=== PATIENT | female | born 1955 | race Caucasian/White ===

== ENCOUNTER 2016-11-09 | Outpatient (CLI) | END 2016-11-09 14:36 | disposition short-term general hospital (02) | CPT/HCPCS: A0170; A0425; A0427 ==

== ENCOUNTER 2016-11-09 | Outpatient (CLI) | payer BC | END 2016-11-09 12:46 | disposition home or self-care (01) ==

== ENCOUNTER 2017-01-11 15:30 | Outpatient (CLI) | payer BC | END 2017-01-11 15:31 | disposition home or self-care (01) | DX: I50.9 Heart failure, unspecified (principal); I42.9 Cardiomyopathy, unspecified; N28.9 Disorder of kidney and ureter, unspecified; E27.1 Primary adrenocortical insufficiency; I48.91 Unspecified atrial fibrillation; R53.83 Other fatigue; J32.9 Chronic sinusitis, unspecified; Z95.0 Presence of cardiac pacemaker; I47.2 Ventricular tachycardia; R60.9 Edema, unspecified; K59.00 Constipation, unspecified; K64.9 Unspecified hemorrhoids; Z79.891 Long term (current) use of opiate analgesic; R33.9 Retention of urine, unspecified; G43.909 Migraine, unspecified, not intractable, without status migrainosus; I63.8 Other cerebral infarction; R20.8 Other disturbances of skin sensation; F33.9 Major depressive disorder, recurrent, unspecified; F41.9 Anxiety disorder, unspecified; Z51.5 Encounter for palliative care; R00.2 Palpitations; R13.10 Dysphagia, unspecified ==

== ENCOUNTER 2017-02-13 15:30 | Outpatient (CLI) | payer BC | END 2017-02-13 15:31 | disposition home or self-care (01) | DX: Z51.5 Encounter for palliative care (principal); K59.00 Constipation, unspecified; G89.4 Chronic pain syndrome; I50.9 Heart failure, unspecified; R33.9 Retention of urine, unspecified; J01.90 Acute sinusitis, unspecified; F33.9 Major depressive disorder, recurrent, unspecified; I48.91 Unspecified atrial fibrillation; Z79.51 Long term (current) use of inhaled steroids; Z79.891 Long term (current) use of opiate analgesic; K64.9 Unspecified hemorrhoids; I47.2 Ventricular tachycardia; R60.0 Localized edema ==

== ENCOUNTER 2017-02-14 15:20 | Outpatient (CLI) | payer BC | END 2017-02-14 15:21 | disposition home or self-care (01) | DX: Z79.899 Other long term (current) drug therapy (principal) ==

== ENCOUNTER 2017-03-11 14:00 | Outpatient (CLI) | payer BC | END 2017-03-11 14:01 | disposition home or self-care (01) | DX: L03.032 Cellulitis of left toe (principal) ==

== ENCOUNTER 2017-03-22 15:30 | Outpatient (CLI) | payer BC ==
--- NOTE | 2017-03-25 11:39 | CONSULTATION NOTE ---
DATE OF CONSULTATION: 03/22/2017 00:00:00 REQUESTING PROVIDER: Javier Benavidez M.D. TIME OF VISIT: 1530 to 1630 hours. TOPIC: Followup palliative care consult. The patient is seen in her home setting secondary to considerable and taxing effort for the patient t o leave the home, as well as to evaluate current situation regarding function, symptom management, an d family conferencing. BRIEF HISTORY OF PRESENT ILLNESS: This is a tonja, very complex 61-year-old woman with very extensiv e health history, who has had recurrent hospitalizations and multiple ED visits. She has underlying v entricular tachycardia. She has nonobstructive coronary artery disease. She does have a [employer] DDD PPM placed and did continue to adjust. She continues to present with very high symptom burden, multi ple specialists regarding her multiple comorbidities and high symptom burden. Her cardiac status: She does continue to struggle with her arrhythmias and CHF. She had about 2 or 3 weeks ago increase in fluid retention. It is complicated by her poor renal function, as she has only one functioning kidney. Her other one has been removed secondary to history of renal cancer. Her most recent interrogation per her report continues that show that she has ongoing episodes, the worst one s though are actually when she is asleep. She does have episodes of her less than the threshold of 15 0, where her heart rate goes up to 110-120, which necessitates her to lie down and then she sleeps fo r several hours with these episodes. She reports they are happening in frequency about every 2 days. She almost goes into a syncopal state with that. Currently, she does not show any signs or symptoms o f fluid retention. She does have her torsemide that she is supposed to titrate accordingly. Her curre nt weight is about 145. Her other longstanding issue has been her constipation. She recently had GI workup, which included a CT of the abdomen and pelvis, though without contrast. Findings were mildly dilated stool-filled colo n and small amount of ascites of uncertain significance. Of note, during that time though she did hav e significant lower extremity edema and fluid overload from her heart failure. She is concerned, righ tly so, of this ascites component. We did review, though, the liver. She has no adenopathy and other things that are concerns that would show more of concern as far as malignancy are at this point in ti me not evident. The adjustments of stopping the fiber gummies, decreasing her opioid load and her cur rent regimen, which is MiraLax 1-2 capsules every day along with about 6 equivalents of senna, do tushar ear to keep her going every 2-3 days, but it still remains quite problematic, and now currently she i s having nocturnal stooling which is impacting her sleep. She has had no further acute bleeding. This was attributed to internal hemorrhoids. She is on Xarelto so this could be a likely explanation. Of note, though, is she has no symptoms of adhesions or obstructive symptoms, so if we do need to initia te Relistor, can do this in a safe setting and also has an oral equivalent available now too. Her other symptom includes urinary retention. This is intermittent in nature. It is improved with her bowels moving regularly, but still remains problematic, and she does have a followup with nephrologi st coming up. I do not believe she has followed up with Neurology. Her kidney function has remained stable and not worsening, but continued to have discussions about wa ys to decrease the stress on her kidneys. her creatinine is 1.56, BUN 29, and GFR 34. Her other compr ehensive panel readings are within normal limits. This was done on 03/13/2017. Her other prominent symptom is fatigue. Her rn chronic recently added liothyronine 5 mcg. She morton s not seen much improvement. Her schedule tends to be, she gets up at 9, takes her pills. Her energy level remains quite low. She goes back to bed and then awakens again from 2 to 3, where she has about a 4-5 hour window where she is quite functional and able to engage in activities, and then, unfortun ately, because of the bowel issues she is not sleeping as well, but usually when she is sleeping it i s quite heavy. She has a very poor activity tolerance, but is very much engaged and distracted into h er [employer] garden. Her other ongoing quality of life issue is her pain. She is currently now on methadone 5 mg b.i.d. Sh e is continuing the [place] 3-4 times a day. 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 She has underlying fibromyalgia and migraines. She is down on her gabapentin to 100 mg b.i.d. She does have periods where her pain spikes and is quite excrucia ting and this is most often when she is awakening in the morning. She is due to see her neurologist i n 2 weeks and is considering Botox for her migraines, continues weighing benefits and burdens as far as commitment to these multiple appointments. Unfortunately, she had missed her Neurology appointment because she did have an episode of flu. She continues to have some sinus pressure and swelling, some nasal congestion, but is doing fairly we ll on this overall. She is using her Flonase and other measures. BRIEF SOCIAL HISTORY: She lives at home with her , Jorge, who is her main caregiver, as she adhikari s have increased care needs. She does have her [id number], who is providing more support, some p aid caregiving support, is trying to piece it together as far as concerns about her being alone with her frequent episodes. She has planned a big event in June, renewal of her vows, and is working marquez y much to setting goals to accomplish this in her future. MEDICATION ALLERGIES 1. CLINDAMYCIN. 2. CODEINE. 3. ERYTHROMYCIN. 4. IMITREX. 5. LEVAQUIN. 6. MORPHINE. 7. MONISTAT. 8. RIBOFLAVIN. 9. VANTIN. 10. VESICARE. 11. VIOXX. 12. TAPE ADHESIVE. CURRENT MEDICATION LIST Includes: 1. Levothyroxine 100 mcg. 2. Liothyronine 5 mcg. 3. Methadone 5 mg b.i.d. 4. Seroquel 25 mg at bedtime. 5. Restasis 1 drop b.i.d. 6. Torsemide 20 mg every morning, for greater than 3 pound weight gain second tab. 7. Betamethasone dipropionate 0.05% lotion to lower legs and tops of feet b.i.d. 8. Diclofenac gel 1% three to four times a day to painful joints p.r.n. 9. Refresh tears 0.5% one drop in both eyes daily t.i.d. 10. Calcium with vitamin D chewable 2 tabs daily. 11. Fluticasone propionate 50 mcg nasal spray 1 spray each nostril b.i.d. 12. Gabapentin 100 mg b.i.d. 13. Hydrocortisone 10 mg, 15 mg in the a.m., 5 in the afternoon. 14. Hydroxyzine 25 mg, she is taking 1 tab b.i.d., can use it up to 4 times a day for pruritus. 15. Metoprolol succinate 50 mg tabs 1-1/2 tabs daily. 16. Nutritional supplement vitamin daily. 17. Ondansetron 4 mg tabs, 1 tab 2-3 times daily as needed. 18. Hydrocodone/acetaminophen 5/325 one tab every 6 hours as needed, averaging about 3 a day. 19. Miralax 17 grams 2 doses daily. 20. Probiotic tablet daily. 21. Salmeterol 50 mcg dose 1 puff b.i.d. 22. Sennosides 66 mg total in divided doses. 23. Lubiprostone 24 mcg b.i.d. 24. Xarelto 15 mg daily. REVIEW OF SYSTEMS HEENT: She does have to continue to be real careful with swallowing. She still chokes about once a we ek. She continues to have some mild sinus pressure and allergy symptoms. CARDIOVASCULAR: Continues to have intermittent periods of palpitation with chest discomfort and spell s. These continue to cycle about every other day. RESPIRATORY: Intermittent shortness of breath. She does have increased snoring at bedtime. GASTROINTESTINAL: Currently, her bowels are moving every 2-3 days with some pressure and straining. N o further hemorrhoidal bleeding noted. MUSCULOSKELETAL: She does have intermittent tremors in the left side, increased left side neglect, an d numbness and coldness, very sensitive most intensely in the shoulder, arm, but still left-sided leg discomfort as well. INTEGUMENTARY: She continues to have intermittent pruritus. She has seen a chro. They did tr y and freeze off these unknown growths. They were not biopsied, has not seen any improvement with tho se. She also recently had to have her left toe taken care of as she had severe pain and redness. This is improved now. NEUROLOGIC: She still continues to have cognitive deficits with tracking and memory. PSYCHIATRIC: Please see palliative care discussion. ENDOCRINE: Continues to be followed up with by her rn chronic. I did talk to him after last visi t. He does not believe she has Con[employer]'s, but she does need thyroid cortisol replacement because of l sharonda-term use of prednisone with her asthma. HEMATOLOGIC/IMMUNOLOGIC: Sinus infection is much improved . GENITOURINARY: As noted above. Continued difficulty with urinary retention and does have interstitial cystitis. PHYSICAL EXAMINATION GENERAL APPEARANCE: She is much distressed over her weight gain and fat distribution. Most likely att ributed to her changes in her thyroid and some cushingoid appearance. Does not appear fluid at this p oint in time. EYES: With slight periorbital edema. ENT: Mucous membranes are moist. RESPIRATORY: Her O2 saturations are 96%. Her breath sounds are quite diminished. No crackles, rhonchi , or wheezing. CARDIOVASCULAR: Pulse remains quite irregular at 62, blood pressure 110/64, her temperature was 96.0. ABDOMEN: Remains tender to palpation. Continues to complain of bloating. She does have active bowel t ones. SKIN: She does have multiple skin lesions on the left lower extremity, and they have been scabbing ov er but do not appear to be resolving. She has used multiple different lotions and is working with [employer], does not see much improvement so she is quite discouraged. EXTREMITIES: Currently, she has no lower extremity edema. She does wear her ELIAS hose and keeping her feet up more, with some improvement. PALLIATIVE CARE DISCUSSION: The patient has continued to cycle through multiple specialists, continue s to have multiple symptoms and comorbidities, which common theme is most likely some autonomic dysfu nction. She has a long list again of complex symptoms that continue to plague her. She has really don e a nice job as far as resiliency, trying to reframe, and just focus on being as comfortable as she c an, managing her symptoms, setting some goals, and trying to stay positive. She continues to be fairl y realistic as far as outcomes she is hoping for, but feels quite vulnerable in the context of really no black and white answers. She has set a goal for the summer as far as this event, and is looking f orward to meeting this and continuing to work towards this. It does raise her spirits. IMPRESSION: This is a 61-year-old woman who continues with fragile cardiac status, symptoms related t o her left-sided stroke, central pain syndrome, increasing autonomic neuropathic symptoms of urinary retention, constipation is improved, sweating abnormalities, and difficulty with activity tolerance a nd fatigue. RECOMMENDATIONS/COUNSELING DONE 1. Constipation, much improved. At this point in time her CT abdomen did show no contraindications t o adding Relistor if needed. She has made modifications to her bowel program, including decreasing th e Tums, stopping the fiber, we have decreased the opioid load, she is watching her diet, and it does appear to have improved overall. The pain related to defecating is improved somewhat, though remains quite uncomfortable. 2. Chronic pain syndrome. She has her scheduled Neurology appointment rescheduled. She is hoping for some other interventions as far as managing that left arm and shoulder pain. In weighing benefits an d burdens regarding her current regimen, will continue on the b.i.d. methadone, the intermittent Norc o, and she has been on decreased gabapentin without significant increase in her migraines. She had go tten a call from her neurologist about concerns with the gabapentin and her kidney function in the co ntext of impact on a very small dose. We did discuss we could increase back up her methadone a small amount and decrease her off the gabapentin, but agreed to wait until after her Neurology appointment. 3. Acute on chronic heart failure. She does continue to have intermittent signs and symptoms of CHF, unstable symptoms as far as her heart racing. She has had no further hospitalizations or ED visits, but they continue to impact the quality of her life significantly. Did review when does have the flui d overload, to be sure and use the extra torsemide. 4. Urinary retention. She has longstanding interstitial cystitis. She has not used a self cath, as s he would need assistance doing this. She is going to see a urologist at some point, but is finding it manageable currently. 5. Depression. This does appear somewhat improved. She has been seeing the medical palliative care s ocial worker, as well as she finds it quite therapeutic being involved in her garden and has increase d family support. She has set some goals and is looking forward towards those, so is feeling some mor e sense of meaning in her life. 6. Fatigue. Again, multifactorial in origin. Again, pulling back on different medications really has not impacted this much, but we were able to decrease the Seroquel with 1 tab at night without any im pact on her sleep. Most of her symptoms have been related to being up at night for constipation. We w ill have her take the senna at night to see if that will improve her bowel patterns so she does not h ave to get up at night. Thank you, Dr. Benavidez, for asking the palliative care consult service to be involved in the care of yo ur patient. She does remain quite complex, and we continue to focus on different quality of life issu es regarding her symptom management. She continues to have multiple specialists. I do find, however, that it is helpful to try and pull some of this together and provide her support in the context of co ordinated care. She is quite nervous about the "ascites of unknown significance." We will revisit the appropriateness of a CT of the abdomen again in 6 months if she has not been hospitalized or this morton s not happened in the meantime. TIME SPENT: 60 minutes, with greater than 50% of this done in counseling and coordination of care, re view of her multiple symptoms and comorbidities. We will continue to provide anticipatory guidance an d support through this process. JOB #: [id number] EXT JOB #:[id number]
== END 2017-03-22 15:31 | disposition home or self-care (01) ==
LOC: PC 15:30
PROVIDERS: ATTEND Nurse Practitioner Adult Health
DX: Z51.5 Encounter for palliative care (principal); K59.00 Constipation, unspecified; G89.29 Other chronic pain; I50.9 Heart failure, unspecified; R33.9 Retention of urine, unspecified; F32.9 Major depressive disorder, single episode, unspecified; I47.2 Ventricular tachycardia; I25.10 Atherosclerotic heart disease of native coronary artery without angina pectoris; Z95.0 Presence of cardiac pacemaker; Z90.5 Acquired absence of kidney; Z85.528 Personal history of other malignant neoplasm of kidney; Z79.891 Long term (current) use of opiate analgesic; M79.7 Fibromyalgia; G43.909 Migraine, unspecified, not intractable, without status migrainosus; R09.81 Nasal congestion; R00.2 Palpitations; R06.02 Shortness of breath; L29.9 Pruritus, unspecified; N30.10 Interstitial cystitis (chronic) without hematuria
CPT/HCPCS: 99350

== ENCOUNTER 2017-05-01 11:14 | Outpatient (CLI) | payer BC ==
--- NOTE | 2017-05-01 15:33 | XRAY Report ---
TWO VIEW CHEST: 05/01/2017 CLINICAL INDICATION: Dyspnea. COMPARISON: 04/06/2016. FINDINGS: Frontal and lateral views of the chest demonstrate a normal cardiac silhouette. A left sub clavian pacemaker is stable. The lungs are clear. No effusion or pneumothorax is present. IMPRESSION: STABLE PACEMAKER. NO EVIDENCE OF ACUTE CARDIOPULMONARY DISEASE. JOB #: [id number] EXT JOB #:[id number]
== END 2017-05-01 11:15 | disposition home or self-care (01) ==
LOC: DI.S 11:14
PROVIDERS: ATTEND Nurse Practitioner Adult Health
DX: R06.00 Dyspnea, unspecified (principal); Z95.0 Presence of cardiac pacemaker; Z79.899 Other long term (current) drug therapy
CPT/HCPCS: 36415; 71020; 80053

== ENCOUNTER 2017-05-01 12:33 | Outpatient (CLI) | payer BC ==
[2017-05-01 18:42] LABS: ALBUMIN/GLOBULIN RATIO 1.7 (1.0-2.2); BILIRUBIN,TOTAL 0.7 mg/dL (0.2-1.0); CALCIUM 9.1 mg/dL (8.5-10.3); CREATININE 1.4 mg/dL (0.4-1.0); POTASSIUM 3.8 mmol/L (3.5-5.0); TOTAL PROTEIN 6.3 g/dL (6.7-8.2)
== END 2017-05-01 12:34 | disposition home or self-care (01) ==
LOC: LAB.F 12:33
PROVIDERS: ATTEND Family Medicine
DX: Z79.899 Other long term (current) drug therapy (principal)
CPT/HCPCS: 36415; 80053

== ENCOUNTER 2017-05-17 15:00 | Outpatient (CLI) | payer BC ==
--- NOTE | 2017-05-17 17:59 | PROVIDER PROGRESS NOTE ---
Palliative Care Follow Up - Referral Referring Provider: Dr. Benavidez Time of Visit: [id number] Referral setting: Home (Patient is seen in home setting secondary to taxing and considerable effort to leave the home with severe fatigue, and poor activity tolerance as well as to evaluate / housing counselor family conferencing.) Referral Reason: Constipation - Information Sources Records Reviewed: Old records reviewed History obtained from: Patient, Family (Jorge home for visit) Exam limitations: No limitations - History of Present Illness Update Brief HPI Update: This is a tonja very complex 61 year old woman with an extensive health history , multiple specialists, and ongoing complicated issues. 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 Today she presents with severe constipation, it had improved short term, has been worked up by GI without any etiology other than most likely autonomic dysfunction complicated by opioid use. She get extreme pain when she has to go, did manage to go last night with suppository with some relief but had been over a week. She had changed her routine with recent outing to [place], and attributes this to difficulty, she also continues to struggle with urinary retention complicated by her CHF and toresimide use. Her weight is up greater than 3 pounds to 156 and has needed increased dosing of two tabs, no instruction had been given to max. number of days, requested follow up as concern for kidney function with Dr. Guallpa, is due to see him next week. Patient had increase breathlessness with laying flat, chest xray did not reveal effusions or congestion. Is relieved when sits up and relaxes. Social History - Living Situation Living arrangement: At home Living Situation: With spouse/s.o., With caregiver(s) (DIL providing caregiver support while working for the summer) Medications/Allergies - Medications Home Medications: Ambulatory Orders Medication Instructions Recorded Confirmed Fluticasone [Flonase] 1 spray HAROLDO BID 01/24/16 05/17/17 HYDROcod/ACETAM 5/325 [Vicodin 1 tab PO Q6HR PRN MDD 4 01/24/16 05/17/17 5/325] Polyethylene Glycol 3350 [Miralax] 238 gm PO BID 01/24/16 05/17/17 QUEtiapine [SEROquel] 25 mg PO ACHS 01/24/16 05/17/17 Torsemide 20 mg PO DAILY 01/24/16 05/19/17 Levothyroxine [Synthroid] 1 tab PO DAILY 05/17/17 05/17/17 Liothyronine [Cytomel] 1 tab PO DAILY 05/17/17 05/19/17 Methadone 1 tab PO BID 05/17/17 05/17/17 Rivaroxaban [Xarelto] 1 tab PO DAILY 05/17/17 05/17/17 Calcium Carbonate/Vitamin D3 1 tab PO BID 05/19/17 05/19/17 [Calcium 600-Vit D3 400 Tablet] Carboxymethylcellulose Sodium 1 drops TOP TID 05/19/17 05/19/17 [Refresh Tears] Cyclosporine [Restasis] 1 applic TOP BID 05/19/17 05/19/17 Gabapentin 1 tab PO BID 05/19/17 05/19/17 Hydrocortisone [Cortef] 0.5 tab PO QDDINNER 05/19/17 05/19/17 Hydrocortisone [Cortef] 1.5 tab PO QDBREAKFAST 05/19/17 05/19/17 Hydroxyzine Pamoate 1 tab PO Q6HR PRN MDD 4 05/19/17 05/19/17 Metoprolol Succinate 1.5 tab PO DAILY 05/19/17 05/19/17 Multivitamin [Multiple Vitamins] 1 tab PO DAILY 05/19/17 05/19/17 Ondansetron Odt [Zofran Odt] 1 tab PO Q6HR PRN 05/19/17 05/19/17 Polyethylene Glycol 3350 [Miralax] 34 - 68 gm PO DAILY 05/19/17 05/19/17 Salmeterol Xinafoate [Serevent 1 puffs INH BID 05/19/17 05/19/17 Diskus] Sennosides [Senna Laxative] 6 - 8 tab PO DAILY 05/19/17 05/19/17 - Allergies Allergies/Adverse Reactions: Allergies Allergy/AdvReac Type Severity Reaction Status Date / Time cefpodoxime proxetil * Allergy Unknown Verified 01/24/16 14:08 [From Vantin] clindamycin Allergy Unknown Verified 05/17/17 18:00 codeine Allergy Unknown Verified 01/24/16 14:08 erythromycin base Allergy Unknown Verified 01/24/16 14:08 [Erythromycin Base] levofloxacin [From Levaquin] Allergy Unknown Verified 01/24/16 14:08 rofecoxib [From Vioxx] Allergy Unknown Verified 01/24/16 14:08 sumatriptan [From Imitrex] Allergy Unknown Verified 01/24/16 14:08 sumatriptan succinate * Allergy Unknown Verified 01/24/16 14:08 [From Imitrex] morphine AdvReac Unknown Verified 05/17/17 18:01 Review of Systems - Constitutional Constitutional: reports: Fatigue, Malaise, Weakness, Poor appetite, Night sweats , Weight gain - Eyes Eyes: reports: Irritation, Vision loss - Ears, Nose & Throat Ears, Nose & Throat: reports: Nasal congestion (longstanding hx of sinusitis) - Cardiovascular Cariovascular: reports: Irregular heart rate, Palpitations, Edema, Lightheadedness, Exertional dyspnea, Decr. exercise tolerance, Orthopnea, Other (has had some episodes of hypertension that resulted in spells of "being out of it", stressed with constipation.) - Respiratory Respiratory: reports: SOB at rest, SOB with exertion - Gastrointestinal Gastrointestinal: reports: Abdominal pain, Abdominal distention, Constipation, Change in bowel habits, Bloating, Poor appetite - Genitourinary Genitourinary: reports: Frequency, Urgency, Other (retention, can't go sometimes for hours at night despite feeling like full) - Musculoskeletal Musculoskeletal: reports: Stiffness, Limited range of motion (left side), Muscle weakness - Integumentary Integumentary: reports: Lesions (Dr. Benavidez froze off actinic keratosis, much better result and more comfortable), Dryness, Hair changes (thinning) - Neurological Neurological: reports: General weakness, Headache, Dizziness, Memory problems, Other (epidisodes correlated with irregular heart rhythms) - Psychiatric Psychiatric: reports: Depression (significant feelings of grief and loss), Anxiety - Endocrine Endocrine: reports: Other (hypothyroidsim). denies: Intolerance to cold - Hematologic/Lymphatic Hematologic/Lymphatic: denies: Anemia - All Other Systems All Other Systems: reports: Reviewed and negative Physical Examination - Vital Signs Temperature: 97.4 C Pulse Rate: 53 Respiratory Rate: 16 O2 Saturation: 95 (RA at rest) Blood Pressure: 112/72 - Physical Exam General Appearance: positive: Mild distress, Anxious Eyes Bilateral: positive: Conjunctivae nml. negative: No lid inflammation ENT: positive: Pharynx nml. negative: No signs of dehydration, Purulent nasal drainage Neck: positive: No JVD, Trachea midline Respiratory: positive: Other. negative: Wheezes, Rales, Rhonchi (diminished in bases) Cardiovascular: positive: Regular rate & rhythm Abdomen: positive: Tenderness, Guarding, Abnml bowel sounds (diminished) Skin: positive: Dryness, Other (swallow in color) Extremities: positive: Pedal edema (up to about knees 1 +) Neurologic/Psychiatric: positive: Oriented x3, Depressed mood/affect Palliative Care - POLST Patient has POLST: No Pain: Pain unchanged, Location (left side, hyperalgesia, allodynia, to get EMG to r/o carpal tunnel with neurologist this week. Still with abdominal pain with constipation/urinary retention), Severity (mod/severe), Pattern (left sided pain incapcitating in AM) Drowsiness: Severe (7-10) (patient sleeps solidly through night, only tolerates being up 1-2 hours in am, then up in afternoon until bedtime. c/o severe fatigue and if has spell is back in bed or does too much.) Nausea: None Anxiety: Mild (1-3) Dyspnea: Mild (1-3), Moderate (4-6) (night sweats needs to change gown out) Anorexia: Moderate (4-6) (no appetite, doesn't feel eats much and distressed with weight gain) Insomnia: Sleeps well, Other Constipation: Yes, Opoid induced, Unmanaged Feelings of wellbeing/Perceived Quality of Life: Worsening Performance Status: Patient needs assistance with dressing and toileting related to left sided pain/ weakness. Poor exercise tolerance so unable to particpate much in household tasks. Her "happy place" is gardening so does spend much time with adjustments with her plants. - Palliative Care Discussion: Patient continues to struggle with her ongoing and progressive health problems, feels like she is always waiting for "something" to happen, tries to stay positive, but is influenced by stressors with other family members, father's failing health, and dependency issues. Feels QOL remains impacted particularly be constipation last couple of weeks. Results - Lab Results Lab results reviewed: Yes Impression and Recommendations - Palliative Care Impression: This is a complex 61 year old woman with multiple health problems, currently QOL issues include constipation, weight gain, and depression. Continues to have multiple specialists but feels no definitive plan, feeling vulnerable and distressed. Sets goals and tries to remain positive, caregiving needs currently being met, but high caregiver stress/fatigue noted with . Recommendations/Counseling Done: 1. Constipation, poorly controlled. This has been longstanding with multiple attempts to find adequate program including lactulose, combinations of OTC medications, lubiprsone, enemas, and suppositories. Had found some relief and regularity with Miralax 17 gms 2-3 day, Sennosided 66 gms divided doses up to when varied routine. Counseling and follow up on Relistor for rescue dosing SQ ( probably has decreased absorption with gut edema) called in RX to local pharmacy , will need renal adjustment of 6 mg/sq. Teaching to on administration, had f/u previously with GI no obstruction noted. Will see if needs pre-auth. 2. Depression, multifactorial in complexity. Counseling done to normalize response of stressors/living with serious illnesses. Palliative Care [employer] Player seeing on regular basis, setting goals and trying to spend time in garden in "her happy place". 3. Urinary retention. Patient with multiple specialists, but has know interstitial cystitis in history, recommend consider f/u with urologist. May improve though with better management of constipation. 4. CHF. Patient on day three of increased toresimide, enc. contact Dr. Guallpa for max. dosing Time Spent: 60 minutes with greater than 50% done on counseling regarding constipation, depression, and cardiac status.
== END 2017-05-17 15:01 | disposition home or self-care (01) ==
LOC: PC 15:00
PROVIDERS: ATTEND Nurse Practitioner Adult Health
DX: Z51.5 Encounter for palliative care (principal); K59.00 Constipation, unspecified; F32.9 Major depressive disorder, single episode, unspecified; R33.9 Retention of urine, unspecified; I50.9 Heart failure, unspecified; I25.10 Atherosclerotic heart disease of native coronary artery without angina pectoris; Z95.0 Presence of cardiac pacemaker; R53.1 Weakness; N18.9 Chronic kidney disease, unspecified; R60.9 Edema, unspecified; I63.8 Other cerebral infarction; Z79.891 Long term (current) use of opiate analgesic; R61 Generalized hyperhidrosis; R00.2 Palpitations; R42 Dizziness and giddiness; R06.09 Other forms of dyspnea; R06.01 Orthopnea; R10.9 Unspecified abdominal pain; R14.0 Abdominal distension (gaseous); R63.0 Anorexia; R35.0 Frequency of micturition; F41.9 Anxiety disorder, unspecified; E03.9 Hypothyroidism, unspecified
CPT/HCPCS: 99350

== ENCOUNTER 2017-08-22 08:00 | Outpatient (CLI) | payer BC ==
[2017-08-22 18:01] LABS: CREATININE 1.6 mg/dL (0.4-1.0)
== END 2017-08-22 08:01 | disposition home or self-care (01) ==
LOC: LAB.F 08:00
PROVIDERS: ATTEND Family Medicine
DX: I48.0 Paroxysmal atrial fibrillation (principal); I63.40 Cerebral infarction due to embolism of unspecified cerebral artery
CPT/HCPCS: 36415; 82565

== ENCOUNTER 2017-08-26 09:46 | Outpatient (CLI) | payer BC ==
--- NOTE | 2017-08-28 11:16 | XRAY Report ---
MODIFIED BARIUM SWALLOW: 08/26/2017 COMPARISON: None. INDICATION: Liquid dysphagia. Total fluoroscopy time 1 minute 17 seconds; number of images, 65. FINDINGS/IMPRESSION: No penetration or aspiration was visualized during the exam. Serial thicknesses of barium were administered orally and followed fluoroscopically with the speech p athologist in attendance. Please refer to the Speech report for further details. Thank you for this consultation. JOB #: [id number] EXT JOB #:[id number]
== END 2017-08-26 09:47 | disposition home or self-care (01) ==
LOC: DI 09:46
PROVIDERS: ATTEND Nurse Practitioner Adult Health
DX: R13.10 Dysphagia, unspecified (principal)
CPT/HCPCS: 74230

== ENCOUNTER 2017-09-20 12:43 | Outpatient (CLI) | payer BC ==
[2017-09-20 17:43] LABS: BASOPHILS # (AUTO) 0.1 10^3/uL (0.0-0.1); BASOPHILS % (AUTO) 0.6 %; EOSINOPHILS # (AUTO) 0.1 10^3/uL (0.0-0.7); EOSINOPHILS % (AUTO) 1.5 %; HGB - HEMOGLOBIN 12.4 g/dL (12.0-16.0); LYMPHOCYTES # (AUTO) 1.7 10^3/uL (1.5-3.5); LYMPHOCYTES % (AUTO) 20.6 %; MEAN CORPUSCULAR HGB CONC 32.6 g/dL (32.0-36.0); MEAN CORPUSCULAR VOLUME 88.9 fL (81.0-99.0); MEAN PLATELET VOLUME 8.1 fL (7.9-10.8); MONOCYTES # (AUTO) 0.7 10^3/uL (0.0-1.0); MONOCYTES % (AUTO) 7.9 %; NEUTROPHILS # (AUTO) 5.8 10^3/uL (1.5-6.6); NEUTROPHILS % (AUTO) 69.4 %; NUCLEATED RED BLOOD CELLS AUTO 0.1 /100WBC; RED BLOOD COUNT 4.28 10^6/uL (4.20-5.40); RED CELL DISTRIBUTION WIDTH 14.2 % (12.0-15.0); UNCORRECTED WHITE BLOOD COUNT 8.3 x10^3/uL; WHITE BLOOD COUNT 8.3 x10^3/uL (4.8-10.8)
[2017-09-20 17:51] LABS: ALBUMIN/GLOBULIN RATIO 1.4 (1.0-2.2); BILIRUBIN,TOTAL 0.4 mg/dL (0.2-1.0); CREATININE 1.5 mg/dL (0.4-1.0); TOTAL PROTEIN 6.7 g/dL (6.7-8.2)
== END 2017-09-20 12:44 | disposition home or self-care (01) ==
LOC: LAB.F 12:43
PROVIDERS: ATTEND Family Medicine
DX: N18.9 Chronic kidney disease, unspecified (principal)
CPT/HCPCS: 36415; 80053; 85025

== ENCOUNTER 2017-12-11 16:15 | Outpatient (CLI) | payer BC ==
--- NOTE | 2017-12-11 21:04 | CONSULTATION NOTE ---
Palliative Care Follow Up - Referral Referring Provider: Dr. Jaime Benavidez Time of Visit: [id number] Referral setting: Home (There is a taxing considerable effort for the patient to leave the home secondary to her right leg pain, fatigue, and also to facilitate family conference and support treatment plan) Referral Reason: CHF/Chronic Pain - Information Sources Records reviewed: Previous records reviewed History/Review of Systems obtained from: Patient, Family ( Jorge at visit) Exam limitations: No limitations - History of Present Illness Update Brief HPI Update: This is a tonja 62-year-old woman who is very complex, has multiple specialist , and ongoing complicated issues. She has known AV block status post pacemaker , fascicular V. tach, intermittent atrial fib, and known diastolic heart failure. This is been complicated as far as balancing her medications as she does have stage IV kidney failure, on the precipice of diaysis and awaiting to be put on the transplant list. She has one kidney as a result of surgery for kidney cancer with no evidence of recurrent disease. 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 Patient's most pressing pain issue actually is her right foot, she has had symptoms of severe pain in her right heel ankle area, she was pending a ultrasound and further workup for this but her father became gravely ill and she was providing support as he transitioned into hospice. This is left her fairly emotionally spent, and she physically did participate in his care, she already has fairly high level of underlying fatigue. She does sleep most of the time, this is also attributed to her frequent episodes related to her heart. Social History - Living Situation Living arrangement: At home Living Situation: With spouse/s.o. (Her Jorge is still continuing to work , she does have family that provide intermittent respite, patient does sleep most of the time, but when she has her spells she is fairly incapacitated. He continue to struggle with finding of balance for caregiving.) Medications/Allergies - Medications Home Medications: Ambulatory Orders Medication Instructions Recorded Confirmed Fluticasone [Flonase] 1 spray HAROLDO BID 01/24/16 12/11/17 HYDROcod/ACETAM 5/325 [Vicodin 1 tab PO Q6HR PRN MDD 4 01/24/16 12/11/17 5/325] QUEtiapine [SEROquel] 25 mg PO ACHS 01/24/16 12/11/17 Torsemide 20 mg PO DAILY 01/24/16 12/11/17 Levothyroxine [Synthroid] 100 mg PO DAILY 05/17/17 12/11/17 Methadone 5 mg PO BID 05/17/17 12/11/17 Rivaroxaban [Xarelto] 15 gm PO DAILY 05/17/17 12/11/17 Calcium Carbonate/Vitamin D3 1 tab PO BID 05/19/17 12/11/17 [Calcium 600-Vit D3 400 Tablet] Carboxymethylcellulose Sodium 1 drops TOP TID 05/19/17 12/11/17 [Refresh Tears] Cyclosporine [Restasis] 1 applic TOP BID 05/19/17 12/11/17 Gabapentin 100 mg PO BID 05/19/17 12/11/17 Hydrocortisone [Cortef] 10 tab PO QDBREAKFAST 05/19/17 12/11/17 Metoprolol Succinate 75 mg PO DAILY 05/19/17 12/11/17 Multivitamin [Multiple Vitamins] 1 tab PO DAILY 05/19/17 12/11/17 Ondansetron Odt [Zofran Odt] 1 tab PO Q8HR PRN 05/19/17 12/11/17 Polyethylene Glycol 3350 [Miralax] 17 - 34 gm PO DAILY 05/19/17 12/11/17 Salmeterol Xinafoate [Serevent 1 puffs INH BID 05/19/17 12/11/17 Diskus] hydrOXYzine pamoate [Hydroxyzine 1 tab PO BID MDD 4 05/19/17 12/11/17 Pamoate] raNITIdine [Zantac] 150 mg PO BID 08/16/17 12/11/17 Hydrocortisone [Cortef] 5 mg PO QDDINNER 12/11/17 12/11/17 Lidocaine [Topicaine 5] 1 applic TOP PRN PRN 12/11/17 12/11/17 Liothyronine [Cytomel] 5 mcg PO DAILY 12/11/17 12/11/17 Lubiprostone [Amitiza] 24 mcg PO DAILY 12/11/17 12/11/17 - Allergies Allergies/Adverse Reactions: Allergies Allergy/AdvReac Type Severity Reaction Status Date / Time cefpodoxime proxetil * Allergy Unknown Verified 01/24/16 14:08 [From Vantin] clindamycin Allergy Unknown Verified 05/17/17 18:00 codeine Allergy Unknown Verified 01/24/16 14:08 erythromycin base Allergy Unknown Verified 01/24/16 14:08 [Erythromycin Base] levofloxacin [From Levaquin] Allergy Unknown Verified 01/24/16 14:08 rofecoxib [From Vioxx] Allergy Unknown Verified 01/24/16 14:08 sumatriptan [From Imitrex] Allergy Unknown Verified 01/24/16 14:08 sumatriptan succinate * Allergy Unknown Verified 01/24/16 14:08 [From Imitrex] morphine AdvReac Unknown Verified 05/17/17 18:01 Review of Systems - Constitutional Constitutional: reports: Fatigue (feeling overly spent with of father), Weakness, Night sweats, Weight gain - Eyes Eyes: reports: Vision loss, Corrective lenses - Ears, Nose & Throat Ears, Nose & Throat: reports: Postnasal drainage, Other (difficulty swallowing especially pills) - Cardiovascular Cardiovascular: reports: Palpitations (reports episodes of palpations-lead to dizzyness then sleeping off about 4-5 hours; happens almost daily), Decr. exercise tolerance - Respiratory Respiratory: reports: SOB with exertion - Gastrointestinal Gastrointestinal: reports: Abdominal distention, Constipation (still struggling but some better), Nausea (needing ondansetron about 2 times a day), Reflux/ heartburn, Bloating, Poor appetite, Early satiety - Genitourinary Genitourinary: reports: Dysuria, Other (retention at times) - Musculoskeletal Musculoskeletal: reports: Muscle pain, Back pain, Muscle aches, Stiffness, Limited range of motion (left sided weakness worsened these last couple of weeks ; attributing to stress), Muscle weakness, Assistive devices (uses cane; pain on right foot most limiting factor currently) - Integumentary Integumentary: reports: Rash, Pruritis, Lesions, Dryness, Nail changes, Hair changes - Neurological Neurological: reports: General weakness, Dizziness, Memory problems - Psychiatric Psychiatric: reports: Depression, Anxiety - Endocrine Endocrine: reports: Hypothyroidism - Hematologic/Lymphatic Hematologic/Lymphatic: reports: Anemia - All Other Systems All Other Systems: reports: Reviewed and negative Physical Exam - Vital Signs Temperature: 98.0 C Pulse Rate: 72 Respiratory Rate: 18 O2 Saturation: 95 (ra @ rest) Blood Pressure: 132/78 - Physical Exam General Appearance: positive: Mild distress Eyes Bilateral: positive: Normal inspection ENT: positive: No signs of dehydration Neck: positive: No JVD, Trachea midline, Stiff neck Cardiovascular: positive: Regular rate & rhythm, Systolic murmur Respiratory: positive: Diminished in bases (left greater than right) Abdomen: positive: Soft Skin: positive: Pallor, Dryness, Pruritis, Rash (scattered raised plaques on lower extremities) Extremities: positive: Pedal edema (less than have seen before; trace but right heel/ankle with swelling and pain/tenderness; left toe tender, some redness at base of toenail; no noted redness/swelling in joint) Neurologic/Psychiatric: positive: Oriented x3, Weakness, Depressed mood/affect Palliative Care - POLST Patient has POLST: No Pain: Pain worsening, Location Tiredness/Fatigue: Severe (7-10) (Patient for probably 30% of the day, this has made it difficulty for medication adherence and timing.) Drowsiness/Sedation: Mild (1-3) Nausea: Moderate (4-6) (using ondansetron 1-2 x a day) Depression: Moderate (4-6) (expressing appropriate grief and loss with recent loss of her father) Anxiety: Mild (1-3) Dyspnea: Mild (1-3) Anorexia: Mild (1-3) Sleep: Sleeps well Constipation: Yes, Opoid induced, Unmanaged (Continues to struggle with constipation, most recently had tried L IN Z ESS as from PCP, had stopped this as it had increased her cramping. She uses Amitza 24 mcg daily, MiraLAX, and popcorn for fiber. She still continues to struggle but this has been in and improved overall.) Feelings of wellbeing/Perceived Quality of Life: Poor, Worsening Performance Status: Patient with her right foot pain, left hemiplegia, remains quite limited as far as her ability to get around. She does need a wheelchair for going long distances, she does use walker and cane in the house. She does need assistance getting in and out of bed and dressing. She is quite overwhelmed by her dependence, and her does demonstrate caregiver fatigue - Palliative Care Discussion: Much of the visit was focused on processing her grief around the loss of her father, and family dynamics in the context of stressors and siblings, as well as the process of her father's decline in hospitalization. She is feeling on "sensory overload", continues to have multiple doctors appointments, feeling quite discouraged as most or not improving her quality of life, and sometimes feels like "they are giving up on me". Patient does try to remain positive despite all her deficits and complex issues. Impression and Recommendations - Palliative Care Impression: This is a 62-year-old woman who is quite complex regarding her underlying problems, she presents with high symptom burden, and continue really struggling with her quality of life. This is compounded by the recent loss of her father, and the sequela from this over the last few weeks Recommendations/Counseling Done: 1.Acute on chronic pain. This is multifactorial in origin. She does have central pain syndrome that is currently managed with methadone 5 mg twice daily with hydrocodone 5 mg/325 mg APAP for breakthrough pain. Her most intense pain currently is her right foot pain, this is limiting her ability to bear weight as well as no medications are currently "touching it". She does seem to reschedule her follow-up as far as evaluation with this. We did discuss in the context of moving forward after she has her testing and follow-up with provider , to consider more individualized prosthetics for distributing weight appropriately. She does have an ankle brace but provides only more pressure in that area that increases her pain intensity. 2. Constipation. This is currently well controlled on her current regimen. Will reorder Amitza. Continues to struggle though with both constipation and intermittent urinary retention. 3. Depression. This has been exacerbated by her recent loss of her father, counseling and support provided to normalize this process. Will have lj Kinney the palliative care nephrology social worker revisit her. 4. Advanced care planning. Patient continues to process her poor health, she feels quite fragmented with her multiple specialists and all her complex problems. Continue to provide support and counseling regarding anticipatory guidance No medication changes made at this visit. Time Spent: 60 minutes with greater than 50% of this done in counseling Regarding depression , grief and loss, pain management, and anticipatory guidance
== END 2017-12-11 16:16 | disposition home or self-care (01) ==
LOC: PC 16:15
PROVIDERS: ATTEND Nurse Practitioner Adult Health
DX: Z51.5 Encounter for palliative care (principal); M79.671 Pain in right foot; G89.0 Central pain syndrome; K59.03 Drug induced constipation; T40.2X5D Adverse effect of other opioids, subsequent encounter; F32.9 Major depressive disorder, single episode, unspecified; I48.91 Unspecified atrial fibrillation; I50.9 Heart failure, unspecified; N18.4 Chronic kidney disease, stage 4 (severe); I69.354 Hemiplegia and hemiparesis following cerebral infarction affecting left non-dominant side; Z79.891 Long term (current) use of opiate analgesic; Z79.52 Long term (current) use of systemic steroids; R11.0 Nausea; M62.81 Muscle weakness (generalized); F41.9 Anxiety disorder, unspecified; Z95.0 Presence of cardiac pacemaker
CPT/HCPCS: 99350

== ENCOUNTER 2018-01-24 08:00 | Outpatient (CLI) | payer BC ==
[2018-01-24 18:04] LABS: ALBUMIN 4.2 g/dL (3.2-5.5); ALBUMIN/GLOBULIN RATIO 1.6 (1.0-2.2); BILIRUBIN,TOTAL 0.2 mg/dL (0.2-1.0); CALCIUM 9.1 mg/dL (8.5-10.3); CREATININE 1.5 mg/dL (0.4-1.0); TOTAL PROTEIN 6.8 g/dL (6.7-8.2)
== END 2018-01-24 08:01 | disposition home or self-care (01) ==
LOC: LAB.F 08:00
PROVIDERS: ATTEND Nurse Practitioner Adult Health
DX: Z79.899 Other long term (current) drug therapy (principal)
CPT/HCPCS: 36415; 80053

== ENCOUNTER 2018-02-05 21:04 | Outpatient (CLI) | payer BC ==
--- NOTE | 2018-02-05 21:15 | CONSULTATION NOTE ---
Palliative Care Follow Up - Referral Referring Provider: Dr. Jaime Benavidez Time of Visit: [id number] Referral setting: Home (Patient seen her home setting secondary to a taxing considerable effort for her to leave the home, this is related to pain, as well as to facilitate family conference and support treatment plan) Referral Reason: Depression/CHF/Central Pain Syndrome - Information Sources Records reviewed: Previous records reviewed History/Review of Systems obtained from: Patient, Family (son Jorge at visit) Exam limitations: No limitations - History of Present Illness Update Brief HPI Update: This is a tonja 62-year-old woman has a very complex set of comorbidities, she has 13 specialist, and has multiple complicated issues. She does have known AV block block status post pacemaker, fascicular V. tach, intermittent atrial fib, and known diastolic heart failure. She is also pushing up against the decision regarding dialysis, secondary stage IV kidney failure. Her recent labs does show some stabilization. She also has a long list of autoimmune issues, including irritable bowel syndrome, interstitial cystitis, fibromyalgia, hypothyroidism, and is on hydrocortisone for adrenal insufficiency. 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 Her most significant symptoms are increased in fatigue, she does have intermittent shortness of breath and dizziness, these are often aligned with her cardiac "spells". She is using nitro about twice a week, she does report decreased strength, is using her cane 50% of the time, and is dealing with complex grief issues related to the recent loss of her father. Social History - Living Situation Living arrangement: At home Living Situation: With spouse/s.o. Support System: Daughter and her , moved back on property; able to provide some support. Jorge working closer to home, and able to check more frequently Medications/Allergies - Medications Home Medications: Ambulatory Orders Medication Instructions Recorded Confirmed Fluticasone [Flonase] 1 spray HAROLDO BID 01/24/16 02/05/18 HYDROcod/ACETAM 5/325 [Vicodin 1 tab PO Q6HR PRN MDD 4 01/24/16 02/05/18 5/325] QUEtiapine [SEROquel] 25 mg PO ACHS 01/24/16 02/05/18 Torsemide 20 mg PO DAILY 01/24/16 02/05/18 Levothyroxine [Synthroid] 100 mg PO DAILY 05/17/17 02/05/18 Methadone 5 mg PO BID 05/17/17 02/05/18 Rivaroxaban [Xarelto] 15 gm PO DAILY 05/17/17 02/05/18 Calcium Carbonate/Vitamin D3 1 tab PO BID 05/19/17 02/05/18 [Calcium 600-Vit D3 400 Tablet] Carboxymethylcellulose Sodium 1 drops TOP TID 05/19/17 02/05/18 [Refresh Tears] Cyclosporine [Restasis] 1 applic TOP BID 05/19/17 02/05/18 Gabapentin 100 mg PO BID 05/19/17 02/05/18 Hydrocortisone [Cortef] 10 tab PO QDBREAKFAST 05/19/17 02/05/18 Metoprolol Succinate 75 mg PO DAILY 05/19/17 02/05/18 Multivitamin [Multiple Vitamins] 1 tab PO DAILY 05/19/17 02/05/18 Ondansetron Odt [Zofran Odt] 1 tab PO Q8HR PRN 05/19/17 02/05/18 Polyethylene Glycol 3350 [Miralax] 17 - 34 gm PO DAILY PRN 05/19/17 02/05/18 Salmeterol Xinafoate [Serevent 1 puffs INH BID 05/19/17 02/05/18 Diskus] hydrOXYzine pamoate [Hydroxyzine 1 tab PO BID MDD 4 05/19/17 02/05/18 Pamoate] raNITIdine [Zantac] 150 mg PO BID 08/16/17 02/05/18 Hydrocortisone [Cortef] 5 mg PO QDDINNER 12/11/17 02/05/18 Lidocaine [Topicaine 5] 1 applic TOP PRN PRN 12/11/17 02/05/18 Liothyronine [Cytomel] 5 mcg PO DAILY 12/11/17 02/05/18 Lubiprostone [Amitiza] 24 mcg PO DAILY 12/11/17 02/05/18 Escitalopram [Lexapro] 5 mg PO DAILY 02/06/18 02/06/18 - Allergies Allergies/Adverse Reactions: Allergies Allergy/AdvReac Type Severity Reaction Status Date / Time cefpodoxime proxetil * Allergy Unknown Verified 01/24/16 14:08 [From Vantin] clindamycin Allergy Unknown Verified 05/17/17 18:00 codeine Allergy Unknown Verified 01/24/16 14:08 erythromycin base Allergy Unknown Verified 01/24/16 14:08 [Erythromycin Base] levofloxacin [From Levaquin] Allergy Unknown Verified 01/24/16 14:08 rofecoxib [From Vioxx] Allergy Unknown Verified 01/24/16 14:08 sumatriptan [From Imitrex] Allergy Unknown Verified 01/24/16 14:08 sumatriptan succinate * Allergy Unknown Verified 01/24/16 14:08 [From Imitrex] morphine AdvReac Unknown Verified 05/17/17 18:01 Review of Systems - Constitutional Constitutional: reports: Fatigue (worsening; sleeping about 16 hours day), Poor appetite, Weight gain (very discouraged with weight gain) - Eyes Eyes: reports: Vision loss, Corrective lenses - Ears, Nose & Throat Ears, Nose & Throat: reports: Vertigo, Nasal congestion - Cardiovascular Cardiovascular: reports: Irregular heart rate, Palpitations, Chest pain (using nitro about 2 x a week, with 2 tabs), Edema, Exertional dyspnea, Decr. exercise tolerance - Respiratory Respiratory: reports: SOB at rest, SOB with exertion - Gastrointestinal Gastrointestinal: reports: Constipation (going regularly with current regimen and "popcorn"), Nausea (needing ondansetron at least once a day), Bloating, Poor appetite, Early satiety - Genitourinary Genitourinary: reports: Other (retention at times) - Musculoskeletal Musculoskeletal: reports: Muscle pain, Back pain, Muscle aches, Stiffness (left side), Limited range of motion, Muscle weakness, Assistive devices (needing cane about 50% of time) - Integumentary Integumentary: reports: Pruritis, Lesions (thickened plaques on lower legs;), Dryness, Nail changes - Neurological Neurological: reports: General weakness, Numbness - Psychiatric Psychiatric: reports: Depression (reports worsening), Anxiety, Aggitation. denies: Suicidal - Endocrine Endocrine: reports: Hypothyroidism - Hematologic/Lymphatic Hematologic/Lymphatic: reports: Recurrent infections (recent AB for ingrown toe) - All Other Systems All Other Systems: reports: Reviewed and negative Physical Exam - Vital Signs Temperature: 97.4 C Pulse Rate: 72 Respiratory Rate: 18 O2 Saturation: 92 (ra @ rest) Blood Pressure: 108/62 - Physical Exam General Appearance: positive: Moderate distress Eyes Bilateral: positive: Conjunctivae nml ENT: positive: No signs of dehydration Neck: positive: Trachea midline Cardiovascular: positive: Irregularly irregular Respiratory: positive: Diminished in bases. negative: Wheezes, Rales, Rhonchi Abdomen: positive: Soft, Nml bowel sounds Skin: positive: Pallor, Dryness Extremities: positive: Pedal edema (1+ up to mid calf) Neurologic/Psychiatric: positive: Oriented x3, Weakness, Depressed mood/affect, Flat affect Palliative Care - POLST Patient has POLST: No Pain: Pain worsening, Location (mostly central pain syndrome; left arm/shoulder/ leg pain. Does have baseline fibromyalgia, feet tender and great toenails painful "ingrown" recent AB per Dr. Shaw) Tiredness/Fatigue: Severe (7-10) (has no activity tolerance; finds self sleeping more episodes related to "cardiac"; feels like declining) Drowsiness/Sedation: Mild (1-3) Nausea: Moderate (4-6) (worse in the morning; thought attributed to meds but can happen any time.) Depression: Severe (7-10) (reports persistant depressive symptoms; expressing feelings of grief and loss; found meeting with bereavement counselor helpful; is willing givin the severity of her symptoms to try antidepressant; denies suicidal ideation; reports nightmares from baseline PTSD have started since father's ) Anxiety: Moderate (4-6) (worried about dialysis and consequences related to this if need to move forward) Dyspnea: Moderate (4-6) (intermittent episodes of dyspnea sometimes at night resolved with sitting up; has had intermittent periods in the day uses inhaler) Anorexia: Moderate (4-6) Constipation: Yes, Opoid induced, Managed Feelings of wellbeing/Perceived Quality of Life: Poor, Worsening Performance Status: Patient with decline in functional status, now on cane 50% of the time. Feels would like to focus on getting stronger, had benefited in past from physical therapy, and would like to proceed with starting with Home Health. Needs assistance to get out of bed in AM from as worst time with pain. PPS 60% . - Palliative Care Discussion: Patient's perception is she is having a fluctuating but downward trend, she reports "I am already ", as far as her feelings of grief and loss not only attributed to her father but also to her current functional status and perceived poor quality of life. She remains quite anxious about considering dialysis in the future, given the fact she is fairly fragile both with cardiac and pulmonary status, has not tolerated anesthesia well. She does also jessica in her grandchildren and gardening, goal is to be able to have better endurance and be able to garden again. Results - Lab Results Lab results reviewed: Yes Lab and Imaging Results: Sodium 140; potassium 3.6 summary: BUN 23; creatinine 1.5, GFR 35; alk phos 128 Impression and Recommendations - Palliative Care Impression: This is a 62-year-old woman who remains quite complex regarding her underlying medical problems and comorbidities, as well as presenting with high symptom burden, he continues to struggle finding meaning and quality of life. Discussion at length regarding her underlying depression, is willing to try additional support with medication, is being followed by palliative care long term care social worker, and recent bereavement counseling. Palliative care to continue to follow for symptom management, complex pain syndrome, and psychosocial support. Recommendations/Counseling Done: 1. Depression. Patient also has an exacerbation of her PTSD with increased nightmares at night, she is on baseline Seroquel for this. These have resurfaced after the of her father. Counseling with pharmacist regarding multiple medication interactions, most likely will benefit from an SSRI, will start her on low-dose his salad citalopram at 5 mg. Patient does have multiple medication sensitivities, will see if patient able to tolerate. 2. Acute on chronic pain. This is multifactorial in origin, she does have central pain syndrome currently managed with methadone 5 mg twice daily with hydrocodone 5 mg/325 mg APAP for breakthrough pain she is averaging about 3 a day. She does have intermittent neuropathic pain, headache pain, and recently treated for her ingrown toenails which had also increased her pain. Currently no changes recommended for her pain regimen, though she continues to struggle with this. In treating depression this may improve, as well as recommending physical therapy. Complaining of left breast pain, has appointment with ob gyn physician assistant/ob as had fibrous pain in past, denies mass or s/s infection. 3. Constipation. Currently this is actually been well controlled, she is taking her meds 1-2 a day, she does use "popcorn" which adds to her fiber and feels this is improved as well. 4. Cardiac issues. Patient continues with intermittent chest discomfort, this is responding to nitro at this point in time, she is following up with her adolescent medicine specialist in the future, instructed to call if she is using it more than 2 times a week, may need to be on a long-acting medication. She continues to have her "spells", which require her to return to bed, and sit down. She often has to sleep this off. Time Spent: 60 minutes with greater than 50% of this done in counseling and coordination of care regarding review of current care plan, patient had canceled all specialist appointments that she was feeling overwhelmed. Encouraged to prioritize including follow-up with adolescent medicine specialist and glass products inspector. Counseling regarding pain and symptom management and addressing depressive symptoms.
== END 2018-02-05 21:05 | disposition home or self-care (01) ==
LOC: PC 21:04
PROVIDERS: ATTEND Nurse Practitioner Adult Health
DX: Z51.5 Encounter for palliative care (principal); F32.9 Major depressive disorder, single episode, unspecified; G89.0 Central pain syndrome; K59.03 Drug induced constipation; T40.2X5D Adverse effect of other opioids, subsequent encounter; Z79.891 Long term (current) use of opiate analgesic; Z95.0 Presence of cardiac pacemaker; I50.30 Unspecified diastolic (congestive) heart failure; N18.4 Chronic kidney disease, stage 4 (severe); I69.954 Hemiplegia and hemiparesis following unspecified cerebrovascular disease affecting left non-dominant side; M62.81 Muscle weakness (generalized); R11.0 Nausea; F41.9 Anxiety disorder, unspecified; F43.10 Post-traumatic stress disorder, unspecified
CPT/HCPCS: 99350

== ENCOUNTER 2018-02-12 17:30 | Outpatient (CLI) | payer BC | END 2018-02-12 17:31 | disposition home or self-care (01) | LOC: LAB.R 17:30 | PROVIDERS: ATTEND Podiatrist | DX: L03.032 Cellulitis of left toe (principal) | CPT/HCPCS: 87070; 87205 ==

== ENCOUNTER 2018-03-12 16:15 | Outpatient (CLI) | payer BC ==
--- NOTE | 2018-03-12 19:13 | CONSULTATION NOTE ---
Palliative Care Follow Up - Referral Referring Provider: Dr. Jaime Benavidez Time of Visit: [id number] Referral setting: Home (Patient seen in her home setting secondary to a taxing considerable effort for the patient leave the home, prolonged counseling and support provided as well as able to adjust treatment plan with family conference ) Referral Reason: Acute on Chronic Pain/Depression/Fatigue/CHF - Information Sources Records reviewed: Previous records reviewed History/Review of Systems obtained from: Patient, Family ( Pete at visit; daughter Alvin joined at beginning) Exam limitations: Clinical condition (Patient with significant distress/ mild STM issues) - History of Present Illness Update Brief HPI Update: This is a tonja 62-year-old woman with a very complex set of comorbidities, she has no less than 13 specialist and a long list of complicated issues. Of most concern she does have known AV block status post pacemaker, fascicular V. tach, intermittent atrial fib, and known diastolic heart failure. She has recently seen her booster pump operator, at this point in time her GFR is 34, does not feel that she is at risk currently for needs for dialysis or kidney transplant, but was quite distressed regarding lack of information provided. She also has a long list of autoimmune issues including irritable bowel syndrome, interstitial cystitis, fibromyalgia, hypothyroidism, and adrenal insufficiency. She reports the most significant changes have been her overwhelming feeling of fatigue, the fact she is sleeping probably is 60-75% of the day, she almost had to call 911 yesterday secondary to severe episode of her "V. tach, feeling very short of breath, her episodes now include chest pain and chest discomfort with radiating up left side of neck, and her blood pressure dropped to 80/40, and it was a long period of time before she recovered. These episodes leave her fairly spent, and with less energy. She also presents with new left swelling above the clavicular, is soft, no masses felt, and appears more lymphedema in nature, but is of concern for her. As she rescheduled her ultrasound to next Saturday. 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 She is currently managed on methadone 5 mg twice daily and supplemented with hydrocodone up to 3 tabs a day. And patient decided not to initiate treatment for her depression, so did not start the Lexapro, she is quite overwhelmed with her pills, and her lack of quality of life currently. Social History - Living Situation Living arrangement: At home Living Situation: With spouse/s.o. (Has been works full-time, patient at home for long periods of time without support. She did previously had caregiver including family, as she finds herself quite isolated. They have hired caregivers in the past, patient is sleeping longer periods of time. Her daughter and her are on the property, do provide some support but is a challenging care situation. attempts oversee care, patient with multiple specialists, patient can be very resistant and provides many barriers as far as able to follow through, also she is sleeping for significant periods of time which makes meeting her care needs challenging) Medications/Allergies - Medications Home Medications: Ambulatory Orders Medication Instructions Recorded Confirmed Fluticasone [Flonase] 1 spray HAROLDO BID 01/24/16 03/12/18 HYDROcod/ACETAM 5/325 [Vicodin 1 tab PO Q6HR PRN MDD 4 01/24/16 03/12/18 5/325] QUEtiapine [SEROquel] 25 mg PO ACHS 01/24/16 03/12/18 Torsemide 20 mg PO DAILY MDD and prn 01/24/16 03/12/18 Levothyroxine [Synthroid] 100 mg PO DAILY 05/17/17 03/12/18 Methadone 5 mg PO BID 05/17/17 03/12/18 Rivaroxaban [Xarelto] 15 gm PO DAILY 05/17/17 03/12/18 Calcium Carbonate/Vitamin D3 1 tab PO BID 05/19/17 03/12/18 [Calcium 600-Vit D3 400 Tablet] Carboxymethylcellulose Sodium 1 drops TOP TID 05/19/17 03/12/18 [Refresh Tears] Cyclosporine [Restasis] 1 applic TOP BID 05/19/17 03/12/18 Gabapentin 100 mg PO BID 05/19/17 03/12/18 Hydrocortisone [Cortef] 10 tab PO QDBREAKFAST 05/19/17 03/12/18 Metoprolol Succinate 75 mg PO DAILY 05/19/17 03/12/18 Multivitamin [Multiple Vitamins] 1 tab PO DAILY 05/19/17 03/12/18 Ondansetron Odt [Zofran Odt] 1 tab PO Q8HR PRN 05/19/17 03/12/18 Polyethylene Glycol 3350 [Miralax] 17 - 34 gm PO DAILY PRN 05/19/17 03/12/18 Salmeterol Xinafoate [Serevent 1 puffs INH BID 05/19/17 03/12/18 Diskus] hydrOXYzine pamoate [Hydroxyzine 1 tab PO BID MDD 4 05/19/17 03/12/18 Pamoate] raNITIdine [Zantac] 150 mg PO BID 08/16/17 03/12/18 Hydrocortisone [Cortef] 5 mg PO QDDINNER 12/11/17 03/12/18 Lidocaine [Topicaine 5] 1 applic TOP PRN PRN 12/11/17 03/12/18 Liothyronine [Cytomel] 5 mcg PO DAILY 12/11/17 03/12/18 Lubiprostone [Amitiza] 24 mcg PO DAILY 12/11/17 03/12/18 Nitroglycerin [Nitrostat] 0.4 mg SL Q5MIN PRN 03/12/18 03/12/18 - Allergies Allergies/Adverse Reactions: Allergies Allergy/AdvReac Type Severity Reaction Status Date / Time cefpodoxime proxetil * Allergy Unknown Verified 01/24/16 14:08 [From Vantin] clindamycin Allergy Unknown Verified 05/17/17 18:00 codeine Allergy Unknown Verified 01/24/16 14:08 erythromycin base Allergy Unknown Verified 01/24/16 14:08 [Erythromycin Base] levofloxacin [From Levaquin] Allergy Unknown Verified 01/24/16 14:08 rofecoxib [From Vioxx] Allergy Unknown Verified 01/24/16 14:08 sumatriptan [From Imitrex] Allergy Unknown Verified 01/24/16 14:08 sumatriptan succinate * Allergy Unknown Verified 01/24/16 14:08 [From Imitrex] morphine AdvReac Unknown Verified 05/17/17 18:01 Review of Systems - Constitutional Constitutional: reports: Fatigue (reports significantly worsening; sleeping most of day; rhythm up late afternoon to midnight), Chills (occasionally with exertion), Weakness, Poor appetite, Diaphoresis (with activity), Weight gain. denies: Fever - Eyes Eyes: reports: Vision loss, Corrective lenses - Ears, Nose & Throat Ears, Nose & Throat: reports: Vertigo, Nasal congestion (more difficulty with pollen count), Other (new swelling left side of neck; scheduled for US on next Saturday;) - Cardiovascular Cardiovascular: reports: Irregular heart rate, Palpitations, Chest pain ( Patient continues to have episodes of rapid ventricular tachycardia, where her blood pressure drops severely, yesterday she did have an episode with chest pain that radiated up of left side of her jaw, her blood pressure was 80/40, this was prolonged, she did feel short of breath and difficulty with breathing. They almost called 911, the patient eventually recovered but slept most of the day), Lightheadedness, Exertional dyspnea, Decr. exercise tolerance - Respiratory Respiratory: reports: Orthopnea (awakens at times with severe shortness of breath), SOB at rest, SOB with exertion - Gastrointestinal Gastrointestinal: reports: Abdominal distention, Constipation (controlled on current regimen), Nausea (frequent; most often with pills and at bedtime; uses ondansetron at bedtime for abdominal pain), Reflux/heartburn, Bloating, Poor appetite, Early satiety - Genitourinary Genitourinary: reports: Dysuria (intermittent;), Frequency, Urgency (fluctuates) , Other (tenderness and perceived lump left breast; too painful for exam; has appt 04/09) - Musculoskeletal Musculoskeletal: reports: Muscle pain, Stiffness, Limited range of motion (left side hemiplegia;), Muscle weakness, Assistive devices (uses cane in house; working with PT is progressing ambulation) - Integumentary Integumentary: reports: Rash (worsening on LE), Pruritis (worsening was mostly LE now face/UE), Lesions (raised plaques on LE; recent removal of toe nail;), Dryness - Neurological Neurological: reports: General weakness, Dizziness, Memory problems (increased difficulty concentrating; episodic confusion; unable to identify pattern but worsens with fatigue) - Psychiatric Psychiatric: reports: Depression (patient with depressive symptoms; chose not to start antidepressant did not want another pill; has grief counselor coming), Anxiety (worried about possible dialysis; continued decline), Aggitation (very irritable; at times irrational but overwhelmed with continued decline) - Endocrine Endocrine: reports: Hypothyroidism (recent tsh 0.63; free t4 1.0) - All Other Systems All Other Systems: reports: Reviewed and negative Physical Exam - Vital Signs Temperature: 97.5 C Pulse Rate: 90 Respiratory Rate: 18 O2 Saturation: 95 (ra @ rest) Blood Pressure: 124/72 - Physical Exam General Appearance: positive: Moderate distress, Anxious Eyes Bilateral: positive: Normal inspection, No scleral icterus ENT: positive: No signs of dehydration Neck: positive: No JVD, Trachea midline, Lymphadenopathy (R) (noted nodes and tenderness on exam), Other (soft swelling above left clavicle; no masses appreciated; swelling extends up into left neck;) Respiratory: positive: Breath sounds nml Abdomen: positive: Non-tender, Soft, Nml bowel sounds, Distended. 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 Was feeling quite overwhelmed by her long list of maladies, and poor quality of life) Dyspnea: Moderate (4-6) (Patient does have shortness of breath, she feels quite tight in her chest, with increased trouble taking deep breaths, is relieved with sitting up worsening by laying down, suspect some orthopnea. Has not been using torsemide for increased signs or symptoms of fluid overload at this point. Discussion ensued) Anorexia: Moderate (4-6) (Patient tolerates very little as far as things that are appealing to eat, she does tend to eat janet crackers and popcorn, recently saw her PCP as well as quite distressed by the conversation regarding weight gain and a ways to consider modifying her diet diet for weight loss.) Sleep: Sleeps well Constipation: Yes, Opoid induced, Managed Feelings of wellbeing/Perceived Quality of Life: Poor, Worsening Performance Status: Patient is very dependent on in getting her up in the morning, assisting with dressing, and all ADLs. She is been working for physical therapy to increase her endurance and improve her ambulation. She is actually quite committed to this and is making progress, though it does exacerbate her pain - Palliative Care Discussion: Patient expresses normal feelings of grief and loss regarding recent loss of her father, she is working with bereavement counselor. Patient is feeling overwhelmed and irritable regarding lack of perceived support for medical system , that all of them are "giving up on me", and I am to "complex", she has a long list of issues that are complicated for her and continues to parse out to specialist, with very little satisfaction of results. She perceives her quality of life is very poor, she is quite frightened she is going to have a sudden event, also struggles as far as how best to support her in her misery and distress, as well as concern about her "spells" worried that she may indeed pass 1 of these times. Results - Lab Results Lab results reviewed: Yes Impression and Recommendations - Palliative Care Impression: This is a 62-year-old woman with multiple underlying medical problems and comorbidities, as well as presenting with high symptom burden, continuing to struggle to find meaning and quality of life. Patient is chosen not to move forward with treatment pharmacologically for her depression which seems carroll in the constellation. Palatal care to provide support for symptom management, and coordination of care, as well as setting priorities. Recommendations/Counseling Done: 1. Depression. Patient declined to start Lexapro, did not want to add 1 more pill, she has been quite resistant in the past pharmacologic management of her depression. She is seen the palliative care outreach and education social worker, does not want to see a psychiatrist, continues to struggle with some PTSD symptoms with nightmares at night. Patient does seem to have persistent depression and perseverating behaviors today. 2. Acute on chronic pain. This is multifactorial in origin, she does have acute pain in her right heel, she has central pain syndrome on her left side, is currently treated with methadone 5 mg twice daily and hydrocodone up to 3 times a day. As well as her gabapentin 100 mg twice daily for migraines. Approached possibly titrating back to see if this would help with some of her fatigue, she actually perceives her pain is worsening and has been on these medications long-term does not see these as adding to the problem. 3. Pruritus. Patient does report exacerbation of pruritus, reports at this point in time she has significant itching in her face, manages is just rubbing. She is on hydroxyzine 3 times a day with some relief. Again she has been on this long-term, certainly can be adding to her fatigue. Her lower extremity edema as she does have rash and lesions. Will have her start with some serrated a wash and lotion to see if this will assist, she has been instructed to stop the Neosporin. 4 Weight gain. This is obviously a sensitive subject for her, she was quite distressed with her PCP at the suggestion she is eating too much. We did thorough review some of her dietary intake, and looked at ways she could modify her caloric intake, she was in agreement to make some small changes. 5. Fatigue. This continues to be quite problematic for patient, it is multifactorial in origin, most likely physical, emotional, as well as side effects from medications. No am concerned her cardiac status does seem to be worsening per her description and spells of frequent and do include chest pain. 6. Chest pain. She has been using more nitro, her spells are becoming more severe with more downtime after. She is supposed to be seen her rib sawyer, she continues to cancel appointments because of fatigue and feeling overwhelmed , reports she needs an ECHO prior to follow-up with Dr. Freire, will see if can facilitate this in conjunction with her ultrasound. Time Spent: 45 minutes with greater than 50% of this done in counseling regarding depression , pain management, addressing anxiety, setting priorities and goals, as well as anticipatory guidance
== END 2018-03-12 16:16 | disposition home or self-care (01) ==
LOC: PC 16:15
PROVIDERS: ATTEND Nurse Practitioner Adult Health
DX: Z51.5 Encounter for palliative care (principal); F32.9 Major depressive disorder, single episode, unspecified; M79.671 Pain in right foot; G89.0 Central pain syndrome; L29.9 Pruritus, unspecified; R53.83 Other fatigue; R07.9 Chest pain, unspecified; I44.30 Unspecified atrioventricular block; Z95.0 Presence of cardiac pacemaker; I48.91 Unspecified atrial fibrillation; I50.30 Unspecified diastolic (congestive) heart failure; Z79.891 Long term (current) use of opiate analgesic; K59.03 Drug induced constipation; T40.2X5A Adverse effect of other opioids, initial encounter; R11.0 Nausea
CPT/HCPCS: 99349

== ENCOUNTER 2018-03-24 12:51 | Outpatient (CLI) | payer BC ==
--- NOTE | 2018-03-24 13:49 | Ultrasound Report ---
ULTRASOUND LEFT NECK: 03/24/2018 CLINICAL INDICATION: Palpable abnormality. TECHNIQUE: Real-time scanning was performed with advertising sales representative static images obtained. FINDINGS: Ultrasound of the palpable abnormality identified in the left supraclavicular fossa by the patient was performed. At this site, there is a 2.0 x 1.1 x 0.8 cm likely lymph node. No other adenopathy is appreciated. IMPRESSION: LIKELY LEFT SUPRACLAVICULAR LYMPH NODE. CONSIDER CT OF THE NECK FOR FURTHER EVALUATION, WELL POSSIBLE UPPER ENDOSCOPY, GIVEN THE LOCATION OF THIS PALPABLE LYMPH NODE. TD: 03/24/2018 13:45
== END 2018-03-24 12:52 | disposition home or self-care (01) ==
LOC: DI 12:51
PROVIDERS: ATTEND Family Medicine
DX: R22.1 Localized swelling, mass and lump, neck (principal)
CPT/HCPCS: 76536

== ENCOUNTER 2018-03-24 13:33 | Outpatient (CLI) | payer BC | END 2018-03-24 13:34 | disposition home or self-care (01) | LOC: DI 13:33 | PROVIDERS: ATTEND Nurse Practitioner Adult Health | DX: I50.9 Heart failure, unspecified (principal); Z95.0 Presence of cardiac pacemaker; R22.1 Localized swelling, mass and lump, neck | CPT/HCPCS: 76536; 93306 ==

== ENCOUNTER 2018-04-05 13:57 | Outpatient (CLI) | payer BC ==
--- NOTE | 2018-04-06 23:29 | CT Preliminary Report ---
Exam: CT NECK SOFT TISSUE W/O Impression: 1. No suspicious mass, fluid collection, no suspicious adenopathy as detailed. Patient status post th yroidectomy as detailed. 2. Again seen encephalomalacia right MCA territory consistent with prior stroke. [facility] SITE ID: [id number]
--- NOTE | 2018-04-06 23:29 | CT Report ---
EXAM: CT SOFT TISSUE NECK WITHOUT CONTRAST. EXAM DATE: 04/05/2018 02:19 PM. HISTORY: New mass on left side of anterior neck. Recent thyroidectomy for thyroid mass. COMPARISONS: Prior neck ultrasound 03/24/2018, prior CT soft tissue neck 01/24/2016, at 06/03/2015. TECHNIQUE: Routine soft tissue neck CT protocol. Reconstructions: Coronal and sagittal. IV contrast: None. In accordance with CT protocol optimization, one or more of the following dose reduction techniques w ere utilized for this exam: automated exposure control, adjustment of mA and/or KV based on patient s ize, or use of iterative reconstructive technique. Findings: Relevant images are indicated (image number, series number). Patient is status post thyroidectomy. No soft tissue marker is present. Limited evaluation intracranial contents again demonstrates right MCA territory encephalomalacia cons istent with prior stroke. There is compensatory enlargement of the right lateral ventricle. No midlin e shift is present. Basal cisterns are patent. Orbital contents negative. Paranasal sinuses, mastoid air cells are clear. Skull base intact. Suprahyoid neck: No suspicious mass, fluid collection, no suspicious adenopathy. Vallecula clear, epi glottis negative. Airway patent. Bilateral salivary glands are unremarkable. Patient partially edentu lous, remaining dentition demonstrates no atypical cyst. Infrahyoid neck: Pyriform sinus is clear, and larynx unremarkable, no suspicious mass, fluid collecti on, no suspicious adenopathy. No evidence for suspicious node left supraclavicular fossa. Airway bautista nt. Upper esophagus appears unremarkable. Left chest wall cardiac device present with partial visuali zation of suspected cardiac pacer wires. Advanced mid and lower multilevel cervical spondylosis, no s uspicious bony lesions. No prevertebral soft tissue swelling. Impression: 1. No suspicious mass, fluid collection, no suspicious adenopathy as detailed. Patient status post th yroidectomy as detailed. 2. Again seen encephalomalacia right MCA territory consistent with prior stroke. [facility] Referring Provider Line: [phone] SITE ID: [id number]
== END 2018-04-05 13:58 | disposition home or self-care (01) ==
LOC: DI 13:57
PROVIDERS: ATTEND Family Medicine
DX: R22.1 Localized swelling, mass and lump, neck (principal)
CPT/HCPCS: 70490

== ENCOUNTER 2018-05-19 18:23 | Outpatient (CLI) | payer BC ==
--- NOTE | 2018-05-19 18:41 | CONSULTATION NOTE ---
Palliative Care Follow Up - Referral Referring Provider: Dr. Jaime Benavidez Time of Visit: [id number] Referral setting: Home (It is a taxing and considerable effort for the patient to leave the home, to facilitate care plan and family conference) Referral Reason: Central Stroke Pain Syndrome/Depression/HF - Information Sources Records reviewed: Previous records reviewed History/Review of Systems obtained from: Patient, Family ( Jorge at visit) Exam limitations: Clinical condition (patient with STM issues;) - History of Present Illness Update Brief HPI Update: This is a 62-year-old woman with a very complex set of comorbidities, she has no less than 13 specialist as well as a long list of complicated issues. Of most concern is she does have known AV block status post pacemaker fascicular V. tach, intermittent atrial fib and known diastolic heart failure. Of great concern today is she continues to have intermittent pain and discomfort with her spells regarding her heart, she did have one at the time of visit with her pulse rate up to 128, pain and discomfort into her left jaw into her left shoulder down her left arm, was relieved with nitro with her pulse return to 84. She reports that heat has made her spells more frequent, and she had a very significant one yesterday almost to the point of calling 911. She no longer calls or goes in as there is been "nothing they can do for her" and it has been quite frustrating. She has had a recent echo, her systolic function is moderately impaired with an ejection fraction of 35-40%, this is actually improved from her last echo on record for would be of 30-35% in 2016. Since they have seen her last, she has seen the try out person, did have her breast lump worked up, it was negative. She has had no further swelling in her left clavicular neck area either. She did have a MRI following an enlarged lymph Node found on ultrasound, this was in late March. She also continues to struggle with her chronic renal failure,. She also has a long list of autoimmune issues including irritable bowel syndrome, interstitial cystitis, fibromyalgia, hypothyroidism, and adrenal insufficiency. Patient symptom burden is fairly significant, her most pressing symptom is fatigue. This is multifactorial in origin, complicated by her ongoing cardiac arrhythmias. Within these "spells" happen she has to lay down and sleeps it off for several hours. She does have intermittent good days which allow her to work in the garden, but any extra activity tolerance she puts out she pays for the next day. She is awake during the day about 8-10 hours. She also has severe acute on chronic pain. Her acute pain is in her right foot, they have wanted to brace it as it is an inflammatory process and she is unable to take NSAIDs. The opioids do not assist her with this, she also has baseline central stroke pain syndrome with pain up into her left side of her face traveling to her left arm and down into her left leg. She is currently managed on methadone 5 mg twice a day and supplemented with hydrocodone 5/325 mg Usually 3 times a day, if it is increased activity up to 4 times a day. She has since last seen her did initiate escitalopram, this actually did improve her symptoms of depressive symptoms, as well as night sweats, and feels like this is helping her overall disposition. Social History - Living Situation Living arrangement: At home Living Situation: With spouse/s.o. (spouse still working time study technologist; daughter and DIL provide some support but no primary CG during most of that time) Support System: Jorge very supportive, patient is quite emotionally labile, also very medically complex and has multiple days for which she is unable to participate secondary to fatigue and heart arrhythmias.. Daughter Jonathan has been findings some backup support but is getting ready to work, as well as her daughter-in- law who is now working full-time. Have recommended some paid caregiving support ; patient variable from day to day and makes it difficult to plan cg tasks Medications/Allergies - Medications Home Medications: Ambulatory Orders Medication Instructions Recorded Confirmed Fluticasone [Flonase] 1 spray HAROLDO BID 01/24/16 05/19/18 HYDROcod/ACETAM 5/325 [Vicodin 1 tab PO Q6HR PRN MDD 4 01/24/16 05/19/18 5/325] QUEtiapine [SEROquel] 25 mg PO ACHS 01/24/16 05/19/18 Torsemide 20 mg PO DAILY MDD and prn 01/24/16 05/19/18 Levothyroxine [Synthroid] 100 mg PO DAILY 05/17/17 05/19/18 Methadone 5 mg PO BID 05/17/17 05/19/18 Rivaroxaban [Xarelto] 15 gm PO DAILY 05/17/17 05/19/18 Calcium Carbonate/Vitamin D3 1 tab PO BID 05/19/17 05/19/18 [Calcium 600-Vit D3 400 Tablet] Carboxymethylcellulose Sodium 1 drops TOP TID 05/19/17 05/19/18 [Refresh Tears] Cyclosporine [Restasis] 1 applic TOP BID 05/19/17 05/19/18 Gabapentin 100 mg PO BID 05/19/17 05/19/18 Hydrocortisone [Cortef] 10 tab PO QDBREAKFAST 05/19/17 05/19/18 Metoprolol Succinate 75 mg PO DAILY 05/19/17 05/19/18 Multivitamin [Multiple Vitamins] 1 tab PO DAILY 05/19/17 05/19/18 Ondansetron Odt [Zofran Odt] 1 tab PO Q8HR PRN 05/19/17 05/19/18 Polyethylene Glycol 3350 [Miralax] 17 gm PO DAILY PRN 05/19/17 05/19/18 Salmeterol Xinafoate [Serevent 1 puffs INH BID 05/19/17 05/19/18 Diskus] hydrOXYzine pamoate [Hydroxyzine 1 tab PO BID MDD 4 05/19/17 05/19/18 Pamoate] raNITIdine [Zantac] 150 mg PO BID 08/16/17 05/19/18 Hydrocortisone [Cortef] 5 mg PO QDDINNER 12/11/17 05/19/18 Lidocaine [Topicaine 5] 1 applic TOP PRN PRN 12/11/17 05/19/18 Liothyronine [Cytomel] 5 mcg PO DAILY 12/11/17 05/19/18 Nitroglycerin [Nitrostat] 0.4 mg SL Q5MIN PRN 03/12/18 05/19/18 Escitalopram [Lexapro] 10 mg PO DAILY 05/19/18 05/19/18 - Allergies Allergies/Adverse Reactions: Allergies Allergy/AdvReac Type Severity Reaction Status Date / Time cefpodoxime proxetil * Allergy Unknown Verified 01/24/16 14:08 [From Vantin] clindamycin Allergy Unknown Verified 05/17/17 18:00 codeine Allergy Unknown Verified 01/24/16 14:08 erythromycin base Allergy Unknown Verified 01/24/16 14:08 [Erythromycin Base] levofloxacin [From Levaquin] Allergy Unknown Verified 01/24/16 14:08 rofecoxib [From Vioxx] Allergy Unknown Verified 01/24/16 14:08 sumatriptan [From Imitrex] Allergy Unknown Verified 01/24/16 14:08 sumatriptan succinate * Allergy Unknown Verified 01/24/16 14:08 [From Imitrex] morphine AdvReac Unknown Verified 05/17/17 18:01 Review of Systems - Constitutional Constitutional: reports: Fatigue (awake for about 8-10 hours a day;), Night sweats (improved on lexapro) - Eyes Eyes: reports: Vision loss, Corrective lenses - Ears, Nose & Throat Ears, Nose & Throat: reports: Nasal congestion, Other (c/o severe pain in mouth ; using fluoride toothpaste) - Cardiovascular Cardiovascular: reports: Irregular heart rate, Palpitations, Chest pain (severe yesterday with needing three nitro; episode of left jaw pain relieved with one during visit p 128 to 84), Exertional dyspnea, Decr. exercise tolerance - Respiratory Respiratory: reports: Snoring, SOB with exertion. denies: SOB at rest - Gastrointestinal Gastrointestinal: reports: Nausea (intermittent with chest pain/pain), Good appetite (has modified diet). denies: Constipation (now going about 2x a day with Miralax only; due to have follow up colonoscopy feeling overwhelmed) - Genitourinary Genitourinary: reports: Other (intermittent episodes of retention) - Musculoskeletal Musculoskeletal: reports: Stiffness, Limited range of motion (left side), Muscle weakness, Joint swelling (right foot/ankle with constant severe pain), Assistive devices (uses cane in house; rolling walker for longer distances) - Integumentary Integumentary: reports: Rash, Pruritis (more severed despite multiple meds that should help), Dryness - Neurological Neurological: reports: General weakness, Numbness (left side), Memory problems, Abnormal gait - Psychiatric Psychiatric: reports: Depression (improved with being able to be in garden/ antidepressant), Anxiety (regarding feeling like could "" anytime), Behavior disturbances (still has some severe mood fluctuations; some improved per family) - Endocrine Endocrine: reports: Hypothyroidism - Hematologic/Lymphatic Hematologic/Lymphatic: denies: Recurrent infections - All Other Systems All Other Systems: reports: Reviewed and negative Physical Exam - Vital Signs Temperature: 97.0 C Pulse Rate: 128 (after 5 min with nitro 84) Respiratory Rate: 18 O2 Saturation: 95 (ra @ rest) Blood Pressure: 112/52 - Physical Exam General Appearance: positive: Mild distress Eyes Bilateral: positive: Normal inspection ENT: positive: No signs of dehydration, Other (mouth slightly reddened; no s/s of thrush) Neck: positive: No JVD, Trachea midline Cardiovascular: positive: Irregular, Tachycardia Respiratory: positive: Diminished in bases. negative: Wheezes, Rales, Rhonchi Abdomen: positive: Soft Skin: positive: Pallor, Dryness, Pruritis, Other (LE lesions; raised plaques) Extremities: positive: Pedal edema (trace pedal edema) Neurologic/Psychiatric: positive: Oriented x3, Mood/affect nml, Weakness Palliative Care - POLST Patient has POLST: No Pain: Pain unchanged, Location (severe pain in right foot/ worsens with weight bearing; no relief with opioid; using topicals with some improvement; baseline left sided pain sharp shooting/intense with increase movement; through left side of neck/shoulder/arm and leg) Tiredness/Fatigue: Severe (7-10) Drowsiness/Sedation: None Nausea: Mild (1-3) Depression: Mild (1-3) Anxiety: Mild (1-3) Sleep: Sleeps well (but awakens in pain; takes medications and goes back to sleep usually until early afternoon; up until late 12-1 am; normal pattern for patient previous to stroke) Constipation: Yes, Opoid induced, Managed Feelings of wellbeing/Perceived Quality of Life: Poor, Worsening Performance Status: Patient does try to be independent, but she does have residual left-sided weakness from her hemiplegia. She is ambulatory with a cane and walker. She does have poor activity tolerance which complicates the picture. She does need assistance with dressing and follow-up with bathing. She can do some meal prep. She is dependent on her to assist her with her medications related to her cognitive deficits. Her "therapy" at this point in time is working in her garden, they are accommodating her small living space as she is limited particularly when he is at work, to include now a and greenhouse which she is looking forward to in the wintertime as this is a good distraction and a mood elevator for her - Palliative Care Discussion: Patient continues to struggle with her current quality of life, she tries to stay positive, but with all her multiple health issues and appointments he does get overwhelming to both her and her . She does perceive herself is quite fragile, recognizing that any point in time she could have an event, she feels that this is quite stressful on her family as well as herself. She tries not to dwell on it but finds that the reality of her current situation. She feels like the physicians have all "given up on her" because they have nothing more to offer her, and she does have high symptom burden, some multiple ongoing complaints and illnesses that continued to exacerbate depending on the situation. She often is only able to make it to about 50% of her appointments as she does have these spells and is quite limited as far as her ability to go outside the home. Impression and Recommendations - Palliative Care Impression: This is a 62-year-old woman with multiple underlying medical problems and comorbidities, with most serious related to her cardiac issues. She does present with high symptom burden, continues to struggle with finding meaning and quality of life. She is doing better with the Lexapro, but remains fragile. Palliative care team to continue to provide support for symptom management, coordination of care, as well as setting priorities. Recommendations/Counseling Done: 1. Depression. Patient did start Lexapro at the urging of multiple caregivers, is finding it is helping with not only her depression, but night sweats as well. She is hoping to follow-up with the palliative care social worker aide as well as the bereavement counselor. Messaging sent to both team members regarding patient's request. Counseling provided to normalize her current grief and loss process. 2. Acute on chronic pain. This is multifactorial in origin. In discussion regarding current recommendations to immobilize foot, follow-up with physical therapy for ultrasound I am guessing I did not see the prescription, and current activity tolerance. Patient is unable and/or unwilling to limit her weightbearing or activity at this point in time. Reviewed then it would not make sense to follow-up with physical therapy if continue to irritate her induced inflammatory response with activity. Recommended she revisit this towards fall when she is less active and identify her current goals at that point in time. 3. Pruritus. This remains absolutely overwhelming to her, she is on current medications he would use for this, including steroids, gabapentin, topicals and unable to identify any specific medications that are exacerbating this. It is worsened in the heat. She is on hydroxyzine, does not really want to add any further pills. I will explore the literature but other than mirtazapine, which does cause weight gain, I have no other specific recommendations. I did though recommend she return back to her triamcinolone on her lesions on her leg says they have exacerbated as far as inflammation and irritation. 4. Weight gain. This continues to be quite sensitive topic for her, she has done some diet modifications, I did not obtain a weight today. 5. Fatigue. This continues to be quite problematic for patient, again is multifactorial in origin. I am concerned her cardiac status seems to be worsening per her description and frequency of spells, as well as noted increased chest pain. 6. Angina. Patient is using more nitro, her spells are becoming more severe and more downtime after them. She had not followed through on seen her map compiler. I did arrange for her to have an echo, this was faxed but the office that she has not got it I will follow-up with some am wondering if she should be on a long-acting nitrate, I will put in inquiry out to her map compiler. I did instruct her to make a follow-up with him as far as a priority appointment. 7. Constipation. Patient currently is going up to 2 times a day, no further issues with constipation at this point in time she is managed just with her MiraLAX and "popcorn". Her GI issues are improved. We did discuss holding off on the colonoscopy until fall giving that she is currently feeling quite overwhelmed, strategies reviewed to be able to better manage that. 8. Advanced care planning. Patient is needing more care and supervision, unfortunately given her fluctuating status it is not always clear what would be most helpful as far as hiring shifts and care work. They have not found anybody outside of family but are going to need it is people return back to work. Will alert the medical palliative care social worker aide to see if she can be of help. Time Spent: 60 minutes with greater than 50% of this done in counseling and coordination of care regarding multiple health problems, setting priorities for medical appointments, and counseling regarding pain and symptom management
== END 2018-05-19 18:24 | disposition home or self-care (01) ==
LOC: PC 18:23
PROVIDERS: ATTEND Nurse Practitioner Adult Health
DX: Z51.5 Encounter for palliative care (principal); F32.9 Major depressive disorder, single episode, unspecified; M79.671 Pain in right foot; G89.29 Other chronic pain; L29.9 Pruritus, unspecified; R53.83 Other fatigue; I20.9 Angina pectoris, unspecified; I50.30 Unspecified diastolic (congestive) heart failure; N18.9 Chronic kidney disease, unspecified; Z79.891 Long term (current) use of opiate analgesic
CPT/HCPCS: 99350

== ENCOUNTER 2018-06-04 14:02 | Outpatient (CLI) | payer BC ==
--- NOTE | 2018-06-04 15:49 | DEXA Report ---
Procedure Date: 06/04/2018 Accession Number: [id number] / [id number] Procedure: DEX - Dexa Spine and/or Hip CPT Code: FULL RESULT: EXAM: Dexa Spine and/or Hip DATE: 06/04/2018 2:48 PM CLINICAL HISTORY: ADDISONS DISEASE TECHNIQUE: Dual energy x-ray absorptiometry (DXA) was performed on a [employer] System. Regions measured are the AP Spine, femoral neck, and if needed forearm. COMPARISON: None. In accordance with the International Society for Clinical Densitometry (ISCD) guidelines, data from previous exams may be reanalyzed using current recommendations and techniques. This is done to allow a more accurate basis for comparison with the current study. FINDINGS: The data for the lumbar spine is as follows: BMD (g/cm/cm) T-SCORE Z-SCORE REGION L1 0.670 -3.8 -3.2 L2 0.777 -3.5 -2.9 L3 0.785 -3.5 -2.8 L4 0.818 -3.2 -2.5 TOTAL 0.769 -3.4 -2.8 NOTE: All evaluable vertebrae are used for classification The data for the hip is as follows: BMD (g/cm/cm) T-SCORE Z-SCORE REGION Neck 0.714 -2.3 -1.4 TOTAL 0.715 -2.3 -1.8 NOTE: The femoral neck or total proximal femur, whichever is lowest, is used for classification. IMPRESSION: THE WHO CLASSIFICATION BASED ON THE INTERNATIONAL REFERENCE STANDARD IS OSTEOPOROSIS. THE FRACTURE RISK IS HIGH. RECOMMENDATION: Patients with diagnosis of osteoporosis or osteopenia should have regular bone mineral density assessment. For those eligible for Medicare, routine testing is allowed once every 2 years. Testing frequency can be increased for patients who have rapidly progressing disease or for those who are receiving medical therapy to restore bone mass. COMMENT: World Health Organization (WHO) definitions for osteoporosis and osteopenia: NORMAL BMD: T-score at -1.0 or higher, fracture risk is low OSTEOPENIA BMD: T-score between -1.0 and -2.5, fracture risk is increased. OSTEOPOROSIS BMD: T-score at -2.5 or lower, fracture risk is high. National Osteoporosis Foundation recommends: 1. Obtain adequate dietary calcium (at least 1200 mg per day) and vitamin D (400-800 international units per day). 2. Participate, as appropriate, in regular weightbearing and muscle-strengthening exercise. 3. Avoid tobacco use and reduce alcohol and caffeine intake. 4. For more detailed information see the website at www.NOF.org.
== END 2018-06-04 14:03 | disposition home or self-care (01) ==
LOC: DI 14:02
PROVIDERS: ATTEND Family Medicine
DX: M81.0 Age-related osteoporosis without current pathological fracture (principal)
CPT/HCPCS: 77080

== ENCOUNTER 2018-06-26 04:10 | Emergency (ER) | payer BC ==
[2018-06-26] MEDS ORDERED: ONDANSETRON ODT 4 MG TABLET TL STA (04:51)
[2018-06-26] MEDS ORDERED: ONDANSETRON ODT 4 MG TABLET ONE ×2 (04:51→04:52)
[2018-06-26 04:57] LABS: BASOPHILS # (AUTO) 0.1 10^3/uL (0.0-0.1); BASOPHILS % (AUTO) 0.6 %; EOSINOPHILS # (AUTO) 0.2 10^3/uL (0.0-0.7); EOSINOPHILS % (AUTO) 1.7 %; HGB - HEMOGLOBIN 12.9 g/dL (12.0-16.0); LYMPHOCYTES # (AUTO) 2.8 10^3/uL (1.5-3.5); LYMPHOCYTES % (AUTO) 32.8 %; MEAN CORPUSCULAR HEMOGLOBIN 29.5 pg (27.0-31.0); MEAN CORPUSCULAR HGB CONC 33.2 g/dL (32.0-36.0); MEAN CORPUSCULAR VOLUME 88.9 fL (81.0-99.0); MEAN PLATELET VOLUME 7.6 fL (7.9-10.8); MONOCYTES # (AUTO) 0.6 10^3/uL (0.0-1.0); NEUTROPHILS % (AUTO) 57.9 %; PLT - PLATELET COUNT 233 10^3/uL (130-450); RED BLOOD COUNT 4.38 10^6/uL (4.20-5.40); RED CELL DISTRIBUTION WIDTH 14.3 % (12.0-15.0); WHITE BLOOD COUNT 8.7 x10^3/uL (4.8-10.8)
[2018-06-26 05:05] LABS: ALBUMIN 4.4 g/dL (3.2-5.5); ALBUMIN/GLOBULIN RATIO 1.5 (1.0-2.2); BILIRUBIN,TOTAL 0.5 mg/dL (0.2-1.0); CALCIUM 8.3 mg/dL (8.5-10.3); CREATININE 1.6 mg/dL (0.4-1.0); MAGNESIUM 2.4 mg/dL (1.7-2.8); PHOSPHORUS 4.1 mg/dL (2.5-4.6); TOTAL PROTEIN 7.3 g/dL (6.7-8.2)
[2018-06-26 05:29] LABS: BILIRUBIN,URINE NEGATIVE (NEGATIVE); GLUCOSE, URINE (UA) NEGATIVE (NEGATIVE); KETONES,URINE (UA) NEGATIVE (NEGATIVE); LEUKOCYTE ESTERASE, URINE SMALL (NEGATIVE); NITRITE,URINE NEGATIVE (NEGATIVE); OCCULT BLOOD,URINE TRACE-INTA (NEGATIVE); PH,URINE 6.5 PH (5.0-7.5); PROTEIN,URINE NEGATIVE (NEGATIVE); UROBILINOGEN,URINE 0.2 (NORMAL) E.U./dL (NORMAL)
[2018-06-26 05:30] LABS: CLARITY,URINE CLEAR (CLEAR)
[2018-06-26 05:37] LABS: BACTERIA,URINE Few /HPF (None Seen); RBC,URINE 0-5 /HPF (0-5); SQUAMOUS EPITHELIAL CELL,UR RARE Squamous (<= Few)
--- NOTE | 2018-06-26 07:05 | ED Physician Documentation ---
History of Present Illness - Stated complaint Stated Complaint: L LEG PAIN - Chief complaint Chief Complaint: Ext Problem - History obtained from History obtained from: Patient - History of Present Illness Timing: Last night - Additonal information Additional information: 62-year-old female with a complicated medical history including a post stroke pain syndrome and diastolic congestive failure had sweats yesterday excessively and awoke early this morning with cramping in her left leg. This is the leg she has had her issue with the post stroke pain syndrome. She has come in now seeking assistance with this cramping in her leg. Review of Systems Constitutional: reports: Sweats Eyes: denies: Decreased vision Ears: denies: Ear pain Nose: denies: Rhinorrhea / runny nose, Congestion Throat: denies: Oral lesions / sores, Sore throat Cardiac: denies: Chest pain / pressure Respiratory: denies: Dyspnea, Cough GI: denies: Abdominal Pain, Nausea, Vomiting : denies: Dysuria, Frequency Skin: denies: Rash Musculoskeletal: reports: Back pain, Extremity pain. denies: Neck pain Neurologic: reports: Generalized weakness. 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 ARCHITECT: Hysterectomy, Oophrectomy Cardiovascular: Pacemaker - Present Medications Home Medications: Ambulatory Orders Medication Instructions Recorded Confirmed Fluticasone [Flonase] 1 spray HAROLDO BID 01/24/16 05/19/18 HYDROcod/ACETAM 5/325 [Vicodin 1 tab PO Q6HR PRN MDD 4 01/24/16 05/19/18 5/325] QUEtiapine [SEROquel] 25 mg PO ACHS 01/24/16 05/19/18 Torsemide 20 mg PO DAILY MDD and prn 01/24/16 05/19/18 Levothyroxine [Synthroid] 100 mg PO DAILY 05/17/17 05/19/18 Methadone 5 mg PO BID 05/17/17 05/19/18 Rivaroxaban [Xarelto] 15 gm PO DAILY 05/17/17 05/19/18 Calcium Carbonate/Vitamin D3 1 tab PO BID 05/19/17 05/19/18 [Calcium 600-Vit D3 400 Tablet] Carboxymethylcellulose Sodium 1 drops TOP TID 05/19/17 05/19/18 [Refresh Tears] Cyclosporine [Restasis] 1 applic TOP BID 05/19/17 05/19/18 Gabapentin 100 mg PO BID 05/19/17 05/19/18 Hydrocortisone [Cortef] 10 tab PO QDBREAKFAST 05/19/17 05/19/18 Metoprolol Succinate 75 mg PO DAILY 05/19/17 05/19/18 Multivitamin [Multiple Vitamins] 1 tab PO DAILY 05/19/17 05/19/18 Ondansetron Odt [Zofran Odt] 1 tab PO Q8HR PRN 05/19/17 05/19/18 Polyethylene Glycol 3350 [Miralax] 17 gm PO DAILY PRN 05/19/17 05/19/18 Salmeterol Xinafoate [Serevent 1 puffs INH BID 05/19/17 05/19/18 Diskus] hydrOXYzine pamoate [Hydroxyzine 1 tab PO BID MDD 4 05/19/17 05/19/18 Pamoate] raNITIdine [Zantac] 150 mg PO BID 08/16/17 05/19/18 Hydrocortisone [Cortef] 5 mg PO QDDINNER 12/11/17 05/19/18 Lidocaine [Topicaine 5] 1 applic TOP PRN PRN 12/11/17 05/19/18 Liothyronine [Cytomel] 5 mcg PO DAILY 12/11/17 05/19/18 Nitroglycerin [Nitrostat] 0.4 mg SL Q5MIN PRN 03/12/18 05/19/18 Escitalopram [Lexapro] 10 mg PO DAILY 05/19/18 05/19/18 Sulfamethoxazole/Trimethoprim 1 each PO BID #14 tablet 06/26/18 [Sulfamethoxazole-Tmp Ds Tablet] - Allergies Allergies/Adverse Reactions: Allergies Allergy/AdvReac Type Severity Reaction Status Date / Time cefpodoxime proxetil * Allergy Unknown Verified 01/24/16 14:08 [From Vantin] clindamycin Allergy Unknown Verified 05/17/17 18:00 codeine Allergy Unknown Verified 01/24/16 14:08 erythromycin base Allergy Unknown Verified 01/24/16 14:08 [Erythromycin Base] levofloxacin [From Levaquin] Allergy Unknown Verified 01/24/16 14:08 rofecoxib [From Vioxx] Allergy Unknown Verified 01/24/16 14:08 sumatriptan [From Imitrex] Allergy Unknown Verified 01/24/16 14:08 sumatriptan succinate * Allergy Unknown Verified 01/24/16 14:08 [From Imitrex] morphine AdvReac Unknown Verified 05/17/17 18:01 - Social History Does the pt smoke?: No Smoking Status: Never smoker Does the pt drink ETOH?: No Does the pt have substance abuse?: No - Immunizations Immunizations are current?: Yes - POLST Patient has POLST: No PD ED PE NORMAL - Vitals Vital signs reviewed: Yes (hypertensive ) - General General: Alert and oriented X 3, No acute distress, Well developed/nourished - HEENT HEENT: Atraumatic, PERRL, EOMI - Neck Neck: Supple, no meningeal sign - Cardiac Cardiac: RRR, No murmur - Respiratory Respiratory: No respiratory distress, Clear bilaterally - Abdomen Abdomen: Soft, Non tender - Back Back: No CVA TTP, No spinal TTP - Derm Derm: Normal color, Warm and dry, No rash - Extremities Extremities: No deformity, No edema - Neuro Neuro: Alert and oriented X 3, mangle press catcher 2-12 intact, No motor deficit, No sensory deficit, Normal speech Eye Opening: Spontaneous Motor: Obeys Commands Verbal: Oriented GCS Score: 15 - Psych Psych: Normal mood, Normal affect Results - Vitals Vitals: Vital Signs - 24 hr 06/26/18 06/26/18 06/26/18 04:21 05:27 06:24 Temperature 36.6 C Heart Rate 73 72 76 Respiratory 16 18 16 Rate Blood Pressure 133/99 H 128/68 129/73 O2 Saturation 99 95 92 Oxygen O2 Source Room air - Labs Labs: Laboratory Tests 06/26/18 06/26/18 06/26/18 04:25 04:25 04:25 WBC 8.7 RBC 4.38 Hgb 12.9 Hct 39.0 MCV 88.9 MCH 29.5 MCHC 33.2 RDW 14.3 Plt Count 233 MPV 7.6 L Neut # (Auto) 5.0 Lymph # (Auto) 2.8 [place] # (Auto) 0.6 Eos # (Auto) 0.2 Baso # (Auto) 0.1 Absolute Nucleated RBC 0.01 Nucleated RBC % 0.1 Sodium 137 Potassium 3.7 Chloride 98 L Carbon Dioxide 28 Anion Gap 11.0 BUN 22 H Creatinine 1.6 H Estimated GFR (MDRD) 33 L Glucose 95 Calcium 8.3 L Phosphorus 4.1 Magnesium 2.4 Total Bilirubin 0.5 AST 23 ALT 18 Alkaline Phosphatase 137 H Troponin I < 0.04 B-Natriuretic Peptide Total Protein 7.3 Albumin 4.4 Globulin 2.9 Albumin/Globulin Ratio 1.5 Lipase 73 H Urine Color Urine Clarity Urine pH Ur Specific [place] Urine Protein Urine Glucose (UA) Urine Ketones Urine Occult Blood Urine Nitrite Urine Bilirubin Urine Urobilinogen Ur Leukocyte Esterase Urine RBC Urine WBC Ur Squamous Epith Cells Urine Bacteria Ur Microscopic Review Urine Culture Comments 06/26/18 06/26/18 04:25 05:13 WBC RBC Hgb Hct MCV MCH MCHC RDW Plt Count MPV Neut # (Auto) Lymph # (Auto) [place] # (Auto) Eos # (Auto) Baso # (Auto) Absolute Nucleated RBC Nucleated RBC % Sodium Potassium Chloride Carbon Dioxide Anion Gap BUN Creatinine Estimated GFR (MDRD) Glucose Calcium Phosphorus Magnesium Total Bilirubin AST ALT Alkaline Phosphatase Troponin I B-Natriuretic Peptide 266 H Total Protein Albumin Globulin Albumin/Globulin Ratio Lipase Urine Color YELLOW Urine Clarity CLEAR Urine pH 6.5 Ur Specific [place] <=1.005 Urine Protein NEGATIVE Urine Glucose (UA) NEGATIVE Urine Ketones NEGATIVE Urine Occult Blood TRACE-INTA Urine Nitrite NEGATIVE Urine Bilirubin NEGATIVE Urine Urobilinogen 0.2 (NORMAL) Ur Leukocyte Esterase SMALL H Urine RBC 0-5 Urine WBC 6-10 H Ur Squamous Epith Cells RARE Squamous Urine Bacteria Few Ur Microscopic Review INDICATED Urine Culture Comments INDICATED Procedures - IVC sono (time) 0700 Bedside IVC sono: IVC measures (cm) (0.75), IVC collapsed c insp (cm) (complete) , Significant dehydration (est 2-3 liter deficit) 0945 Bedside IVC sono: IVC measures (cm) (1.3), IVC collapsed c insp (cm) (complete) , Dehydration (after one liter is in one liter deficit is present) PD MEDICAL DECISION MAKING - ED course Complexity details: reviewed old records, reviewed results, re-evaluated patient , considered differential, d/w patient ED course: 62-year-old female with a post stroke pain syndrome in her left leg as developed acute spasms in the leg. On interrogation of the inferior vena cava she is found to be significantly dehydrated. I suspect this is the reason for the cramps in her leg. The patient had sweats yesterday and on evaluation of the urine today she appears to have urinary tract infection I suspect this is the etiology of her sweats. Here in the emergency department she is administered intravenous saline and Rocephin. - Sepsis Event Vital Signs: Vital Signs - 24 hr 06/26/18 06/26/18 06/26/18 04:21 05:27 06:24 Temperature 36.6 C Heart Rate 73 72 76 Respiratory 16 18 16 Rate Blood Pressure 133/99 H 128/68 129/73 O2 Saturation 99 95 92 Oxygen O2 Source Room air Departure - Departure Disposition: 01 Home, Self Care Clinical Impression: Dehydration Urinary tract infection Qualifiers: Urinary tract infection type: acute cystitis Hematuria presence: without hematuria Qualified Code(s): N30.00 - Acute cystitis without hematuria Condition: Stable Instructions: ED Dehydration, ED UTI Cystitis Female Follow-Up: Jean Marie Benavidez MD [Primary Care Provider] - Prescriptions: Sulfamethoxazole/Trimethoprim [Sulfamethoxazole-Tmp Ds Tablet] 1 each PO BID # 14 tablet
[2018-06-26] MEDS ORDERED: cefTRIAXone 1 GM in SODIUM CHLORIDE 0.9% MINIBAG 100 ML IV STA (07:09)
[2018-06-26] MEDS ORDERED: SODIUM CHLORIDE 0.9% 1,000 ML IV ONE ×2 (07:09→09:47)
[2018-06-26] MEDS ORDERED: DEXAMETHASONE 10 MG/ML VIAL IVP STA (07:10)
[2018-06-26 11:31] VITALS: BP 139/75
== END 2018-06-26 12:00 | disposition home or self-care (01) ==
LOC: ED 04:10
DX: E86.0 Dehydration (principal); N30.00 Acute cystitis without hematuria; I11.0 Hypertensive heart disease with heart failure; I50.30 Unspecified diastolic (congestive) heart failure
CPT/HCPCS: 36415; 80053; 81001; 83690; 83735; 83880; 84100; 84484; 85025; 87086; 96365; 96375; 99284; Q0162; 81003

== ENCOUNTER 2018-07-09 16:00 | Outpatient (CLI) | payer BC ==
--- NOTE | 2018-07-09 19:32 | CONSULTATION NOTE ---
Palliative Care Follow Up - Referral Referring Provider: Dr. Benavidez Time of Visit: [id number] Referral setting: Home Referral Reason: CHF/Post Central Stroke Pain syndrome/UTI - Information Sources Records reviewed: Previous records reviewed History/Review of Systems obtained from: Patient Exam limitations: Clinical condition (patient with some STM issues post stroke) - History of Present Illness Update Brief HPI Update: This is a 62-year-old woman with a very complex set of comorbidities, with most recently a emergency department visit on 06/26/18 for UTI, leg cramps, and dehydration. In discussion of precipitating factors, she had had a busy week, she is overtired, difficulty sleeping, working up to that point she was having hyper analgesia with increased pain particularly on her left side, and ongoing severe leg cramps. She is quite disappointed that she had to miss her anniversary libertarian, but did respond well to the antibiotics. Comorbidities include but are not limited to known AV block status post pacemaker, fascicular V. tach, intermittent atrial fib, diastolic heart failure , chronic renal failure, interstitial cystitis, fibromyalgia, hypothyroidism, adrenal insufficiency, chronic constipation. Her presenting symptoms today, is actually increased concern for neuro changes. She reports increased difficulty with dizziness, balance, has difficulty walking related to the dizziness, and increased headache pain. This is been fairly persistent for about a month, nothing acute in onset, and has not increased in severity. She is finding this difficult though to manage her ADLs , and safety, she does list somewhat more severely to the left. 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 She denies any increase in vision problems, memory remains somewhat stable, no increased difficulty in swallowing. But has found this limiting. She continues to have significant symptoms regarding her cardiac status. She reports that her chest pain has decreased, but this symptom is more "a hard time breathing", when she lays down she gets "gasping", and these spells continue to be intermittent, have not increased in frequency but perceives they are worse in severity. .Patient continues to have fairly high symptom burden, with her intermittent episodes of dyspnea, ongoing and problematic fatigue, she does report she is eating better, nausea has improved, continues with fairly significant left- sided pain particularly upon awakening, intensity remains fairly high, she is currently maintained on methadone 5 mg twice daily, have increased in the past but did not tolerate lethargy. Social History - Living Situation Living arrangement: At home Living Situation: With spouse/s.o. 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; Daughter and her live on the property but unfortunately they work full-time as well.) Medications/Allergies - Medications Home Medications: Ambulatory Orders Medication Instructions Recorded Confirmed Fluticasone [Flonase] 1 spray HAROLDO BID 01/24/16 07/10/18 HYDROcod/ACETAM 5/325 [Vicodin 1 tab PO Q6HR PRN MDD 4 01/24/16 07/10/18 5/325] QUEtiapine [SEROquel] 25 mg PO ACHS 01/24/16 07/10/18 Torsemide 20 mg PO DAILY MDD and prn 01/24/16 07/10/18 Levothyroxine [Synthroid] 100 mg PO DAILY 05/17/17 07/10/18 Methadone 5 mg PO BID 05/17/17 07/10/18 Rivaroxaban [Xarelto] 15 gm PO DAILY 05/17/17 07/10/18 Calcium Carbonate/Vitamin D3 1 tab PO BID 05/19/17 07/10/18 [Calcium 600-Vit D3 400 Tablet] Carboxymethylcellulose Sodium 1 drops TOP TID 05/19/17 07/10/18 [Refresh Tears] Cyclosporine [Restasis] 1 applic TOP BID 05/19/17 07/10/18 Gabapentin 100 mg PO BID 05/19/17 07/10/18 Hydrocortisone [Cortef] 10 tab PO QDBREAKFAST 05/19/17 07/10/18 Metoprolol Succinate 75 mg PO DAILY 05/19/17 07/10/18 Multivitamin [Multiple Vitamins] 1 tab PO DAILY 05/19/17 07/10/18 Ondansetron Odt [Zofran Odt] 1 tab PO Q8HR PRN 05/19/17 07/10/18 Polyethylene Glycol 3350 [Miralax] 17 gm PO DAILY PRN 05/19/17 07/10/18 Salmeterol Xinafoate [Serevent 1 puffs INH BID 05/19/17 07/10/18 Diskus] hydrOXYzine pamoate [Hydroxyzine 1 tab PO BID MDD 4 05/19/17 07/10/18 Pamoate] raNITIdine [Zantac] 150 mg PO BID 08/16/17 07/10/18 Hydrocortisone [Cortef] 5 mg PO QDDINNER 12/11/17 07/10/18 Lidocaine [Topicaine 5] 1 applic TOP PRN PRN 12/11/17 07/10/18 Liothyronine [Cytomel] 5 mcg PO DAILY 12/11/17 07/10/18 Nitroglycerin [Nitrostat] 0.4 mg SL Q5MIN PRN 03/12/18 07/10/18 Escitalopram [Lexapro] 10 mg PO DAILY 05/19/18 07/10/18 - Allergies Allergies/Adverse Reactions: Allergies Allergy/AdvReac Type Severity Reaction Status Date / Time cefpodoxime proxetil * Allergy Unknown Verified 01/24/16 14:08 [From Vantin] clindamycin Allergy Unknown Verified 05/17/17 18:00 codeine Allergy Unknown Verified 01/24/16 14:08 erythromycin base Allergy Unknown Verified 01/24/16 14:08 [Erythromycin Base] levofloxacin [From Levaquin] Allergy Unknown Verified 01/24/16 14:08 rofecoxib [From Vioxx] Allergy Unknown Verified 01/24/16 14:08 sumatriptan [From Imitrex] Allergy Unknown Verified 01/24/16 14:08 sumatriptan succinate * Allergy Unknown Verified 01/24/16 14:08 [From Imitrex] morphine AdvReac Unknown Verified 05/17/17 18:01 Review of Systems - Constitutional Constitutional: reports: Fatigue, Weakness, Night sweats (improved), Weight gain - Eyes Eyes: reports: Vision loss, Corrective lenses - Ears, Nose & Throat Ears, Nose & Throat: reports: Vertigo, Nasal congestion, Dry mouth - Cardiovascular Cardiovascular: reports: Irregular heart rate, Palpitations, Edema, Lightheadedness, Exertional dyspnea, Decr. exercise tolerance - Respiratory Respiratory: reports: Orthopnea, SOB with exertion - Gastrointestinal Gastrointestinal: reports: Constipation, Nausea, Good appetite. denies: Reflux/ heartburn - Genitourinary Genitourinary: denies: Dysuria - Musculoskeletal Musculoskeletal: reports: Muscle aches, Stiffness, Limited range of motion, Muscle weakness, Assistive devices (uses cane) - Integumentary Integumentary: reports: Rash, Pruritis, Lesions, Dryness, Nail changes, Hair changes - Neurological Neurological: reports: General weakness, Focal weakness, Headache, Dizziness, Memory problems - Psychiatric Psychiatric: reports: Depression (improved) - Endocrine Endocrine: reports: Hypothyroidism - Hematologic/Lymphatic Hematologic/Lymphatic: reports: Recurrent infections (receent UTI) - All Other Systems All Other Systems: reports: Reviewed and negative Physical Exam - Vital Signs Temperature: 97.3 C Pulse Rate: 74 Respiratory Rate: 18 O2 Saturation: 93 (ra @ rest) Blood Pressure: 107/72 - Physical Exam General Appearance: positive: Mild distress Eyes Bilateral: positive: Normal inspection ENT: positive: No signs of dehydration Neck: positive: No JVD, Trachea midline Cardiovascular: positive: Regular rate & rhythm Respiratory: positive: Diminished in bases. negative: Wheezes, Rales, Rhonchi Abdomen: positive: Soft, Nml bowel sounds Skin: positive: Dryness, Pruritis, Rash Extremities: positive: Pedal edema (trace to mid calf) Neurologic/Psychiatric: positive: Oriented x3, Mood/affect nml Palliative Care - POLST Patient has POLST: No Pain: Pain worsening, Location (Patient on methadone 5 mg twice daily; uses hydrocodone codon 5 mg/325 mg acetaminophen 1 tab 3 times a day, with increasing headache pain has used up to 4 times a day. Baseline pain left- sided sharp shooting, most aggravated in the morning. Has had dull increased frontal pain and centered around temporal area and right ear. Denies acute sharp shooting pain in her right ear. This has been fairly persistent over the last month. Patient differentiates this from her ongoing migraine pain, though this can be an overlay for her as well) Tiredness/Fatigue: Severe (7-10) Drowsiness/Sedation: Moderate (4-6) (Patient continues to have difficulty sleeping, had been setting herself to get up for several hours in the morning, push fluids and eat and take her meds, continue to work on this as a goal. She does stay up late into the evening. When she has her "heart spells" she also has to take naps and lay down in response) Nausea: Mild (1-3) Depression: Mild (1-3) (improved on antidepressant) Anxiety: Moderate (4-6) (Continues to feel quite vulnerable with all her multiple symptoms, now at risk for falling and is very careful but worried about injury.) Dyspnea: Moderate (4-6) (Episodic periods of severe dyspnea, mostly when laying down.) Anorexia: Mild (1-3) (improved) Sleep: Variable sleep pattern Constipation: Yes, Opoid induced, Managed Feelings of wellbeing/Perceived Quality of Life: Fair, Worsening Performance Status: Patient able to ambulate on flat level with her cane, she has had to be much more careful and Intentional regarding concern for falls with her most recent dizziness and balance issues. She does need assistance up from the bed particularly in the morning, she has been cooking more which has brought her more pleasure, but does need ongoing support. - Palliative Care Discussion: Patient continues to feel very vulnerable as far as concern, wonders sometimes if she is even then awake up in the morning. She does have significant long list of symptoms, specialists, with very little improvement in her quality of life. She is trying to prioritize her medical appointments, needs to find a new PCP as well as solutions analyst. She tries to make the best of things, but it does get discouraged. She is still grieving the loss of her father, worries about the burden on her , and is somewhat isolated as far as social support. Results - Lab Results Lab results reviewed: Yes Impression and Recommendations - Palliative Care Impression: This is a 62-year-old woman with multiple underlying medical problems as result of significant comorbidities, does present with high symptom burden, continues to struggle with finding meaning in quality of life. She remains quite fragile , both emotionally medically. Palliative care team to continue provide support for symptom management, coordination of care, and setting up priorities. Recommendations/Counseling Done: 1. UTI. Patient has responded to the antibiotics, no further signs or symptoms of infection. Patient is attempting to increase her fluid intake. Did review precipitating factors, including patient's decreased fluid intake, counseling regarding strategies for prevention. 2. Acute on chronic pain, this is multifactorial in origin. Patient now presents with persistent headache pain. Counseling and review of current regimen, will continue with methadone 5 mg twice daily, gabapentin 100 mg twice daily, and increase her hydrocodone 5 mg/325 mg APAP up to 4 times a day. 3. Dizziness. The patient's description of balance and dizziness, difficult to differentiate does not feel it is acute ear pain are related, encourage patient to follow-up neurologist, concern for further sequela of her stroke or extension. Counseling regarding prioritizing a specialist, will follow up with neurologist. 4. CHF. Patient with episodic periods of breathlessness, continues with "spells". Has not followed up with her adjuster, had suggested last time possibly looking at a long-acting nitrate. Multiple barriers as far as transportation and follow through, [place] Recommended setting this is a priority as well. 5. Depression. Patient has been inconsistent taking her Lexapro, she is getting counseling from the palliative care rn social work as well as bereavement counselor. Does feel she is doing fairly well and has had a positive response. 6. Healthcare screening. Patient with multiple complex issues, prioritizing regarding follow-up with specialist, patient reports she is eating better, her activity has been limited because of her increased dizziness, will follow up with cardiology records regarding her latest lipid panel. Has had recent labs in the ED, other than positive UTI none of concern. Patient continues to focus on making the best of her current situation, but does have limited options giving her underlying medical issues. 7. Advanced care planning. Patient is needing more care and supervision, unfortunately this remains quite difficult. Will make a referral to [facility]. Continue to support through palliative care recognizing the complexity of the situation and seriousness of her illness. Time Spent: 60 minutes with greater than 50% of this done in counseling and coordination of care regarding prioritizing specialist review of symptoms, safety issues, and anticipatory guidance
== END 2018-07-09 16:01 | disposition home or self-care (01) ==
LOC: PC 16:00
PROVIDERS: ATTEND Nurse Practitioner Adult Health
DX: Z51.5 Encounter for palliative care (principal); G89.29 Other chronic pain; R51 Headache; R42 Dizziness and giddiness; I50.30 Unspecified diastolic (congestive) heart failure; F32.9 Major depressive disorder, single episode, unspecified; R06.09 Other forms of dyspnea; R53.83 Other fatigue; M62.81 Muscle weakness (generalized); K59.03 Drug induced constipation; T40.2X5D Adverse effect of other opioids, subsequent encounter; Z91.81 History of falling; G81.94 Hemiplegia, unspecified affecting left nondominant side
CPT/HCPCS: 99350

== ENCOUNTER 2018-07-24 09:47 | Outpatient (CLI) | payer BC ==
[2018-07-24 17:15] LABS: BASOPHILS % (AUTO) 0.7 %; EOSINOPHILS # (AUTO) 0.2 10^3/uL (0.0-0.7); EOSINOPHILS % (AUTO) 2.7 %; HGB - HEMOGLOBIN 11.5 g/dL (12.0-16.0); LYMPHOCYTES # (AUTO) 2.6 10^3/uL (1.5-3.5); LYMPHOCYTES % (AUTO) 41.1 %; MEAN CORPUSCULAR HEMOGLOBIN 29.5 pg (27.0-31.0); MEAN CORPUSCULAR HGB CONC 32.8 g/dL (32.0-36.0); MEAN PLATELET VOLUME 7.7 fL (7.9-10.8); MONOCYTES # (AUTO) 0.5 10^3/uL (0.0-1.0); MONOCYTES % (AUTO) 7.8 %; NEUTROPHILS % (AUTO) 47.7 %; PLT - PLATELET COUNT 269 10^3/uL (130-450); RED CELL DISTRIBUTION WIDTH 14.9 % (12.0-15.0); WHITE BLOOD COUNT 6.3 x10^3/uL (4.8-10.8)
[2018-07-24 17:17] LABS: BILIRUBIN,URINE NEGATIVE (NEGATIVE); GLUCOSE, URINE (UA) NEGATIVE (NEGATIVE); KETONES,URINE (UA) NEGATIVE (NEGATIVE); LEUKOCYTE ESTERASE, URINE NEGATIVE (NEGATIVE); NITRITE,URINE NEGATIVE (NEGATIVE); OCCULT BLOOD,URINE NEGATIVE (NEGATIVE); PROTEIN,URINE NEGATIVE (NEGATIVE); UROBILINOGEN,URINE 0.2 (NORMAL) E.U./dL (NORMAL)
[2018-07-24 17:25] LABS: BACTERIA,URINE None Seen /HPF (None Seen); CLARITY,URINE CLEAR (CLEAR); RBC,URINE None Seen /HPF (0-5); SQUAMOUS EPITHELIAL CELL,UR NONE SEEN (<= Few)
[2018-07-24 17:47] LABS: ALBUMIN 3.7 g/dL (3.2-5.5); ALBUMIN/GLOBULIN RATIO 1.5 (1.0-2.2); ALKALINE PHOSPHATASE 124 IU/L (42-121); ALT ALANINE AMINOTRANSFERASE 21 IU/L (10-60); AST ASPARTATE AMINOTRANSFERASE 25 IU/L (10-42); BILIRUBIN,TOTAL 0.5 mg/dL (0.2-1.0); BUN - BLOOD UREA NITROGEN 18 mg/dL (6-20); CARBON DIOXIDE - CO2 31 mmol/L (21-32); CHLORIDE 104 mmol/L (101-111); CHOL/HDL RATIO 6.7 (<4.4); CHOLESTEROL 263 mg/dL; CREATININE 1.5 mg/dL (0.4-1.0); GFR - MDRD 35 (>89); GLUCOSE 87 mg/dL (70-100); HDL CHOLESTEROL 39 mg/dL; LDL CHOLESTEROL,CALCULATED 151 mg/dL; LDL/HDL RATIO 3.9 (<4.4); SODIUM 142 mmol/L (135-145); TOTAL PROTEIN 6.1 g/dL (6.7-8.2); VLDL CHOLESTEROL 73 mg/dL
== END 2018-07-24 09:48 | disposition home or self-care (01) ==
LOC: LAB.F 09:47
PROVIDERS: ATTEND Nurse Practitioner Adult Health
DX: I50.9 Heart failure, unspecified (principal); Z79.899 Other long term (current) drug therapy; R30.0 Dysuria
CPT/HCPCS: 36415; 80053; 80061; 81001; 83721; 85025; 87086

== ENCOUNTER 2018-08-07 11:10 | Outpatient (CLI) | payer BC ==
[2018-08-07 18:09] LABS: BASOPHILS # (AUTO) 0.1 10^3/uL (0.0-0.1); BASOPHILS % (AUTO) 0.5 %; EOSINOPHILS # (AUTO) 0.2 10^3/uL (0.0-0.7); EOSINOPHILS % (AUTO) 1.6 %; HGB - HEMOGLOBIN 11.9 g/dL (12.0-16.0); LYMPHOCYTES # (AUTO) 2.4 10^3/uL (1.5-3.5); LYMPHOCYTES % (AUTO) 22.7 %; MEAN CORPUSCULAR HEMOGLOBIN 29.2 pg (27.0-31.0); MEAN CORPUSCULAR HGB CONC 32.4 g/dL (32.0-36.0); MEAN CORPUSCULAR VOLUME 90.3 fL (81.0-99.0); MEAN PLATELET VOLUME 8.2 fL (7.9-10.8); MONOCYTES # (AUTO) 0.9 10^3/uL (0.0-1.0); MONOCYTES % (AUTO) 8.5 %; NEUTROPHILS # (AUTO) 7.1 10^3/uL (1.5-6.6); NEUTROPHILS % (AUTO) 66.7 %; PLT - PLATELET COUNT 232 10^3/uL (130-450); RED BLOOD COUNT 4.08 10^6/uL (4.20-5.40); RED CELL DISTRIBUTION WIDTH 14.4 % (12.0-15.0); WHITE BLOOD COUNT 10.6 x10^3/uL (4.8-10.8)
[2018-08-07 18:59] LABS: ALBUMIN 3.7 g/dL (3.2-5.5); ALBUMIN/GLOBULIN RATIO 1.4 (1.0-2.2); BILIRUBIN,TOTAL 0.6 mg/dL (0.2-1.0); CALCIUM 9.3 mg/dL (8.5-10.3); CREATININE 1.7 mg/dL (0.4-1.0); TOTAL PROTEIN 6.4 g/dL (6.7-8.2)
== END 2018-08-07 11:11 | disposition home or self-care (01) ==
LOC: LAB.F 11:10
PROVIDERS: ATTEND Internal Medicine
DX: N18.4 Chronic kidney disease, stage 4 (severe) (principal); I42.9 Cardiomyopathy, unspecified
CPT/HCPCS: 36415; 80053; 85025

== ENCOUNTER 2018-08-16 12:16 | Outpatient (CLI) | payer BC | END 2018-08-16 12:17 | disposition short-term general hospital (02) | LOC: EMS 12:16 | PROVIDERS: ATTEND Surgery | DX: R07.9 Chest pain, unspecified (principal) | CPT/HCPCS: A0170; A0425; A0427 ==

== ENCOUNTER 2018-08-20 16:57 | Outpatient (CLI) | payer BC ==
--- NOTE | 2018-08-20 17:04 | CONSULTATION NOTE ---
Palliative Care Follow Up - Referral Referring Provider: Dr. Harjit Barraza Time of Visit: 6920-1586 Referral setting: Home Referral Reason: CHF/Chronic Pain Syndrome - Information Sources Records reviewed: Previous records reviewed History/Review of Systems obtained from: Patient, Family ( Jorge at visit) Exam limitations: No limitations - History of Present Illness Update Brief HPI Update: This is a 62-year-old woman with a very complex set of comorbidities, most recently on 08/16 had an episode of severe chest pain. She does have underlying symptoms regarding her heart failure and arrhythmias, these include severe episodes of fatigue, dizziness, intermittent chest pain most often relieved with nitro, and significant disability related to her activity tolerance regarding this. She was hospitalized at [place], she has an known history of ventricular tachycardia, but converted back into her usual paced rhythm without intervention. She had not been doing anything unusual to precipitate this, she been actually fairly happy, her decreased stress has is making bread. Her only relief during that episode was the morphine. They are unable to determine the etiology, have increased her diuretics, and initiated car nadolol. Unfortunately she took 25 mg last night, felt horrible, but orders on discharge were half tab 3 times daily. She does get overwhelmed, given the severity and the length of her journey with this, does not know if she is going to tomorrow, or has a few more years. 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 They are looking at doing an MRI again, in the past has been complicated because of her pacem irish. Unclear if this is going to happen. Patient really would like some understanding even if it is of serious nature, of her expected prognosis She did have an echo at the hospital, reports was 35%, with a GFR of 31. She continues to have acute on chronic pain, with allodynia and hyperalgesia on her left side. She has had increased difficulty with headache, dizziness, activity tolerance. Continues with ongoing weight gain. She is trying to transition [place] care [place], he has multiple specialists related to her ongoing list of comorbidities. Social History - Living Situation Living arrangement: At home Living Situation: With spouse/s.o. Support System: Because of patient's activity intolerance, and cardiac fatigue, patient does sleep 12-14 hours a day. This makes it difficult to get her medications in. Her does work, she does have her daughter and [id number] who assist with transportation and socialization. She does need assistance with most ADLs, particularly in the morning with dressing secondary to her pain. Medications/Allergies - Medications Home Medications: Ambulatory Orders Medication Instructions Recorded Confirmed Fluticasone [Flonase] 1 spray HAROLDO BID 01/24/16 08/21/18 HYDROcod/ACETAM 5/325 [Vicodin 1 tab PO Q6HR PRN MDD 4 01/24/16 08/21/18 5/325] QUEtiapine [SEROquel] 25 mg PO ACHS 01/24/16 08/21/18 Torsemide 40 mg PO DAILY 01/24/16 08/21/18 Levothyroxine [Synthroid] 100 mg PO DAILY 05/17/17 08/21/18 Methadone 5 mg PO BID 05/17/17 08/21/18 Rivaroxaban [Xarelto] 15 gm PO DAILY 05/17/17 08/21/18 Calcium Carbonate/Vitamin D3 1 tab PO BID 05/19/17 08/21/18 [Calcium 600-Vit D3 400 Tablet] Carboxymethylcellulose Sodium 1 drops TOP TID 05/19/17 08/21/18 [Refresh Tears] Cyclosporine [Restasis] 1 applic TOP BID 05/19/17 08/21/18 Gabapentin 100 mg PO BID 05/19/17 08/21/18 Hydrocortisone [Cortef] 10 tab PO QDBREAKFAST 05/19/17 08/21/18 Metoprolol Succinate 100 mg PO DAILY 05/19/17 08/21/18 Multivitamin [Multiple Vitamins] 1 tab PO DAILY 05/19/17 08/21/18 Ondansetron Odt [Zofran Odt] 1 tab PO Q8HR PRN 05/19/17 08/21/18 Polyethylene Glycol 3350 [Miralax] 17 gm PO DAILY PRN 05/19/17 08/21/18 Salmeterol Xinafoate [Serevent 1 puffs INH BID 05/19/17 08/21/18 Diskus] hydrOXYzine pamoate [Hydroxyzine 1 tab PO BID MDD 4 05/19/17 08/21/18 Pamoate] raNITIdine [Zantac] 150 mg PO BID 08/16/17 08/21/18 Hydrocortisone [Cortef] 5 mg PO QDDINNER 12/11/17 08/21/18 Lidocaine [Topicaine 5] 1 applic TOP PRN PRN 12/11/17 08/21/18 Liothyronine [Cytomel] 5 mcg PO DAILY 12/11/17 08/21/18 Nitroglycerin [Nitrostat] 0.4 mg SL Q5MIN PRN 03/12/18 08/21/18 Escitalopram [Lexapro] 10 mg PO DAILY 05/19/18 08/21/18 Captopril 12.5 mg PO BID 08/21/18 08/21/18 Sennosides [Chocolated Laxative] 15 - 30 mg PO DAILY PRN 08/21/18 08/21/18 - Allergies Allergies/Adverse Reactions: Allergies Allergy/AdvReac Type Severity Reaction Status Date / Time cefpodoxime proxetil * Allergy Unknown Verified 01/24/16 14:08 [From Vantin] clindamycin Allergy Unknown Verified 05/17/17 18:00 codeine Allergy Unknown Verified 01/24/16 14:08 erythromycin base Allergy Unknown Verified 01/24/16 14:08 [Erythromycin Base] levofloxacin [From Levaquin] Allergy Unknown Verified 01/24/16 14:08 rofecoxib [From Vioxx] Allergy Unknown Verified 01/24/16 14:08 sumatriptan [From Imitrex] Allergy Unknown Verified 01/24/16 14:08 sumatriptan succinate * Allergy Unknown Verified 01/24/16 14:08 [From Imitrex] morphine AdvReac Unknown Verified 05/17/17 18:01 Review of Systems - Constitutional Constitutional: reports: Fatigue (Severe fatigue is very limiting to current QOL), Poor appetite, Weight gain (attributes to fluid retention; hospital wait recorded at 200) - Eyes Eyes: reports: Vision loss, Corrective lenses - Cardiovascular Cardiovascular: reports: Irregular heart rate, Palpitations, Chest pain (see hpi), Edema, Lightheadedness, Exertional dyspnea, Decr. exercise tolerance, Orthopnea - Respiratory Respiratory: reports: Wheezing, SOB with exertion - Gastrointestinal Gastrointestinal: reports: Nausea, Reflux/heartburn, Bloating, Early satiety. denies: Constipation - Genitourinary Genitourinary: reports: Other (retention symptoms; suspect etiology of UTI) - Musculoskeletal Musculoskeletal: reports: Muscle aches, Stiffness, Limited range of motion, Muscle weakness, Assistive devices (uses cane in home; walker for longer distances; wheelchair when out) - Integumentary Integumentary: reports: Rash, Pruritis, Lesions, Dryness, Hair changes - Neurological Neurological: reports: General weakness, Headache (worsening), Memory problems (STM issues) - Psychiatric Psychiatric: reports: Depression (improved), Anxiety - Endocrine Endocrine: reports: Hypothyroidism - Hematologic/Lymphatic Hematologic/Lymphatic: reports: Recurrent infections (UTIs) - All Other Systems All Other Systems: reports: Reviewed and negative Physical Exam - Vital Signs Temperature: 96.7 C Pulse Rate: 83 Respiratory Rate: 18 O2 Saturation: 92 (ra @ rest) Blood Pressure: 108/64 - Physical Exam General Appearance: positive: Moderate distress, Anxious, Lethargic Eyes Bilateral: positive: Normal inspection ENT: positive: Dry mucous membranes Neck: positive: No JVD, Trachea midline Cardiovascular: positive: Irregular Respiratory: positive: Diminished in bases Abdomen: positive: Soft Skin: positive: Pallor, Dryness, Pruritis, Rash (Patient continues with raised plaques on lower extremities, is using high potency steroid topical currently. Does have significant pruritus, does develop blisters with increased edema. No signs or symptoms of infection at this point.) Extremities: positive: Pedal edema (LE edema 1+ up to calves) Neurologic/Psychiatric: positive: Oriented x3, Mood/affect nml, Weakness Palliative Care - POLST Patient has POLST: No Pain: Pain worsening, Location (Patient with a severe left-sided pain from left jaw shoulder arm into her left lower extremity. Sharp shooting in nature, currently on methadone 5 mg twice daily with [place] up to 4 tablets a day for pain control. Have titrated higher and resulting sedation, patient is also on gabapentin 100 mg twice daily. Has been quite distressful for her at her overall level of discomfort. Does not want any changes in her current regimen.) Tiredness/Fatigue: Severe (7-10) (Fatigue continues to be most prevalent and distressing symptom, this is punctuated with episodes of cardiac fatigue and dizziness. Patient is sleeping 12-14 hours a day without feeling rested.) Drowsiness/Sedation: Moderate (4-6) Nausea: Moderate (4-6) Depression: Mild (1-3) Anxiety: Moderate (4-6) Dyspnea: Moderate (4-6) Anorexia: Moderate (4-6) Sleep: Sleeps well Constipation: Yes, Opoid induced, Managed Feelings of wellbeing/Perceived Quality of Life: Poor, Worsening Performance Status: Patient is having increased difficulty with mobility, that she is cane and home, walker for longer distances and wheelchair for transportation with MD appointments. Patient does try to stay active, works in the garden to her level of fatigue. She is looking at restarting her pool exercises. - Palliative Care Discussion: Patient tries to stay positive, trying to find something that as meaning every day to her life that she finds enjoyable. She does report the brain fog is worsening, has more difficulty tracking. She is hopeful Dr. Valiente will be able to do further workup with some underlying pathology or etiology for her cardiac issues. She will be having follow-up next week with him. She lives with anxiety of if she will ever wake up, or have an event as such as this last time, if she has weeks or if she has years weighs heavily on both her and Jorge. Impression and Recommendations - Palliative Care Impression: This is a 62-year-old woman with multiple underlying medical problems, significant comorbidities, high symptom burden, and most recently with acute severe chest pain. She remains quite fragile both emotionally and medically. Palliative care team continues to provide support for symptom management, coordi nation of care, and setting up priorities. Recommendations/Counseling Done: 1. Acute chest pain. Patient has not had recurrent episode, has been started on captopril. Had significant side effects, reviewed not taking appropriately, has 25 mg tabs, discharge order was half tab 3 times daily, they are quite little. Will do half tab twice daily as patient is unable to do 3 times daily dosing secondary to only up 8 hours. They will review with Dr. Valiente that visit on . 2. Acute on chronic pain, this is multifactorial in origin. Currently on methadone 5 mg twice a day, gabapentin 100 mg twice a day, and hydrocodone 5 mg / 325 mg up to 4 times a day. Reviewed regimen, given patient's overall fatigue, will continue on current regimen. Patient is planning to follow-up regarding her "trigger finger on her right hand, she has had a release in the past, this is causing her increased discomfort as well. 3. Depression. Patient's taking her Lexapro, is sitting goals, meeting with the palliative care social science professor. She feels like she is doing what she can in the context of her current situation. She is quite hopeful that Dr. Valiente will continue to work up her current issues. She feels it would be helpful to have up prognosis. 4.CHF. They have increased her torsemide, she is not noticed much weight change, but has had some decrease in edema. She is due for labs on Saturday, she is not on any potassium, will follow up prior to the weekend to make sure she is needing any. They do have some potassium in the home. 5.CKD stage III. 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 Would like a referral to Dr. Mayes, had left message for Dr. Barraza to follow-up at last pending appointment, but had not done so. Will send a letter of introduction, may still need to come from PCP. 6. Advanced care planning. Patient and reports they have finished their avalos, patient would like to have better idea of her prognosis to help with planning into the future. Counseling provided normalizing current feelings of grief and loss. Time Spent: 60 minutes with counseling greater than 50% on pain and symptom management, goals of care, anticipatory guidance and medication management
== END 2018-08-20 16:58 | disposition home or self-care (01) ==
LOC: PC 16:57
PROVIDERS: ATTEND Nurse Practitioner Adult Health
DX: Z51.5 Encounter for palliative care (principal); R07.9 Chest pain, unspecified; G89.29 Other chronic pain; R68.84 Jaw pain; M79.602 Pain in left arm; M79.605 Pain in left leg; M25.512 Pain in left shoulder; F32.9 Major depressive disorder, single episode, unspecified; I50.9 Heart failure, unspecified; N18.3 Chronic kidney disease, stage 3 (moderate); Z91.14 Patient's other noncompliance with medication regimen; Z95.0 Presence of cardiac pacemaker; R20.8 Other disturbances of skin sensation; R20.3 Hyperesthesia; R63.5 Abnormal weight gain; Z79.02 Long term (current) use of antithrombotics/antiplatelets; R53.83 Other fatigue; K59.03 Drug induced constipation; T40.2X5D Adverse effect of other opioids, subsequent encounter
CPT/HCPCS: 99350

== ENCOUNTER 2018-08-22 09:17 | Outpatient (CLI) | payer BC ==
[2018-08-22 17:55] LABS: CALCIUM 8.7 mg/dL (8.5-10.3); CREATININE 1.5 mg/dL (0.4-1.0)
== END 2018-08-22 09:18 | disposition home or self-care (01) ==
LOC: LAB.F 09:17
DX: N18.3 Chronic kidney disease, stage 3 (moderate) (principal)
CPT/HCPCS: 36415; 80048

== ENCOUNTER 2018-09-08 09:37 | Outpatient (CLI) | payer BC ==
[2018-09-08 18:05] LABS: BILIRUBIN,URINE NEGATIVE (NEGATIVE); GLUCOSE, URINE (UA) NEGATIVE (NEGATIVE); KETONES,URINE (UA) NEGATIVE (NEGATIVE); LEUKOCYTE ESTERASE, URINE MODERATE (NEGATIVE); NITRITE,URINE NEGATIVE (NEGATIVE); OCCULT BLOOD,URINE SMALL (NEGATIVE); PH,URINE 6.5 PH (5.0-7.5); PROTEIN,URINE NEGATIVE (NEGATIVE); UROBILINOGEN,URINE 0.2 (NORMAL) E.U./dL (NORMAL)
[2018-09-08 18:24] LABS: CLARITY,URINE CLEAR (CLEAR)
[2018-09-08 18:25] LABS: HGB - HEMOGLOBIN 11.8 g/dL (12.0-16.0); MEAN CORPUSCULAR HEMOGLOBIN 29.1 pg (27.0-31.0); MEAN CORPUSCULAR HGB CONC 32.4 g/dL (32.0-36.0); MEAN CORPUSCULAR VOLUME 89.9 fL (81.0-99.0); MEAN PLATELET VOLUME 7.5 fL (7.9-10.8); RED BLOOD COUNT 4.05 10^6/uL (4.20-5.40); RED CELL DISTRIBUTION WIDTH 15.1 % (12.0-15.0)
[2018-09-08 18:26] LABS: BACTERIA,URINE Few /HPF (None Seen); RBC,URINE 0-5 /HPF (0-5); SQUAMOUS EPITHELIAL CELL,UR NONE SEEN (<= Few)
[2018-09-08 19:12] LABS: ALBUMIN 3.9 g/dL (3.2-5.5); ALBUMIN/GLOBULIN RATIO 1.4 (1.0-2.2); ALKALINE PHOSPHATASE 131 IU/L (42-121); ALT ALANINE AMINOTRANSFERASE 18 IU/L (10-60); AST ASPARTATE AMINOTRANSFERASE 23 IU/L (10-42); BILIRUBIN,TOTAL 0.5 mg/dL (0.2-1.0); BUN - BLOOD UREA NITROGEN 21 mg/dL (6-20); CALCIUM 8.3 mg/dL (8.5-10.3); CARBON DIOXIDE - CO2 31 mmol/L (21-32); CHLORIDE 96 mmol/L (101-111); CHOL/HDL RATIO 6.2 (<4.4); CHOLESTEROL 240 mg/dL; CREATININE 1.8 mg/dL (0.4-1.0); GFR - MDRD 29 (>89); GLUCOSE 88 mg/dL (70-100); HDL CHOLESTEROL 39 mg/dL; LDL CHOLESTEROL,CALCULATED 129 mg/dL; LDL/HDL RATIO 3.3 (<4.4); SODIUM 138 mmol/L (135-145); TOTAL PROTEIN 6.7 g/dL (6.7-8.2); VLDL CHOLESTEROL 72 mg/dL
== END 2018-09-08 09:38 | disposition home or self-care (01) ==
LOC: LAB.F 09:37
PROVIDERS: ATTEND Nurse Practitioner Adult Health
DX: R30.0 Dysuria (principal); E27.1 Primary adrenocortical insufficiency; E78.5 Hyperlipidemia, unspecified; E89.0 Postprocedural hypothyroidism; N18.4 Chronic kidney disease, stage 4 (severe)
CPT/HCPCS: 36415; 80053; 80061; 81001; 81003; 83721; 84443; 85027; 87086; 87181

== ENCOUNTER 2018-09-23 15:40 | Outpatient (CLI) | payer BC ==
--- NOTE | 2018-09-23 17:14 | CONSULTATION NOTE ---
Palliative Care Follow Up - Referral Referring Provider: Dr. Barraza Time of Visit: [id number] Referral setting: Home Referral Reason: CHF/Chronic Pain/Interstistial Cystitis - Information Sources Records reviewed: Previous records reviewed History/Review of Systems obtained from: Patient, Family ( Jorge present for visit) Exam limitations: No limitations - History of Present Illness Update Brief HPI Update: This is a 62-year-old woman with a very complex set of core morbidities, that involve her CHF, AV block status post pacemaker, history of V. tach, intermittent atrial fib, chronic renal failure, interstitial cystitis, fibromyalgia, history of CVA with residual left hemiplegia, hypothyroidism, adrenal insufficiency, and chronic pain syndrome. Patient continues with intermittent episodes of dizziness and nausea, reports these are happening 2-3 times a day. She reports she is no longer though is having angina with this, and she has been on the lisinopril. She does note though when she has these episodes, somewhat of a wave comes over her, she gets dizzy and unsettled, they did get an oximeter, reports her rhythm is very irregular, but she also gets hypoxic into the 70s. She also reports she has increased difficulty laying flat with severe orthopnea, they have been using pillows to try and elevate, she feels like she is drowning at times with her shortness of breath. She also reports increased intermittent episodes of wheezing, shortness of breath, that are intermittent and fluctuating through the day as well. She has continued to gain weight, some of this is fluid with some lower extremity edema, but also overall weight somewhat centered in her abdomen as well. Patient reports increased acute pain, this is been building over the last several weeks, since her first UTI. She describes as of acute sharp shooting centralized in her mid to low thoracic area, resulting in a band of discomfort. Any kind of reaching twisting lifting exacerbates the pain. She is tender over the vertebrae. I suspect she has most likely a compression fracture. 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 Patient only has one kidney, she went to her anti-coag clinic appointment, with a GFR of 24 this is decreased from her previous 31. She is quite discouraged with this. She is to meet her new assigner Dr. Norris on 10/17. Patient was told by her original assigner that she is to get on the transplant list at GFR of 30. Encouraged to follow-up with Dr. Norris is my understanding is it had to be stage V CKD. She is also now been treated recently for a second UTI, which was actually sensitive to all antibiotics. This is her second in 8 weeks, which had essentially wiped her out. She did just finished a few days ago, she reports she has been having urinary retention and this resolved with the antibiotics, but is starting up again. She does have some frequency, difficulty starting a stream, and extreme discomfort with this. Patient does have a known long history of interstitial cystitis, out of her 13 specialist this is not one that she currently has. Will make a referral as she is quite complex and this is becoming more problematic. Social History - Living Situation Living arrangement: At home Living Situation: With spouse/s.o. Support System: Patient is fairly dependent on her for most ADLs, and support. Patient does do some cooking, minor housework when she has the energy. She does have to pace herself. She is sleeping probably 60-70% of the day secondary to her severe fatigue. She does need maximum assist out of bed in the morning, she cannot reposition herself because of her residual stroke symptoms and pain. Medications/Allergies - Medications Home Medications: Ambulatory Orders Medication Instructions Recorded Confirmed Fluticasone [Flonase] 1 spray HAROLDO BID 01/24/16 09/23/18 HYDROcod/ACETAM 5/325 [Vicodin 1 tab PO Q4HR PRN MDD 4 01/24/16 09/23/18 5/325] QUEtiapine [SEROquel] 25 mg PO ACHS 01/24/16 09/23/18 Torsemide 40 mg PO DAILY 01/24/16 09/23/18 Levothyroxine [Synthroid] 100 mg PO DAILY 05/17/17 09/23/18 Methadone 5 mg PO BID 05/17/17 09/23/18 Rivaroxaban [Xarelto] 15 gm PO DAILY 05/17/17 09/23/18 Calcium Carbonate/Vitamin D3 1 tab PO BID 05/19/17 08/21/18 [Calcium 600-Vit D3 400 Tablet] Carboxymethylcellulose Sodium 1 drops TOP TID 05/19/17 09/23/18 [Refresh Tears] Cyclosporine [Restasis] 1 applic TOP BID 05/19/17 09/23/18 Gabapentin 100 mg PO BID 05/19/17 09/23/18 Hydrocortisone [Cortef] 10 tab PO QDBREAKFAST 05/19/17 09/23/18 Metoprolol Succinate 100 mg PO DAILY 05/19/17 09/23/18 Multivitamin [Multiple Vitamins] 1 tab PO DAILY 05/19/17 09/23/18 Ondansetron Odt [Zofran Odt] 1 tab PO Q8HR PRN 05/19/17 09/23/18 Polyethylene Glycol 3350 [Miralax] 17 gm PO DAILY PRN 05/19/17 09/23/18 Salmeterol Xinafoate [Serevent 1 puffs INH BID 05/19/17 09/23/18 Diskus] hydrOXYzine pamoate [Hydroxyzine 1 tab PO BID MDD 4 05/19/17 09/23/18 Pamoate] raNITIdine [Zantac] 150 mg PO BID 08/16/17 09/23/18 Hydrocortisone [Cortef] 5 mg PO QDDINNER 12/11/17 09/23/18 Lidocaine [Topicaine 5] 1 applic TOP PRN PRN 12/11/17 09/23/18 Liothyronine [Cytomel] 5 mcg PO DAILY 12/11/17 09/23/18 Nitroglycerin [Nitrostat] 0.4 mg SL Q5MIN PRN 03/12/18 09/23/18 Escitalopram [Lexapro] 10 mg PO DAILY 05/19/18 09/23/18 Sennosides [Chocolated Laxative] 15 - 30 mg PO DAILY PRN 08/21/18 09/23/18 Lisinopril 5 mg PO QDDINNER 09/23/18 09/23/18 Methyl Salicylate/Menthol 1 patch TOP DAILY PRN 09/23/18 09/23/18 [Salonpas Patch] - Allergies Allergies/Adverse Reactions: Allergies Allergy/AdvReac Type Severity Reaction Status Date / Time cefpodoxime proxetil * Allergy Unknown Verified 01/24/16 14:08 [From Vantin] clindamycin Allergy Unknown Verified 05/17/17 18:00 codeine Allergy Unknown Verified 01/24/16 14:08 erythromycin base Allergy Unknown Verified 01/24/16 14:08 [Erythromycin Base] levofloxacin [From Levaquin] Allergy Unknown Verified 01/24/16 14:08 rofecoxib [From Vioxx] Allergy Unknown Verified 01/24/16 14:08 sumatriptan [From Imitrex] Allergy Unknown Verified 01/24/16 14:08 sumatriptan succinate * Allergy Unknown Verified 01/24/16 14:08 [From Imitrex] morphine AdvReac Unknown Verified 05/17/17 18:01 Review of Systems - Constitutional Constitutional: reports: Fatigue, Malaise, Weakness, Poor appetite, Weight gain - Eyes Eyes: reports: Vision loss, Corrective lenses - Ears, Nose & Throat Ears, Nose & Throat: reports: Vertigo, Nasal congestion, Dry mouth - Cardiovascular Cardiovascular: reports: Irregular heart rate, Palpitations, Edema, Lightheadedness, Exertional dyspnea, Decr. exercise tolerance. denies: Chest pain - Respiratory Respiratory: reports: Wheezing, Orthopnea, SOB at rest, SOB with exertion - Gastrointestinal Gastrointestinal: reports: Abdominal pain, Constipation, Nausea, Reflux/heartburn, Bloating, Early satiety - Genitourinary Genitourinary: reports: Dysuria, Frequency, Urgency, Other (retention) - Musculoskeletal Musculoskeletal: reports: Back pain, Muscle aches, Stiffness, Limited range of motion, Muscle weakness, Assistive devices - Integumentary Integumentary: reports: Rash, Pruritis, Lesions, Dryness, Nail changes, Hair changes - Neurological Neurological: reports: General weakness, Headache, Dizziness, Numbness, Memory problems, Pre-existing deficit, Abnormal gait - Psychiatric Psychiatric: reports: Depression, Anxiety - Endocrine Endocrine: reports: Hypothyroidism - Hematologic/Lymphatic Hematologic/Lymphatic: reports: Recurrent infections - All Other Systems All Other Systems: reports: Reviewed and negative Physical Exam - Vital Signs Temperature: 97.4 C Pulse Rate: 75 Respiratory Rate: 18 O2 Saturation: 89 (to 97% variable at rest) - Physical Exam General Appearance: positive: Moderate distress Eyes Bilateral: positive: Normal inspection ENT: positive: No signs of dehydration Neck: positive: Trachea midline Cardiovascular: positive: Irregular Respiratory: positive: Diminished in bases Abdomen: positive: Soft, Nml bowel sounds Skin: positive: Pallor, Dryness, Pruritis, Rash Extremities: positive: Pedal edema (up to mid calf) Neurologic/Psychiatric: positive: Oriented x3, Weakness, Depressed mood/affect, Flat affect Palliative Care - POLST Patient has POLST: No Pain: Pain worsening, Location (see HPI; new acute back pain; Currently for her central pain syndrome on methadone 5 mg twice daily, has been using oxycodone 1/2-1 tab up to 4 times a day. Unfortunately with her acute pain this is not working well to address) Tiredness/Fatigue: Severe (7-10) Drowsiness/Sedation: Moderate (4-6) Nausea: Moderate (4-6) (using ondansetron 1-2 times a day) Depression: Moderate (4-6) Anxiety: Moderate (4-6) Dyspnea: Moderate (4-6) Anorexia: Mild (1-3) Sleep: Sleeps well (but awakens in severe pain) Constipation: Intermittent constipation Feelings of wellbeing/Perceived Quality of Life: Poor, Worsening - Palliative Care Discussion: Patient continues to be very frustrated, and discouraged. Does see herself as to deteriorating. Is hopeful Dr. Valiente may find some answers with MRI, still working towards getting this test accomplished. Patient distressed with the uncertainty, feeling overwhelmed with her multiple symptoms, frequent doctor's appointments, and feeling poorly overall Results - Lab Results Lab results reviewed: Yes Impression and Recommendations - Palliative Care Impression: This is a 62-year-old woman with multiple underlying medical problems, significant comorbidities, including multiple autoimmune diseases, high symptom burden, and presenting with ongoing functional decline. She remains quite fragile both emotionally and medically. Palliative care continues to provide support for symptom management, coordination of care, and setting of priorities. Recommendations/Counseling Done: 1. CHF. Discussed patient's ongoing intermittent dizziness, though improved with chest pain. Will follow up with Dr. Valiente regarding the findings of hypoxia with these episodes, will see if he thinks weighing in of oxygen may have be assistance and/or what further testing might be done to evaluate this. Patient is drinking large volumes of water, patient has been instructed to limit her intake to 2 L. Reviewed CHF teaching and need to decrease the stress on her heart. She does this in response to dry mouth, encouraged to try other mechanisms for managing her xerostomia. Patient also presents with worsening orthopnea, is no longer able to manage with pillows in her bed, patient does need to sleep with her head of bed up and her legs elevated. Head and do a [id number] for a semi-electric hospital bed, as well as a Bonds mattress given patient's immobility in bed. 2. Interstitial cystitis. Patient now has had 2 UTIs, complaining of urinary retention, suspect this is a factor in her last 2 UTIs. Patient does not tolerate this well, concern for ongoing antibiotic use. Discussed the severity of her symptoms, given her concerns and ongoing retention, will make a referral over to [facility] as this is where most of her care is obtained. I did leave a "hat" hat and specimen cup, as patient is feeling some increased discomfort even though she just finished her antibiotic on Saturday. Counseling done regarding management of ongoing UTIs. 3. CKD stage III. Patient does have a pending referral to Dr. HAROON POLANCO, they are to meet in 10/17, she is to get labs prior to this. She is quite concerned as they may have to take her off Xarelto if her kidney function does not improve. We did discuss in the context she is on a new medication lisinopril as well as recent antibiotics, may have impacted her recent kidney function. 4. Depression. Patient is feeling somewhat overwhelmed with her most recent ongoing decline. Patient is seen medical palliative care group social worker, will have her follow-up prior to the holidays, she is still grieving the loss of her father. 5. Compression fracture. Patient describes pain pattern, and ongoing discomfort consistent with compression fracture. Patient is at high risk, discussed benefits and burdens of follow-up with x-rays, would not do anything different with treatment. Instructed to use rice packs for heat, obtains Salon Pas for comfort. Counseling provided on limiting stress, twisting, and further exacerbation. Most likely will take 4-6 weeks to improve, she will contact me if worsens and can have further evaluation. 6. Chronic pain, this is multifactorial in origin related to her central pain syndrome. She is currently on methadone 5 mg twice a day, gabapentin 100 mg twice a day, and hydrocodone 5 mg / 325 mg acetaminophen up to 4 times a day. No changes to her current regimen made. Prescription for methadone and hydrocodone provided. 7. Thoracic Vertebral Compression Fracture. Inst. to use warm rice packs and Salon Pas Topical patches. Inst. on movement and precautions. Reviewed S/S of worsening or complications to access ED support/follow up. 7. Advanced care planning. Patient remains concerned, would like a better idea of her prognosis to help with planning into the future. Counseling provided to normalize current feelings of grief and loss. FACE TO FACE: GROUP I MATTRESS/OVERLAY: Due to patient's left hemiplegia and severe central stroke pain syndrome patient has limited mobility in bed and requires a group one support surface to promote healthy skin integrity as well as reduce occurrence of decub ulcers while in bed as a result of Advanced diastolic heart failure patient also suffers from compromised circulatory status, as well as a result of her stroke altered sensory perception which can decreased skin integrity if not managed. Group 1 support will promote healthy skin integrity SEMI-ELECTRIC HOSPITAL BED: Due to patient's severe orthopnea and dyspnea as a result of her advanced heart failure, patient requires positioning of the body in ways not feasible and ordinary bed with the need for the elevation of the head greater than 30 degrees. The head of the bed elevated over 30 degrees will alleviate these exacerbate symptoms caused by her heart failure. Patient also requires frequent change in body position such as immediate elevation of the head from flat to elevation over 30 degrees as a result of her severe dyspnea. Patient has tried pillows and has been unsuccessful and accommodating keeping her head elevated to address her orthopnea. Hospital bed will be necessary for treating the effects of her heart failure Time Spent: 65 minutes with greater than 50% of this done in counseling coordination of care regarding chronic pain management, acute pain management secondary to compression fracture, and coordination of care obtaining DME and referral to urology
== END 2018-09-23 15:41 | disposition home or self-care (01) ==
LOC: PC 15:40
PROVIDERS: ATTEND Nurse Practitioner Adult Health
DX: Z51.5 Encounter for palliative care (principal); I50.9 Heart failure, unspecified; N30.10 Interstitial cystitis (chronic) without hematuria; N18.3 Chronic kidney disease, stage 3 (moderate); F32.9 Major depressive disorder, single episode, unspecified; G89.29 Other chronic pain; G89.0 Central pain syndrome; R42 Dizziness and giddiness; R09.02 Hypoxemia; K11.7 Disturbances of salivary secretion; R33.9 Retention of urine, unspecified; Z79.01 Long term (current) use of anticoagulants; I69.354 Hemiplegia and hemiparesis following cerebral infarction affecting left non-dominant side; R06.01 Orthopnea; Z90.5 Acquired absence of kidney; F41.9 Anxiety disorder, unspecified; K59.00 Constipation, unspecified
CPT/HCPCS: 99350

== ENCOUNTER 2018-10-10 09:29 | Outpatient (CLI) | payer BC ==
[2018-10-10 17:50] LABS: HGB - HEMOGLOBIN 11.2 g/dL (12.0-16.0); MEAN CORPUSCULAR HGB CONC 31.5 g/dL (32.0-36.0); MEAN PLATELET VOLUME 7.6 fL (7.9-10.8); RED BLOOD COUNT 3.87 10^6/uL (4.20-5.40); RED CELL DISTRIBUTION WIDTH 14.8 % (12.0-15.0); WHITE BLOOD COUNT 6.6 x10^3/uL (4.8-10.8)
[2018-10-10 17:51] LABS: BILIRUBIN,URINE NEGATIVE (NEGATIVE); GLUCOSE, URINE (UA) NEGATIVE (NEGATIVE); KETONES,URINE (UA) NEGATIVE (NEGATIVE); LEUKOCYTE ESTERASE, URINE NEGATIVE (NEGATIVE); NITRITE,URINE NEGATIVE (NEGATIVE); OCCULT BLOOD,URINE NEGATIVE (NEGATIVE); PROTEIN,URINE NEGATIVE (NEGATIVE); UROBILINOGEN,URINE 0.2 (NORMAL) E.U./dL (NORMAL)
[2018-10-10 17:58] LABS: CLARITY,URINE CLEAR (CLEAR)
[2018-10-10 18:48] LABS: CREATININE,URINE 36.2 mg/dL
[2018-10-10 18:49] LABS: TOTAL PROTEIN,URINE TIMED < 6 mg/dL
== END 2018-10-10 09:30 | disposition home or self-care (01) ==
LOC: LAB.F 09:29
PROVIDERS: ATTEND Internal Medicine Nephrology
DX: N05.9 Unspecified nephritic syndrome with unspecified morphologic changes (principal); D70.9 Neutropenia, unspecified; D63.1 Anemia in chronic kidney disease; R80.9 Proteinuria, unspecified; R30.0 Dysuria
CPT/HCPCS: 36415; 80048; 81001; 81003; 82570; 84156; 85027; 87086

== ENCOUNTER 2018-10-29 12:05 | Outpatient (CLI) | payer BC ==
[2018-10-29 18:00] LABS: CALCIUM 8.7 mg/dL (8.5-10.3); CREATININE 1.6 mg/dL (0.4-1.0)
== END 2018-10-29 23:59 | disposition home or self-care (01) ==
LOC: LAB.F 12:05
PROVIDERS: ATTEND Internal Medicine Cardiovascular Disease
DX: I50.22 Chronic systolic (congestive) heart failure (principal)
CPT/HCPCS: 36415; 80048

== ENCOUNTER 2018-11-10 14:11 | Outpatient (CLI) | payer BC ==
[2018-11-10 14:38] LABS: CALCIUM 8.8 mg/dL (8.5-10.3); CREATININE 1.5 mg/dL (0.4-1.0); PHOSPHORUS 2.9 mg/dL (2.5-4.6); URIC ACID 10.1 mg/dL (2.6-7.2)
[2018-11-10 14:55] LABS: THYROID STIMULATING HORMONE 3.27 uIU/mL (0.34-5.60)
[2018-11-10 14:57] LABS: FREE T4 (FREE THYROXINE) 0.79 ng/dL (0.58-1.64)
== END 2018-11-10 14:12 | disposition home or self-care (01) ==
LOC: LAB 14:11
PROVIDERS: ATTEND Internal Medicine Nephrology
DX: N05.9 Unspecified nephritic syndrome with unspecified morphologic changes (principal); I50.32 Chronic diastolic (congestive) heart failure; E03.9 Hypothyroidism, unspecified; M10.00 Idiopathic gout, unspecified site; E83.30 Disorder of phosphorus metabolism, unspecified; N25.81 Secondary hyperparathyroidism of renal origin
CPT/HCPCS: 36415; 80048; 83880; 83970; 84100; 84439; 84443; 84550

== ENCOUNTER 2018-11-10 14:22 | Outpatient (CLI) | payer BC ==
--- NOTE | 2018-11-10 15:26 | Ultrasound Report ---
Reason: STAGE 4 KIDNEY DISEASE Procedure Date: 11/10/2018 Accession Number: [id number] / [id number] Procedure: US - Retroperitoneal CPT Code: FULL RESULT: EXAM: RENAL ULTRASOUND EXAM DATE: 11/10/2018 02:52 PM. CLINICAL HISTORY: Stage 4 kidney disease. COMPARISON: None. TECHNIQUE: Real-time scanning was performed with static images obtained. FINDINGS: Right Kidney: Not seen, reportedly surgically absent. Left Kidney: 10.8 cm. Mildly increased cortical echogenicity which can be seen with medical renal disease. No stones, contour-deforming masses, or hydronephrosis. Bladder: The ureteral jet is identified. The bladder volume was 56 mL. The bladder could not be filled to evaluate postvoid residual. Other: None. 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 [facility]
== END 2018-11-10 14:23 | disposition home or self-care (01) ==
LOC: DI 14:22
PROVIDERS: ATTEND Internal Medicine Nephrology
DX: N18.4 Chronic kidney disease, stage 4 (severe) (principal); N05.9 Unspecified nephritic syndrome with unspecified morphologic changes; I50.32 Chronic diastolic (congestive) heart failure; E03.9 Hypothyroidism, unspecified; M10.00 Idiopathic gout, unspecified site; E83.30 Disorder of phosphorus metabolism, unspecified; N25.81 Secondary hyperparathyroidism of renal origin
CPT/HCPCS: 36415; 76770; 80048; 83880; 83970; 84100; 84439; 84443; 84550

== ENCOUNTER 2018-11-11 15:50 | Outpatient (CLI) | payer BC ==
--- NOTE | 2018-11-11 20:39 | CONSULTATION NOTE ---
Palliative Care Follow Up - Referral Referring Provider: Dr. Harjit Barraza Time of Visit: 5998-3150 Referral setting: Home Referral Reason: CHF/Central Stroke Pain Syndrome - Information Sources Records reviewed: Previous records reviewed History/Review of Systems obtained from: Patient, Family ( Jorge present for visit) Exam limitations: Clinical condition (patient with some STM issues related to stroke deficits) - History of Present Illness Update Brief HPI Update: This is a 63-year-old woman with a complex set of comorbidities, with ongoing fluctuating health status. She has multiple specialists, related to her complex issues. She does have known AV block status post pacemaker, fascicular V. tach, intermittent atrial fib, and known diastolic heart failure with ejection 35%. She most acutely is dealing with her CKD stage IV kidney failure. She also has a long list of autoimmune issues including irritable bowel syndrome, and her cystoscopy cystitis, fibromyalgia, hypothyroidism and is on hydrocortisone for adrenal insufficiency. 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 Today on her list of increasing difficulties is she is having increased problems with breathing at night,. We had ordered her a hospital bed secondary to her orthopnea, she has been hesitant to use this. She is having increased migraines, for which she has been on long-term gabapentin. She has a right ingrown toe with localized tenderness and redness. And her skin issues related to the multiple plaques, pruritus, or not responding to her current topical treatments. She continues to have intermittent episodes of fatigue, dizziness, these can include chest pain, that she needs to lay down. She has spoken with her open hearth furnace operator who would like her to initiate some kind of exercise program, discussing physical therapy referral to outpatient versus home therapy. And patient had a significant fall last week with can contusion to her head, and unable to summon help, [facility]. Social History - Living Situation Living arrangement: At home Living Situation: With spouse/s.o. Support System: Patient's spouse Jorge, does work full-time. Patient's activity tends to be more nocturnal, she does sleep 10-12 hours a day. Her daughter and [id number] have been available next door to assist with transportation socialization. She does need assistance with her ADLs, particularly in the morning with dressing and getting out of bed secondary to his severe pain. Medications/Allergies - Medications Home Medications: Ambulatory Orders Medication Instructions Recorded Confirmed Fluticasone [Flonase] 1 spray HAROLDO BID 01/24/16 11/13/18 HYDROcod/ACETAM 5/325 [Vicodin 1 tab PO Q4HR PRN MDD 4 01/24/16 11/13/18 5/325] QUEtiapine [SEROquel] 25 mg PO ACHS 01/24/16 11/13/18 Torsemide 40 mg PO DAILY 01/24/16 11/13/18 Levothyroxine [Synthroid] 100 mg PO DAILY 05/17/17 11/13/18 Methadone 5 mg PO BID 05/17/17 11/13/18 Rivaroxaban [Xarelto] 15 gm PO DAILY 05/17/17 11/13/18 Calcium Carbonate/Vitamin D3 1 tab PO BID 05/19/17 11/13/18 [Calcium 600-Vit D3 400 Tablet] Carboxymethylcellulose Sodium 1 drops TOP TID 05/19/17 11/13/18 [Refresh Tears] Cyclosporine [Restasis] 1 applic TOP BID 05/19/17 11/13/18 Gabapentin 100 mg PO DAILY MDD titrate off 10 05/19/17 11/13/18 days Hydrocortisone [Cortef] 10 tab PO QDBREAKFAST 05/19/17 11/13/18 Metoprolol Succinate 100 mg PO DAILY 05/19/17 11/13/18 Multivitamin [Multiple Vitamins] 1 tab PO DAILY 05/19/17 11/13/18 Ondansetron Odt [Zofran Odt] 1 tab PO Q8HR PRN 05/19/17 11/13/18 Polyethylene Glycol 3350 [Miralax] 17 gm PO DAILY PRN 05/19/17 11/13/18 Salmeterol Xinafoate [Serevent 1 puffs INH BID 05/19/17 11/13/18 Diskus] hydrOXYzine pamoate [Hydroxyzine 1 tab PO BID MDD 4 05/19/17 11/13/18 Pamoate] raNITIdine [Zantac] 150 mg PO BID 08/16/17 11/13/18 Hydrocortisone [Cortef] 5 mg PO QDDINNER 12/11/17 11/13/18 Lidocaine [Topicaine 5] 1 applic TOP PRN PRN 12/11/17 11/13/18 Liothyronine [Cytomel] 5 mcg PO DAILY 12/11/17 11/13/18 Nitroglycerin [Nitrostat] 0.4 mg SL Q5MIN PRN 03/12/18 11/13/18 Escitalopram [Lexapro] 10 mg PO DAILY 05/19/18 11/13/18 Sennosides [Chocolated Laxative] 15 - 30 mg PO DAILY PRN 08/21/18 11/13/18 Methyl Salicylate/Menthol 1 patch TOP DAILY PRN 09/23/18 11/13/18 [Salonpas Patch] - Allergies Allergies/Adverse Reactions: Allergies Allergy/AdvReac Type Severity Reaction Status Date / Time cefpodoxime proxetil * Allergy Unknown Verified 01/24/16 14:08 [From Vantin] clindamycin Allergy Unknown Verified 05/17/17 18:00 codeine Allergy Unknown Verified 01/24/16 14:08 erythromycin base Allergy Unknown Verified 01/24/16 14:08 [Erythromycin Base] levofloxacin [From Levaquin] Allergy Unknown Verified 01/24/16 14:08 rofecoxib [From Vioxx] Allergy Unknown Verified 01/24/16 14:08 sumatriptan [From Imitrex] Allergy Unknown Verified 01/24/16 14:08 sumatriptan succinate * Allergy Unknown Verified 01/24/16 14:08 [From Imitrex] morphine AdvReac Unknown Verified 05/17/17 18:01 Review of Systems - Constitutional Constitutional: reports: Fatigue, Weight gain. denies: Fever, Chills - Eyes Eyes: reports: Vision loss - Cardiovascular Cardiovascular: reports: Irregular heart rate, Palpitations, Chest pain, Edema, Lightheadedness, Exertional dyspnea, Decr. exercise tolerance, Orthopnea - Respiratory Respiratory: reports: Orthopnea, SOB at rest, SOB with exertion - Gastrointestinal Gastrointestinal: reports: Nausea, Reflux/heartburn, Bloating, Good appetite. denies: Constipation - Genitourinary Genitourinary: reports: Other (retention) - Musculoskeletal Musculoskeletal: reports: Muscle pain, Back pain, Muscle aches, Stiffness, Limited range of motion (left sided), Muscle weakness, Assistive devices (uses cane in home/), Other (recent fall lost balance) - Integumentary Integumentary: reports: Rash, Pruritis, Lesions, Dryness, Nail changes - Neurological Neurological: reports: General weakness, Headache (migraines more frequent), Memory problems, Abnormal gait - Psychiatric Psychiatric: reports: Depression, Anxiety - Endocrine Endocrine: reports: Hypothyroidism - Hematologic/Lymphatic Hematologic/Lymphatic: reports: Recurrent infections (UTIs) - All Other Systems All Other Systems: reports: Reviewed and negative Physical Exam - Vital Signs Temperature: 97.4 C Pulse Rate: 78 Respiratory Rate: 18 O2 Saturation: 96 (ra @ rest) Blood Pressure: 132/72 - Physical Exam General Appearance: positive: Mild distress Eyes Bilateral: positive: Normal inspection ENT: positive: No signs of dehydration Neck: positive: Trachea midline Cardiovascular: positive: Irregular Respiratory: positive: No respiratory distress Abdomen: positive: Soft Skin: positive: Pallor, Dryness, Rash, Other (Patient has multiple skin lesions; dry plaques, has clustered areas on her medial side of her right leg with some erythema and insight of left ankle. Is not extend up her leg and into her thigh area, with some white areas of discoloration. She complains of severe pruritus. She has used steroid creams, moisturizing, currently is using topical lotion for dryness. Intermittently uses antibiotic ointment on red or draining lesions. She has seen dermatology in the past, these are exacerbated compared to then. She has had them burned off, they do have them grow back. She is quite frustrated.) Extremities: positive: Pedal edema (trace to 1 + up to mid calf) Neurologic/Psychiatric: positive: Oriented x3, Weakness, Depressed mood/affect Comments/Other: Right toe with recurrent ingrown nail. Localized redness and tenderness to palpation. Had had some drainage, cleaned out debris with some improvement. Wondering about antibiotics. Palliative Care - POLST Patient has POLST: No Pain: Pain worsening, Location (Patient has severe left-sided pain from left jaw, shoulder, arm into her left lower extremity. These are sharp shooting in nature, severe to the point of immobility first thing in the morning. Presents with both hyperalgesia and allodynia. Patient currently on methadone 5 mg daily with Sanford up to 4 times a day timed around movement and activity. Have titrated higher with sedation, final coat sprayer worried about gabapentin. Discussed patient on it mostly for her migraines, has titrated down over this last year to twice daily secondary to timing of medications. She has been offered Botox in the past, but the thought of going to town every 6 weeks is overwhelming. We will go ahead and try titrating off to see if this impacts her pain levels negatively.) Tiredness/Fatigue: Severe (7-10) Drowsiness/Sedation: Moderate (4-6) Nausea: Mild (1-3) Depression: Moderate (4-6) (Patient tries to set goals and do something daily, she has been cooking more which brings her pleasure. She appropriately expresses feelings of loss and grief. She did have a nice holiday with her family.) Anxiety: Moderate (4-6) Dyspnea: Moderate (4-6) Anorexia: None Sleep: Sleeps well (but awakens in severe pain; does not move during the night secondary to her hemiplegia; and often falls off her pillows) Constipation: Yes, Opoid induced, Managed Feelings of wellbeing/Perceived Quality of Life: Poor, Worsening Performance Status: Patient is having increased difficulty with mobility, she uses a cane in the home, but needs assistance often because of her left-sided hemiplegia and pain. She uses a walker for longer distances when she is out, and wheelchair for transportation for MD appointments. Patient ordered pedlar, would like to initiate physical therapy regarding improving her functional status. - Palliative Care Discussion: Patient continues to struggle with her multiple health issues, it is quite taxing for the both of them with her ongoing appointments with the feeling nothing is really getting resolved.Her current focus is with nephrology, worrying about the possibility of dialysis. Question also of pending MRI, had spoke with primary care provider and concerned about side effects. Patient does only have 1 kidney, and rethinking about weighing benefits and burdens of moving forward with it, particular if is not going to change her current treatment plan. Patient continues to struggle with her ongoing poor quality of life, and her care needs can be overwhelming both to her and her . Results - Lab Results Lab results reviewed: Yes Lab and Imaging Results: Recent labs do show her BUN at 9; creatinine 1.5, GFR 35 with some improvement. Of note what is up is her uric acid at 10.1, BNP 561, her thyroid function test and parathyroid were within normal limits. She also had a renal ultrasound which showed solitary kidney with no evidence of obstruction, it did show a bladder volume of 56 was unable to fill evaluate post void residual, she reports she had not taken her diuretics that morning. Impression and Recommendations - Palliative Care Impression: This is a 63-year-old woman with multiple underlying medical problems, significant comorbidities, high symptom burden and declining quality of life. She remains quite fragile both medically and emotionally related to the burden of above. Palliative care team continues to provide support for symptom management, coordination of care, and setting up of priorities. Recommendations/Counseling Done: 1. Orthopnea. Patient continues with dyspnea, fluctuating in status but most severe at night. Does try and sleep with head up on pillows, and falls off. Patient has been hesitant to transition to hospital bed, discussed given the severity of her symptoms, and that this also might improve her pain management, she did agree to transition to the hospital bed with positioning for sleep of head of bed up greater than 30-45 degrees. 2. Acute on chronic pain, this is multifactorial in origin. Patient has had an exacerbation in her migraines, at this point does not want to pursue Botox which was the next step with her neurologist. Patient has been on gabapentin, given concerns of final coat sprayer will go ahead and titrate off as unclear if this is adding to any release of discomfort. Patient continues with central left-sided pain syndrome, with severity most noted in the a.m. Reviewed another reason for hospital bed and positioning may decrease acuity as it does appear related to immobility and stiffness as well. Patient with severe difficulty getting up out of the bed in the morning, this will facilitate this process as well. Counseling also provided regarding the role of activity and physical therapy may impact pain as well. No changes to pain regimen at this point in time which is methadone 5 mg twice daily and Sanford 1 tab up to 4 times a day. 3. Ingrown right toenail. Patient with localized infection, counseling provided unless ingrown nail dealt with, antibiotics are not going to resolve her current issues. Counseling provided regarding signs and symptoms if worsening. Instructed to make appointment with her salt cutter. 4. Skin lesion secondary to unknown etiology. These do appear to be worsening as far as severity and number of lesions. Patient would like a referral to a local computer numeric control setter, is quite frustrated as it does appear progressive in nature and increasingly adding to her discomfort. Agreed to facilitate referral[place]. Patient does have elevated uric acid, unclear if this is part of her CKD issues. 5. CHF. Patient now concerned about moving forward with MRI of her heart after conversation with PCP Dr. Barraza. See's Dr Galvan on Saturday, Recommended she seek his delinquency counselor regarding her concerns. Did discuss in the context of follow-up with Dr. Valiente, question regarding if it would change her treatment outcomes, may or may not be worth the risks. 6. CKD stage IV. Patient working with , concerns expressed about dialysis, transplant, reviewed questions to engage with next appointment Saturday. 7. Generalized weakness. Counseling provided regarding restarting physical therapy. Discussed if were to resume home health therapy, would need to commit to keeping appointments, consistently see therapist weekly, had been a good match with last therapist. Discussed limitations though of home exercise program, patient has gotten a peddler, will needs instruction regarding proper use. We will go ahead and document [id number], patient to evaluate goals and notify me about moving forward for physician order if wanted. 8. Ground-level fall with injury. Patient did hit the top of her head, her daughter is an EMT and to do neuro checks. Did discuss concerned though with any kind of concussion and being on anticoagulants about evaluation. Patient was unable to access help, as she did not have her cell phone on her. We have had this conversation multiple times regarding concern for patient's fall risk and ability to get assistance. Counseling provided regarding [facility], can put family members on as first responders, does not always go straight to 911. Agreed for referral to a [facility], will have them coordinate with . 9. Depression. Patient continues with her Lexapro, she is setting goals, continues to meet with the palliative care social work professor. She is getting discouraged, holidays were both positive and negative, she has recently lost her father. She continues to struggle with her ongoing quality of life as well as uncertainty regarding her prognosis. [id number] for physical therapy. It is a taxing considerable effort for the patient to leave the home secondary to her left hemiplegia, severe fatigue levels, fluctuating cardiac status and generalized weakness. Physical therapy to provide home safety eval, counseling regarding home exercise program, instruction on new peddler for endurance and proper use as well as gait training for difficulty walking. Time Spent: 60 minutes with greater than 50% of this done in counseling for pain, depression, anxiety, coordination of care with pending referrals to therapy, dermatology, and [facility]. Inst. to follow up with PCP/Endocrinology and Podiatry. Anticipatory guidance.
== END 2018-11-11 15:51 | disposition home or self-care (01) ==
LOC: PC 15:50
PROVIDERS: ATTEND Nurse Practitioner Adult Health
DX: Z51.5 Encounter for palliative care (principal); R06.01 Orthopnea; G89.0 Central pain syndrome; L60.0 Ingrowing nail; L08.9 Local infection of the skin and subcutaneous tissue, unspecified; L98.9 Disorder of the skin and subcutaneous tissue, unspecified; I50.32 Chronic diastolic (congestive) heart failure; N18.4 Chronic kidney disease, stage 4 (severe); I69.354 Hemiplegia and hemiparesis following cerebral infarction affecting left non-dominant side; S00.93XA Contusion of unspecified part of head, initial encounter; W19.XXXA Unspecified fall, initial encounter; F32.9 Major depressive disorder, single episode, unspecified; F41.9 Anxiety disorder, unspecified; I42.9 Cardiomyopathy, unspecified; E27.1 Primary adrenocortical insufficiency; M79.7 Fibromyalgia; I69.311 Memory deficit following cerebral infarction; I69.398 Other sequelae of cerebral infarction; G43.909 Migraine, unspecified, not intractable, without status migrainosus; Z79.899 Other long term (current) drug therapy; Z91.81 History of falling; Z79.891 Long term (current) use of opiate analgesic; Z90.5 Acquired absence of kidney; Z95.0 Presence of cardiac pacemaker; Z79.52 Long term (current) use of systemic steroids; Z79.01 Long term (current) use of anticoagulants
CPT/HCPCS: 99350

== ENCOUNTER 2018-12-04 09:00 | Outpatient (CLI) | payer BC ==
[2018-12-05 13:03] LABS: CALCIUM 8.6 mg/dL (8.5-10.3); CREATININE 1.6 mg/dL (0.4-1.0)
== END 2018-12-04 09:01 | disposition home or self-care (01) ==
LOC: LAB.F 09:00
PROVIDERS: ATTEND Internal Medicine Cardiovascular Disease
DX: N18.9 Chronic kidney disease, unspecified (principal)
CPT/HCPCS: 36415; 80048

== ENCOUNTER 2019-01-05 13:25 | Outpatient (CLI) | payer BC ==
[2019-01-05 19:28] LABS: CREATININE 1.9 mg/dL (0.4-1.0)
== END 2019-01-05 13:26 | disposition home or self-care (01) ==
LOC: LAB.F 13:25
PROVIDERS: ATTEND Pharmacist Pharmacist Clinician (PhC)/ Clinical Pharmacy Specialist
DX: I48.0 Paroxysmal atrial fibrillation (principal)
CPT/HCPCS: 36415; 82565

== ENCOUNTER 2019-01-05 19:28 | Outpatient (CLI) | payer BC ==
--- NOTE | 2019-01-05 20:05 | CONSULTATION NOTE ---
Palliative Care Follow Up - Referral Referring Provider: Dr. Harjit Barraza Time of Visit: [id number] Referral setting: Home Referral Reason: CHF/Central Stroke Syndrome/Atrial Fib - Information Sources Records reviewed: Previous records reviewed History/Review of Systems obtained from: Patient, Family (Jorge home for visit) Exam limitations: No limitations - History of Present Illness Update Brief HPI Update: This is a very complex 63-year-old woman with multiple co-morbidities and ongoing fluctuating health status. She has multiple specialists related to her complex issues. She does have known AV block status post pacemaker fascicular V. tach, intermittent atrial fib with RVR, and known diastolic heart failure with ejection last measured at 35%. She continues to have "spells" that includes severe left-sided pain traveling across her chest, relieved with rest and repositioning upright in her recliner, she does have severe shortness of breath and often uses inhalers without response. When she gets relief it is with rest and usually needs two nitro, but then is "spent" for several hours after. She was to get the cardiac MRI but had to cancel because of weather, remains ambivalent regarding following through. She also has CKD stage IV kidney failure, and a long list of autoimmune issues including irritable bowel syndrome, interstitial cystitis, fibromyalgia, hypothyroidism, and is on hydrocortisone for adrenal insufficiency. 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 The symptom that continues to plague her are skin issues and severe pruritus. She has overall body pruritus, she is on hydroxyzine 25 mg 3 times daily, they did try to cut back to twice daily but patient had an increase in the severity her symptoms. This is most acute in her lower extremities, she has a variety of different rashes going on with elevated dry plaque lesions across her feet legs and up into her thigh area, she has of 5 cm area of raised roughened skin lookin g somewhat like eczema, that does fluctuate as far as erythema but is painful at times. This area is reddened but not with severe erythema or symptoms of cellulitis yet. She has seen her primary care provider Dr. Barraza for assistance, he had tried her on weekly Diflucan for a month, epsom salt soaks, she reports no improvement with this so would not attribute it to a fungal etiology at this point in time. She does have a appointment with dermatology but this is not until February and is hoping for some relief or at least another strategy. Her pain remains fluctuating in nature. This can be impacted both by her cardiac status, with intermittent chest pain which exacerbates her left-sided central stroke pain, sharp shooting pains down her left arm including cramping and hyper analgesia. This abates when she has taken her nitro and sleeps it off. She continues to awaken quite stiffened and difficulty moving in the a.m., for which she uses her [place], her pain again remains mostly on her left side radiating to her left eye socket down to her left face neck and into her left leg and foot. We have titrated back her methadone to 5 mg twice daily, she is using the [place] for breakthrough pain, patient is coming off the gabapentin related to her kidney function, but still perceives a high level of severity and suffering. She does not want to increase her opioid load though, and suspect this may not be a benefit anyway. Social History - Living Situation Living arrangement: At home Living Situation: With spouse/s.o. 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 His days off or during the week and then fortunately spend most of those with doing her medical appointments. He remains quite stressed, with her fluctuating health status, both are feeling that she is declining. She does have her daughter and [id number] on premise, they do check on her frequently, and available if she needs more assistance. Patient does spend quite a bit of time in the recliner and sleeping. They have had caregivers in the past, currently do not feel this is of assistance. Medications/Allergies - Medications Home Medications: Ambulatory Orders Medication Instructions Recorded Confirmed Fluticasone [Flonase] 1 spray HAROLDO BID 01/24/16 01/05/19 HYDROcod/ACETAM 5/325 [Vicodin 1 tab PO Q4HR PRN MDD 4 01/24/16 01/05/19 5/325] QUEtiapine [SEROquel] 25 mg PO ACHS 01/24/16 01/05/19 Torsemide 40 mg PO DAILY 01/24/16 01/05/19 Levothyroxine [Synthroid] 100 mg PO DAILY 05/17/17 01/05/19 Methadone 5 mg PO BID 05/17/17 01/05/19 Rivaroxaban [Xarelto] 15 gm PO DAILY 05/17/17 01/05/19 Calcium Carbonate/Vitamin D3 1 tab PO BID 05/19/17 01/05/19 [Calcium 600-Vit D3 400 Tablet] Carboxymethylcellulose Sodium 1 drops TOP TID 05/19/17 01/05/19 [Refresh Tears] Cyclosporine [Restasis] 1 applic TOP BID 05/19/17 01/05/19 Hydrocortisone [Cortef] 10 tab PO QDBREAKFAST 05/19/17 01/05/19 Metoprolol Succinate 100 mg PO DAILY 05/19/17 01/05/19 Multivitamin [Multiple Vitamins] 1 tab PO DAILY 05/19/17 01/05/19 Ondansetron Odt [Zofran Odt] 1 tab PO Q8HR PRN 05/19/17 01/05/19 Polyethylene Glycol 3350 [Miralax] 17 gm PO DAILY 05/19/17 01/05/19 Salmeterol Xinafoate [Serevent 1 puffs INH BID 05/19/17 01/05/19 Diskus] hydrOXYzine pamoate [Hydroxyzine 1 tab PO TID MDD 4 05/19/17 01/05/19 Pamoate] raNITIdine [Zantac] 150 mg PO BID 08/16/17 01/05/19 Hydrocortisone [Cortef] 5 mg PO QDDINNER 12/11/17 01/05/19 Lidocaine [Topicaine 5] 1 applic TOP PRN PRN 12/11/17 01/05/19 Liothyronine [Cytomel] 5 mcg PO DAILY 12/11/17 01/05/19 Nitroglycerin [Nitrostat] 0.4 mg SL Q5MIN PRN 03/12/18 01/05/19 Escitalopram [Lexapro] 10 mg PO DAILY 05/19/18 01/05/19 Sennosides [Chocolated Laxative] 15 - 30 mg PO DAILY PRN 08/21/18 01/05/19 Methyl Salicylate/Menthol 1 patch TOP DAILY PRN 09/23/18 01/05/19 [Salonpas Patch] - Allergies Allergies/Adverse Reactions: Allergies Allergy/AdvReac Type Severity Reaction Status Date / Time cefpodoxime proxetil * Allergy Unknown Verified 01/24/16 14:08 [From Vantin] clindamycin Allergy Unknown Verified 05/17/17 18:00 codeine Allergy Unknown Verified 01/24/16 14:08 erythromycin base Allergy Unknown Verified 01/24/16 14:08 [Erythromycin Base] levofloxacin [From Levaquin] Allergy Unknown Verified 01/24/16 14:08 rofecoxib [From Vioxx] Allergy Unknown Verified 01/24/16 14:08 sumatriptan [From Imitrex] Allergy Unknown Verified 01/24/16 14:08 sumatriptan succinate * Allergy Unknown Verified 01/24/16 14:08 [From Imitrex] morphine AdvReac Unknown Verified 05/17/17 18:01 Review of Systems - Constitutional Constitutional: reports: Fatigue. denies: Fever, Chills - Eyes Eyes: reports: Vision loss, Corrective lenses - Ears, Nose & Throat Ears, Nose & Throat: reports: Nasal congestion, Dry mouth - Cardiovascular Cardiovascular: reports: Irregular heart rate, Palpitations, Chest pain (daily with need for 1-2 nitro), Lightheadedness, Exertional dyspnea, Decr. exercise tolerance, Orthopnea - Respiratory Respiratory: reports: Wheezing, Snoring, Orthopnea, SOB at rest, SOB with exertion - Gastrointestinal Gastrointestinal: reports: Nausea (mostly occurs at night; using ondansetron up to 2 x day), Bloating, Good appetite. denies: Constipation - Genitourinary Genitourinary: reports: Dysuria, Frequency - Musculoskeletal Musculoskeletal: reports: Muscle pain, Muscle aches, Stiffness, Limited range of motion, Muscle weakness, Joint pain, Joint swelling, Assistive devices (uses cane in house) - Integumentary Integumentary: reports: Rash, Pruritis (extreme and worsening; using hydroxyzine TID tried to decrease to BID but worsened;), Lesions, Dryness - Neurological Neurological: reports: General weakness, Headache, Dizziness, Memory problems, Abnormal gait - Psychiatric Psychiatric: reports: Depression, Anxiety - Endocrine Endocrine: reports: Hypothyroidism - All Other Systems All Other Systems: reports: Reviewed and negative Physical Exam - Vital Signs Temperature: 96.6 C Pulse Rate: 72 Respiratory Rate: 18 O2 Saturation: 95 (ra @ rest) Blood Pressure: 122/72 - Physical Exam General Appearance: positive: Mild distress Eyes Bilateral: positive: Normal inspection ENT: positive: No signs of dehydration. negative: Oral lesions Neck: positive: No JVD, Trachea midline, Other (fullness in neck area r/t steroids) Cardiovascular: positive: Irregularly irregular Respiratory: positive: Diminished in bases. negative: Wheezes, Rales, Rhonchi Abdomen: positive: Soft, Nml bowel sounds, Distended Skin: positive: Dryness, Pruritis, Rash (see hpi), Other (right toe still reddened but localized; has not seen Dr. Shaw yet for ingrown nail; most likely needs to have removed) Extremities: positive: Pedal edema (2+ up to knees; pitting) Neurologic/Psychiatric: positive: Oriented x3, Weakness, Depressed mood/affect Palliative Care - POLST Patient has POLST: No Pain: Pain worsening, Location (Patient currently on methadone 5 mg twice daily, with the use of hydrocodone 5/325 acetaminophen 1 tab up to 3-4 times a day. Patient has severe left-sided pain secondary to her stroke, hyper analgesia and allodynia with sharp shooting pains, cramping, and fluctuates from severe distress particularly in the morning to moderate to severe during day. Opioids assist with "volume" of pain but is constant and unrelently) Tiredness/Fatigue: Severe (7-10) Drowsiness/Sedation: Moderate (4-6) Nausea: Moderate (4-6) Depression: Moderate (4-6) Anxiety: Moderate (4-6) Dyspnea: Moderate (4-6), Comment (worse at night; unable to sleep anywhere but recliner/resistant to setting up hospital bed in family room) Anorexia: None Sleep: Variable sleep pattern Constipation: Yes, Opoid induced, Managed Feelings of wellbeing/Perceived Quality of Life: Poor, Worsening Performance Status: Patient ambulatory around house, does try to do household tasks. But is limited by her severe left-sided pain, balance issues, and short-term memory. She does need maximum assist in getting up in the morning, assistance with dressing and bathing. Patient is mostly able to toilet independently. Patient does spend most of her time in the recliner, she is looking forward to spring, as spending time in the garden is supportive of her quality of life - Palliative Care Discussion: Both patient and quite open about just the degree of uncertainty they are living with. When patient has her "spells", Jorge often wonders if she is even going to continue breathing. Patient when she has her spells are is dist ressed worries if it is going to be her last breath as well particularly with the chest pain and severity of her episodes now coming daily. Patient is quite clear at this point given her current condition, would not proceed with dialysis, home dialysis transplant. She does understand she has serious illness and limited life expectancy, though no and seems to be able to explain to her her current decline and/or her prognosis. She is preparing to plan for her end of life, she is putting together lists and completing tasks to better be able to support her when she is gone. They have done plans, there will, advanced care planning as far as directives but no [facility] at this point in time. Given her heart condition, this seems fairly prudent until she decides that she does want to focus only on comfort. She is still grieving the loss of her father, as well as her future. Despite all this, she does feel currently her life is worth living, her quality of life is good in the context she gets to spend time with family and finds meaning in each day. Results - Lab Results Lab results reviewed: Yes Lab and Imaging Results: She had had her creatinine drawn 1.9 and GFR 27 in preparation for her anti-coag visit tomorrow. These are both worsening numbers from 12/04 Impression and Recommendations - Palliative Care Impression: This is a 63-year-old woman with multiple underlying medical problems, significant comorbidities, high symptom burden, and ongoing decline of quality of life. She remains quite fragile both medically and emotionally related to the burden of above. Palliative care team continues to provide support for symptom management, coordination of care, defining goals and setting up of priorities Recommendations/Counseling Done: 1. CHF. Patient had decided to move forward with MRI, Dr. Valiente had recommended it may give him more information though certainly not definitive, and unclear if would change treatment plan. Unfortunately this got canceled, she is going to go through the preop again. Though with her current labs she will not be eligible until her kidney function improves. Discussed patient's increased fluid intake, reports her mouth is quite dry and uncomfortable, she is drinking upwards to 3-1/2 - 4 quarts. Counseling provided regarding fluid overload, instructed to stay with and a fluid restriction of around 2000 mls. Patient continues with orthopnea, no crackles in her lower lobes, but does have 2+ pitting edema. 2. Chronic pain, this is multifactorial in origin. Patient is continued with left-sided pain syndrome, most noted severity is in the a.m. Continuing current pain regimen at this 0.5 mg twice daily of methadone and [place] 1 tab up to 4 times a day. Patient continues with intermittent migraines, she has titrated off the gabapentin as of today. Is more comfortable in recliner, is hesitant to transition yet to hospital bed though this would be of benefit. Counseling regarding the role of activity, patient's fluctuating status does not make an appropriate physical therapy candidate at this point in time. Did encourage her to be is active as her condition allows. 3. Rash of unknown etiology. These do again appear to be worsening, did not respond to Diflucan and interventions recommended by her PCP. Patient's dermatology appointment is still several weeks out. Given the appearance of her rash and lesions today, recommended washing lower extremities with Cetaphil soap, applying Aquaphor for moisturizing, and re-trying the triamcinolone 0.1% to areas of eczema-like appearance. Instructed to bring all her appointments from her various dermatology appointments and interventions to her appointment, this will also rule out if the steroids are appropriate or not. Counseling provided regarding signs and symptoms of worsening or cellulitis. 4. Ingrown right toenail. Patient with localized infection, instructed to put appointment with her assembler for puller over machine as a priority. Counseling provided regarding worsening cellulitis. 5. CKD stage IV. Patient is working with Dr. Galvan, at this point in time is made decisions not to pursue dialysis, home dialysis, or transplant given her current quality of life and the complexity of her multiple health care issues. 6. Generalized weakness. Instructed to increase activity as tolerated, after much discussion and reflection will not follow through on physical therapy referral secondary to fluctuating status when patient has her "spells" high risk of clinic calling 911. 7. Depression. Patient continues on her Lexapro, counseling provided regarding setting goals, patient is been working with medical palliative care social work coordinator. She does recognize the seriousness of her illness, high anxiety regarding end of life coming, she has many things she wants to accomplish. She does feel she is concentrating on quality of life issues, and that life is still worth living at this point in time. She does not want to be more debilitated though, and worries about the ongoing burden on her family. 8. Advanced care planning. Patient continues to work on settling end-of-life issues, has got her will, plans, is working on her tombstone. She is or ganizing things that she feel would be of value in helping her with a transition when she is gone. She finds this actually very helpful in processing her ongoing decline, though is very difficult to live in the ambuguity of an unknown prognosis. Time Spent: 60 minutes with greater than 50% of this done in counseling regarding pain, depression, goals of care, and anticipatory guidance as well as coordination of care and setting of priorities
== END 2019-01-05 19:29 | disposition home or self-care (01) ==
LOC: PC 19:28
PROVIDERS: ATTEND Nurse Practitioner Adult Health
DX: Z51.5 Encounter for palliative care (principal); I50.32 Chronic diastolic (congestive) heart failure; G89.0 Central pain syndrome; I69.354 Hemiplegia and hemiparesis following cerebral infarction affecting left non-dominant side; L29.9 Pruritus, unspecified; R21 Rash and other nonspecific skin eruption; L60.0 Ingrowing nail; L08.9 Local infection of the skin and subcutaneous tissue, unspecified; N18.4 Chronic kidney disease, stage 4 (severe); R53.1 Weakness; F32.9 Major depressive disorder, single episode, unspecified; F41.9 Anxiety disorder, unspecified; I48.91 Unspecified atrial fibrillation; I44.30 Unspecified atrioventricular block; I47.2 Ventricular tachycardia; K58.9 Irritable bowel syndrome, unspecified; N30.10 Interstitial cystitis (chronic) without hematuria; M79.7 Fibromyalgia; E03.9 Hypothyroidism, unspecified; E27.40 Unspecified adrenocortical insufficiency; Z79.52 Long term (current) use of systemic steroids; Z95.0 Presence of cardiac pacemaker; Z79.891 Long term (current) use of opiate analgesic; Z79.899 Other long term (current) drug therapy; Z79.01 Long term (current) use of anticoagulants; Z63.4 Disappearance and death of family member
CPT/HCPCS: 99350

== ENCOUNTER 2019-01-09 13:30 | Outpatient (CLI) | payer BC ==
[2019-01-09 18:21] LABS: BILIRUBIN,URINE NEGATIVE (NEGATIVE); GLUCOSE, URINE (UA) NEGATIVE (NEGATIVE); KETONES,URINE (UA) NEGATIVE (NEGATIVE); LEUKOCYTE ESTERASE, URINE TRACE (NEGATIVE); NITRITE,URINE NEGATIVE (NEGATIVE); OCCULT BLOOD,URINE NEGATIVE (NEGATIVE); PROTEIN,URINE NEGATIVE (NEGATIVE); UROBILINOGEN,URINE 0.2 (NORMAL) E.U./dL (NORMAL)
[2019-01-09 18:36] LABS: BACTERIA,URINE None Seen /HPF (None Seen); CLARITY,URINE CLEAR (CLEAR); RBC,URINE None Seen /HPF (0-5); SQUAMOUS EPITHELIAL CELL,UR NONE SEEN (<= Few)
== END 2019-01-09 23:59 | disposition home or self-care (01) ==
LOC: LAB.R 13:30
PROVIDERS: ATTEND Nurse Practitioner Adult Health
DX: R30.0 Dysuria (principal)
CPT/HCPCS: 81001; 81003; 87086

== ENCOUNTER 2019-02-05 13:20 | Outpatient (CLI) | payer BC ==
[2019-02-05 17:42] LABS: CREATININE 1.6 mg/dL (0.4-1.0)
== END 2019-02-05 13:21 | disposition home or self-care (01) ==
LOC: LAB.F 13:20
PROVIDERS: ATTEND Internal Medicine Cardiovascular Disease
DX: I48.0 Paroxysmal atrial fibrillation (principal); I63.40 Cerebral infarction due to embolism of unspecified cerebral artery; Z79.01 Long term (current) use of anticoagulants
CPT/HCPCS: 36415; 82565

== ENCOUNTER 2019-02-09 05:44 | Outpatient (CLI) | payer BC | END 2019-02-09 05:45 | disposition short-term general hospital (02) | LOC: EMS 05:44 | PROVIDERS: ATTEND Surgery | DX: R06.02 Shortness of breath (principal); R07.89 Other chest pain | CPT/HCPCS: A0425; A0427 ==

== ENCOUNTER 2019-02-16 13:17 | Outpatient (CLI) | payer BC ==
[2019-02-16 18:29] LABS: ALBUMIN 4.3 g/dL (3.2-5.5); CREATININE 1.5 mg/dL (0.4-1.0); PHOSPHORUS 4.3 mg/dL (2.5-4.6)
== END 2019-02-16 13:18 | disposition home or self-care (01) ==
LOC: LAB.F 13:17
PROVIDERS: ATTEND Nurse Practitioner Adult Health
DX: N18.4 Chronic kidney disease, stage 4 (severe) (principal)
CPT/HCPCS: 36415; 80069

== ENCOUNTER 2019-02-19 16:45 | Outpatient (CLI) | payer BC ==
--- NOTE | 2019-02-19 18:05 | CONSULTATION NOTE ---
Palliative Care Follow Up - Referral Referring Provider: Dr. Harjit Barraza Time of Visit: [id number] Referral setting: Home Referral Reason: CHF/Follow up hospitalization - Information Sources Records reviewed: Previous records reviewed History/Review of Systems obtained from: Patient, Family (DIL present for visit) Exam limitations: Clinical condition (patient with STM issues; usually present to help with history) - History of Present Illness Update Brief HPI Update: Patient is a very complex 63-year-old woman with multiple comorbidities, with recent hospitalization 02/09/2018 to 02/13/2019 for exacerbation of her CHF, and worsening dyspnea. She has long-standing nonischemic cardiomyopathy, atrial fib rillation, vesicular ventricular tachycardia with pacemaker, and adrenal insufficiency. She also has CKD stage IV, and is on Xarelto secondary to history of cerebrovascular accident. She was discharged, unfortunately secondary to her kidney function, was not discharged on her regular diuretics. Her hospitalization included diuresis, antibiotics related to cellulitis in her lower extremities, though she did continue to have progressive weight in the hospital. She also had episodes of ventricular tachycardia associate with chest pain, has had her beta-marimar increased, metoprolol 100 mg extended release twice daily, she also had elevated blood pressure and was started on hydralazine 25 mg 3 times daily as far as med changes. Had been told to arrange for labs on discharge as well as obtaining oxygen. Documentation from hospital does not qualify, so had overnight oximetry done, which did qualify her for nocturnal oxygen. They are currently present at visit, [facility], to set it up. Patient is continued to have increased shortness of breath over the week, no weight loss has stayed at 204 all week, and today presents acutely with shortness of breath, oxygen sat a 90% on room air, and with 2 liters on up to 98%. Breaths sounds decreased throughout, right greater than left; lower extremity edema 1-2 +, continues with severe rash but cellulitis resolved. She has other exacerbated symptom, is her increase in dysphagia, she has had 3 choking episodes and she has been home, unable to tell if she aspirated or not. Patient does present is afebrile. She has modified her diet. Follow-up call at time of visit with Dr. Valiente, patient's eight arm operator. In review of hospitalization there are no further longer going to pursue the MRI of her heart, she is to be following up as soon as possible with endocrinology, concern may be still experiencing some adrenal insufficiency. Patient to restart diuretics, review of kidney functions from tests on 02/16, he is scheduled to see her next week. Social History - Living Situation Living arrangement: At home Living Situation: With spouse/s.o. Support System: She lives at home with her , unfortunately he still does work full-time. She has other family available to provide support, but is home for long periods of time by herself. She does have [employer] at this point. Medications/Allergies - Medications Home Medications: Ambulatory Orders Medication Instructions Recorded Confirmed Fluticasone [Flonase] 1 spray HAROLDO BID 01/24/16 02/19/19 HYDROcod/ACETAM 5/325 [Vicodin 1 tab PO Q4HR PRN MDD 4 01/24/16 02/19/19 5/325] QUEtiapine [SEROquel] 25 mg PO ACHS 01/24/16 02/19/19 Torsemide 20 mg PO BID 01/24/16 02/19/19 Levothyroxine [Synthroid] 100 mg PO DAILY 05/17/17 02/19/19 Methadone 5 mg PO BID 05/17/17 02/19/19 Rivaroxaban [Xarelto] 15 gm PO DAILY 05/17/17 02/19/19 Calcium Carbonate/Vitamin D3 1 tab PO BID 05/19/17 02/19/19 [Calcium 600-Vit D3 400 Tablet] Carboxymethylcellulose Sodium 1 drops TOP TID 05/19/17 02/19/19 [Refresh Tears] Cyclosporine [Restasis] 1 applic TOP BID 05/19/17 02/19/19 Hydrocortisone [Cortef] 10 tab PO QDBREAKFAST 05/19/17 02/19/19 Metoprolol Succinate 100 mg PO BID 05/19/17 02/19/19 Multivitamin [Multiple Vitamins] 1 tab PO DAILY 05/19/17 02/19/19 Ondansetron Odt [Zofran Odt] 1 tab PO Q8HR PRN 05/19/17 02/19/19 Polyethylene Glycol 3350 [Miralax] 17 gm PO DAILY 05/19/17 02/19/19 Salmeterol Xinafoate [Serevent 1 puffs INH BID 05/19/17 02/19/19 Diskus] hydrOXYzine pamoate [Hydroxyzine 1 tab PO TID MDD 4 05/19/17 02/19/19 Pamoate] raNITIdine [Zantac] 150 mg PO BID 08/16/17 02/19/19 Hydrocortisone [Cortef] 5 mg PO QDDINNER 12/11/17 02/19/19 Lidocaine [Topicaine 5] 1 applic TOP PRN PRN 12/11/17 02/19/19 Liothyronine [Cytomel] 5 mcg PO DAILY 12/11/17 02/19/19 Nitroglycerin [Nitrostat] 0.4 mg SL Q5MIN PRN 03/12/18 02/19/19 Escitalopram [Lexapro] 10 mg PO DAILY 05/19/18 02/19/19 Sennosides [Chocolated Laxative] 15 - 30 mg PO DAILY PRN 08/21/18 02/19/19 Methyl Salicylate/Menthol 1 patch TOP DAILY PRN 09/23/18 02/19/19 [Salonpas Patch] hydrALAZINE [Apresoline] 25 mg PO TID 02/19/19 02/19/19 - Allergies Allergies/Adverse Reactions: Allergies Allergy/AdvReac Type Severity Reaction Status Date / Time cefpodoxime proxetil * Allergy Unknown Verified 01/24/16 14:08 [From Vantin] clindamycin Allergy Unknown Verified 05/17/17 18:00 codeine Allergy Unknown Verified 01/24/16 14:08 erythromycin base Allergy Unknown Verified 01/24/16 14:08 [Erythromycin Base] levofloxacin [From Levaquin] Allergy Unknown Verified 01/24/16 14:08 rofecoxib [From Vioxx] Allergy Unknown Verified 01/24/16 14:08 sumatriptan [From Imitrex] Allergy Unknown Verified 01/24/16 14:08 sumatriptan succinate * Allergy Unknown Verified 01/24/16 14:08 [From Imitrex] morphine AdvReac Unknown Verified 05/17/17 18:01 Review of Systems - Constitutional Constitutional: reports: Fatigue, Chills, Weight gain. denies: Fever - Eyes Eyes: reports: Vision loss, Corrective lenses - Ears, Nose & Throat Ears, Nose & Throat: reports: Nasal congestion, Hoarseness, Dry mouth - Cardiovascular Cardiovascular: reports: Irregular heart rate, Palpitations, Chest pain, Edema, Lightheadedness, Exertional dyspnea, Decr. exercise tolerance, Orthopnea - Respiratory Respiratory: reports: Orthopnea, SOB at rest, SOB with exertion - Gastrointestinal Gastrointestinal: reports: Other (increase in difficulty swallowing) - Musculoskeletal Musculoskeletal: reports: Muscle weakness, Assistive devices (uses cane for amublation) - Integumentary Integumentary: reports: Rash (worsening), Pruritis, Dryness, Hair changes - Neurological Neurological: reports: General weakness, Memory problems, Pre-existing deficit, Abnormal gait - Psychiatric Psychiatric: reports: Depression, Anxiety - Endocrine Endocrine: reports: Hypothyroidism, Other (adrenal insufficiency) - Hematologic/Lymphatic Hematologic/Lymphatic: reports: Recurrent infections (treated for cellulitis) - All Other Systems All Other Systems: reports: Other (treated for vaginal candidiasis;) Physical Exam - Vital Signs Temperature: 96.8 C Pulse Rate: 79 Respiratory Rate: 20 O2 Saturation: 90 (ra at rest 98 on 2 liters) - Physical Exam General Appearance: positive: Moderate distress, Anxious Eyes Bilateral: positive: Normal inspection Neck: positive: Trachea midline Cardiovascular: positive: Irregular Respiratory: positive: Diminished throughout. negative: Wheezes Abdomen: positive: Soft Skin: positive: Pallor, Dryness, Pruritis, Rash (diffuse rash with plaques; areas of redness/scaley patches; cellulitis resolved; had missed dermatology appointment while in hospital; did not work up while there) Extremities: positive: Pedal edema Neurologic/Psychiatric: positive: Disoriented to time, Weakness, Depressed mood/affect, Flat affect Palliative Care - POLST Patient has POLST: No POLST Status: Full Code Pain: Pain unchanged Tiredness/Fatigue: Severe (7-10) Drowsiness/Sedation: Moderate (4-6) Nausea: Mild (1-3) Depression: Moderate (4-6) Anxiety: Severe (7-10) Dyspnea: Severe (7-10) Anorexia: Mild (1-3) Sleep: Variable sleep pattern Feelings of wellbeing/Perceived Quality of Life: Poor, Worsening - Palliative Care Discussion: Patient continues to be discouraged with her current quality of life, feels very anxious in the context of continued deterioration both functionally and with her perception of increasing symptom burden. Patient does get easily overwhelmed with her multiple medical problems, ongoing emotional turmoil regarding managing her day-to-day care needs and symptoms. She does try to distract, stay positive, and stay grateful. She is quite fatigued with her latest hospitalization, and very much discouraged Results - Lab Results Lab results reviewed: Yes Lab and Imaging Results: Patient's renal function on 02/16 sodium 141; potassium 3.7; BUN 27; creatinine improved at 1.5; GFR at 35. Impression and Recommendations - Palliative Care Impression: This is a 63-year-old woman with multiple underlying medical problems, most recently exacerbation of her CHF. She does remain in fluid volume overload, with resulting severe dyspnea. She remains quite fragile both medically emotionally related to the above. Palliative care continues to provide support for symptom management, coordination of care, defining goals and setting up priorities. Recommendations/Counseling Done: 1. Nocturnal hypoxia. Patient was tested with overnight testing, she does qualify for oxygen. This was ordered, being set up at the time of the visit. She also presents today with severe dyspnea at rest, O2 sats at 90%, with 2 L up to 98% with some relief of her feeling of breathlessness. [id number] to confirm patient qualifies and will benefit from nocturnal oxygen therapy, patient has been given permission to use during the day as needed as well. 2. CHF acute on chronic exacerbation. Consult with Dr. Valiente, will resume torsemide 20 mg twice daily, patient is scheduled to see him next . He will further adjust meds as indicated. Patient instructed to continue with daily weights, given 40 mg at time of visit secondary signs and symptoms of acute distress. 3. Chronic pain. This is multifactorial in origin. Patient does have left- sided pain syndrome, continues on methadone 5 mg twice daily as well as [place] up to 4 times a day. She does have chronic migraines, had to restart the gabapentin as he is exacerbated. No further changes at this point in time. 4. Rash of unknown etiology. Her rash had worsened, to the point where she was diagnosed with cellulitis this last hospitalization and treated with antibiotics. Patient unfortunately missed her dermatology appointment, instructed to resume. Is currently using a steroid cream, she is used this before with limited response. 5. CKD stage IV. Patient with exacerbation of her acute kidney failure during hospitalization secondary to diuretic use. Her GFR on Saturday was 35. Patient has made the decision not to pursue dialysis, continues to be a fine balance for her. 6. Depression. Patient continues on her Lexapro, is quite discouraged given her recent hospitalization. Continues to get support for the medical palliative care social insurance adviser. We will continue to follow with palliative care team. 7. Adrenal Insufficiency. Dr. Valiente wants patient to follow-up with endocrinology as soon as possible, patient has not made an appointment. Written note for both her and her to make this a priority, as well as to reschedule her dermatology appointment Time Spent: 45 minutes with greater than 50% of this done in counseling regarding management of dyspnea, symptom management, coordination of care with eight arm operator, and anticipatory guidance.
== END 2019-02-19 16:46 | disposition home or self-care (01) ==
LOC: PC 16:45
PROVIDERS: ATTEND Nurse Practitioner Adult Health
DX: Z51.5 Encounter for palliative care (principal); R09.02 Hypoxemia; I50.9 Heart failure, unspecified; G89.4 Chronic pain syndrome; G43.909 Migraine, unspecified, not intractable, without status migrainosus; R21 Rash and other nonspecific skin eruption; N18.4 Chronic kidney disease, stage 4 (severe); F32.9 Major depressive disorder, single episode, unspecified; I42.9 Cardiomyopathy, unspecified; I48.91 Unspecified atrial fibrillation; I47.2 Ventricular tachycardia; R13.10 Dysphagia, unspecified; Z79.01 Long term (current) use of anticoagulants; Z95.0 Presence of cardiac pacemaker; Z86.73 Personal history of transient ischemic attack (TIA), and cerebral infarction without residual deficits; Z79.899 Other long term (current) drug therapy; Z79.891 Long term (current) use of opiate analgesic; Z86.39 Personal history of other endocrine, nutritional and metabolic disease
CPT/HCPCS: 99349

== ENCOUNTER 2019-03-06 09:43 | Outpatient (CLI) | payer BC ==
[2019-03-06 17:35] LABS: CALCIUM 7.7 mg/dL (8.5-10.3)
== END 2019-03-06 09:44 | disposition home or self-care (01) ==
LOC: LAB.F 09:43
PROVIDERS: ATTEND Internal Medicine Cardiovascular Disease
DX: I50.9 Heart failure, unspecified (principal)
CPT/HCPCS: 36415; 80048

== ENCOUNTER 2019-03-12 14:45 | Inpatient (IN) | payer BC ==
[2019-03-12 15:33] LABS: BASOPHILS # (AUTO) 0.1 10^3/uL (0.0-0.1); BASOPHILS % (AUTO) 0.7 %; EOSINOPHILS # (AUTO) 0.3 10^3/uL (0.0-0.7); EOSINOPHILS % (AUTO) 3.5 %; HGB - HEMOGLOBIN 10.3 g/dL (12.0-16.0); LYMPHOCYTES # (AUTO) 1.8 10^3/uL (1.5-3.5); LYMPHOCYTES % (AUTO) 22.7 %; MEAN CORPUSCULAR HEMOGLOBIN 26.8 pg (27.0-31.0); MEAN CORPUSCULAR HGB CONC 32.3 g/dL (32.0-36.0); MEAN CORPUSCULAR VOLUME 82.9 fL (81.0-99.0); MEAN PLATELET VOLUME 6.6 fL (7.9-10.8); MONOCYTES # (AUTO) 0.6 10^3/uL (0.0-1.0); MONOCYTES % (AUTO) 7.9 %; NEUTROPHILS # (AUTO) 5.3 10^3/uL (1.5-6.6); NEUTROPHILS % (AUTO) 65.2 %; PLT - PLATELET COUNT 294 10^3/uL (130-450); RED BLOOD COUNT 3.86 10^6/uL (4.20-5.40); RED CELL DISTRIBUTION WIDTH 15.4 % (12.0-15.0); WHITE BLOOD COUNT 8.1 x10^3/uL (4.8-10.8)
[2019-03-12 15:45] LABS: ALBUMIN/GLOBULIN RATIO 1.7 (1.0-2.2); BILIRUBIN,TOTAL 0.5 mg/dL (0.2-1.0); CREATININE 1.9 mg/dL (0.4-1.0); MAGNESIUM 2.4 mg/dL (1.7-2.8); PHOSPHORUS 3.9 mg/dL (2.5-4.6); TOTAL PROTEIN 6.4 g/dL (6.7-8.2)
--- NOTE | 2019-03-12 16:04 | ED Physician Documentation ---
History of Present Illness - Stated complaint Stated Complaint: FEM - Chief complaint Chief Complaint: General - History obtained from History obtained from: Patient, EMS - History of Present Illness Timing: Today Pain level max: 0 Pain level now: 0 - Additonal information Additional information: 63-year-old female with a complex medical history including difficult to control heart failure, possible adrenal insufficiency presents to the emergency department with increasing leg swelling. Seen by her shear tender today and sent for admission for diuresis. She is having a difficult time breathing with walking. Better with rest, worse with exertion. Recently admitted to [facility] in [place] for same Review of Systems Ten Systems: 10 systems reviewed and negative Constitutional: denies: Fever, Chills Throat: denies: Sore throat Cardiac: denies: Chest pain / pressure, Palpitations Respiratory: reports: Dyspnea. denies: Cough GI: denies: Nausea, Vomiting, Diarrhea Skin: denies: Rash Musculoskeletal: denies: Neck pain, Back pain Neurologic: denies: Headache PD PAST MEDICAL HISTORY - Past Medical History Cardiovascular: Congestive heart failure, Hypertension Respiratory: Asthma Endocrine/Autoimmune: None Psych: Depression Musculoskeletal: Fibromyalgia - Past Surgical History Past Surgical History: Yes /[employer]: Hysterectomy, Oophrectomy Cardiovascular: Pacemaker - Present Medications Home Medications: Ambulatory Orders Medication Instructions Recorded Confirmed Fluticasone [Flonase] 1 spray HAROLDO BID 01/24/16 02/19/19 HYDROcod/ACETAM 5/325 [Vicodin 1 tab PO Q4HR PRN MDD 4 01/24/16 02/19/19 5/325] QUEtiapine [SEROquel] 25 mg PO ACHS 01/24/16 02/19/19 Torsemide 20 mg PO BID 01/24/16 02/19/19 Levothyroxine [Synthroid] 100 mg PO DAILY 05/17/17 02/19/19 Methadone 5 mg PO BID 05/17/17 02/19/19 Rivaroxaban [Xarelto] 15 gm PO DAILY 05/17/17 02/19/19 Calcium Carbonate/Vitamin D3 1 tab PO BID 05/19/17 02/19/19 [Calcium 600-Vit D3 400 Tablet] Carboxymethylcellulose Sodium 1 drops TOP TID 05/19/17 02/19/19 [Refresh Tears] Cyclosporine [Restasis] 1 applic TOP BID 05/19/17 02/19/19 Hydrocortisone [Cortef] 10 mg PO QDBREAKFAST 05/19/17 02/19/19 Metoprolol Succinate 100 mg PO BID 05/19/17 02/19/19 Multivitamin [Multiple Vitamins] 1 tab PO DAILY 05/19/17 02/19/19 Ondansetron Odt [Zofran Odt] 1 tab PO Q8HR PRN 05/19/17 02/19/19 Polyethylene Glycol 3350 [Miralax] 17 gm PO DAILY 05/19/17 02/19/19 Salmeterol Xinafoate [Serevent 1 puffs INH BID 05/19/17 02/19/19 Diskus] hydrOXYzine pamoate [Hydroxyzine 1 tab PO TID MDD 4 05/19/17 02/19/19 Pamoate] raNITIdine [Zantac] 150 mg PO BID 08/16/17 02/19/19 Hydrocortisone [Cortef] 5 mg PO QDDINNER 12/11/17 02/19/19 Lidocaine [Topicaine 5] 1 applic TOP PRN PRN 12/11/17 02/19/19 Liothyronine [Cytomel] 5 mcg PO DAILY 12/11/17 02/19/19 Nitroglycerin [Nitrostat] 0.4 mg SL Q5MIN PRN 03/12/18 02/19/19 Escitalopram [Lexapro] 10 mg PO DAILY 05/19/18 02/19/19 Sennosides [Chocolated Laxative] 15 - 30 mg PO DAILY PRN 08/21/18 02/19/19 Methyl Salicylate/Menthol 1 patch TOP DAILY PRN 09/23/18 02/19/19 [Salonpas Patch] hydrALAZINE [Apresoline] 25 mg PO TID 02/19/19 02/19/19 - Allergies Allergies/Adverse Reactions: Allergies Allergy/AdvReac Type Severity Reaction Status Date / Time Beef Containing Products Allergy Nausea Verified 03/12/19 18:25 cefpodoxime proxetil * Allergy Unknown Verified 03/12/19 14:54 [From Vantin] [place] [employer] Allergy Unknown Verified 03/12/19 18:25 clindamycin Allergy Unknown Verified 03/12/19 14:54 codeine Allergy Unknown Verified 03/12/19 14:54 erythromycin base Allergy Unknown Verified 03/12/19 14:54 [Erythromycin Base] levofloxacin [From Levaquin] Allergy Unknown Verified 03/12/19 14:54 mushroom Allergy Unknown Verified 03/12/19 18:25 onion Allergy Unknown Verified 03/12/19 18:25 rofecoxib [From Vioxx] Allergy Unknown Verified 03/12/19 14:54 sumatriptan [From Imitrex] Allergy Unknown Verified 03/12/19 14:54 sumatriptan succinate * Allergy Unknown Verified 03/12/19 14:54 [From Imitrex] tomato Allergy Unknown Verified 03/12/19 18:25 morphine AdvReac Unknown Verified 03/12/19 14:54 pepper (genus Capsicum) AdvReac Anaphylaxis Verified 03/12/19 18:25 - Social History Does the pt smoke?: No Smoking Status: Never smoker Does the pt drink ETOH?: No Does the pt have substance abuse?: No - Immunizations Immunizations are current?: Yes - POLST Patient has POLST: No PD ED PE NORMAL - Vitals Vital signs reviewed: Yes - General General: Alert and oriented X 3, No acute distress - HEENT HEENT: Moist mucous membranes - Neck Neck: Supple, no meningeal sign - Cardiac Cardiac: RRR - Respiratory Respiratory: No respiratory distress, Other (Diminished breath sounds bilaterally) - Abdomen Abdomen: Soft, Non tender, Non distended - Derm Derm: Warm and dry, No rash - Extremities Extremities: Other (Weeping edema bilaterally lower extremity) - Neuro Neuro: Alert and oriented X 3 - Psych Psych: Normal mood, Normal affect Results - Vitals Vitals: Vital Signs - 24 hr 03/12/19 03/12/19 03/12/19 14:48 17:07 18:06 Temperature 36.7 C 36.3 C L Heart Rate 70 68 Heart Rate [ 65 Brachial] Respiratory 20 17 20 Rate Blood Pressure 128/78 124/71 Blood Pressure 131/82 H [Right Brachial artery] O2 Saturation 95 93 96 Oxygen O2 Source Room air - Labs Labs: Laboratory Tests 03/12/19 03/12/19 03/12/19 15:24 15:24 15:24 WBC 8.1 RBC 3.86 L Hgb 10.3 L Hct 32.0 L MCV 82.9 MCH 26.8 L MCHC 32.3 RDW 15.4 H Plt Count 294 MPV 6.6 L Neut # (Auto) 5.3 Lymph # (Auto) 1.8 Rush # (Auto) 0.6 Eos # (Auto) 0.3 Baso # (Auto) 0.1 Absolute Nucleated RBC 0.00 Nucleated RBC % 0.0 Sodium 133 L Potassium 3.3 L Chloride 86 L Carbon Dioxide 35 H Anion Gap 12.0 BUN 24 H Creatinine 1.9 H Estimated GFR (MDRD) 27 L Glucose 91 Calcium 8.0 L Phosphorus 3.9 Magnesium 2.4 Total Bilirubin 0.5 AST 22 ALT 16 Alkaline Phosphatase 132 H B-Natriuretic Peptide 1789 H Total Protein 6.4 L Albumin 4.0 Globulin 2.4 Albumin/Globulin Ratio 1.7 Lipase 41 Urine Color Urine Clarity Urine pH Ur Specific [place] Urine Protein Urine Glucose (UA) Urine Ketones Urine Occult Blood Urine Nitrite Urine Bilirubin Urine Urobilinogen Ur Leukocyte Esterase Urine RBC Urine WBC Urine WBC Clumps Ur Squamous Epith Cells Urine Bacteria Ur Microscopic Review Urine Culture Comments 03/12/19 16:50 WBC RBC Hgb Hct MCV MCH MCHC RDW Plt Count MPV Neut # (Auto) Lymph # (Auto) Rush # (Auto) Eos # (Auto) Baso # (Auto) Absolute Nucleated RBC Nucleated RBC % Sodium Potassium Chloride Carbon Dioxide Anion Gap BUN Creatinine Estimated GFR (MDRD) Glucose Calcium Phosphorus Magnesium Total Bilirubin AST ALT Alkaline Phosphatase B-Natriuretic Peptide Total Protein Albumin Globulin Albumin/Globulin Ratio Lipase Urine Color YELLOW Urine Clarity HAZY Urine pH 6.5 Ur Specific [place] <=1.005 Urine Protein NEGATIVE Urine Glucose (UA) NEGATIVE Urine Ketones NEGATIVE Urine Occult Blood MODERATE H Urine Nitrite NEGATIVE Urine Bilirubin NEGATIVE Urine Urobilinogen 0.2 (NORMAL) Ur Leukocyte Esterase LARGE H Urine RBC 6-10 H Urine WBC >25 H Urine WBC Clumps PRESENT Ur Squamous Epith Cells NONE SEEN Urine Bacteria Many H Ur Microscopic Review INDICATED Urine Culture Comments INDICATED - Rads (name of study) cxr Radiology: Prelim report reviewed, EMP read contemporaneously, See rad report (Mild cardiomegaly, increased in size from prior exam. No evidence of significant pulmonary vascular congestion or interstitial edema.) PD MEDICAL DECISION MAKING - ED course Complexity details: reviewed results, re-evaluated patient, considered differential, d/w patient ED course: 63-year-old female with congestive heart failure, weeping edema in the bilateral lower extremities. Will admit for diuresis. Discussed the case with her shear tender, Dr. Valiente as well as the hospitalist here, Dr. Castillo. This document was made in part using voice recognition software. While efforts are made to proofread this document, sound alike and grammatical errors may occur. Departure - Departure Disposition: 66 [facility] DC/Xfer Clinical Impression: Renal insufficiency CHF exacerbation Qualifiers: Heart failure type: unspecified Qualified Code(s): I50.9 - Heart failure, unspecified UTI (urinary tract infection) Qualifiers: Urinary tract infection type: acute cystitis Hematuria presence: without hematuria Qualified Code(s): N30.00 - Acute cystitis without hematuria Condition: Stable Discharge Date/Time: 03/12/19 18:08
--- NOTE | 2019-03-12 16:52 | XRAY Report ---
Reason: dyspnea Procedure Date: 03/12/2019 Accession Number: [id number] / [id number] Procedure: XR - Chest 1 View X-Ray CPT Code: 48916 FULL RESULT: EXAM: CHEST RADIOGRAPHY EXAM DATE: 03/12/2019 04:44 PM. CLINICAL HISTORY: Dyspnea. COMPARISON: CHEST 2 VIEW PA/LAT 05/01/2017 11:33 AM. TECHNIQUE: 1 view. FINDINGS: Unchanged appearance of the single lead mechanical cardiac device with the device lead terminating in the right ventricle. The heart is mildly enlarged and increased in size from the prior exam. No significant pulmonary vascular congestion or interstitial edema. Calcified plaques in the thoracic aorta. No consolidation, pleural effusion, or pneumothorax. Surgical clips project over the right upper abdominal quadrant. IMPRESSION: Mild cardiomegaly, which is increased in size from the prior exam. No evidence of significant pulmonary vascular congestion or interstitial edema. RADIA
[2019-03-12 17:04] LABS: BILIRUBIN,URINE NEGATIVE (NEGATIVE); GLUCOSE, URINE (UA) NEGATIVE (NEGATIVE); KETONES,URINE (UA) NEGATIVE (NEGATIVE); LEUKOCYTE ESTERASE, URINE LARGE (NEGATIVE); NITRITE,URINE NEGATIVE (NEGATIVE); OCCULT BLOOD,URINE MODERATE (NEGATIVE); PH,URINE 6.5 PH (5.0-7.5); PROTEIN,URINE NEGATIVE (NEGATIVE); UROBILINOGEN,URINE 0.2 (NORMAL) E.U./dL (NORMAL)
[2019-03-12 17:05] LABS: CLARITY,URINE HAZY (CLEAR)
[2019-03-12 17:18] LABS: WBC CLUMPS,URINE PRESENT
[2019-03-12 17:19] LABS: BACTERIA,URINE Many /HPF (None Seen); SQUAMOUS EPITHELIAL CELL,UR NONE SEEN (<= Few)
[2019-03-12] MEDS ORDERED: ACETAMINOPHEN 325 MG TABLET PO PRN (17:29)
[2019-03-12] MEDS ORDERED: METHYL SALICYLATE TOP PRN (17:36)
[2019-03-12] MEDS ORDERED: NITROGLYCERIN SL 0.4 MG TABLET SL PRN (17:36)
[2019-03-12] MEDS ORDERED: MENTHOL TOP PRN (17:36)
[2019-03-12] MEDS ORDERED: BUMETANIDE 1 MG/4 ML VIAL IVP SCH (18:30)
[2019-03-12] MEDS ORDERED: POTASSIUM CHLORIDE 20 MEQ TABLET PO SCH (18:30)
[2019-03-12] MEDS: RIVAROXABAN 15 MG TABLET PO SCH ×2 (18:55→19:53)
[2019-03-12] MEDS: HYDROcod/ACETAM 5/325 MG TABLET PO PRN (18:55)
[2019-03-12] MEDS: HYDROCORTISONE 10 MG TABLET PO SCH (18:56)
[2019-03-12] MEDS: PROCHLORPERAZINE 10 MG/2 ML VIAL IVP PRN (20:53)
[2019-03-12] MEDS ORDERED: levoFLOXacin 750 MG/150 ML 750 MG/150 ML BAG IV SCH (21:00)
[2019-03-12] MEDS: METOPROLOL SUCCINATE 50 MG TABLET PO SCH (22:26)
[2019-03-12] MEDS: QUEtiapine 25 MG TABLET PO SCH (22:26)
[2019-03-12] MEDS: hydrOXYzine PAMOATE 25 MG CAPSULE PO SCH (22:27)
[2019-03-12] MEDS: METHADONE 5 MG TABLET PO SCH (22:27)
[2019-03-12] MEDS: FAMOTIDINE 20 MG TABLET PO SCH (22:27)
[2019-03-12] MEDS: hydrALAZINE 25 MG TABLET PO SCH (22:27)
[2019-03-12] MEDS: FLUTICASONE NASAL SPRAY NAS SCH (22:30)
[2019-03-12] MEDS: SODIUM CHLORIDE FLUSH 0.9% 10 ML SYRINGE IVP PRN (22:31)
[2019-03-13] MEDS: GABAPENTIN 100 MG CAPSULE PO SCH ×3 (00:03→20:44)
[2019-03-13] MEDS: SODIUM CHLORIDE FLUSH 0.9% 10 ML SYRINGE IVP SCH ×3 (00:58→16:32)
[2019-03-13 05:41] LABS: BASOPHILS % (AUTO) 0.6 %; EOSINOPHILS # (AUTO) 0.3 10^3/uL (0.0-0.7); EOSINOPHILS % (AUTO) 3.3 %; HGB - HEMOGLOBIN 10.3 g/dL (12.0-16.0); LYMPHOCYTES # (AUTO) 1.9 10^3/uL (1.5-3.5); LYMPHOCYTES % (AUTO) 25.5 %; MEAN CORPUSCULAR HEMOGLOBIN 26.9 pg (27.0-31.0); MEAN CORPUSCULAR VOLUME 84.1 fL (81.0-99.0); MEAN PLATELET VOLUME 6.5 fL (7.9-10.8); MONOCYTES # (AUTO) 0.5 10^3/uL (0.0-1.0); MONOCYTES % (AUTO) 6.1 %; NEUTROPHILS # (AUTO) 4.8 10^3/uL (1.5-6.6); NEUTROPHILS % (AUTO) 64.5 %; PLT - PLATELET COUNT 270 10^3/uL (130-450); RED BLOOD COUNT 3.85 10^6/uL (4.20-5.40); RED CELL DISTRIBUTION WIDTH 15.6 % (12.0-15.0); WHITE BLOOD COUNT 7.5 x10^3/uL (4.8-10.8)
[2019-03-13] MEDS: QUEtiapine 25 MG TABLET PO SCH ×2 (05:44→20:42)
[2019-03-13 05:54] LABS: CALCIUM 8.4 mg/dL (8.5-10.3)
[2019-03-13] MEDS: hydrOXYzine PAMOATE 25 MG CAPSULE PO SCH ×3 (05:55→20:43)
[2019-03-13] MEDS: hydrALAZINE 25 MG TABLET PO SCH ×3 (05:55→20:44)
[2019-03-13] MEDS: SODIUM CHLORIDE FLUSH 0.9% 10 ML SYRINGE IVP PRN ×2 (05:56→14:27)
[2019-03-13] MEDS: BUMETANIDE 1 MG/4 ML VIAL IVP SCH ×2 (05:56→14:27)
[2019-03-13] MEDS ORDERED: HYDROCORTISONE 10 MG TABLET PO SCH (08:00)
[2019-03-13] MEDS: LIOTHYRONINE 5 MCG TABLET PO SCH (08:10)
[2019-03-13] MEDS: METOPROLOL SUCCINATE 50 MG TABLET PO SCH ×2 (08:10→20:43)
[2019-03-13] MEDS: MULTIVITAMIN TABLET PO SCH (08:11)
[2019-03-13] MEDS: FAMOTIDINE 20 MG TABLET PO SCH ×2 (08:11→20:44)
[2019-03-13] MEDS: LEVOTHYROXINE 100 MCG TABLET PO SCH (08:12)
[2019-03-13] MEDS: METHADONE 5 MG TABLET PO SCH ×2 (08:12→20:43)
[2019-03-13] MEDS: ESCITALOPRAM 10 MG TABLET PO SCH (08:13)
[2019-03-13] MEDS: FLUTICASONE NASAL SPRAY NAS SCH ×2 (08:14→20:47)
[2019-03-13] MEDS: POLYETHYLENE GLYCOL 3350 17 GM PACKET PO SCH (08:15)
[2019-03-13] MEDS: HYDROcod/ACETAM 5/325 MG TABLET PO PRN ×3 (08:16→20:43)
[2019-03-13] MEDS ORDERED: POLYETHYLENE GLYCOL 17 GM PO SCH (09:00)
--- NOTE | 2019-03-13 13:13 | CT Report ---
Reason: E coli UTI, eval for pyelonephritis or obstruction Procedure Date: 03/13/2019 Accession Number: [id number] / [id number] Procedure: CT - Abdomen/Pelvis WO CPT Code: FULL RESULT: EXAM: CT ABDOMEN AND PELVIS (CT KUB) EXAM DATE: 03/13/2019 12:52 PM. CLINICAL HISTORY: E. coli, urinary tract infection, evaluate for pyelonephritis or obstruction. COMPARISONS: RETROPERITONEAL 11/10/2018 2:36 PM. TECHNIQUE: Routine axial helical CT imaging was performed through the abdomen and pelvis without IV contrast. Reconstructions: Coronal and sagittal. In accordance with CT protocol optimization, one or more of the following dose reduction techniques were utilized for this exam: automated exposure control, adjustment of mA and/or KV based on patient size, or use of iterative reconstructive technique. FINDINGS: Lung Bases: Bilateral minimal pleural effusions and dependent changes of the lungs. Right Kidney/Ureter: The patient is status post right nephrectomy, likely with adrenalectomy, beam artifact from surgical hardware limits evaluation of the adrenal fossa. Left Kidney/Ureter: Minimal fat stranding surrounds the left kidney and there is no obstruction or calculus. Sensitivity for pyelonephritis is limited in absence of contrast. Other Solid Organs: Noncontrast liver, spleen and pancreas are within limits. Gallbladder/Bile Ducts: Unremarkable. Peritoneal Cavity: No free fluid, free air or aneta adenopathy. Bowel is grossly unremarkable. Pelvic Organs: No bladder stones or wall thickening. Noncontrast images of the visualized pelvic organs are unremarkable. Vasculature: Unremarkable. Other: None. IMPRESSION: Solitary kidney without evidence of obstruction. RADIA
--- NOTE | 2019-03-13 13:34 | HISTORY & PHYSICAL EXAMINATION ---
DATE OF SERVICE: 03/12/2019 Physician: Michelle Castillo MD HISTORY OF PRESENT ILLNESS: This is a 63-year-old white female with a history of nonischemic, dilated cardiomyopathy, with ejection fraction of 35% by Echo done here one year ago, history of possible adrenal insufficiency, a stroke with left-sided arm and leg weakness, history of atrial fibrillation on anticoagulation and she has a pacemaker, history of fibromyalgia and arthritis, hypertension, asthma, depression, prior hysterectomy and oophorectomy. The patient reports that over the last year, her dyspnea has markedly worsened where she could walk across her 5-acre property and now can only walk approximately 20 feet and gets severely short of breath and the has to bring her a chair outdoors for her to catch her breath. The patient had been scheduled to have a cardiac MRI to establish the diagnosis of her dilated cardiomyopathy, but has been unable to get to the appointment for various reasons over the last several years. The patient is followed by Dr. Valiente of the [facility] Cardiology clinic here. The patient has been hospitalized recently at [facility] for cellulitis of both legs was on IV antibiotics, did have improvement in the redness and tenderness and edema. She has been home for approximately a week. She went to see Dr. Valiente for her routine scheduled appointment this afternoon at his clinic and reported that this morning, she awoke and had hematuria with blood clots in the urine. At her clinic evaluation he thought that she had CHF exacerbation and she was sent to the emergency room and is now being admitted for management of UTI with hematuria and CHF exacerbation. PAST MEDICAL HISTORY: Dilated cardiomyopathy with systolic heart failure, history of asthma, chronic kidney disease, hypothyroidism, chronic atrial fibrillation on anticoagulation with Xarelto, pacemaker, history of stroke with left-sided weakness, depression, fibromyalgia and chronic pain syndrome. ALLERGIES 1. BEEF-CONTAINING PRODUCTS. 2. CEFPODOXIME. 3. CITRUS. 4. CLINDAMYCIN 5. CODEINE. 6. ERYTHROMYCIN. 7. LEVOFLOXACIN. 8. M MUSHROOMS, 9. ONIONS, 10. TOMATOES 11. PEPPERS 12. VIOXX. 13. IMITREX. 14. MORPHINE. CURRENT MEDICATIONS 1. Lexapro 10 mg daily. 2. Restasis eyedrops. 3. Refresh Tears. 4. Calcium supplement b.i.d. 5. Vicodin 5/325 mg every 4 hours p.r.n. 6. Flonase spray b.i.d. 7. Xarelto 15 mg daily. 8. Zofran sublingual p.r.n. 9. Sublingual nitroglycerin p.r.n. 10. Multivitamin 1 daily. 11. Topical Lidocaine patch p.r.n. 12. Synthroid 100 mcg daily. 13. Cortef 10 mg in the morning and 5 mg with dinner. 14. Zantac 150 mg b.i.d. 15. Hydroxyzine 1 tablet t.i.d. 16. Hydralazine 25 mg t.i.d. 17. Torsemide 20 mg b.i.d. 18. Sennosides laxative p.r.n. 19. Serevent Diskus 1 puff b.i.d. 20. MiraLAX 1 dose daily. 21. Toprol-XL 100 mg daily. 22. Cytomel 5 mcg. 23. Salon pas patch topically daily p.r.n. pain. 24. Methadone 5 mg b.i.d. 25. Seroquel 25 mg every night. 26. Possibly takes Proair inhaler. FAMILY HISTORY: No inherited diseases. SOCIAL HISTORY: The patient is a nonsmoker, drinks no alcohol and has no illicit drug use history. 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 Lives with her . REVIEW OF SYSTEMS: There has been no fever. She denies any dysuria, but does have pelvic pain and bilateral flank pain. The rest of the comprehensive review of systems was done, are listed, the rest are negative. PHYSICAL EXAMINATION GENERAL: Middle-aged white female. She is in no distress in bed. VITAL SIGNS: Blood pressure 130/80, heart rate 65 and regular (therefore probably paced), afebrile and room air saturation 96%. HEENT: Unremarkable with moist oral mucosa. NECK: Without JVD in a vertical position. LUNGS: Clear. HEART: Heart sounds normal. No murmur. ABDOMEN: Soft, distended, nontender. Normal bowel sounds. No hepatomegaly. Bilateral flank tenderness is noted. EXTREMITIES: There is 4+ edema up to the upper thighs. There is mild redness of the right lateral holt and left ankle and slightly behind the left knee. She has changes of rheumatoid arthritis noted in her hands. NEUROLOGIC: Left arm and leg weakness, muscle strength 4/5, otherwise intact. LABORATORY DATA: Sodium 133, potassium 3.3, BUN 24, creatinine 1.9. Normal liver tests. Alkaline phosphatase 132. BNP 1,789 (her baseline BNP is in the 200s to 500). Lipase normal. White blood count 8.1, hemoglobin 10.3 with MCV of 82, RDW elevated at 15, platelet count normal at 294. No INR was done. Urinalysis: The pH of 6.5, specific gravity less than 1.05, moderate occult blood, large leukocyte esterase, many bacteria. IMAGING DATA: EKG is 100% ventricular paced. Chest x-ray: Mild cardiomegaly and no vascular congestion. IMPRESSION/DIAGNOSES 1. Pyelonephritis. 2. Hematuria, on Xarelto 3. Acute on chronic systolic heart failure, mostly right-sided by exam. 4. History of adrenal insufficiency. 5. Dilated cardiomyopathy. 6. Chronic kidney disease, stage 4. 7. Hypothyroidism. 8. Chronic atrial fibrillation. 9. Pacemaker. 10. History of stroke with left-sided weakness. 11. Chronic pain. 12. Depression history. 13. Anemia, etiology unknown. PLAN 1. Admit the patient to medical/surgical bed, on telemetry. 2. Obtain an Echo to reestablish LV and RV contractility and PA pressure. 3. Continue with diuresis, leg elevation, follow I's and O's and daily weights. IV diuretics will be used and Metalazone has been needed in the past, for adequate diuresis. 4. Monitor her electrolytes and renal function daily. 5. Begin treatment for the urinary tract infection using iv Ceftriaxone, await the urine culture, obtain a blood culture if she spikes a fever. Follow daily CBC. 6. Obtain imaging to confirm pyelonephritis or any obstruction, by abdomin/pelvis CT, without contrast due to her renal insufficiency. 7. Evaluate her B12, folate and iron panel regarding her anemia. 8. Continue with all her prior cardiac medications, adrenal insufficiency medications, thyroid medicine, pain medicine and depression medicine. 9. Begin a cardiac low-salt, renal diet with fluid restriction of 2000 mL per day. DEEP VENOUS THROMBOSIS PROPHYLAXIS: She is anticoagulated on Xarelto, therefore, pharmaceutical anticoagulation. While Xarelto will be off due to hematuria, use compression stockings. CODE STATUS: FULL CODE. ATTESTATION: The patient is expected to be discharged or transferred to another facility within 96 hours: Yes. TD: 03/13/2019 13:11 CHELO
--- NOTE | 2019-03-13 13:51 | PROVIDER PROGRESS NOTE ---
Assessment/Plan - Problem List (1) Pyelonephritis Assessment/Plan: The urine culture is growing E. coli, sensitivities are pending. Imaging of the abdomen and pelvis showed that she has 1 missing kidney and has streaking around the other kidney consistent with pyelonephritis. Plan IV antibiotics for 3 days and a 7 to 10-day total course of antibiotics. (2) CKD (chronic kidney disease) stage 4, GFR 15-29 ml/min Assessment/Plan: Creatinine is abnormal but stable. Follow renal function labs daily. (3) Single kidney Assessment/Plan: Dr. Garcia called me today for follow-up, since he had brought her to the ER from his cardiology clinic yesterday. He was aware that she had one kidney. (4) Acute on chronic systolic ACC/AHA stage C congestive heart failure Assessment/Plan: An Echo was performed this morning, it shows stable LVEF of 35%. The patient has mostly right-sided heart failure clinically, her lungs are clear on exam and by the admission chest x-ray. Continue with her prehospital medications of beta-marimar, consider hydralazine and nitrates, and will use diuretics but no spironolactone because of the CKD. Since she is only (-)700 cc since this admission, will add p.o. Metolazone daily to her iv loop diuretic. Apparently she was taking Metolazone 2 times per week. Follow BNP daily, electrolytes and magnesium daily, renal function daily, I's and O's and daily weights. Continue leg elevation when out of bed in chair. (5) Anemia Assessment/Plan: Etiology unclear, especially with (mild) volume overload. This is probably related to her CKD. Will obtain serum B12 and folate levels and Iron panel and replace if low (6) Hyponatremia Assessment/Plan: Possibly related to volume overload. She is already on a low salt, water restricted diet. Follow BUN/creat and serum sodium daily, I's and O's and daily weights, regarding fluid balance (7) Adrenal insufficiency Assessment/Plan: Will begin stress dose of steroids: cortisone 10 mg in the a.m. will increase to 20, and Cortisone 5 mg in the p.m. increase to 10 mg, plan this for for 3 days. This was discussed in the phone call with her Employment Representative, Dr. Valiente who got a call from her Process Helper. I discussed this plan with the patient (8) Chronic a-fib Assessment/Plan: She is mostly 100% paced on telemetry therefore has good heart rate control. Her Xarelto is currently off until she has no aneta hematuria from her pyelonephritis. (9) Pacemaker Assessment/Plan: Telemetry shows stable function (10) History of CVA with residual deficit Assessment/Plan: Mild left-sided weakness is stable - Current Meds Current Meds: Current Medications Generic Name Dose Route Start Last Admin Trade Name Freq PRN Reason Stop Dose Admin Hydrocodone Bitart/Acetaminophen 1 tab 03/12/19 17:36 03/13/19 08:16 [place] 5/325 PO 1 tab Q4HR PRN Administration PAIN Bumetanide 1 mg 03/13/19 06:00 03/13/19 05:56 Bumex Inj IVP 1 mg BIDDIURETIC RAÚL Administration Escitalopram Oxalate 10 mg 03/13/19 09:00 03/13/19 08:13 Lexapro PO 10 mg DAILY RAÚL Administration Famotidine 20 mg 03/12/19 21:00 03/13/19 08:11 Pepcid PO 20 mg BID RAÚL Administration Fluticasone Propionate 1 sprays 03/12/19 21:00 03/13/19 08:14 Flonase HAROLDO 1 spr BID RAÚL Administration Gabapentin 100 mg 03/12/19 23:45 03/13/19 08:11 Neurontin PO 100 mg BID RAÚL Administration Hydralazine HCl 25 mg 03/12/19 22:00 03/13/19 05:55 Apresoline PO 25 mg TID RAÚL Administration Hydrocortisone 10 mg 03/13/19 08:00 03/13/19 08:12 Cortef PO 10 mg QDBREAKFAST RAÚL Administration Hydrocortisone 5 mg 03/12/19 17:45 03/12/19 18:56 Cortef PO 5 mg QDDINNER RAÚL Administration Hydroxyzine Pamoate 25 mg 03/12/19 22:00 03/13/19 05:55 Vistaril PO 25 mg TID RAÚL Administration Levofloxacin 750 mg in 150 mls @ 100 mls/hr 03/12/19 21:00 03/13/19 01:59 Levaquin 750 Mg/150 Ml IV Infused Q48H RAÚL Infusion Levothyroxine Sodium 100 mcg 03/13/19 09:00 03/13/19 08:12 Synthroid PO 100 mcg DAILY RAÚL Administration Liothyronine Sodium 5 mcg 03/13/19 09:00 03/13/19 08:10 Cytomel PO 5 mcg DAILY RAÚL Administration Methadone HCl 5 mg 03/12/19 21:00 03/13/19 08:12 PO 5 mg BID RAÚL Administration Metoprolol Succinate 100 mg 03/12/19 21:00 03/13/19 08:10 Toprol Xl PO 100 mg BID RAÚL Administration Multivitamins 1 tab 03/13/19 08:00 03/13/19 08:11 Theragran PO 1 tab DAILYWM RAÚL Administration Polyethylene Glycol 17 gm 03/13/19 09:00 03/13/19 08:15 Miralax PO 17 gm DAILY RAÚL Administration Prochlorperazine Edisylate 10 mg 03/12/19 17:29 03/12/19 20:53 Compazine Inj IVP 10 mg Q6HR PRN Administration Nausea / Vomiting Sodium Chloride 10 ml 03/12/19 17:29 03/13/19 05:56 Normal Saline Flush 0.9% IVP 10 ml PRN PRN Administration NEEDED PER PROVIDER ORDERS Sodium Chloride 10 ml 03/13/19 01:00 03/13/19 08:14 Normal Saline Flush 0.9% IVP 10 ml 0100,0900,1700 RAÚL Administration - Lab Result Fish Bone Diagrams: 03/13/19 05:29 03/13/19 05:29 - Additional Planning My Orders: My Active Orders 03/12/19 17:29 Activity Orders [RC] Q2HR Fluid Restriction [RC] ONCE IO [RC] IOSHIFT Initiate Bowel Care Protocol [RC] .protocol Initiate Line Care Protocol [RC] .protocol Initiate Line Care Protocol [RC] QSHIFT Initiate Personal Care Protoco [RC] .protocol Telemetry (24 Hour) [RC] Q4HR Vital Signs [RC] 0800,1600,0000 Acetaminophen [Tylenol] 650 mg PO Q4HR PRN Prochlorperazine Inj [Compazine Inj] 10 mg IVP Q6HR PRN Sodium Chloride Flush 0.9% [Normal Saline Flush 0.9%] 10 ml IVP PRN PRN Code Status [OTHERS] Routine Condition of Patient [OTHERS] Routine DVT Prophylaxis [OTHERS] Routine 03/12/19 17:31 Daily Weight [RC] 0600 03/12/19 17:36 HYDROcod/ACETAM 5/325 [[place] 5/325] 1 tab PO Q4HR PRN Methyl Salicylate/Menthol [Salonpas Patch] 1 patch TOP DAILY PRN Nitroglycerin [Nitrostat] 0.4 mg SL Q5MIN PRN 03/12/19 17:40 Female External Catheter [Female External Catheter Care] [RC] PRN 03/12/19 17:41 O2 [Oxygen Therapy] [RC] .PRN 03/12/19 17:45 Hydrocortisone [Cortef] 5 mg PO QDDINNER 03/12/19 21:00 Famotidine [Pepcid] 20 mg PO BID Fluticasone [Flonase] 1 sprays HAROLDO BID Methadone 5 mg PO BID Metoprolol Succinate [Toprol Xl] 100 mg PO BID levoFLOXacin 750 MG/150 ML [Levaquin 750 mg/150 ml] 750 mg in 150 ml IV Q48H 03/12/19 22:00 hydrALAZINE [Apresoline] 25 mg PO TID hydrOXYzine PAMOATE [Vistaril] 25 mg PO TID 03/12/19 Dinner Cardiac Diet [DIET] Low Sodium Diet [DIET] 03/13/19 01:00 Sodium Chloride Flush 0.9% [Normal Saline Flush 0.9%] 10 ml IVP 0100,0900,1700 03/13/19 06:00 Bumetanide Inj [Bumex Inj] 1 mg IVP BIDDIURETIC 03/13/19 08:00 Echo Transthoracic Complete [ECHO] Routine Hydrocortisone [Cortef] 10 mg PO QDBREAKFAST Multivitamin [Theragran] 1 tab PO DAILYWM 03/13/19 09:00 Escitalopram [Lexapro] 10 mg PO DAILY Levothyroxine [Synthroid] 100 mcg PO DAILY Liothyronine [Cytomel] 5 mcg PO DAILY Polyethylene Glycol 3350 [Miralax] 17 gm PO DAILY 03/13/19 13:38 metOLazone [Zaroxolyn] 2.5 mg PO DAILY 03/13/19 21:00 Cyclosporine [Restasis] 1 applic TOP BID QUEtiapine [SEROquel] 25 mg PO QPM 03/14/19 05:00 BMP - BASIC METABOLIC PANEL [CHEM] DAILYLAB BNP - B-NATRIURETIC PEPTIDE [IAI] DAILYLAB CBC - COMP BLD CT W/AUTO DIFF [HEME] DAILYLAB Subjective - Subjective Patient Reports: Feeling Better, Resting Comfortably, Other (Less hematuria) Nursing Reports: No Complaints Objective Vital Signs: Vital Signs - 24 hr 03/12/19 03/12/19 03/12/19 14:48 17:07 18:06 Temperature 36.7 C 36.3 C L Heart Rate 70 68 Heart Rate [ 65 Brachial] Respiratory 20 17 20 Rate Blood Pressure 128/78 124/71 Blood Pressure 131/82 H [Right Brachial artery] O2 Saturation 95 93 96 03/12/19 03/13/19 03/13/19 20:42 00:00 05:15 Temperature 36.6 C 36.3 C L 36.5 C Heart Rate Heart Rate [ 92 81 70 Brachial] Respiratory 16 20 16 Rate Blood Pressure Blood Pressure 146/83 H 121/60 136/84 H [Right Brachial artery] O2 Saturation 100 100 100 03/13/19 08:00 Temperature 36.5 C Heart Rate Heart Rate [ 76 Brachial] Respiratory 18 Rate Blood Pressure Blood Pressure 134/72 H [Right Brachial artery] O2 Saturation 100 Oxygen O2 Source Nasal cannula I&O (Last 24 Hrs): Intake and Output Totals x24h 03/11/19 03/12/19 03/13/19 23:59 23:59 23:59 Intake Total 98.333 1271.667 Output Total 500 450 Balance -401.667 821.667 General: Alert, Oriented x3 HEENT: Mucous membr. moist/pink Neck: Supple, No JVD Neuro: Other (L sided wweakness, mild) Cardiovascular: Regular rate, No murmurs Respiratory: No respiratory distress, Breath sounds nml Abdomen: Soft, Other (Obese) Extremities: Other (3+ edema) - Results Results: Laboratory Results WBC 7.5 x10^3/uL (4.8-10.8) 03/13/19 05:29 RBC 3.85 10^6/uL (4.20-5.40) L 03/13/19 05:29 Hgb 10.3 g/dL (12.0-16.0) L 03/13/19 05:29 Hct 32.3 % (37.0-47.0) L 03/13/19 05:29 MCV 84.1 fL (81.0-99.0) 03/13/19 05:29 MCH 26.9 pg (27.0-31.0) L 03/13/19 05:29 MCHC 32.0 g/dL (32.0-36.0) 03/13/19 05:29 RDW 15.6 % (12.0-15.0) H 03/13/19 05:29 Plt Count 270 10^3/uL (130-450) 03/13/19 05:29 MPV 6.5 fL (7.9-10.8) L 03/13/19 05:29 Neut # (Auto) 4.8 10^3/uL (1.5-6.6) 03/13/19 05:29 Lymph # (Auto) 1.9 10^3/uL (1.5-3.5) 03/13/19 05:29 [place] # (Auto) 0.5 10^3/uL (0.0-1.0) 03/13/19 05:29 Eos # (Auto) 0.3 10^3/uL (0.0-0.7) 03/13/19 05:29 Baso # (Auto) 0.0 10^3/uL (0.0-0.1) 03/13/19 05:29 Absolute Nucleated RBC 0.00 x10^3/uL 03/13/19 05:29 Nucleated RBC % 0.0 /100WBC 03/13/19 05:29 Sodium 134 mmol/L (135-145) L 03/13/19 05:29 Potassium 3.6 mmol/L (3.5-5.0) 03/13/19 05:29 Chloride 89 mmol/L (101-111) L 03/13/19 05:29 Carbon Dioxide 35 mmol/L (21-32) H 03/13/19 05:29 Anion Gap 10.0 (6-13) 03/13/19 05:29 BUN 25 mg/dL (6-20) H 03/13/19 05:29 Creatinine 2.0 mg/dL (0.4-1.0) H 03/13/19 05:29 Estimated GFR (MDRD) 25 (>89) L 03/13/19 05:29 Glucose 102 mg/dL (70-100) H 03/13/19 05:29 Calcium 8.4 mg/dL (8.5-10.3) L 03/13/19 05:29 Phosphorus 3.9 mg/dL (2.5-4.6) 03/12/19 15:24 Magnesium 2.4 mg/dL (1.7-2.8) 03/12/19 15:24 Total Bilirubin 0.5 mg/dL (0.2-1.0) 03/12/19 15:24 AST 22 IU/L (10-42) 03/12/19 15:24 ALT 16 IU/L (10-60) 03/12/19 15:24 Alkaline Phosphatase 132 IU/L (42-121) H 03/12/19 15:24 B-Natriuretic Peptide 2055 pg/mL (5-100) H 03/13/19 05:29 Total Protein 6.4 g/dL (6.7-8.2) L 03/12/19 15:24 Albumin 4.0 g/dL (3.2-5.5) 03/12/19 15:24 Globulin 2.4 g/dL (2.1-4.2) 03/12/19 15:24 Albumin/Globulin Ratio 1.7 (1.0-2.2) 03/12/19 15:24 Lipase 41 U/L (22-51) 03/12/19 15:24 Urine Color YELLOW 03/12/19 16:50 Urine Clarity HAZY (CLEAR) 03/12/19 16:50 Urine pH 6.5 PH (5.0-7.5) 03/12/19 16:50 Ur Specific [place] <=1.005 (1.002-1.030) 03/12/19 16:50 Urine Protein NEGATIVE mg/dL (NEGATIVE) 03/12/19 16:50 Urine Glucose (UA) NEGATIVE mg/dL (NEGATIVE) 03/12/19 16:50 Urine Ketones NEGATIVE mg/dL (NEGATIVE) 03/12/19 16:50 Urine Occult Blood MODERATE (NEGATIVE) H 03/12/19 16:50 Urine Nitrite NEGATIVE (NEGATIVE) 03/12/19 16:50 Urine Bilirubin NEGATIVE (NEGATIVE) 03/12/19 16:50 Urine Urobilinogen 0.2 (NORMAL) E.U./dL (NORMAL) 03/12/19 16:50 Ur Leukocyte Esterase LARGE (NEGATIVE) H 03/12/19 16:50 Urine RBC 6-10 /HPF (0-5) H 03/12/19 16:50 Urine WBC >25 /HPF (0-5) H 03/12/19 16:50 Urine WBC Clumps PRESENT 03/12/19 16:50 Ur Squamous Epith Cells NONE SEEN (<= Few) 03/12/19 16:50 Urine Bacteria Many /HPF (None Seen) H 03/12/19 16:50 Ur Microscopic Review INDICATED 03/12/19 16:50 Urine Culture Comments INDICATED 03/12/19 16:50 Nasal Screen MRSA (PCR) NEGATIVE (NEGATIVE) 03/13/19 01:05
[2019-03-13] MEDS ORDERED: FORMOTEROL FUMARATE NEB 20 MCG/2 ML INH SCH (14:00)
[2019-03-13] MEDS ORDERED: ALBUTEROL NEB 2.5 MG/3 ML INH PRN (14:01)
[2019-03-13] MEDS: metOLazone 2.5 MG TABLET PO SCH (14:26)
[2019-03-13] MEDS: HYDROCORTISONE 10 MG TABLET PO SCH (16:32)
[2019-03-13] MEDS ORDERED: HYDROCORTISONE 10 MG TABLET PO ONE (17:30)
[2019-03-13] MEDS: FORMOTEROL FUMARATE NEB 20 MCG/2 ML INH SCH (19:59)
[2019-03-13] MEDS: CYCLOSPORINE TOP SCH (20:47)
[2019-03-14] MEDS: SODIUM CHLORIDE FLUSH 0.9% 10 ML SYRINGE IVP SCH ×3 (00:12→15:53)
[2019-03-14] MEDS: HYDROcod/ACETAM 5/325 MG TABLET PO PRN ×4 (01:04→21:06)
[2019-03-14 05:41] LABS: BASOPHILS # (AUTO) 0.1 10^3/uL (0.0-0.1); BASOPHILS % (AUTO) 0.7 %; EOSINOPHILS # (AUTO) 0.2 10^3/uL (0.0-0.7); EOSINOPHILS % (AUTO) 2.9 %; LYMPHOCYTES # (AUTO) 2.1 10^3/uL (1.5-3.5); LYMPHOCYTES % (AUTO) 28.4 %; MEAN CORPUSCULAR HEMOGLOBIN 27.2 pg (27.0-31.0); MEAN CORPUSCULAR HGB CONC 32.4 g/dL (32.0-36.0); MEAN CORPUSCULAR VOLUME 84.1 fL (81.0-99.0); MEAN PLATELET VOLUME 6.9 fL (7.9-10.8); MONOCYTES # (AUTO) 0.6 10^3/uL (0.0-1.0); MONOCYTES % (AUTO) 7.4 %; NEUTROPHILS # (AUTO) 4.5 10^3/uL (1.5-6.6); NEUTROPHILS % (AUTO) 60.6 %; PLT - PLATELET COUNT 260 10^3/uL (130-450); RED BLOOD COUNT 3.66 10^6/uL (4.20-5.40); RED CELL DISTRIBUTION WIDTH 15.3 % (12.0-15.0); WHITE BLOOD COUNT 7.4 x10^3/uL (4.8-10.8)
[2019-03-14] MEDS: hydrALAZINE 25 MG TABLET PO SCH ×2 (05:57→14:17)
[2019-03-14] MEDS: BUMETANIDE 1 MG/4 ML VIAL IVP SCH (05:58)
[2019-03-14 05:59] LABS: CREATININE 2.1 mg/dL (0.4-1.0)
[2019-03-14] MEDS: hydrOXYzine PAMOATE 25 MG CAPSULE PO SCH ×3 (06:02→17:27)
[2019-03-14 06:07] LABS: CALCIUM 8.8 mg/dL (8.5-10.3)
[2019-03-14 06:09] LABS: THYROID STIMULATING HORMONE 12.62 uIU/mL (0.34-5.60)
[2019-03-14 06:11] LABS: FREE T4 (FREE THYROXINE) 0.71 ng/dL (0.58-1.64)
[2019-03-14] MEDS: ESCITALOPRAM 10 MG TABLET PO SCH (08:31)
[2019-03-14] MEDS: HYDROCORTISONE 10 MG TABLET PO SCH ×2 (08:31→17:02)
[2019-03-14] MEDS: GABAPENTIN 100 MG CAPSULE PO SCH ×2 (08:33→17:28)
[2019-03-14] MEDS: LEVOTHYROXINE 100 MCG TABLET PO SCH (08:34)
[2019-03-14] MEDS: METOPROLOL SUCCINATE 50 MG TABLET PO SCH (08:34)
[2019-03-14] MEDS: LIOTHYRONINE 5 MCG TABLET PO SCH (08:34)
[2019-03-14] MEDS: MULTIVITAMIN TABLET PO SCH (08:34)
[2019-03-14] MEDS: FAMOTIDINE 20 MG TABLET PO SCH ×2 (08:35→21:06)
[2019-03-14] MEDS: METHADONE 5 MG TABLET PO SCH ×2 (08:35→17:27)
[2019-03-14] MEDS: metOLazone 2.5 MG TABLET PO SCH ×2 (08:36→08:41)
[2019-03-14] MEDS: POLYETHYLENE GLYCOL 3350 17 GM PACKET PO SCH (08:37)
[2019-03-14] MEDS: CYCLOSPORINE TOP SCH ×2 (08:39→21:06)
[2019-03-14] MEDS: FLUTICASONE NASAL SPRAY NAS SCH ×2 (08:42→21:07)
[2019-03-14] MEDS: FORMOTEROL FUMARATE NEB 20 MCG/2 ML INH SCH ×2 (10:10→17:32)
--- NOTE | 2019-03-14 13:23 | PROVIDER PROGRESS NOTE ---
Assessment/Plan - Problem List (1) Pyelonephritis Assessment/Plan: She gets intermittent red urine or drops of blood today, yesterday the urine was yellow. Her RN looked at her perineum and reported no abraisions or blood seen. The patient has no dysuria but does have urgency. Our Pharmacist noted that Levofloxacin was dosed twice, and that the patient listed Levofloxacin as an allergy (it was a psych side effect, apparently, not a rash or SOB). Will adjust her iv antibiotic, using the MALLORY and sensitivities that have been resulted today from her (+) E coli urine culture: stop Levofloxacin and start D oxycycline iv bid. Then will transition to po Doxycycline at [facility]. Poss [facility] tomorrow if stable. (2) CKD (chronic kidney disease) stage 4, GFR 15-29 ml/min Assessment/Plan: Creat has increased slightly since here, on iv diuretics. I will stop the Metalazone ad transition from the iv diuretic to her po diuretic. Follow BMP daily. (3) Single kidney Assessment/Plan: She had a nephrectomy 20 years ago fdue to cancer. She does have a bar roller and he is watching for when to implant a AV fistula to start hemodialysis. (4) Acute on chronic systolic ACC/AHA stage C congestive heart failure Assessment/Plan: She is overall in neg fluid balance 3 kg, since being admitted. Will stop the daily po Metalazone and transition off the iv bid diuretic to her usual diuretic dose. Continue Hydralazine and B-marimar. (5) Anemia Qualifiers: Anemia type: due to chronic kidney disease Chronic kidney disease stage: st age 4 (severe) Qualified Code(s): N18.4 - Chronic kidney disease, stage 4 (severe); D63.1 - Anemia in chronic kidney disease Assessment/Plan: Her Iron stores are adequate, just saturation is a little low. Her B12 and Folate levels are adequate. This suggests anemia of chronic disease. (6) Adrenal insufficiency Assessment/Plan: She is on 3 days of stress doses, as was recommended by her Public Relations Supervisor who communicated that to her Cement Mason Apprentice, who told me that yesterday. (7) Hypothyroidism Assessment/Plan: Her Cement Mason Apprentice had requested that we check thyroid studies while she is here. The TSH was elevated. Will increase her a.m. Levothyroid dose slightly. (8) Chronic a-fib Assessment/Plan: HR stable on current meds (she is mostly paced, at rest). Will continue telemetry, as her thyroid dose is increased slightly. The plan is to resume her Xarelto when her hematuria resolves. (9) Pacemaker Assessment/Plan: Stable on telemetry. (10) History of CVA with residual deficit Assessment/Plan: Stable L sided weakness. (11) Hyponatremia Assessment/Plan: Resolved with free water restriction and diuresis. - Current Meds Current Meds: Current Medications Generic Name Dose Route Start Last Admin Trade Name Freq PRN Reason Stop Dose Admin Hydrocodone Bitart/Acetaminophen 1 tab 03/12/19 17:36 03/14/19 05:57 [place] 5/325 PO 1 tab Q4HR PRN Administration PAIN Albuterol 2.5 mg 03/13/19 14:01 03/13/19 19:59 INH 2.5 mg RTQ4H PRN Administration Wheezing Bumetanide 1 mg 03/13/19 06:00 03/14/19 05:58 Bumex Inj IVP 1 mg BIDDIURETIC RAÚL Administration Escitalopram Oxalate 10 mg 03/13/19 09:00 03/14/19 08:31 Lexapro PO 10 mg DAILY RAÚL Administration Famotidine 20 mg 03/12/19 21:00 03/14/19 08:35 Pepcid PO 20 mg BID RAÚL Administration Fluticasone Propionate 1 sprays 03/12/19 21:00 03/14/19 08:42 Flonase HAROLDO 2 spr BID RAÚL Administration Formoterol Fumarate 20 mcg 03/13/19 19:00 03/14/19 10:10 Perforomist INH 20 mcg RTBID RAÚL Administration Gabapentin 100 mg 03/12/19 23:45 03/14/19 08:33 Neurontin PO 100 mg BID RAÚL Administration Hydralazine HCl 25 mg 03/12/19 22:00 03/14/19 05:57 Apresoline PO 25 mg TID RAÚL Administration Hydrocortisone 20 mg 03/14/19 08:00 03/14/19 08:31 Cortef PO 20 mg QDBREAKFAST RAÚL Administration Hydroxyzine Pamoate 25 mg 03/12/19 22:00 03/14/19 06:02 Vistaril PO 25 mg TID RAÚL Administration Levothyroxine Sodium 100 mcg 03/13/19 09:00 03/14/19 08:34 Synthroid PO 100 mcg DAILY RAÚL Administration Liothyronine Sodium 5 mcg 03/13/19 09:00 03/14/19 08:34 Cytomel PO 5 mcg DAILY RAÚL Administration Methadone HCl 5 mg 03/12/19 21:00 03/14/19 08:35 PO 5 mg BID RAÚL Administration Metolazone 2.5 mg 03/13/19 13:38 03/14/19 08:41 Zaroxolyn PO 2.5 mg DAILY RAÚL Administration Metoprolol Succinate 100 mg 03/12/19 21:00 03/14/19 08:34 Toprol Xl PO 100 mg BID RAÚL Administration Multivitamins 1 tab 03/13/19 08:00 03/14/19 08:34 Theragran PO 1 tab DAILYWM RAÚL Administration Non-Formulary Medication 1 applic 03/13/19 21:00 03/14/19 08:39 Cyclosporine [Restasis] TOP 1 applic BID RAÚL Administration Polyethylene Glycol 17 gm 03/13/19 09:00 03/14/19 08:37 Miralax PO 17 gm DAILY RAÚL Administration Prochlorperazine Edisylate 10 mg 03/12/19 17:29 03/12/19 20:53 Compazine Inj IVP 10 mg Q6HR PRN Administration Nausea / Vomiting Quetiapine Fumarate 25 mg 03/13/19 21:00 03/13/19 20:42 Seroquel PO 25 mg QPM RAÚL Administration Sodium Chloride 10 ml 03/12/19 17:29 03/13/19 14:27 Normal Saline Flush 0.9% IVP 10 ml PRN PRN Administration NEEDED PER PROVIDER ORDERS Sodium Chloride 10 ml 03/13/19 01:00 03/14/19 05:59 Normal Saline Flush 0.9% IVP 10 ml 0100,0900,1700 RAÚL Administration - Lab Result Fish Bone Diagrams: 03/14/19 05:08 03/14/19 05:08 - Additional Planning My Orders: My Active Orders 03/13/19 13:38 metOLazone [Zaroxolyn] 2.5 mg PO DAILY 03/13/19 14:00 Nebulizer/MDI Tx. [RC] .BID/ Q4 PRN 03/13/19 14:01 Albuterol 2.5 mg INH RTQ4H PRN 03/13/19 14:16 SCDs [RC] QSHIFT 03/13/19 19:00 Formoterol Fumarate [Perforomist] 20 mcg INH RTBID 03/13/19 21:00 Cyclosporine [Restasis] 1 applic TOP BID QUEtiapine [SEROquel] 25 mg PO QPM 03/13/19 Dinner Low Sodium Diet [DIET] 03/14/19 08:00 Hydrocortisone [Cortef] 20 mg PO QDBREAKFAST 03/14/19 14:00 Doxycycline Inj [Vibramycin Inj] 100 mg Sodium Chloride 0.9% Minibag [Normal Saline 0.9% Minibag] 100 ml IV BID 03/14/19 17:00 Hydrocortisone [Cortef] 10 mg PO QDDINNER Subjective - Subjective Patient Reports: Feeling Better, Other (Patient told her RN that she was not on Lexapro at home. She has had hematuria again today.) Nursing Reports: Other (The pharmacist that reconciled her med list, has Lexapro as a home med.) Objective Vital Signs: Vital Signs - 24 hr 03/13/19 03/13/19 03/13/19 13:51 14:36 16:00 Temperature 36.9 C 36.5 C Heart Rate Heart Rate [ 82 80 91 Brachial] Respiratory 18 18 Rate Blood Pressure 132/81 H 134/78 H 113/75 [Right Brachial artery] O2 Saturation 98 93 03/13/19 03/13/19 03/13/19 20:00 20:32 23:35 Temperature 35.9 C L 36.3 C L Heart Rate 89 Heart Rate [ 90 98 Brachial] Respiratory 18 18 16 Rate Blood Pressure 142/89 H 114/96 H [Right Brachial artery] O2 Saturation 97 97 03/14/19 03/14/19 03/14/19 06:08 07:44 09:45 Temperature 36.6 C Heart Rate 78 Heart Rate [ 68 76 Brachial] Respiratory 18 16 16 Rate Blood Pressure 143/85 H 125/73 [Right Brachial artery] O2 Saturation 92 Oxygen O2 Source Nasal cannula I&O (Last 24 Hrs): Intake and Output Totals x24h 03/12/19 03/13/19 03/14/19 23:59 23:59 23:59 Intake Total 98.333 1271.667 100 Output Total 743 290 2559 Balance -401.667 821.667 -900 General: Alert, Oriented x3 HEENT: Atraumatic, Mucous membr. moist/pink Neck: Supple, No JVD Neuro: Non Focal Cardiovascular: Regular rate, No murmurs Respiratory: No respiratory distress, Breath sounds nml Abdomen: Soft, Other (Obese) Extremities: Other (!+ edema to mid holt) - Results Results: Laboratory Results WBC 7.4 x10^3/uL (4.8-10.8) 03/14/19 05:08 RBC 3.66 10^6/uL (4.20-5.40) L 03/14/19 05:08 Hgb 10.0 g/dL (12.0-16.0) L 03/14/19 05:08 Hct 30.8 % (37.0-47.0) L 03/14/19 05:08 MCV 84.1 fL (81.0-99.0) 03/14/19 05:08 MCH 27.2 pg (27.0-31.0) 03/14/19 05:08 MCHC 32.4 g/dL (32.0-36.0) 03/14/19 05:08 RDW 15.3 % (12.0-15.0) H 03/14/19 05:08 Plt Count 260 10^3/uL (130-450) 03/14/19 05:08 MPV 6.9 fL (7.9-10.8) L 03/14/19 05:08 Neut # (Auto) 4.5 10^3/uL (1.5-6.6) 03/14/19 05:08 Lymph # (Auto) 2.1 10^3/uL (1.5-3.5) 03/14/19 05:08 [place] # (Auto) 0.6 10^3/uL (0.0-1.0) 03/14/19 05:08 Eos # (Auto) 0.2 10^3/uL (0.0-0.7) 03/14/19 05:08 Baso # (Auto) 0.1 10^3/uL (0.0-0.1) 03/14/19 05:08 Absolute Nucleated RBC 0.00 x10^3/uL 03/14/19 05:08 Nucleated RBC % 0.0 /100WBC 03/14/19 05:08 Sodium 138 mmol/L (135-145) 03/14/19 05:08 Potassium 3.1 mmol/L (3.5-5.0) L 03/14/19 05:08 Chloride 90 mmol/L (101-111) L 03/14/19 05:08 Carbon Dioxide 35 mmol/L (21-32) H 03/14/19 05:08 Anion Gap 13.0 (6-13) 03/14/19 05:08 BUN 28 mg/dL (6-20) H 03/14/19 05:08 Creatinine 2.1 mg/dL (0.4-1.0) H 03/14/19 05:08 Estimated GFR (MDRD) 24 (>89) L 03/14/19 05:08 Glucose 90 mg/dL (70-100) 03/14/19 05:08 Calcium 8.8 mg/dL (8.5-10.3) 03/14/19 05:08 Phosphorus 3.9 mg/dL (2.5-4.6) 03/12/19 15:24 Magnesium 2.4 mg/dL (1.7-2.8) 03/12/19 15:24 Iron 34 ug/dL (28-170) 03/14/19 05:08 TIBC 400 ug/dL (250-450) 03/14/19 05:08 % Saturation 8 % (20-50) L 03/14/19 05:08 Transferrin 286 mg/dL (192-382) 03/14/19 05:08 Total Bilirubin 0.5 mg/dL (0.2-1.0) 03/12/19 15:24 AST 22 IU/L (10-42) 03/12/19 15:24 ALT 16 IU/L (10-60) 03/12/19 15:24 Alkaline Phosphatase 132 IU/L (42-121) H 03/12/19 15:24 B-Natriuretic Peptide 1998 pg/mL (5-100) H 03/14/19 05:08 Total Protein 6.4 g/dL (6.7-8.2) L 03/12/19 15:24 Albumin 4.0 g/dL (3.2-5.5) 03/12/19 15:24 Globulin 2.4 g/dL (2.1-4.2) 03/12/19 15:24 Albumin/Globulin Ratio 1.7 (1.0-2.2) 03/12/19 15:24 Lipase 41 U/L (22-51) 03/12/19 15:24 Vitamin B12 795 pg/mL (180-914) 03/14/19 05:08 Folate 35.00 ng/mL (5.90 - >24.8) 03/14/19 05:08 TSH 12.62 uIU/mL (0.34-5.60) H 03/14/19 05:08 Free T4 0.71 ng/dL (0.58-1.64) 03/14/19 05:08 Urine Color YELLOW 03/12/19 16:50 Urine Clarity HAZY (CLEAR) 03/12/19 16:50 Urine pH 6.5 PH (5.0-7.5) 03/12/19 16:50 Ur Specific [place] <=1.005 (1.002-1.030) 03/12/19 16:50 Urine Protein NEGATIVE mg/dL (NEGATIVE) 03/12/19 16:50 Urine Glucose (UA) NEGATIVE mg/dL (NEGATIVE) 03/12/19 16:50 Urine Ketones NEGATIVE mg/dL (NEGATIVE) 03/12/19 16:50 Urine Occult Blood MODERATE (NEGATIVE) H 03/12/19 16:50 Urine Nitrite NEGATIVE (NEGATIVE) 03/12/19 16:50 Urine Bilirubin NEGATIVE (NEGATIVE) 03/12/19 16:50 Urine Urobilinogen 0.2 (NORMAL) E.U./dL (NORMAL) 03/12/19 16:50 Ur Leukocyte Esterase LARGE (NEGATIVE) H 03/12/19 16:50 Urine RBC 6-10 /HPF (0-5) H 03/12/19 16:50 Urine WBC >25 /HPF (0-5) H 03/12/19 16:50 Urine WBC Clumps PRESENT 03/12/19 16:50 Ur Squamous Epith Cells NONE SEEN (<= Few) 03/12/19 16:50 Urine Bacteria Many /HPF (None Seen) H 03/12/19 16:50 Ur Microscopic Review INDICATED 03/12/19 16:50 Urine Culture Comments INDICATED 03/12/19 16:50 Nasal Screen MRSA (PCR) NEGATIVE (NEGATIVE) 03/13/19 01:05
[2019-03-14] MEDS ORDERED: TORSEMIDE 20 MG TABLET PO SCH (14:00)
[2019-03-14] MEDS: DOXYCYCLINE INJ 100 MG in SODIUM CHLORIDE 0.9% MINIBAG 100 ML IV SCH ×2 (14:17→21:07)
[2019-03-14] MEDS ORDERED: SODIUM CHLORIDE 0.9% 500 ML IV ONE (14:17)
[2019-03-14] MEDS: SODIUM CHLORIDE FLUSH 0.9% 10 ML SYRINGE IVP PRN (14:18)
[2019-03-14] MEDS: SIMETHICONE CHEW 80 MG TABLET PO PRN (15:50)
[2019-03-14] MEDS ORDERED: HYDROcod/ACETAM 5/325 MG TABLET PO PRN (17:08)
[2019-03-14] MEDS: HYDROcod/ACETAM 5/325 MG TABLET PO SCH (17:27)
[2019-03-14] MEDS: ALBUTEROL NEB 2.5 MG/3 ML INH PRN (17:33)
[2019-03-14] MEDS: CALCIUM CARB (OYSTER SHELL) 500 MG TABLET PO SCH (21:05)
[2019-03-14] MEDS: CHOLECALCIFEROL 400 UNIT TABLET PO SCH (21:06)
[2019-03-14] MEDS: QUEtiapine 25 MG TABLET PO SCH (21:08)
[2019-03-15] MEDS: SODIUM CHLORIDE FLUSH 0.9% 10 ML SYRINGE IVP SCH ×3 (00:29→16:27)
[2019-03-15] MEDS: PROCHLORPERAZINE 10 MG/2 ML VIAL IVP PRN (00:36)
[2019-03-15] MEDS: LEVOTHYROXINE 100 MCG TABLET PO SCH (06:35)
[2019-03-15] MEDS ORDERED: LEVOTHYROXINE 112 MCG TABLET PO SCH (07:00)
[2019-03-15] MEDS: FORMOTEROL FUMARATE NEB 20 MCG/2 ML INH SCH ×2 (08:00→20:17)
[2019-03-15] MEDS: POLYETHYLENE GLYCOL 3350 17 GM PACKET PO SCH (08:21)
[2019-03-15] MEDS: DOXYCYCLINE INJ 100 MG in SODIUM CHLORIDE 0.9% MINIBAG 100 ML IV SCH (08:21)
[2019-03-15] MEDS: GABAPENTIN 100 MG CAPSULE PO SCH ×3 (08:24→16:24)
[2019-03-15] MEDS: FAMOTIDINE 20 MG TABLET PO SCH (08:25)
[2019-03-15] MEDS: hydrOXYzine PAMOATE 25 MG CAPSULE PO SCH ×3 (08:25→16:24)
[2019-03-15] MEDS: CHOLECALCIFEROL 400 UNIT TABLET PO SCH ×2 (08:26→21:17)
[2019-03-15] MEDS: CALCIUM CARB (OYSTER SHELL) 500 MG TABLET PO SCH ×2 (08:26→21:17)
[2019-03-15] MEDS: METHADONE 5 MG TABLET PO SCH ×2 (08:26→16:25)
[2019-03-15] MEDS: HYDROcod/ACETAM 5/325 MG TABLET PO SCH ×3 (08:27→16:25)
[2019-03-15] MEDS: MULTIVITAMIN TABLET PO SCH (08:27)
[2019-03-15] MEDS: TORSEMIDE 20 MG TABLET PO SCH (08:28)
[2019-03-15] MEDS: FLUTICASONE NASAL SPRAY NAS SCH ×2 (08:29→21:18)
[2019-03-15] MEDS: CYCLOSPORINE TOP SCH ×2 (08:30→21:21)
[2019-03-15] MEDS: METOPROLOL SUCCINATE 50 MG TABLET PO SCH (08:41)
[2019-03-15] MEDS: SODIUM CHLORIDE FLUSH 0.9% 10 ML SYRINGE IVP PRN (08:50)
[2019-03-15] MEDS: HYDROCORTISONE 10 MG TABLET PO SCH ×2 (08:52→16:24)
--- NOTE | 2019-03-15 10:47 | CONSULTATION NOTE ---
Referring Provider Name of Referring Provider:: Dr. Michelle Castillo Consult Date: 03/15/19 Chief Complaint - Chief Complaint Chief Complaint: Hematuria History of Present Illness - History Obtained From Records Reviewed: yes History obtained from: patient and records - History of Present Illness HPI Comment/Other: Ms. Calle is a 63 yo medically complicated female with pyelonephritis, CKD, CHF, hx f CVA, and a single kidney now with gross hematuria. Consultation requested by Dr. Michelle Castillo. Ms. Calle reports that she had had some hematuria that has been resolving over the past few days. Yesterday she had what appeared to be streams of yellow urine with intermittent passage of red blood. Urine was then yellow and clear. This morning the urine was yellow and clear but there were discrete spots of blood in the urine collected within the hat. The residual red blood was visualized by this examiner. Her RN had performed a visual inspected on the exterior gentalia/vulva with no abnormalities noted. Consultation was requested for more thorough pelvic examination to aid in identification of source of bleeding. Ms. Calle does not note passage of blood outside of episodes of urination. She has undergone an abdominal hysterectomy in years passed. She states she feels pain near the Pfannenstiel incision and around her back. No vulvar pain or discomfort. She has had minimal/no penetrative sexual activity since the time of her stroke. Reports pain at her left IV site. Pain worsened when trying to void and limited her ability to relax enough to initiate void. History - Past Medical History Cardiovascular: reports: Congestive heart failure, Hypertension Respiratory: reports: Asthma Endocrine/Autoimmune: reports: None, Other (Thyroidectomy per patient report) Psych: reports: Depression Musculoskeletal: reports: Fibromyalgia - Past Surgical History General: reports: Other (nephrectomy/thyroidectomy) /FUR REPAIRER: reports: Hysterectomy, Oophrectomy Cardiovascular: reports: Pacemaker - POLST Patient has POLST: No Meds/Allgy - Home Medications Home Medications: Ambulatory Orders Medication Instructions Recorded Confirmed Fluticasone [Flonase] 1 spray HAROLDO BID 01/24/16 03/14/19 HYDROcod/ACETAM 5/325 [Vicodin 1 tab PO 0800,1200,1700 01/24/16 03/14/19 5/325] QUEtiapine [SEROquel] 25 mg PO QPM 01/24/16 03/14/19 Torsemide 40 mg PO 0800 01/24/16 03/14/19 Methadone 5 mg PO 0800,1700 05/17/17 03/14/19 Rivaroxaban [Xarelto] 15 mg PO 1700 05/17/17 03/14/19 Calcium Carbonate/Vitamin D3 2 tab PO DAILY 05/19/17 03/14/19 [Calcium 600-Vit D3 400 Tablet] Carboxymethylcellulose Sodium 1 drops EACHEYE TID PRN 05/19/17 03/14/19 [Refresh Tears] Cyclosporine [Restasis] 1 drops EACHEYE BID 05/19/17 03/13/19 Hydrocortisone [Cortef] 10 mg PO QDBREAKFAST 05/19/17 03/14/19 Multivitamin [Multiple Vitamins] 1 tab PO DAILY 05/19/17 03/13/19 Ondansetron Odt [Zofran Odt] 4 mg PO Q8HR PRN 05/19/17 03/14/19 Polyethylene Glycol 3350 [Miralax] 17 gm PO DAILY 05/19/17 03/14/19 Salmeterol Xinafoate [Serevent 1 puffs INH BID 05/19/17 03/14/19 Diskus] hydrOXYzine pamoate [Hydroxyzine 25 mg PO 0800,1200,1700 05/19/17 03/14/19 Pamoate] raNITIdine [Zantac] 150 mg PO BID 08/16/17 03/14/19 Hydrocortisone [Cortef] 5 mg PO QDDINNER 12/11/17 03/14/19 Nitroglycerin [Nitrostat] 0.4 mg SL Q5MIN PRN 03/12/18 03/13/19 Sennosides [Chocolated Laxative] 15 - 30 mg PO DAILY PRN 08/21/18 03/14/19 Albuterol Sulfate [Proair Hfa 2 puffs INH Q4H PRN 03/13/19 03/14/19 Inhaler] Metoprolol Succinate [Toprol Xl] 100 mg PO DAILY 03/13/19 03/14/19 Gabapentin 100 mg PO 0800,1200,1700 03/14/19 03/14/19 Hydrocodone/Acetaminophen 1 tab PO QPM PRN 03/14/19 03/14/19 [Hydrocodone-Acetamin 5-325 mg] - Allergies Allergies/Adverse Reactions: Allergies Allergy/AdvReac Type Severity Reaction Status Date / Time Beef Containing Products Allergy Nausea Verified 03/12/19 18:25 cefpodoxime proxetil * Allergy Unknown Verified 03/12/19 14:54 [From Vantin] [place] And Derivatives Allergy Unknown Verified 03/12/19 18:25 clindamycin Allergy Unknown Verified 03/12/19 14:54 codeine Allergy Unknown Verified 03/12/19 14:54 erythromycin base Allergy Unknown Verified 03/12/19 14:54 [Erythromycin Base] mushroom Allergy Unknown Verified 03/12/19 18:25 onion Allergy Unknown Verified 03/12/19 18:25 rofecoxib [From Vioxx] Allergy Unknown Verified 03/12/19 14:54 sumatriptan [From Imitrex] Allergy Unknown Verified 03/12/19 14:54 sumatriptan succinate * Allergy Unknown Verified 03/12/19 14:54 [From Imitrex] tomato Allergy Unknown Verified 03/12/19 18:25 levofloxacin [From Levaquin] AdvReac Severe PSYCHOSIS Verified 03/14/19 17:05 morphine AdvReac Unknown Verified 03/12/19 14:54 pepper (genus Capsicum) AdvReac Anaphylaxis Verified 03/12/19 18:25 Review of Systems - Constitutional Constitutional: reports: Other - Respiratory Respiratory: reports: Orthopnea - Gastrointestinal Gastrointestinal: reports: Abdominal pain - Genitourinary Genitourinary: reports: Hematuria - Neurological Neurological: reports: Pre-existing deficit - Hematologic/Lymphatic Hematologic/Lymphatic: reports: Other (Weight gain of 100# since time of thyroidectomy) - All Other Systems All Other Systems: reports: Other (Back pain) Exam - Vital Signs Vital Signs: Vital Signs x48h Temp Pulse Pulse Resp BP Pulse Ox 03/15/19 09:31 97.9 F 03/15/19 08:13 77 16 130/82 H 99 03/15/19 08:00 76 16 - Physical Exam General Appearance: positive: No acute distress, Other (Sitting upright in bed.) Eyes Bilateral: positive: Conjunctivae nml Respiratory: positive: No respiratory distress Abdomen: positive: Tenderness, Other (Mild TTP in suprapubic area anterior to the bladder. Abd otherwise S&NT. Well healed pfannenstiel incision.) Back: positive: CVA tenderness (L) Skin: positive: Dry Extremities: positive: Non-tender, Pedal edema Neurologic/Psychiatric: positive: Oriented x3, Mood/affect nml (FUR REPAIRER: Normal appearng external female genitalia, no evidence of blood on perineum. Vulvar tissue without irritation/erythema/loss of integrity. Small residue of bloody fluid in the folds around urethra but no areas of active bleeding or evidence of external source of bleeding. Vaginal mucosa pale and smooth, no evidence of erosions/irritation/loss of integrity. No blood or abnormal discharge in vaginal vault. Cervix surgically absent. Bladder is tender to palpation. Vaginal cuff intact without granuloma/polyp/thickening. No adnexal masses or tenderness beyond that attributed to the bladder.) Conclusion/Plan - Diagnosis Diagnosis: Hematuria - Plan Plan: Intermittent gross hematuria: No evidence of gynecologic source of bleeding. Characteristics of blood flow not consistent with manager programming presentation. Known UTI/pyelonephritis. Suspect intermittent passage of discrete red blood is likely from clot formed within a friable bladder that was able to clot prior to urne accumulation. Diminishing presence and lack of red urine (active bleeding mixed with urine) suggests a slowed and possible intermittent process. Would continue to monitor for resolution in setting of treatment of infection. No concerns for gynecologic source. Thank you for including me in the care of your patient. Time spent in consultation was 45 minutes including review of records, history, exam, and application counselor. - Lab Results Fish Bones: 03/14/19 05:08 03/14/19 05:08
[2019-03-15] MEDS ORDERED: PROCHLORPERAZINE 25 MG SUPP PR PRN (17:00)
[2019-03-15] MEDS: SIMETHICONE CHEW 80 MG TABLET PO PRN (18:33)
[2019-03-15] MEDS: PROCHLORPERAZINE 5 MG TABLET PO PRN (18:34)
--- NOTE | 2019-03-15 18:34 | PROVIDER PROGRESS NOTE ---
Assessment/Plan - Problem List (1) Pyelonephritis Assessment/Plan: IV antibiotics for 3 days were planned, Doxycycline will be changed to p.o. antibiotics for her evening dose. I will request an DATABASE PROGRAMMER ANALYST consult for a good perineal and speculum vaginal exam regarding the continued hematuria (2) Hematuria Assessment/Plan: Requesting OBGYN consult to evaluate . (3) CKD (chronic kidney disease) stage 4, GFR 15-29 ml/min Assessment/Plan: Abnormal but stable. Her diuretics have been changed back from IV twice daily plus metolazone, to her daily p.o. loop diuretic dose (4) Single kidney Assessment/Plan: Due to renal cancer and nephrectomy. (5) Acute on chronic systolic ACC/AHA stage C congestive heart failure Assessment/Plan: Her increased fatigue is related to her cardiomyopathy, she reports. She often needs to take a nap during the afternoon. Since her negative fluid balance has decreased, because of the change of IV diuretic to p.o. diuretic, continue monitoring I's and O's ans daily weight, and BMP daily. Continue her beta-marimar dose. Yesterday it was established that she does not take Hydralazine, because she does not "tolerate it" and the dose was stopped. (6) Anemia Qualifiers: Anemia type: due to chronic kidney disease Chronic kidney disease stage: stage 4 (severe) Qualified Code(s): N18.4 - Chronic kidney disease, stage 4 (severe); D63.1 - Anemia in chronic kidney disease Assessment/Plan: Her Iron stores are adequate, just saturation is a little low. Her B12 and Folate levels are adequate. This suggests anemia of chronic disease. (7) Adrenal insufficiency Assessment/Plan: She is on the last day of the 3 days of higher doses of her home meds, as advised by her Cut Roll Machine Offbearer. (8) Hypothyroidism Assessment/Plan: Her Hollow Core Door Frame Assembler had requested that we check thyroid studies while she is here. The TSH was elevated. Her Levothyroid dose was increased slightly, from 100 mcg to 112 mcg starting this a.m. (9) Chronic a-fib Assessment/Plan: HR is under control, she ia mostly pacing. The plan is to resume her Xarelto when the hematuria stops. (10) Pacemaker Assessment/Plan: Stable function (11) History of CVA with residual deficit Assessment/Plan: L sided mid weakness, stable (12) Hyponatremia Assessment/Plan: Resolved. - Current Meds Current Meds: Current Medications Generic Name Dose Route Start Last Admin Trade Name Freq PRN Reason Stop Dose Admin Hydrocodone Bitart/Acetaminophen 1 tab 03/14/19 17:07 03/15/19 16:25 [place] 5/325 PO 1 tab 0800,1200,1700 RAÚL Administration Hydrocodone Bitart/Acetaminophen 1 tab 03/14/19 21:00 03/14/19 21:06 [place] 5/325 PO 1 tab 2100 PRN Administration PAIN Albuterol 2.5 mg 03/14/19 17:12 03/14/19 17:33 INH 2.5 mg RTQ4H PRN Administration Wheezing Calcium Carbonate/Glycine 500 mg 03/14/19 21:00 03/15/19 08:26 Oys[place]-500 PO 500 mg BID RAÚL Administration Cholecalciferol 400 unit 03/14/19 21:00 03/15/19 08:26 Vitamin D3 PO 400 unit BID RAÚL Administration Fluticasone Propionate 1 sprays 03/12/19 21:00 03/15/19 08:29 Flonase HAROLDO 2 spr BID RAÚL Administration Formoterol Fumarate 20 mcg 03/13/19 19:00 03/15/19 08:00 Perforomist INH 20 mcg RTBID RAÚL Administration Gabapentin 100 mg 03/14/19 17:02 03/15/19 16:24 Neurontin PO 100 mg 0800,1200,1700 RAÚL Administration Hydrocortisone 20 mg 03/14/19 08:00 03/15/19 08:52 Cortef PO 20 mg QDBREAKFAST RAÚL Administration Hydrocortisone 10 mg 03/14/19 17:00 03/15/19 16:24 Cortef PO 10 mg QDDINNER RAÚL Administration Hydroxyzine Pamoate 25 mg 03/14/19 17:15 03/15/19 16:24 Vistaril PO 25 mg 0800,1200,1700 RAÚL Administration Levothyroxine Sodium 100 mcg 03/15/19 07:00 03/15/19 06:35 Synthroid PO 100 mcg QDAC RAÚL Administration Methadone HCl 5 mg 03/14/19 17:04 03/15/19 16:25 PO 5 mg 0800,1700 RAÚL Administration Metoprolol Succinate 100 mg 03/15/19 09:00 03/15/19 08:41 Toprol Xl PO 100 mg DAILY RAÚL Administration Multivitamins 1 tab 03/13/19 08:00 03/15/19 08:27 Theragran PO 1 tab DAILYWM RAÚL Administration Non-Formulary Medication 1 applic 03/13/19 21:00 03/15/19 08:30 Cyclosporine [Restasis] TOP 1 applic BID RAÚL Administration Polyethylene Glycol 17 gm 03/13/19 09:00 03/15/19 08:21 Miralax PO 17 gm DAILY RAÚL Administration Prochlorperazine Edisylate 10 mg 03/12/19 17:29 03/15/19 00:36 Compazine Inj IVP 10 mg Q6HR PRN Administration Nausea / Vomiting Quetiapine Fumarate 25 mg 03/13/19 21:00 03/14/19 21:08 Seroquel PO 25 mg QPM RAÚL Administration Simethicone 80 mg 03/14/19 14:27 03/14/19 15:50 Mylicon PO 80 mg 0900,1300,1800,2100 PRN Administration Gas Sodium Chloride 10 ml 03/12/19 17:29 03/15/19 08:50 Normal Saline Flush 0.9% IVP 10 ml PRN PRN Administration NEEDED PER PROVIDER ORDERS Sodium Chloride 10 ml 03/13/19 01:00 03/15/19 16:27 Normal Saline Flush 0.9% IVP Not Given 0100,0900,1700 RAÚL Torsemide 40 mg 03/15/19 08:00 03/15/19 08:28 Torsemide PO 40 mg 0800 RAÚL Administration - Lab Result Fish Bone Diagrams: 03/16/19 05:54 03/16/19 05:54 - Additional Planning My Orders: My Active Orders 03/14/19 21:00 Calcium Carb ([place]) [[place]ys[place]-500] 500 mg PO BID Cholecalciferol [Vitamin D3] 400 unit PO BID HYDROcod/ACETAM 5/325 [[place] 5/325] 1 tab PO 2100 PRN 03/15/19 Consult [Gynecology Consult] [CONS] Routine 03/15/19 07:00 Levothyroxine [Synthroid] 100 mcg PO QDAC 03/15/19 08:00 Torsemide 40 mg PO 0800 03/15/19 09:00 Metoprolol Succinate [Toprol Xl] 100 mg PO DAILY 03/15/19 16:31 IV DC [IV Discontinuation] [RC] .ONCE 03/15/19 16:59 Prochlorperazine [Compazine] 5 mg PO Q6HR PRN 03/15/19 17:00 Prochlorperazine Supp [Compazine Supp] 25 mg [place] TID PRN 03/15/19 21:00 Doxycycline [Vibramycin] 100 mg PO BID raNITIdine [Zantac] 150 mg PO BID Subjective - Subjective Patient Reports: Fatigue Nursing Reports: Other (The same, drops of aneta blood are seen in the commode, thia a.m. after urinating.) Objective Vital Signs: Vital Signs - 24 hr 03/14/19 03/15/19 03/15/19 23:45 08:00 08:13 Temperature 36.8 C Heart Rate 76 Heart Rate [ 76 77 Brachial] Respiratory 16 16 16 Rate Blood Pressure 131/74 H 130/82 H [Right Brachial artery] O2 Saturation 93 99 03/15/19 03/15/19 09:31 16:00 Temperature 36.6 C 37.0 C Heart Rate Heart Rate [ 76 Brachial] Respiratory 16 Rate Blood Pressure 130/81 H [Right Brachial artery] O2 Saturation 96 Oxygen O2 Source Room air I&O (Last 24 Hrs): Intake and Output Totals x24h 03/13/19 03/14/19 03/15/19 23:59 23:59 23:59 Intake Total 9215.762 5862 375 Output Total 450 1970 2000 Balance 821.178 -295 -2457 General: Alert HEENT: Mucous membr. moist/pink Neck: Supple Neuro: Other (L sided weakness) Cardiovascular: Regular rate, No murmurs Respiratory: No respiratory distress, Breath sounds nml Abdomen: Soft Extremities: Other (No edema, red L ankle with blisters) - Results Results: Laboratory Results WBC 7.4 x10^3/uL (4.8-10.8) 03/14/19 05:08 RBC 3.66 10^6/uL (4.20-5.40) L 03/14/19 05:08 Hgb 10.0 g/dL (12.0-16.0) L 03/14/19 05:08 Hct 30.8 % (37.0-47.0) L 03/14/19 05:08 MCV 84.1 fL (81.0-99.0) 05/11/19 05:08 MCH 27.2 pg (27.0-31.0) 03/14/19 05:08 MCHC 32.4 g/dL (32.0-36.0) 03/14/19 05:08 RDW 15.3 % (12.0-15.0) H 03/14/19 05:08 Plt Count 260 10^3/uL (130-450) 03/14/19 05:08 MPV 6.9 fL (7.9-10.8) L 03/14/19 05:08 Neut # (Auto) 4.5 10^3/uL (1.5-6.6) 03/14/19 05:08 Lymph # (Auto) 2.1 10^3/uL (1.5-3.5) 03/14/19 05:08 [place] # (Auto) 0.6 10^3/uL (0.0-1.0) 03/14/19 05:08 Eos # (Auto) 0.2 10^3/uL (0.0-0.7) 03/14/19 05:08 Baso # (Auto) 0.1 10^3/uL (0.0-0.1) 03/14/19 05:08 Absolute Nucleated RBC 0.00 x10^3/uL 03/14/19 05:08 Nucleated RBC % 0.0 /100WBC 03/14/19 05:08 Sodium 138 mmol/L (135-145) 03/14/19 05:08 Potassium 3.1 mmol/L (3.5-5.0) L 03/14/19 05:08 Chloride 90 mmol/L (101-111) L 03/14/19 05:08 Carbon Dioxide 35 mmol/L (21-32) H 03/14/19 05:08 Anion Gap 13.0 (6-13) 03/14/19 05:08 BUN 28 mg/dL (6-20) H 03/14/19 05:08 Creatinine 2.1 mg/dL (0.4-1.0) H 03/14/19 05:08 Estimated GFR (MDRD) 24 (>89) L 03/14/19 05:08 Glucose 90 mg/dL (70-100) 03/14/19 05:08 Calcium 8.8 mg/dL (8.5-10.3) 03/14/19 05:08 Phosphorus 3.9 mg/dL (2.5-4.6) 03/12/19 15:24 Magnesium 2.4 mg/dL (1.7-2.8) 03/12/19 15:24 Iron 34 ug/dL (28-170) 03/14/19 05:08 TIBC 400 ug/dL (250-450) 03/14/19 05:08 % Saturation 8 % (20-50) L 03/14/19 05:08 Transferrin 286 mg/dL (192-382) 03/14/19 05:08 Total Bilirubin 0.5 mg/dL (0.2-1.0) 03/12/19 15:24 AST 22 IU/L (10-42) 03/12/19 15:24 ALT 16 IU/L (10-60) 03/12/19 15:24 Alkaline Phosphatase 132 IU/L (42-121) H 03/12/19 15:24 B-Natriuretic Peptide 1998 pg/mL (5-100) H 03/14/19 05:08 Total Protein 6.4 g/dL (6.7-8.2) L 03/12/19 15:24 Albumin 4.0 g/dL (3.2-5.5) 03/12/19 15:24 Globulin 2.4 g/dL (2.1-4.2) 03/12/19 15:24 Albumin/Globulin Ratio 1.7 (1.0-2.2) 03/12/19 15:24 Lipase 41 U/L (22-51) 03/12/19 15:24 Vitamin B12 795 pg/mL (180-914) 03/14/19 05:08 Folate 35.00 ng/mL (5.90 - >24.8) 03/14/19 05:08 TSH 12.62 uIU/mL (0.34-5.60) H 03/14/19 05:08 Free T4 0.71 ng/dL (0.58-1.64) 03/14/19 05:08 Urine Color YELLOW 03/12/19 16:50 Urine Clarity HAZY (CLEAR) 03/12/19 16:50 Urine pH 6.5 PH (5.0-7.5) 03/12/19 16:50 Ur Specific [place] <=1.005 (1.002-1.030) 03/12/19 16:50 Urine Protein NEGATIVE mg/dL (NEGATIVE) 03/12/19 16:50 Urine Glucose (UA) NEGATIVE mg/dL (NEGATIVE) 03/12/19 16:50 Urine Ketones NEGATIVE mg/dL (NEGATIVE) 03/12/19 16:50 Urine Occult Blood MODERATE (NEGATIVE) H 03/12/19 16:50 Urine Nitrite NEGATIVE (NEGATIVE) 03/12/19 16:50 Urine Bilirubin NEGATIVE (NEGATIVE) 03/12/19 16:50 Urine Urobilinogen 0.2 (NORMAL) E.U./dL (NORMAL) 03/12/19 16:50 Ur Leukocyte Esterase LARGE (NEGATIVE) H 03/12/19 16:50 Urine RBC 6-10 /HPF (0-5) H 03/12/19 16:50 Urine WBC >25 /HPF (0-5) H 03/12/19 16:50 Urine WBC Clumps PRESENT 03/12/19 16:50 Ur Squamous Epith Cells NONE SEEN (<= Few) 03/12/19 16:50 Urine Bacteria Many /HPF (None Seen) H 03/12/19 16:50 Ur Microscopic Review INDICATED 03/12/19 16:50 Urine Culture Comments INDICATED 03/12/19 16:50 Nasal Screen MRSA (PCR) NEGATIVE (NEGATIVE) 03/13/19 01:05
[2019-03-15] MEDS: ALBUTEROL NEB 2.5 MG/3 ML INH PRN (20:17)
[2019-03-15] MEDS: DOXYCYCLINE 100 MG TABLET PO SCH (21:18)
[2019-03-15] MEDS: QUEtiapine 25 MG TABLET PO SCH (21:18)
[2019-03-15] MEDS: HYDROcod/ACETAM 5/325 MG TABLET PO PRN (22:09)
[2019-03-15] MEDS ORDERED: BISACODYL 10 MG SUPP PR SCH (23:17)
[2019-03-16] MEDS: SODIUM CHLORIDE FLUSH 0.9% 10 ML SYRINGE IVP SCH ×3 (01:16→16:45)
[2019-03-16 06:16] LABS: BASOPHILS # (AUTO) 0.1 10^3/uL (0.0-0.1); BASOPHILS % (AUTO) 0.7 %; EOSINOPHILS # (AUTO) 0.3 10^3/uL (0.0-0.7); EOSINOPHILS % (AUTO) 2.7 %; HGB - HEMOGLOBIN 10.9 g/dL (12.0-16.0); LYMPHOCYTES # (AUTO) 3.1 10^3/uL (1.5-3.5); LYMPHOCYTES % (AUTO) 30.2 %; MEAN CORPUSCULAR HEMOGLOBIN 27.9 pg (27.0-31.0); MEAN CORPUSCULAR HGB CONC 33.3 g/dL (32.0-36.0); MEAN CORPUSCULAR VOLUME 83.7 fL (81.0-99.0); MEAN PLATELET VOLUME 6.9 fL (7.9-10.8); MONOCYTES # (AUTO) 0.7 10^3/uL (0.0-1.0); MONOCYTES % (AUTO) 7.3 %; NEUTROPHILS % (AUTO) 59.1 %; PLT - PLATELET COUNT 287 10^3/uL (130-450); RED BLOOD COUNT 3.92 10^6/uL (4.20-5.40); RED CELL DISTRIBUTION WIDTH 15.5 % (12.0-15.0); WHITE BLOOD COUNT 10.2 x10^3/uL (4.8-10.8)
[2019-03-16] MEDS: LEVOTHYROXINE 100 MCG TABLET PO SCH (06:19)
[2019-03-16 06:31] LABS: CALCIUM 9.6 mg/dL (8.5-10.3); CREATININE 2.3 mg/dL (0.4-1.0)
[2019-03-16] MEDS: ALBUTEROL NEB 2.5 MG/3 ML INH PRN ×3 (07:34→19:34)
[2019-03-16] MEDS: FORMOTEROL FUMARATE NEB 20 MCG/2 ML INH SCH ×2 (07:34→19:34)
[2019-03-16] MEDS: MULTIVITAMIN TABLET PO SCH (07:58)
[2019-03-16] MEDS ORDERED: POTASSIUM CHLORIDE INJ 40 MEQ in SODIUM CHLORIDE 0.9% 480 ML IV ONE (08:00)
[2019-03-16] MEDS: CALCIUM CARB (OYSTER SHELL) 500 MG TABLET PO SCH ×2 (08:03→21:05)
[2019-03-16] MEDS: TORSEMIDE 20 MG TABLET PO SCH (08:03)
[2019-03-16] MEDS: METOPROLOL SUCCINATE 50 MG TABLET PO SCH (08:03)
[2019-03-16] MEDS: GABAPENTIN 100 MG CAPSULE PO SCH ×3 (08:03→16:44)
[2019-03-16] MEDS: DOXYCYCLINE 100 MG TABLET PO SCH ×2 (08:03→21:03)
[2019-03-16] MEDS: HYDROcod/ACETAM 5/325 MG TABLET PO SCH ×3 (08:04→16:44)
[2019-03-16] MEDS: CHOLECALCIFEROL 400 UNIT TABLET PO SCH ×2 (08:04→21:04)
[2019-03-16] MEDS: METHADONE 5 MG TABLET PO SCH ×2 (08:04→16:45)
[2019-03-16] MEDS: HYDROCORTISONE 10 MG TABLET PO SCH ×2 (08:05→16:46)
[2019-03-16] MEDS: hydrOXYzine PAMOATE 25 MG CAPSULE PO SCH ×3 (08:05→16:44)
[2019-03-16] MEDS: FLUTICASONE NASAL SPRAY NAS SCH ×2 (08:06→21:06)
[2019-03-16] MEDS: CYCLOSPORINE TOP SCH ×2 (08:06→21:06)
[2019-03-16] MEDS: POLYETHYLENE GLYCOL 3350 17 GM PACKET PO SCH (08:07)
[2019-03-16] MEDS: DOCUSATE SODIUM 250 MG CAPSULE PO SCH (08:15)
[2019-03-16] MEDS: SENNA 8.6 MG TABLET PO SCH (08:15)
[2019-03-16] MEDS: PROCHLORPERAZINE 5 MG TABLET PO PRN (10:57)
--- NOTE | 2019-03-16 16:27 | PROVIDER PROGRESS NOTE ---
Assessment/Plan - Problem List (1) Pyelonephritis Assessment/Plan: Perinephric stranding had been seen on her CT of the abdomen, and abnormal U/A. Pt on oral antibiotics now, after 3 days of iv antibiotics, adjusted for E coli sensitivities. (2) Hematuria Assessment/Plan: She has been off her Xarelto since admission due to hematuria. She had a MULTIPLE TUBE WINDING MACHINE OPERATOR consult done yesterday with exam showing that the urine is coming from the urethra and no vaginal or anal issues. We will start Flomax, for relaxing the urinary tract. Consider Urology consultation with or a Urologist at [facility], where she would want to go for office visits, if needed, sge he said. Her hemoglobin has been stable, follow CBC daily (3) CKD (chronic kidney disease) stage 4, GFR 15-29 ml/min Assessment/Plan: Abnormal but stable creatinine running between 2.0 - 2.2. She sees a auto damage insurance appraiser, the topic of AV shunt and hemodialysis has been brought up but there is no immediate plan yet (4) Single kidney Assessment/Plan: She required a nephrectomy due to renal cancer in her past. (5) Acute on chronic systolic ACC/AHA stage C congestive heart failure Assessment/Plan: Her EF by Echo was 35-40%, unchanged from 1 year ago. She had presented with mostly peripheral edema, she had clear lung quijano and a normal chest x-ray at admission. Her increased fatigue is related to her cardiomyopathy, she reports. She often needs to take a nap during the afternoon. She may also be tired due to volume depletion (elevated serum bicarb today) and hypokalemia. She has had gentle diuresis and daily negative fluid balance by using IV diuretics with daily metolazone for 3 days, now she is back on her home Torsemide oral dose and will slowly decrease the Metolazone to off. Continue her beta-marimar dose. Her home med list had Hydralazine but 2 days ago it was established that she does not take Hydralazine, because she does not "tolerate it" and the dose was stopped. (6) Anemia Qualifiers: Anemia type: due to chronic kidney disease Chronic kidney disease stage: stage 4 (severe) Qualified Code(s): N18.4 - Chronic kidney disease, stage 4 (severe); D63.1 - Anemia in chronic kidney disease Assessment/Plan: B12 and folate stores are adequate, she has adequate iron stores but low saturation. We will add Trace elements to her daily multivitamin Her hemoglobin has been stable, follow CBC daily (7) Adrenal insufficiency Assessment/Plan: She has finished 3 days of higher Cortisone doses, which were recommended by her Ballistics Teacher. This may also be giving her the notable fatigue. BP is stable, not hypotensive. Continue with Cortisone dosing now, as preadmission. (8) Hypothyroidism Assessment/Plan: Her serum TSH was found to be slightly high, and therefore her home dose of Thyroid replacement was already about to be increased from 88 mcg to 100 mcg, continue that 100 mcg dose. (9) Chronic a-fib Assessment/Plan: Heart rate is under control. She is mostly paced. The Xarelto dose was stopped at admission because of severe hematuria with clots. Plan is to restart Xarelto when hematuria subsides or when okayed by Urology. Her hemoglobin has been stable, follow CBC daily (10) Pacemaker Assessment/Plan: She was almost 100% paced when on telemetry, of the drum sander setter was discontinued (11) History of CVA with residual deficit Assessment/Plan: She has mild left arm and left leg weakness, uses a cane to walk but functions adequately, performs all ADLs independantly. (12) Hyponatremia Assessment/Plan: Resolved with diuresis and free-water restriction in diet. - Current Meds Current Meds: Current Medications Generic Name Dose Route Start Last Admin Trade Name Freq PRN Reason Stop Dose Admin Hydrocodone Bitart/Acetaminophen 1 tab 03/14/19 17:07 03/16/19 12:17 [place] 5/325 PO 1 tab 0800,1200,1700 RAÚL Administration Hydrocodone Bitart/Acetaminophen 1 tab 03/14/19 21:00 03/15/19 22:09 [place] 5/325 PO 1 tab 2100 PRN Administration PAIN Albuterol 2.5 mg 03/14/19 17:12 03/16/19 15:11 INH 2.5 mg RTQ4H PRN Administration Wheezing Calcium Carbonate/Glycine 500 mg 03/14/19 21:00 03/16/19 08:03 Oysco-500 PO 500 mg BID RAÚL Administration Cholecalciferol 400 unit 03/14/19 21:00 03/16/19 08:04 Vitamin D3 PO 400 unit BID RAÚL Administration Docusate Sodium 250 - 500 mg 03/16/19 09:00 03/16/19 08:15 Colace 250mg Capsule PO 250 mg DAILY RAÚL Administration Doxycycline Hyclate 100 mg 03/15/19 21:00 03/16/19 08:03 Vibramycin PO 100 mg BID RAÚL Administration Fluticasone Propionate 1 sprays 03/12/19 21:00 03/16/19 08:06 Flonase HAROLDO 1 spr BID RAÚL Administration Formoterol Fumarate 20 mcg 03/13/19 19:00 03/16/19 07:34 Perforomist INH 20 mcg RTBID RAÚL Administration Gabapentin 100 mg 03/14/19 17:02 03/16/19 12:17 Neurontin PO 100 mg 0800,1200,1700 RAÚL Administration Hydrocortisone 20 mg 03/14/19 08:00 03/16/19 08:05 Cortef PO 20 mg QDBREAKFAST RAÚL Administration Hydrocortisone 10 mg 03/14/19 17:00 03/15/19 16:24 Cortef PO 10 mg QDDINNER RAÚL Administration Hydroxyzine Pamoate 25 mg 03/14/19 17:15 03/16/19 12:18 Vistaril PO 25 mg 0800,1200,1700 RAÚL Administration Levothyroxine Sodium 100 mcg 03/15/19 07:00 03/16/19 06:19 Synthroid PO 100 mcg QDAC RAÚL Administration Methadone HCl 5 mg 03/14/19 17:04 03/16/19 08:04 PO 5 mg 0800,1700 RAÚL Administration Metoprolol Succinate 100 mg 03/15/19 09:00 03/16/19 08:03 Toprol Xl PO 100 mg DAILY RAÚL Administration Non-Formulary Medication 1 applic 03/13/19 21:00 03/16/19 08:06 Cyclosporine [Restasis] TOP 1 applic BID RAÚL Administration Polyethylene Glycol 17 gm 03/13/19 09:00 03/16/19 08:07 Miralax PO 17 gm DAILY RAÚL Administration Prochlorperazine Edisylate 10 mg 03/12/19 17:29 03/15/19 00:36 Compazine Inj IVP 10 mg Q6HR PRN Administration Nausea / Vomiting Prochlorperazine Maleate 5 mg 03/15/19 16:59 03/16/19 10:57 Compazine PO 5 mg Q6HR PRN Administration Nausea / Vomiting Quetiapine Fumarate 25 mg 03/13/19 21:00 03/15/19 21:18 Seroquel PO 25 mg QPM RAÚL Administration Ranitidine HCl 150 mg 03/15/19 21:00 03/16/19 08:02 Zantac PO 150 mg BID RAÚL Administration Senna 8.6 - 17.2 mg 03/16/19 09:00 03/16/19 08:15 Senokot PO 8.6 mg DAILY RAÚL Administration Simethicone 80 mg 03/14/19 14:27 03/15/19 18:33 Mylicon PO 80 mg 0900,1300,1800,2100 PRN Administration Gas Sodium Chloride 10 ml 03/12/19 17:29 03/15/19 08:50 Normal Saline Flush 0.9% IVP 10 ml PRN PRN Administration NEEDED PER PROVIDER ORDERS Sodium Chloride 10 ml 03/13/19 01:00 03/16/19 08:07 Normal Saline Flush 0.9% IVP 10 ml 0100,0900,1700 RAÚL Administration Torsemide 40 mg 03/15/19 08:00 03/16/19 08:03 Torsemide PO 40 mg 0800 RAÚL Administration - Lab Result Fish Bone Diagrams: 03/16/19 05:54 03/16/19 05:54 - Additional Planning My Orders: My Active Orders 03/15/19 16:31 IV DC [IV Discontinuation] [RC] .ONCE 03/15/19 16:59 Prochlorperazine [Compazine] 5 mg PO Q6HR PRN 03/15/19 17:00 Prochlorperazine Supp [Compazine Supp] 25 mg [place] TID PRN 03/15/19 21:00 Doxycycline [Vibramycin] 100 mg PO BID raNITIdine [Zantac] 150 mg PO BID 03/16/19 09:00 Docusate Sodium 250Mg Capsule [Colace 250Mg Capsule] 250 - 500 mg PO DAILY Senna [Senokot] 8.6 - 17.2 mg PO DAILY 03/16/19 16:13 Tamsulosin [Flomax] 0.4 mg PO DAILY 03/17/19 08:00 Multivitamin W/Minerals [Theragran M] 1 tab PO DAILYWM Subjective - Subjective Patient Reports: Fatigue, Other (Dizzy.) Nursing Reports: Other (Still has unchanged hematiuria) Objective Vital Signs: Vital Signs - 24 hr 03/15/19 03/15/19 03/15/19 18:45 20:17 22:07 Temperature 36.6 C Heart Rate 79 Heart Rate [ 74 80 Brachial] Respiratory 18 76 H 18 Rate Blood Pressure 156/76 H [Right Brachial artery] O2 Saturation 95 95 03/15/19 03/16/19 03/16/19 23:35 07:34 08:00 Temperature 36.6 C 36.9 C Heart Rate 73 Heart Rate [ 78 74 Brachial] Respiratory 16 16 16 Rate Blood Pressure 128/72 140/77 H [Right Brachial artery] O2 Saturation 94 96 03/16/19 03/16/19 15:14 15:30 Temperature 36.8 C Heart Rate 74 Heart Rate [ 69 Brachial] Respiratory 16 18 Rate Blood Pressure 126/70 [Right Brachial artery] O2 Saturation 100 Oxygen O2 Source Room air I&O (Last 24 Hrs): Intake and Output Totals x24h 03/14/19 03/15/19 03/16/19 23:59 23:59 23:59 Intake Total 6254 529 1256 Output Total 1970 2300 2400 Balance -840 -1575 -1400 General: Alert, Oriented x3 HEENT: Mucous membr. moist/pink Neck: Supple, No JVD Neuro: Other (L sided mikd weakness) Cardiovascular: No murmurs Respiratory: No respiratory distress, Breath sounds nml Abdomen: Soft, Other (Obese) Extremities: No edema, Other (L ankle red with blisters) - Results Results: Laboratory Results WBC 10.2 x10^3/uL (4.8-10.8) 03/16/19 05:54 RBC 3.92 10^6/uL (4.20-5.40) L 03/16/19 05:54 Hgb 10.9 g/dL (12.0-16.0) L 03/16/19 05:54 Hct 32.9 % (37.0-47.0) L 03/16/19 05:54 MCV 83.7 fL (81.0-99.0) 03/16/19 05:54 MCH 27.9 pg (27.0-31.0) 03/16/19 05:54 MCHC 33.3 g/dL (32.0-36.0) 03/16/19 05:54 RDW 15.5 % (12.0-15.0) H 03/16/19 05:54 Plt Count 287 10^3/uL (130-450) 03/16/19 05:54 MPV 6.9 fL (7.9-10.8) L 03/16/19 05:54 Neut # (Auto) 6.0 10^3/uL (1.5-6.6) 03/16/19 05:54 Lymph # (Auto) 3.1 10^3/uL (1.5-3.5) 03/16/19 05:54 [place] # (Auto) 0.7 10^3/uL (0.0-1.0) 03/16/19 05:54 Eos # (Auto) 0.3 10^3/uL (0.0-0.7) 03/16/19 05:54 Baso # (Auto) 0.1 10^3/uL (0.0-0.1) 03/16/19 05:54 Absolute Nucleated RBC 0.01 x10^3/uL 03/16/19 05:54 Nucleated RBC % 0.0 /100WBC 03/16/19 05:54 Sodium 139 mmol/L (135-145) 03/16/19 05:54 Potassium 2.9 mmol/L (3.5-5.0) L 03/16/19 05:54 Chloride 85 mmol/L (101-111) L 03/16/19 05:54 Carbon Dioxide 40 mmol/L (21-32) H* 03/16/19 05:54 Anion Gap 14.0 (6-13) H 03/16/19 05:54 BUN 41 mg/dL (6-20) H 03/16/19 05:54 Creatinine 2.3 mg/dL (0.4-1.0) H 03/16/19 05:54 Estimated GFR (MDRD) 21 (>89) L 03/16/19 05:54 Glucose 91 mg/dL (70-100) 03/16/19 05:54 Calcium 9.6 mg/dL (8.5-10.3) 03/16/19 05:54 Phosphorus 3.9 mg/dL (2.5-4.6) 03/12/19 15:24 Magnesium 2.7 mg/dL (1.7-2.8) 03/16/19 05:30 Iron 34 ug/dL (28-170) 03/14/19 05:08 TIBC 400 ug/dL (250-450) 03/14/19 05:08 % Saturation 8 % (20-50) L 03/14/19 05:08 Transferrin 286 mg/dL (192-382) 03/14/19 05:08 Total Bilirubin 0.5 mg/dL (0.2-1.0) 03/12/19 15:24 AST 22 IU/L (10-42) 03/12/19 15:24 ALT 16 IU/L (10-60) 03/12/19 15:24 Alkaline Phosphatase 132 IU/L (42-121) H 03/12/19 15:24 B-Natriuretic Peptide 1998 pg/mL (5-100) H 03/14/19 05:08 Total Protein 6.4 g/dL (6.7-8.2) L 03/12/19 15:24 Albumin 4.0 g/dL (3.2-5.5) 03/12/19 15:24 Globulin 2.4 g/dL (2.1-4.2) 03/12/19 15:24 Albumin/Globulin Ratio 1.7 (1.0-2.2) 03/12/19 15:24 Lipase 41 U/L (22-51) 03/12/19 15:24 Vitamin B12 795 pg/mL (180-914) 03/14/19 05:08 Folate 35.00 ng/mL (5.90 - >24.8) 03/14/19 05:08 TSH 12.62 uIU/mL (0.34-5.60) H 03/14/19 05:08 Free T4 0.71 ng/dL (0.58-1.64) 03/14/19 05:08 Urine Color YELLOW 03/12/19 16:50 Urine Clarity HAZY (CLEAR) 03/12/19 16:50 Urine pH 6.5 PH (5.0-7.5) 03/12/19 16:50 Ur Specific [place] <=1.005 (1.002-1.030) 03/12/19 16:50 Urine Protein NEGATIVE mg/dL (NEGATIVE) 03/12/19 16:50 Urine Glucose (UA) NEGATIVE mg/dL (NEGATIVE) 03/12/19 16:50 Urine Ketones NEGATIVE mg/dL (NEGATIVE) 03/12/19 16:50 Urine Occult Blood MODERATE (NEGATIVE) H 03/12/19 16:50 Urine Nitrite NEGATIVE (NEGATIVE) 03/12/19 16:50 Urine Bilirubin NEGATIVE (NEGATIVE) 03/12/19 16:50 Urine Urobilinogen 0.2 (NORMAL) E.U./dL (NORMAL) 03/12/19 16:50 Ur Leukocyte Esterase LARGE (NEGATIVE) H 03/12/19 16:50 Urine RBC 6-10 /HPF (0-5) H 03/12/19 16:50 Urine WBC >25 /HPF (0-5) H 03/12/19 16:50 Urine WBC Clumps PRESENT 03/12/19 16:50 Ur Squamous Epith Cells NONE SEEN (<= Few) 03/12/19 16:50 Urine Bacteria Many /HPF (None Seen) H 03/12/19 16:50 Ur Microscopic Review INDICATED 03/12/19 16:50 Urine Culture Comments INDICATED 03/12/19 16:50 Nasal Screen MRSA (PCR) NEGATIVE (NEGATIVE) 03/13/19 01:05
[2019-03-16] MEDS: TAMSULOSIN 0.4 MG CAPSULE PO SCH (16:44)
[2019-03-16] MEDS: SIMETHICONE CHEW 80 MG TABLET PO PRN ×2 (18:05→21:04)
[2019-03-16] MEDS ORDERED: BISACODYL 10 MG SUPP PR SCH (18:14)
[2019-03-16] MEDS: HYDROcod/ACETAM 5/325 MG TABLET PO PRN (21:02)
[2019-03-16] MEDS: QUEtiapine 25 MG TABLET PO SCH (21:06)
[2019-03-16] MEDS: HYDROCORTISONE 1% CREAM 28 GM TUBE TOP SCH (21:13)
[2019-03-17] MEDS: SODIUM CHLORIDE FLUSH 0.9% 10 ML SYRINGE IVP SCH ×3 (00:41→16:50)
[2019-03-17] MEDS: LEVOTHYROXINE 100 MCG TABLET PO SCH (06:05)
[2019-03-17 07:04] LABS: CALCIUM 9.2 mg/dL (8.5-10.3); CREATININE 2.2 mg/dL (0.4-1.0)
[2019-03-17] MEDS: GABAPENTIN 100 MG CAPSULE PO SCH ×3 (07:50→16:50)
[2019-03-17] MEDS: TORSEMIDE 20 MG TABLET PO SCH (07:50)
[2019-03-17] MEDS: hydrOXYzine PAMOATE 25 MG CAPSULE PO SCH ×3 (07:50→16:49)
[2019-03-17] MEDS: MULTIVITAMIN W/MINERALS TABLET PO SCH (07:50)
[2019-03-17] MEDS: HYDROCORTISONE 10 MG TABLET PO SCH ×2 (07:51→16:50)
[2019-03-17] MEDS: METHADONE 5 MG TABLET PO SCH ×2 (07:51→16:50)
[2019-03-17] MEDS: HYDROcod/ACETAM 5/325 MG TABLET PO SCH ×3 (07:51→16:50)
[2019-03-17] MEDS: POLYETHYLENE GLYCOL 3350 17 GM PACKET PO SCH (09:08)
[2019-03-17] MEDS: CALCIUM CARB (OYSTER SHELL) 500 MG TABLET PO SCH ×2 (09:09→20:55)
[2019-03-17] MEDS: DOXYCYCLINE 100 MG TABLET PO SCH ×2 (09:09→20:55)
[2019-03-17] MEDS: SENNA 8.6 MG TABLET PO SCH (09:09)
[2019-03-17] MEDS: TAMSULOSIN 0.4 MG CAPSULE PO SCH (09:09)
[2019-03-17] MEDS: DOCUSATE SODIUM 250 MG CAPSULE PO SCH (09:09)
[2019-03-17] MEDS: CHOLECALCIFEROL 400 UNIT TABLET PO SCH ×2 (09:09→20:55)
[2019-03-17] MEDS: METOPROLOL SUCCINATE 50 MG TABLET PO SCH (09:10)
[2019-03-17] MEDS: FLUTICASONE NASAL SPRAY NAS SCH ×2 (09:13→20:56)
[2019-03-17] MEDS: HYDROCORTISONE 1% CREAM 28 GM TUBE TOP SCH ×2 (09:13→20:56)
[2019-03-17] MEDS: CYCLOSPORINE TOP SCH ×2 (09:13→20:56)
[2019-03-17] MEDS: FORMOTEROL FUMARATE NEB 20 MCG/2 ML INH SCH ×2 (09:50→18:15)
[2019-03-17] MEDS: ALBUTEROL NEB 2.5 MG/3 ML INH PRN ×2 (09:50→18:15)
[2019-03-17] MEDS ORDERED: POTASSIUM CHLORIDE 20 MEQ TABLET PO SCH (10:35)
[2019-03-17] MEDS ORDERED: ONDANSETRON ODT 4 MG TABLET PO PRN (12:20)
[2019-03-17] MEDS ORDERED: SENNOSIDES PO PRN (12:20)
[2019-03-17] MEDS ORDERED: CARBOXYMETHYLCELLULOSE OPHTH DROPS EACHEYE PRN (12:29)
[2019-03-17] MEDS: PROCHLORPERAZINE 5 MG TABLET PO PRN (13:56)
[2019-03-17] MEDS: SIMETHICONE CHEW 80 MG TABLET PO PRN (13:56)
[2019-03-17] MEDS ORDERED: DIATR MEGLU/DIATRIZOATE SODIUM 120 ML BOTTLE PO SCH (15:15)
[2019-03-17] MEDS: HYDROcod/ACETAM 5/325 MG TABLET PO PRN (20:55)
[2019-03-17] MEDS: QUEtiapine 25 MG TABLET PO SCH (20:55)
[2019-03-18] MEDS: SODIUM CHLORIDE FLUSH 0.9% 10 ML SYRINGE IVP SCH ×3 (00:05→19:32)
[2019-03-18 05:45] LABS: CALCIUM 9.4 mg/dL (8.5-10.3); CREATININE 2.1 mg/dL (0.4-1.0)
[2019-03-18] MEDS: LEVOTHYROXINE 100 MCG TABLET PO SCH (06:10)
[2019-03-18] MEDS: ALBUTEROL NEB 2.5 MG/3 ML INH PRN (07:30)
[2019-03-18] MEDS: FORMOTEROL FUMARATE NEB 20 MCG/2 ML INH SCH (07:30)
[2019-03-18] MEDS: TORSEMIDE 20 MG TABLET PO SCH (08:05)
[2019-03-18] MEDS: GABAPENTIN 100 MG CAPSULE PO SCH ×3 (08:07→17:05)
[2019-03-18] MEDS: hydrOXYzine PAMOATE 25 MG CAPSULE PO SCH ×3 (08:07→17:05)
[2019-03-18] MEDS: METHADONE 5 MG TABLET PO SCH ×2 (08:07→17:05)
[2019-03-18] MEDS: HYDROcod/ACETAM 5/325 MG TABLET PO SCH ×3 (08:08→17:04)
[2019-03-18] MEDS: MULTIVITAMIN W/MINERALS TABLET PO SCH (08:08)
[2019-03-18] MEDS: HYDROCORTISONE 10 MG TABLET PO SCH ×2 (08:09→17:05)
--- NOTE | 2019-03-18 08:14 | PROVIDER PROGRESS NOTE ---
Subjective - Prog Note Date Prog Note Date: 03/17/19 Prog Note Time: 08:00 - Subjective Pt reports feeling: Improved Subjective: Angie complains of ongoing constipation, low abdominal pain, and required an indwelling carter today to relieve her recurrent urinary retention of which she will need urology follow up. Since carter insertion, the urine has no evidence of blood. Current Medications - Current Medications Current Medications: Active Medications: Hydrocodone Bitart/Acetaminophen ([place] 5/325) 1 tab PO 0800,1200,1700 RAÚL Hydrocodone Bitart/Acetaminophen ([place] 5/325) 1 tab PO 2100 PRN Albuterol 2.5 mg INH RTQ4H PRN Calcium Carbonate/Glycine ([place]-500) 500 mg PO BID RAÚL Carboxymethylcellulose (Refresh 1% Ophth Drops) 1 drops EACHEYE TID PRN Cholecalciferol (Vitamin D3) 400 unit PO BID RAÚL Docusate Sodium (Colace 250mg Capsule) 250 - 500 mg PO DAILY RAÚL Doxycycline Hyclate (Vibramycin) 100 mg PO BID RAÚL Fluticasone Propionate (Flonase) 1 sprays HAROLDO BID RAÚL Formoterol Fumarate (Perforomist) 20 mcg INH RTBID RÚAL Gabapentin (Neurontin) 100 mg PO 0800,1200,1700 RAÚL Hydrocortisone (Cortef) 20 mg PO QDBREAKFAST RAÚL Hydrocortisone (Cortef) 10 mg PO QDDINNER [facility] Hydrocortisone (Hydrocortisone) 1 applic TOP BID RAÚL Hydroxyzine Pamoate (Vistaril) 25 mg PO 0800,1200,1700 RAÚL Levothyroxine Sodium (Synthroid) 100 mcg PO QDAC RAÚL Methadone HCl 5 mg PO 0800,1700 RAÚL Metoprolol Succinate (Toprol Xl) 100 mg PO DAILY [facility] Multivitamins/Minerals (Theragran M) 1 tab PO DAILYWM RAÚL Nitroglycerin (Nitrostat) 0.4 mg SL Q5MIN PRN Non-Formulary Medication (Cyclosporine [Restasis]) 1 applic TOP BID RAÚL Non-Formulary Medication (Sennosides [Chocolated Laxative]) 30 mg PO DAILY PRN Ondansetron HCl (Zofran Odt) 4 mg PO Q8HR PRN Polyethylene Glycol (Miralax) 17 gm PO DAILY RAÚL Prochlorperazine Edisylate (Compazine Inj) 10 mg IVP Q6HR PRN Prochlorperazine Maleate (Compazine) 5 mg PO Q6HR PRN Prochlorperazine Maleate (Compazine Supp) 25 mg [place] TID PRN Quetiapine Fumarate (Seroquel) 25 mg PO QPM RAÚL Ranitidine HCl (Zantac) 150 mg PO BID RAÚL Senna (Senokot) 8.6 - 17.2 mg PO DAILY RAÚL Simethicone (Mylicon) 80 mg PO 0900,1300,1800,2100 PRN Torsemide (Torsemide) 40 mg PO 0800 RAÚL Adding Xarelto 15 mg PO daily for tomorrow HOME meds: Fluticasone [Flonase] 1 spray HAROLDO BID 01/24/16 HYDROcod/ACETAM 5/325 [Vicodin 5/325] 1 tab PO 0800,1200,1700 01/24/16 QUEtiapine [SEROquel] 25 mg PO QPM 01/24/16 Torsemide 40 mg PO 0800 01/24/16 Methadone 5 mg PO 0800,1700 05/17/17 Rivaroxaban [Xarelto] 15 mg PO 1700 05/17/17 Calcium Carbonate/Vitamin D3 [Calcium 600-Vit D3 400 Tablet] 2 tab PO DAILY 05/19/17 Carboxymethylcellulose Sodium [Refresh Tears] 1 drops EACHEYE TID PRN 05/19/17 Cyclosporine [Restasis] 1 drops EACHEYE BID 05/19/17 Hydrocortisone [Cortef] 10 mg PO QDBREAKFAST 05/19/17 Multivitamin [Multiple Vitamins] 1 tab PO DAILY 05/19/17 Ondansetron Odt [Zofran Odt] 4 mg PO Q8HR PRN 05/19/17 Polyethylene Glycol 3350 [Miralax] 17 gm PO DAILY 05/19/17 Salmeterol Xinafoate [Serevent Diskus] 1 puffs INH BID 05/19/17 hydrOXYzine pamoate [Hydroxyzine Pamoate] 25 mg PO 0800,1200,1700 05/19/17 raNITIdine [Zantac] 150 mg PO BID 08/16/17 Hydrocortisone [Cortef] 5 mg PO QDDINNER 12/11/17 Nitroglycerin [Nitrostat] 0.4 mg SL Q5MIN PRN 03/12/18 Sennosides [Chocolated Laxative] 15 - 30 mg PO DAILY PRN 08/21/18 Albuterol Sulfate [Proair Hfa Inhaler] 2 puffs INH Q4H PRN 03/13/19 Metoprolol Succinate [Toprol Xl] 100 mg PO DAILY 03/13/19 Gabapentin 100 mg PO 0800,1200,1700 03/14/19 Hydrocodone/Acetaminophen [Hydrocodone-Acetamin 5-325 mg] 1 tab PO QPM PRN 03/14/19 Objective - Vital Signs/Intake & Output Reviewed Vital Signs: Yes Vital Signs: Vital Signs x48h Temp Pulse Pulse Resp BP Pulse Ox 03/18/19 08:00 36.5 C 78 20 130/75 96 03/18/19 07:30 74 18 Intake & Output: Intake & Output 03/15/19 03/16/19 03/17/19 03/18/19 23:59 23:59 23:59 23:59 Intake Total 725 1987 440 100 Output Total 2300 3100 2550 1300 Balance -1575 -1113 -2110 -1200 - Objective General Appearance: positive: No acute distress, Alert, Anxious Eyes Bilateral: positive: PERRL ENT: positive: Pharynx nml, No signs of dehydration Neck: positive: Thyroid nml, No JVD, Trachea midline Respiratory: positive: Chest non-tender, No respiratory distress, Breath sounds nml Cardiovascular: positive: No gallop, Irregularly irregular, Systolic murmur Peripheral Pulses: 1+ Radial (R), 1+ Radial (L) Abdomen: positive: Non-tender, Nml bowel sounds, Hepatomegaly, Other (soft) Back: positive: Nml inspection Skin: positive: No rash, Warm, Dry, Pallor Extremities: positive: Non-tender, Pedal edema (chronic BLE edema, left more than right), Joint swelling Neurologic/Psychiatric: positive: Oriented x3, CN's nml (2-12), Motor nml, Sensation nml, Depressed mood/affect Reflexes: Bicep (R): 3+, Bicep (L): 3+ - Lab Results Fish Bones: 03/16/19 05:54 03/18/19 05:18 Other Labs: Lab Results x24hrs 03/18/19 Range/Units 05:18 Sodium 139 (135-145) mmol/L Potassium 3.4 L (3.5-5.0) mmol/L Chloride 87 L (101-111) mmol/L Carbon Dioxide 38 H (21-32) mmol/L Anion Gap 14.0 H (6-13) BUN 41 H (6-20) mg/dL Creatinine 2.1 H (0.4-1.0) mg/dL Estimated GFR (MDRD) 24 L (>89) Glucose 93 (70-100) mg/dL Calcium 9.4 (8.5-10.3) mg/dL - Diagnostic Imaging Diagnostic Imaging Results: positive: Final report reviewed Diagnostic Imaging Comments: EXAM: CT ABDOMEN AND PELVIS (CT KUB) EXAM DATE: 03/13/2019 12:52 PM FINDINGS: Lung Bases: Bilateral minimal pleural effusions and dependent changes of the lungs. Right Kidney/Ureter: The patient is status post right nephrectomy, likely with adrenalectomy, beam artifact from surgical hardware limits evaluation of the adrenal fossa. Left Kidney/Ureter: Minimal fat stranding surrounds the left kidney and there is no obstruction or calculus. Sensitivity for pyelonephritis is limited in absence of contrast. Other Solid Organs: Noncontrast liver, spleen and pancreas are within limits. Gallbladder/Bile Ducts: Unremarkable. Peritoneal Cavity: No free fluid, free air or aneta adenopathy. Bowel is grossly unremarkable. Pelvic Organs: No bladder stones or wall thickening. Noncontrast images of the visualized pelvic organs are unremarkable. Vasculature: Unremarkable. Other: None. IMPRESSION: Solitary kidney without evidence of obstruction. ABX Reporting Has patient been on IV antibiotics over the past 48 hours?: No Assessment/Plan - Problem List (1) Pyelonephritis Impression: - Minimal fat stranding surrounding the left kidney on an abdomen/pelvic CT - Urine culture Pt on oral antibiotics now, after 3 days of iv antibiotics, adjusted for E coli sensitivities. (2) Hypokalemia Impression: - Potassium yesterday was 2.8, and only 3.0 today after supplementation - Adding 40 Meq PO today - Avoiding too much replacement given her poor kidney function - Takes Torsemide, continued here Plan: Continue to monitor labs, replace if needed (3) Constipation Impression: - Chronic constipation similar to at home - Now no BM for the past 9 days! - Gastro-graffin is now ordered Plan: Continue to monitor, await gastro-graffin results, consider imaging if no results Qualifiers: Constipation type: slow transit constipation Qualified Code(s): K59.01 - Slow transit constipation (4) CKD (chronic kidney disease) stage 4, GFR 15-29 ml/min Impression: - Baseline creatinine has been ~2.0, now 2.2 today - Status post renal cell carcinoma resulting in the removal of one kidney - Established with Nephrology, the topic of AV shunt and hemodialysis has been brought up but there is no immediate plan yet - Avoid nephrotoxins or hypotension - Maintain indwelling carter for ongoing urinary retention, which would lead to worsening renal function Plan: Patient will see a Urologist at [place], keep indwelling carter, stop flomax for it's nephrotoxic properties, treat pyelonephritis (5) Anemia Impression: - B12 and folate checked on this admission; folate 35, B12 795, low saturation 8 - Continue vitamin supplement with Trace elements daily - H/H is 10.9/32.9 Plan: Routine labs, monitor for bleeding, restart Xarelto Qualifiers: Anemia type: due to chronic kidney disease Chronic kidney disease stage: stage 4 (severe) Qualified Code(s): N18.4 - Chronic kidney disease, stage 4 (s [facility]); D63.1 - Anemia in chronic kidney disease (6) Chronic a-fib Impression: - Heart rate has been 60-80's - Rhythm is mostly paced - Resume Xarelto if no bleeding - Held on admission for severe hematuria with clots - Now with an indwelling carter, no further clots or hematuria - Takes Toprol XL, continued here, torsemide Plan: Continue Xarelto, monitor for evidence of bleeding (7) Urinary retention with incomplete bladder emptying Impression: - Patient found in the hallway this morning, and immediately complained of an inability to urinate - Indwelling carter inserted with good results - Urine was clear, light, and with NO blood clots or bleeding Plan: Continue to maintain indwelling carter, refer to Urology upon discharge (8) Hypothyroidism Impression: - Elevated TSH at 12.62 - Synthroid dose adjusted from 88 to 100 mcg daily Plan: Re-check TSH outpatient in the next 4-6 weeks
[2019-03-18] MEDS ORDERED: DIATR MEGLU/DIATRIZOATE SODIUM 120 ML BOTTLE PO SCH (09:58)
[2019-03-18] MEDS ORDERED: BISACODYL 10 MG SUPP PR PRN (09:59)
[2019-03-18] MEDS: POLYETHYLENE GLYCOL 3350 17 GM PACKET PO SCH (10:16)
[2019-03-18] MEDS: DOXYCYCLINE 100 MG TABLET PO SCH ×2 (10:16→19:30)
[2019-03-18] MEDS: DOCUSATE SODIUM 250 MG CAPSULE PO SCH (10:17)
[2019-03-18] MEDS: CHOLECALCIFEROL 400 UNIT TABLET PO SCH (10:17)
[2019-03-18] MEDS: SENNA 8.6 MG TABLET PO SCH (10:17)
[2019-03-18] MEDS: METOPROLOL SUCCINATE 50 MG TABLET PO SCH (10:17)
[2019-03-18] MEDS: CALCIUM CARB (OYSTER SHELL) 500 MG TABLET PO SCH (10:19)
[2019-03-18] MEDS: FLUTICASONE NASAL SPRAY NAS SCH (10:19)
[2019-03-18] MEDS: HYDROCORTISONE 1% CREAM 28 GM TUBE TOP SCH (10:21)
--- NOTE | 2019-03-18 11:36 | XRAY Report ---
Reason: No stool x9 days, evaluate for SBO Procedure Date: 03/18/2019 Accession Number: [id number] / [id number] Procedure: XR - Abdomen 1 View X-Ray CPT Code: 44424 FULL RESULT: EXAM: ABDOMEN RADIOGRAPHY EXAM DATE: 03/18/2019 11:16 AM. CLINICAL HISTORY: No stool x9 days, evaluate for small bowel obstruction. COMPARISON: ABDOMEN 2 VIEW 01/24/2016 5:19 PM. TECHNIQUE: 1 view. FINDINGS: Bowel Gas Pattern: There is positive contrast from CT scan 03/13/2019 in the right and transverse colon. The large bowel is diffusely dilated with a long dilated, air-filled redundant loop of sigmoid colon. No significant small bowel dilatation. Air-filled mild distention of the stomach. Other: Multiple clips are noted in the right paraspinous region/renal fossa from prior surgery. 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 RADIA
--- NOTE | 2019-03-18 12:50 | Discharge Plan ---
Discharge Plan Disposition: Home Health Service Condition: Good Prescriptions: Docusate Sodium 250Mg Capsule [Colace 250Mg Capsule] 250 - 500 mg PO DAILY #90 capsule Doxycycline Hyclate 100 mg PO BID #20 capsule Levothyroxine [Synthroid] 100 mcg PO QDAC #30 tablet Methenamine Hippurate [Hiprex] 1 gm PO DAILY #30 tablet Saccharomyces Boulardii [Florastor] 250 mg PO BID #60 capsule Diet: Cardiac Activity Restrictions: Activity as Tolerated Shower Restrictions: No Assistance Devices: Walker Weight Bearing: Full Weight Instruction Topics: Diet Low Potassium Dc Additional Instructions or Follow Up instructions: You were admitted for a kidney infection and found to have ongoing urinary retention. You should leave your indwelling carter catheter in place until you follow up with the Urology clinic who has been alerted that you have a new carter and will get my discharge summary today. I have prescribed a medication called Hiprex, to be taken each day after the course of antibiotics to treat your acute infection. Your Xarelto was on hold, now resumed since the blood in your urine has resolved. If you notice more bleeding in the carter tubing, you can stop taking the Xarelto. Your TSH was elevated at 12.62, so your Synthroid was recently increased from 88 mcg to 100 mcg, please recheck a TSH in the next 4-6 weeks. You have been horribly constipated during your hospital stay. You were given 2 doses of a magical solution called Gastro-graffin, which normally works a little too good for most people. A good bowel routine is crucial in your daily well-being. You need to stick to a schedule that works for you. Lizabeth Cook has some great insight into this problem of yours. Please refer to the hand-outs that I gave you. Please see your PCP within one week. Follow-Up Care: Home Health - RN (New indwelling carter cares) No Smoking: If you smoke, Please STOP! Call for help. Follow-up with: Harjit Barraza MD [Primary Care Provider] -
[2019-03-18] MEDS ORDERED: RIVAROXABAN 15 MG TABLET PO SCH (14:00)
[2019-03-18 15:46] VITALS: BP 134/83
[2019-03-18] MEDS: CYCLOSPORINE TOP SCH (15:52)
[2019-03-18] MEDS: PROCHLORPERAZINE 5 MG TABLET PO PRN (16:42)
[2019-03-18] MEDS ORDERED: RIVAROXABAN 10 MG TABLET PO SCH (17:00)
--- NOTE | 2019-03-18 18:27 | DISCHARGE SUMMARY ---
Discharge Summary Admit Date: 03/12/19 Discharge Date: 03/18/19 Discharging Provider: HEATHER Goins Primary Care Provider: Harjit Barraza Code Status: Attempt Resuscitation Condition at Discharge: Good Discharge Disposition: 06 Home Health Service - DIAGNOSES Admission Diagnoses: Tubulo-interstitial nephritis, not spcf as acute or chronic (N12) Hematuria, unspecified (R31.9) Acute on chronic systolic (congestive) heart failure (I50.23) Unspecified adrenocortical insufficiency (E27.40) Dilated cardiomyopathy (I42.0) Chronic kidney disease, stage 4 (severe) (N18.4) Hypothyroidism, unspecified (E03.9) Chronic atrial fibrillation (I48.2) Presence of cardiac pacemaker (Z95.0) Prsnl hx of TIA (TIA), and cereb infrc w/o resid deficits (Z86.73) Other chronic pain (G89.29) Major depressive disorder, single episode, unspecified (F32.9) Anemia, unspecified (D64.9) Discharge Diagnoses with Status of Each Condition: Pyelonephritis (N12) resolved, sensitivities resulted of urine culture. Continued on oral doxycycline at home, and a probiotic CKD (chronic kidney disease) stage 4, GFR 15-29 ml/min (N18.4) chronic, stable, stopped Flomax since having an indwelling carter for its nephrotoxic properties, continued on Xarelto and other regular diuretics Chronic a-fib (I48.2) Xarelto and metoprolol continued Hypokalemia (E87.6) resolved Constipation (K59.00) ongoing, gastro-graffin x2, imaging showed a possible early ileus, but patient was eating well, no nausea, and had good results of multiple bowel movements prior to discharge Anemia (D64.9) stable, chronic Urinary retention with incomplete bladder emptying (R33.9) Now with an indwelling carter to be left in until urology follow up at [facility] Hypothyroidism (E03.9) chronic, stable Acute on chronic systolic ACC/AHA stage C congestive heart failure (I50.23) chronic, resolved from acute to chronic Major depressive disorder (F32.9) chronic, stable Ischemic dilated cardiomyopathy (I25.5) chronic, stable Indwelling Carter catheter present (Z96.0) Please see Urology [facility], within one week. Lizabeth Cook has made an outpatient referral already. - HPI History of Present Illness: This is a 63-year old white female with a history of nonischemic dilated cardiomyopathy, with an ejection fraction of 35% by echo done here one year ago, adrenal insufficiency, CVA with left arm weakness, atrial fibrillation- on anticoagulation, status post pacemaker, fibromyalgia, arthritis, hypertension, asthma, depression, hysterectomy with oophorecgtomy. The patient reports that over the past year her dyspnea has become worse where previously she could walk across her 5-acre property and now she can only walk approximately 20 feet, and gets severely short of breath and her has to bring her a chair to while she catches her breath. The patient had been scheduled to have an outpatient MRI to establish the diagnosis of her dilated cardiomyopathy, but has been unable to make it to this appointment for various reasons. She is also followed by Cardiology clinic, Dr. Grubbs. The patient was recently hospitalized at [facility] for cellulitis, treated with IV antibiotics, and continued to have swelling, tenderness, and redness, although was improved. She had been home for approximately one week, had an outpatient appointment with Dr. Grubbs who sent the patient directly to the ED after the patient reported hematuria with clots when she urinated, and for worrisome findings of acute CHF exacerbation. - HOSPITAL COURSE Hospital Course: The patient was treated for both her acute kidney infection, and CHF. She was seen by our inpatient [facility]PLAY ASSOCIATE who found the patient to have a normal pelvic exam. An indwelling carter was left in place for home use and she will need prompt Urology follow up. She will continue on her doxycycline at home. Lizabeth Cook will follow outpatient. - ALLERGIES Allergies/Adverse Reactions: Allergies Allergy/AdvReac Type Severity Reaction Status Date / Time Beef Containing Products Allergy Nausea Verified 03/12/19 18:25 cefpodoxime proxetil * Allergy Unknown Verified 03/12/19 14:54 [From Vantin] Bloomer And Derivatives Allergy Unknown Verified 03/12/19 18:25 clindamycin Allergy Unknown Verified 03/12/19 14:54 codeine Allergy Unknown Verified 03/12/19 14:54 erythromycin base Allergy Unknown Verified 03/12/19 14:54 [Erythromycin Base] mushroom Allergy Unknown Verified 03/12/19 18:25 onion Allergy Unknown Verified 03/12/19 18:25 rofecoxib [From Vioxx] Allergy Unknown Verified 03/12/19 14:54 sumatriptan [From Imitrex] Allergy Unknown Verified 03/12/19 14:54 tomato Allergy Unknown Verified 03/12/19 18:25 hydralazine AdvReac Severe GI PAIN Verified 03/16/19 09:26 levofloxacin [From Levaquin] AdvReac Severe PSYCHOSIS Verified 03/14/19 17:05 metolazone AdvReac Severe Stomach Verified 03/16/19 09:39 Cramps morphine AdvReac Unknown Verified 03/12/19 14:54 pepper (genus Capsicum) AdvReac Anaphylaxis Verified 03/12/19 18:25 - MEDICATIONS Home Medications: Ambulatory Orders Medication Instructions Recorded Confirmed Fluticasone [Flonase] 1 spray HAROLDO BID 01/24/16 03/14/19 HYDROcod/ACETAM 5/325 [[place] 5/325] 1 tab PO 0800,1200,1700 01/24/16 03/14/19 QUEtiapine [SEROquel] 25 mg PO QPM 01/24/16 03/14/19 Torsemide 40 mg PO 0800 01/24/16 03/14/19 Methadone 5 mg PO 0800,1700 05/17/17 03/14/19 Rivaroxaban [Xarelto] 15 mg PO 1700 05/17/17 03/14/19 Calcium Carbonate/Vitamin D3 2 tab PO DAILY 05/19/17 03/14/19 [Calcium 600-Vit D3 400 Tablet] Carboxymethylcellulose Sodium 1 drops EACHEYE TID PRN 05/19/17 03/14/19 [Refresh Tears] Cyclosporine [Restasis] 1 drops EACHEYE BID 05/19/17 03/13/19 Hydrocortisone [Cortef] 10 mg PO QDBREAKFAST 05/19/17 03/14/19 Multivitamin [Multiple Vitamins] 1 tab PO DAILY 05/19/17 03/13/19 Ondansetron Odt [Zofran Odt] 4 mg PO Q8HR PRN 05/19/17 03/14/19 Polyethylene Glycol 3350 [Miralax] 17 gm PO DAILY 05/19/17 03/14/19 Salmeterol Xinafoate [Serevent 1 puffs INH BID 05/19/17 03/14/19 Diskus] hydrOXYzine pamoate [Hydroxyzine 25 mg PO 0800,1200,1700 05/19/17 03/14/19 Pamoate] raNITIdine [Zantac] 150 mg PO BID 08/16/17 03/14/19 Hydrocortisone [Cortef] 5 mg PO QDDINNER 12/11/17 03/14/19 Nitroglycerin [Nitrostat] 0.4 mg SL Q5MIN PRN 03/12/18 03/13/19 Sennosides [Chocolated Laxative] 15 - 30 mg PO DAILY PRN 08/21/18 03/14/19 Albuterol Sulfate [Proair Hfa 2 puffs INH Q4H PRN 03/13/19 03/14/19 Inhaler] Metoprolol Succinate [Toprol Xl] 100 mg PO DAILY 03/13/19 03/14/19 Gabapentin 100 mg PO 0800,1200,1700 03/14/19 03/14/19 Hydrocodone/Acetaminophen 1 tab PO QPM PRN 03/14/19 03/14/19 [Hydrocodone-Acetamin 5-325 mg] Docusate Sodium 250Mg Capsule 250 - 500 mg PO DAILY #90 capsule 03/18/19 [Colace 250Mg Capsule] Doxycycline Hyclate 100 mg PO BID #20 capsule 03/18/19 Levothyroxine [Synthroid] 100 mcg PO QDAC #30 tablet 03/18/19 Methenamine Hippurate [Hiprex] 1 gm PO DAILY #30 tablet 03/18/19 Saccharomyces Boulardii [Florastor] 250 mg PO BID #60 capsule 03/18/19 - PHYSICAL EXAM AT DISCHARGE General Appearance: positive: Alert, Mild distress, Anxious Eyes Bilateral: positive: PERRL ENT: positive: Pharynx nml, No signs of dehydration Neck: positive: Thyroid nml, No JVD, Trachea midline Respiratory: positive: Chest non-tender, No respiratory distress, Other (scattered crackles, chronic) Cardiovascular: positive: No gallop, Irregularly irregular, Systolic murmur, Decreased pulse(s) Peripheral Pulses: positive: 1+ Abdomen: positive: Non-tender, Nml bowel sounds, Hepatomegaly, Other (rounded, obese, soft) Back: positive: Nml inspection Skin: positive: Color nml, No rash, Warm, Dry Extremities: positive: Non-tender, Full ROM, Nml appearance, Pedal edema (chronic BLE with mild blistering), Joint swelling Neurologic/Psychiatric: positive: Oriented x3, CN's nml (2-12), Motor nml, Weakness, Sensory loss, Depressed mood/affect Reflexes: Bicep (R): 3+, Bicep (L): 3+ - LABS Result Diagrams: 03/16/19 05:54 03/18/19 05:18 - DIAGNOSTIC IMAGING Diagnostic Imaging Results: Final report reviewed - FOLLOW UP Follow Up: Disposition: Home Health Service Condition: Good Prescriptions: Docusate Sodium 250Mg Capsule [Colace 250Mg Capsule] 250 - 500 mg PO DAILY #90 capsule Doxycycline Hyclate 100 mg PO BID #20 capsule Levothyroxine [Synthroid] 100 mcg PO QDAC #30 tablet Methenamine Hippurate [Hiprex] 1 gm PO DAILY #30 tablet Saccharomyces Boulardii [Florastor] 250 mg PO BID #60 capsule Diet: Cardiac Activity Restrictions: Activity as Tolerated Shower Restrictions: No Assistance Devices: Walker Weight Bearing: Full Weight Instruction Topics: Diet Low Potassium Dc Additional Instructions or Follow Up instructions: You were admitted for a kidney infection and found to have ongoing urinary retention. You should leave your indwelling carter catheter in place until you follow up with the Urology clinic who has been alerted that you have a new carter and will get my discharge summary today. I have prescribed a medication called Hiprex, to be taken each day after the course of antibiotics to treat your acute infection. Your Xarelto was on hold, now resumed since the blood in your urine has resolved. If you notice more bleeding in the carter tubing, you can stop taking the Xarelto. Your TSH was elevated at 12.62, so your Synthroid was recently increased from 88 mcg to 100 mcg, please recheck a TSH in the next 4-6 weeks. You have been horribly constipated during your hospital stay. You were given 2 doses of a magical solution called Gastro-graffin, which normally works a little too good for most people. A good bowel routine is crucial in your daily well-being. You need to stick to a schedule that works for you. Lizabeth Cook has some great insight into this problem of yours. Please refer to the hand-outs that I gave you. Please see your PCP within one week. - TIME SPENT Time Spent in Discharge (Minutes): 65
== END 2019-03-18 19:55 | disposition home health service (06) | DRG 291 ==
LOC: ED 14:45 → MS2 17:29 → OBSVTOIN 20:22
PROVIDERS: ADMIT Internal Medicine; ATTEND Nurse Practitioner
DX: I13.0 Hypertensive heart and chronic kidney disease with heart failure and stage 1 through stage 4 chronic kidney disease, or unspecified chronic kidney disease (principal); I50.23 Acute on chronic systolic (congestive) heart failure; N10 Acute pyelonephritis; E27.40 Unspecified adrenocortical insufficiency; N18.4 Chronic kidney disease, stage 4 (severe); I69.954 Hemiplegia and hemiparesis following unspecified cerebrovascular disease affecting left non-dominant side; E87.1 Hypo-osmolality and hyponatremia; I43 Cardiomyopathy in diseases classified elsewhere; I48.2 Chronic atrial fibrillation; E87.6 Hypokalemia; K59.09 Other constipation; D63.1 Anemia in chronic kidney disease; R33.8 Other retention of urine; A49.8 Other bacterial infections of unspecified site; R31.9 Hematuria, unspecified; E87.70 Fluid overload, unspecified; E86.9 Volume depletion, unspecified; E03.9 Hypothyroidism, unspecified; F32.9 Major depressive disorder, single episode, unspecified; G89.29 Other chronic pain; M79.7 Fibromyalgia; M19.90 Unspecified osteoarthritis, unspecified site; M06.841 Other specified rheumatoid arthritis, right hand; M06.842 Other specified rheumatoid arthritis, left hand; J45.909 Unspecified asthma, uncomplicated; Z51.5 Encounter for palliative care; Z90.5 Acquired absence of kidney; Z79.51 Long term (current) use of inhaled steroids; Z79.891 Long term (current) use of opiate analgesic; Z79.899 Other long term (current) drug therapy; Z95.0 Presence of cardiac pacemaker; Z85.528 Personal history of other malignant neoplasm of kidney
CPT/HCPCS: 36415; 71045; 74018; 74176; 80048; 80053; 81001; 82607; 82746; 83540; 83690; 83735; 83880; 84100; 84439; 84443; 84466; 85025; 87086; 87181; 87640; 93005; 93306; 94640; 96374; 99283; 99284; A9270; G0378; Q9963; 81003

== ENCOUNTER 2019-03-20 16:00 | Outpatient (CLI) | payer BC ==
--- NOTE | 2019-03-20 18:30 | CONSULTATION NOTE ---
Palliative Care Follow Up - Referral Referring Provider: Dr. Harjit Barraza Time of Visit: [id number] Referral setting: Home Referral Reason: CHF/Urinary Retention/Chronic Pain - Information Sources Records reviewed: Previous records reviewed History/Review of Systems obtained from: Patient, Family ( Jorge and friend Nicole present) Exam limitations: No limitations - History of Present Illness Update Brief HPI Update: This is a complicated 63-year-old woman who has had 2 recent hospitalizations, one at [facility] for CHF exacerbation and cellulitis. Most recently she was hospitalized from 03/12 to 03/18 at [facility] with polynephritis, CKD, urinary retention with new Pelayo catheter, severe hypokalemia, acute constipation, and exacerbation of her cellulitis now improved. Significance concern was also her hematuria, she was held on her Xarelto related to this. She had aneta bleeding from the urethra with the assumption, was not gynecologic in nature. This is since resolved, but patient only restarted on her Xarelto yesterday. She is recently been put on oxygen, for nocturnal hypoxia, she was tested with overnight testing on did qualify. She also has intermittent breathlessness and dyspnea, and does use it in the ay. Patient is quite complicated in the context she has dilated cardiomyopathy with systolic heart failure, chronic kidney disease stage IV, frequent runs of most likely V. tach, that are initiated with severe chest pain, use of nitro, and then severe fatigue lasting for several hours afterwards. She has had an episode on arrival home, as well as one this am. These almost mimic seizures (I have witnessed one) and are distressful for her, and her as he doesn't know if this will be the "one" where she will dies. 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 This is been overwhelming for both of them, as feel like she has an unknown prognosis, though both do understand her life is limited. 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 She presents today with having and had an episode this morning, she is quite fatigued. She is in the recliner, she is finally acquiesced and set up her hospital bed she did find this quite helpful to sleep and last night. She is feeling somewhat overwhelmed with the Pelayo catheter, how to manage it, And worried yet this is another long-term "tube". She just recently had oxygen added. She still remains quite distressed, as she had severe diarrhea just prior to her discharge at the hospital, as well as another episode when she got home. She felt her transition and discharge from the hospital was poorly managed.She is to be admitted to home health on Saturday, has been does know how to empty Pelayo catheter, reviewed some of the basics to be able to address her anxiety. Social History - Living Situation Living arrangement: At home Living Situation: With spouse/s.o. Support System: Patient continues with increasing care needs, her Jorge is been the primary caregiver, is quite overwhelmed with her multiple appointments, ongoing health issues, and multiple medication changes. He does work full-time, her daughter and [id number] live on the property, they are looking at adding some increased paid caregiving in the home. She would very much like home health aide for bathing, anything to decrease the stress on Pete. She is worried about his health and the burden that she is. Medications/Allergies - Medications Home Medications: Ambulatory Orders Medication Instructions Recorded Confirmed Fluticasone [Flonase] 1 spray HAROLDO BID 01/24/16 03/20/19 QUEtiapine [SEROquel] 25 mg PO QPM 01/24/16 03/20/19 Torsemide 40 mg PO 0800 MDD wt gain 20 mg 01/24/16 03/20/19 Methadone 5 mg PO 0800,1700 05/17/17 03/20/19 Rivaroxaban [Xarelto] 15 mg PO 1700 05/17/17 03/20/19 Calcium Carbonate/Vitamin D3 2 tab PO DAILY 05/19/17 03/20/19 [Calcium 600-Vit D3 400 Tablet] Carboxymethylcellulose Sodium 1 drops EACHEYE TID PRN 05/19/17 03/20/19 [Refresh Tears] Cyclosporine [Restasis] 1 drops EACHEYE BID 05/19/17 03/20/19 Hydrocortisone [Cortef] 10 mg PO QDBREAKFAST 05/19/17 03/20/19 Multivitamin [Multiple Vitamins] 1 tab PO DAILY 05/19/17 03/20/19 Ondansetron Odt [Zofran Odt] 4 mg PO Q8HR PRN 05/19/17 03/20/19 Polyethylene Glycol 3350 [Miralax] 17 gm PO BID 05/19/17 03/20/19 Salmeterol Xinafoate [Serevent 1 puffs INH BID 05/19/17 03/20/19 Diskus] hydrOXYzine pamoate [Hydroxyzine 25 mg PO TID PRN 05/19/17 03/20/19 Pamoate] raNITIdine [Zantac] 150 mg PO BID 08/16/17 03/20/19 Hydrocortisone [Cortef] 5 mg PO QDDINNER 12/11/17 03/20/19 Nitroglycerin [Nitrostat] 0.4 mg SL Q5MIN PRN 03/12/18 03/20/19 Sennosides [Chocolated Laxative] 15 - 30 mg PO DAILY PRN 08/21/18 03/20/19 Albuterol Sulfate [Proair Hfa 2 puffs INH Q4H PRN 03/13/19 03/20/19 Inhaler] Metoprolol Succinate [Toprol Xl] 100 mg PO DAILY 03/13/19 03/20/19 Gabapentin 100 mg PO DAILY 03/14/19 03/20/19 Hydrocodone/Acetaminophen 1 tab PO Q4HR PRN 03/14/19 03/20/19 [Hydrocodone-Acetamin 5-325 mg] Docusate Sodium 250Mg Capsule 250 - 500 mg PO DAILY #90 capsule 03/18/19 03/20/19 [Colace 250Mg Capsule] Doxycycline Hyclate 100 mg PO BID #20 capsule 03/18/19 03/20/19 Levothyroxine [Synthroid] 100 mcg PO QDAC #30 tablet 03/18/19 03/20/19 Saccharomyces Boulardii [Florastor] 250 mg PO BID #60 capsule 03/18/19 03/20/19 Escitalopram [Lexapro] 10 mg PO DAILY 03/20/19 03/20/19 Potassium Chloride [K-Dur] 20 meq PO DAILY 03/20/19 03/20/19 hydrALAZINE [Apresoline] 25 mg PO TID 03/20/19 03/20/19 - Allergies Allergies/Adverse Reactions: Allergies Allergy/AdvReac Type Severity Reaction Status Date / Time Beef Containing Products Allergy Nausea Verified 03/12/19 18:25 cefpodoxime proxetil * Allergy Unknown Verified 03/12/19 14:54 [From Vantin] [place] And Derivatives Allergy Unknown Verified 03/12/19 18:25 clindamycin Allergy Unknown Verified 03/12/19 14:54 codeine Allergy Unknown Verified 03/12/19 14:54 erythromycin base Allergy Unknown Verified 03/12/19 14:54 [Erythromycin Base] mushroom Allergy Unknown Verified 03/12/19 18:25 onion Allergy Unknown Verified 03/12/19 18:25 rofecoxib [From Vioxx] Allergy Unknown Verified 03/12/19 14:54 sumatriptan [From Imitrex] Allergy Unknown Verified 03/12/19 14:54 tomato Allergy Unknown Verified 03/12/19 18:25 hydralazine AdvReac Severe GI PAIN Verified 03/16/19 09:26 levofloxacin [From Levaquin] AdvReac Severe PSYCHOSIS Verified 03/14/19 17:05 metolazone AdvReac Severe Stomach Verified 03/16/19 09:39 Cramps morphine AdvReac Unknown Verified 03/12/19 14:54 pepper (genus Capsicum) AdvReac Anaphylaxis Verified 03/12/19 18:25 Review of Systems - Constitutional Constitutional: reports: Fatigue, Weakness, Weight gain (left at 199; was 203 this am put back on baseline torsemide 40 mg). denies: Fever, Chills - Eyes Eyes: reports: Vision loss - Ears, Nose & Throat Ears, Nose & Throat: reports: Dry mouth - Cardiovascular Cardiovascular: reports: Irregular heart rate, Palpitations, Chest pain, Edema, Lightheadedness, Syncope, Exertional dyspnea, Decr. exercise tolerance, Orthopnea - Respiratory Respiratory: reports: Wheezing, Orthopnea, SOB at rest, SOB with exertion - Gastrointestinal Gastrointestinal: reports: Abdominal pain, Constipation, Nausea, Reflux/heartburn, Bloating, Good appetite - Genitourinary Genitourinary: reports: Other (newly with indwelling catheter) - Musculoskeletal Musculoskeletal: reports: Muscle aches, Stiffness, Limited range of motion, Muscle weakness, Joint pain, Assistive devices (has walker/cane), Transfer issues (uses wheelchair out of home) - Integumentary Integumentary: reports: Rash, Pruritis, Lesions, Dryness - Neurological Neurological: reports: General weakness, Headache (migraines), Dizziness, Memory problems - Psychiatric Psychiatric: reports: Depression, Anxiety - Endocrine Endocrine: reports: Hypothyroidism (recent adjustment of thyroid meds) - Hematologic/Lymphatic Hematologic/Lymphatic: reports: Recurrent infections (utis/cellulitis) - All Other Systems All Other Systems: reports: Reviewed and negative Physical Exam - Vital Signs Temperature: 97.0 C Pulse Rate: 99 Respiratory Rate: 18 O2 Saturation: 98 (ra @ rest) Blood Pressure: 114/72 - Physical Exam General Appearance: positive: Mild distress Eyes Bilateral: positive: Normal inspection ENT: positive: No signs of dehydration Neck: positive: No JVD, Trachea midline Cardiovascular: positive: Regular rate & rhythm Respiratory: positive: Diminished in bases, Wheezes Abdomen: positive: Soft, Nml bowel sounds, Tenderness, Distended Skin: positive: Pallor, Dryness, Pruritis, Rash Extremities: positive: Pedal edema (improved from inpatient exam; but still 2- 3+) Neurologic/Psychiatric: positive: Oriented x3, Other (distressed with recent hospital experience and transition home) Palliative Care - POLST Patient has POLST: No POLST Status: Full Code Pain: Pain unchanged, Location (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 She is quite high sensitivities to any kind of touch hyperalgesia and allodynia. Sharp shooting pains, particularly up into the left orbit and temporal area. She also has generalized all over pain secondary to fibromyalgia. And she does have acute migraines, these are most often in the evenings. Is been exacerbated by her vision changes because of her stroke as well. She is on methadone 5 mg twice daily, and hydrocodone 5 mg / 325 mg up to 4 times a day.) Tiredness/Fatigue: Severe (7-10) Drowsiness/Sedation: Moderate (4-6) Nausea: Moderate (4-6) Depression: Moderate (4-6) Anxiety: Severe (7-10) Dyspnea: Severe (7-10) Anorexia: Mild (1-3) Sleep: Variable sleep pattern Constipation: Yes, Opoid induced, Unmanaged Feelings of wellbeing/Perceived Quality of Life: Poor, Worsening Performance Status: Patient has had functional decline over the last several weeks, she is ambulatory for short distances with her cane/walker. She does spend most of her time in the recliner, and up to this point had been independent in bathing with just standby assist. But she has needed assistance with dressing. She has had increased difficulty with swallowing, this is multifactorial as of right as result of her thyroid surgeries and residual from her stroke. - Palliative Care Discussion: Patient's and 's current understanding from their meeting with Dr. Valiente, is that even if they were to get a definitive diagnosis of sarcoidosis, which is high on the suspicion list, there would be no change in treatment plan. She is not a candidate for heart transplant, and she would need a kidney transplant as well. She has has only one functioning kidney, at this point in time she is fairly clear she would most likely not go on dialysis given her current quality of life. She continues to struggle with all the multiple medical issues that she has, and just the impact they have on her quality of life as well as caregiver burden for her . She tries to remain positive, and engaged. But does feel somewhat overwhelmed, and now with Pelayo placement, one more insult to injury. Patient does want to continue to focus on quality of life issues, she is not "ready for hospice", but is worried about her prognosis and her ongoing decline. She is quite traumatized related to her last stay at the hospital, patient did tell her story, continue to provide support. Palliative care is been following patient long-term, patient was greater than a dozen specialist, quite complicated both physically and emotionally, attempting to coordinate care and to ease caregiver burden as well as support patient and the complexity of her situation. Results - Lab Results Lab results reviewed: Yes Impression and Recommendations - Palliative Care Impression: This is a 63-year-old woman with multiple underlying comorbidities, 2 recent hospitalizations, and continued complex care needs. Patient presents today with need for medication reconciliation, education regarding new Pelayo catheter for urinary retention, exacerbation of her CHF, and to address her hypokalemia. Palliative care continue provide support regarding pain and symptom management, coordination of care, and assistance with home management. Recommendations/Counseling Done: 1. Acute on chronic with exacerbation of CHF. Patient was returned back to her baseline torsemide at 40 mg daily, patient has had weight gain from hospitalization dry weight of 199, to this morning to 203. Concerned will need to be rehospitalized if not addressed. Discussed parameters for additional dose of torsemide if further weight gain up to 205. 2. Hypokalemia. Patient did leave hypokalemic still at 3.4, On admit patient's potassium had been as low as 2.9 previous in the week. We will go ahead and resume potassium 20 mEq, ordered by Dr. Valiente prior to admit. 3. Hypertension. Patient on last [facility] discharge have been added hydralazine 25 mg 3 times daily, there was miscommunication at the hospital, this was confirmed with hospitalist but not added back. Patient has been hypertensive since home, will go ahead and resume back to ordered home medication of hydralazine 25 mg 3 times daily. 4. Constipation. Patient had acute constipation at the hospital, was given aggressive bowel program with results though much distress. Patient to resume her baseline medications, had been under control up to that point. 5. Urinary retention. Referral off to urologist was recent, had originally sent for similar symptoms back in September, due to multiple health problems patient never followed through. She does have an appointment on 04/02. Home health to start on Saturday, will address further teaching. Counseling provided regarding management of Pelayo catheter, patient currently on antibiotics, which will see her until almost that appointment. Did discontinue the Hyprix after consult with pharmacist, it is contraindicated in patient's with poor renal functioning. 5. Cellulitis lower extremities. Patient continues with lesions and plaques, pruritus is improved. Currently on doxycycline for her UTI, legs have improved as well. Still no definitive diagnosis, not finished follow-up with dermatology appointment. We will continue to monitor. 6. CKD stage IV. Her GFR remains problematic, on discharge it was 24. Will arrange for BMP on Saturday admit with HH RN. She is still struggling regarding possible need for dialysis in future, through would be poor candidate given all her other complications, she is leaning towards not. 7. Medication reconciliation. Patient has a long and complex medication list, not quite correct and transition, reconciled discharge list, discharge list from previous week from [facility], recent changes from Dr. Valiente, and updated list provided to patient to use for upcoming appointments. Home health usually provides printed list after admit, discussed using that one as working copy. Important we all have the correct information, is correct currently in [employer]. 8. Acute on chronic pain. This is multifactorial in origin. 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 Continues on methadone 5 mg twice daily as well as her Filley up to 4 times a day. She is to be only on 100 mg of gabapentin, she will take this in the afternoon as that is when her migraines appear most problematic. 9. Advanced care planning. Patient continues to struggle with the complexity of her care, multiple specialists, as well as frequent hospitalizations. Worried about increased caregiver burden on her , as well as her declining health and poor prognosis. Patient is continue to be a full code, this is been related to actually most of her issues are cardiac and feeling vulnerable to not have this addressed. Patient's goals are to continue to focus on quality of life issues, trying to avoid hospitalizations, she has been fairly consistent in planning for end of life. She does have many of her affairs in order, she is quite realistic about her current situation, as well as tries to remain positive and resilient. Time Spent: 60 minutes with getting 50% of this done in counseling regarding medications, symptom management, Pelayo catheter management psychosocial support, and an ticipatory guidance. Coordination of care with home health. [facility]
== END 2019-03-20 16:01 | disposition home or self-care (01) ==
LOC: PC 16:00
PROVIDERS: ATTEND Nurse Practitioner Adult Health
DX: Z51.5 Encounter for palliative care (principal); I50.23 Acute on chronic systolic (congestive) heart failure; E87.6 Hypokalemia; I12.9 Hypertensive chronic kidney disease with stage 1 through stage 4 chronic kidney disease, or unspecified chronic kidney disease; K59.03 Drug induced constipation; T40.2X5A Adverse effect of other opioids, initial encounter; R33.9 Retention of urine, unspecified; L03.116 Cellulitis of left lower limb; L03.115 Cellulitis of right lower limb; N18.4 Chronic kidney disease, stage 4 (severe); I69.398 Other sequelae of cerebral infarction; G89.0 Central pain syndrome; I42.0 Dilated cardiomyopathy; E27.40 Unspecified adrenocortical insufficiency; E03.9 Hypothyroidism, unspecified; M79.7 Fibromyalgia; N30.10 Interstitial cystitis (chronic) without hematuria; K58.9 Irritable bowel syndrome, unspecified; I69.391 Dysphagia following cerebral infarction; Z96.0 Presence of urogenital implants; Z99.81 Dependence on supplemental oxygen; Z76.89 Persons encountering health services in other specified circumstances
CPT/HCPCS: 99350

== ENCOUNTER 2019-03-23 08:00 | Outpatient (CLI) | payer BC ==
[2019-03-23 19:06] LABS: CALCIUM 8.5 mg/dL (8.5-10.3)
== END 2019-03-23 23:59 | disposition home or self-care (01) ==
LOC: LAB.F 08:00
PROVIDERS: ATTEND Nurse Practitioner Adult Health
DX: N18.4 Chronic kidney disease, stage 4 (severe) (principal)
CPT/HCPCS: 80048

== ENCOUNTER 2019-04-06 08:00 | Outpatient (CLI) | payer BC ==
[2019-04-06 14:54] LABS: BASOPHILS # (AUTO) 0.1 10^3/uL (0.0-0.1); BASOPHILS % (AUTO) 0.7 %; EOSINOPHILS # (AUTO) 0.2 10^3/uL (0.0-0.7); EOSINOPHILS % (AUTO) 2.3 %; LYMPHOCYTES # (AUTO) 1.6 10^3/uL (1.5-3.5); LYMPHOCYTES % (AUTO) 21.9 %; MEAN CORPUSCULAR HEMOGLOBIN 26.7 pg (27.0-31.0); MEAN CORPUSCULAR HGB CONC 31.9 g/dL (32.0-36.0); MEAN CORPUSCULAR VOLUME 83.6 fL (81.0-99.0); MEAN PLATELET VOLUME 7.5 fL (7.9-10.8); MONOCYTES # (AUTO) 0.6 10^3/uL (0.0-1.0); MONOCYTES % (AUTO) 7.9 %; NEUTROPHILS # (AUTO) 4.9 10^3/uL (1.5-6.6); NEUTROPHILS % (AUTO) 67.2 %; PLT - PLATELET COUNT 223 10^3/uL (130-450); RED BLOOD COUNT 3.76 10^6/uL (4.20-5.40); RED CELL DISTRIBUTION WIDTH 16.2 % (12.0-15.0); WHITE BLOOD COUNT 7.2 x10^3/uL (4.8-10.8)
[2019-04-06 15:03] LABS: ALBUMIN/GLOBULIN RATIO 1.5 (1.0-2.2); BILIRUBIN,TOTAL 0.5 mg/dL (0.2-1.0); CALCIUM 8.5 mg/dL (8.5-10.3); CREATININE 1.9 mg/dL (0.4-1.0); TOTAL PROTEIN 6.7 g/dL (6.7-8.2)
== END 2019-04-06 23:59 | disposition home or self-care (01) ==
LOC: LAB.R 08:00
PROVIDERS: ATTEND Nurse Practitioner Adult Health
DX: N18.4 Chronic kidney disease, stage 4 (severe) (principal); I50.23 Acute on chronic systolic (congestive) heart failure
CPT/HCPCS: 80053; 83880; 85025

== ENCOUNTER 2019-04-14 08:00 | Outpatient (CLI) | payer BC ==
[2019-04-14 17:31] LABS: BILIRUBIN,URINE NEGATIVE (NEGATIVE); GLUCOSE, URINE (UA) NEGATIVE (NEGATIVE); KETONES,URINE (UA) NEGATIVE (NEGATIVE); LEUKOCYTE ESTERASE, URINE TRACE (NEGATIVE); NITRITE,URINE NEGATIVE (NEGATIVE); OCCULT BLOOD,URINE NEGATIVE (NEGATIVE); PH,URINE 5.5 PH (5.0-7.5); PROTEIN,URINE NEGATIVE (NEGATIVE); UROBILINOGEN,URINE 0.2 (NORMAL) E.U./dL (NORMAL)
[2019-04-14 17:44] LABS: CLARITY,URINE CLEAR (CLEAR)
[2019-04-14 18:00] LABS: BACTERIA,URINE None Seen /HPF (None Seen); RBC,URINE None Seen /HPF (0-5); SQUAMOUS EPITHELIAL CELL,UR FEW Squamous (<= Few)
== END 2019-04-14 23:59 | disposition home or self-care (01) ==
LOC: LAB.R 08:00
PROVIDERS: ATTEND Nurse Practitioner Adult Health
DX: R30.0 Dysuria (principal)
CPT/HCPCS: 81001; 81003; 87086

== ENCOUNTER 2019-04-22 10:00 | Outpatient (CLI) | payer BC ==
[2019-04-22 11:05] LABS: CALCIUM 8.5 mg/dL (8.5-10.3); CREATININE 2.1 mg/dL (0.4-1.0)
== END 2019-04-22 23:59 | disposition home or self-care (01) ==
LOC: LAB.R 10:00
PROVIDERS: ATTEND Internal Medicine Cardiovascular Disease
DX: I50.22 Chronic systolic (congestive) heart failure (principal)
CPT/HCPCS: 80048

== ENCOUNTER 2019-04-24 14:10 | Outpatient (CLI) | payer BC ==
[2019-04-24 15:11] LABS: CALCIUM 8.9 mg/dL (8.5-10.3)
== END 2019-04-24 23:59 | disposition home or self-care (01) ==
LOC: LAB.R 14:10
PROVIDERS: ATTEND Internal Medicine Cardiovascular Disease
DX: I50.22 Chronic systolic (congestive) heart failure (principal)
CPT/HCPCS: 80048

== ENCOUNTER 2019-04-30 | Outpatient (CLI) | payer BC | END 2019-04-30 20:18 | disposition home or self-care (01) | DX: Z51.5 Encounter for palliative care (principal); I50.23 Acute on chronic systolic (congestive) heart failure; I42.0 Dilated cardiomyopathy; N18.4 Chronic kidney disease, stage 4 (severe); I47.2 Ventricular tachycardia; G89.4 Chronic pain syndrome; I69.398 Other sequelae of cerebral infarction; G89.0 Central pain syndrome; K59.03 Drug induced constipation; T40.2X5A Adverse effect of other opioids, initial encounter; R33.9 Retention of urine, unspecified; N30.10 Interstitial cystitis (chronic) without hematuria; L29.9 Pruritus, unspecified; G47.00 Insomnia, unspecified; G43.909 Migraine, unspecified, not intractable, without status migrainosus; E27.40 Unspecified adrenocortical insufficiency; E03.9 Hypothyroidism, unspecified; M79.7 Fibromyalgia; J45.909 Unspecified asthma, uncomplicated; K58.1 Irritable bowel syndrome with constipation; G62.9 Polyneuropathy, unspecified; F32.9 Major depressive disorder, single episode, unspecified; F41.9 Anxiety disorder, unspecified; Z99.81 Dependence on supplemental oxygen; Z79.899 Other long term (current) drug therapy; Z79.891 Long term (current) use of opiate analgesic | CPT/HCPCS: 99350 ==

== ENCOUNTER 2019-05-05 14:57 | Outpatient (CLI) | payer BC | END 2019-05-05 14:58 | disposition critical access hospital (66) | LOC: EMS 14:57 | PROVIDERS: ATTEND Surgery | DX: R06.02 Shortness of breath (principal); R11.0 Nausea | CPT/HCPCS: A0425; A0427 ==

== ENCOUNTER 2019-05-05 15:25 | Inpatient (IN) | payer BC, MEDICARE ==
--- NOTE | 2019-05-05 16:26 | ED Physician Documentation ---
History of Present Illness - Stated complaint Stated Complaint: CHF - Chief complaint Chief Complaint: General - History obtained from History obtained from: Patient, Family - History of Present Illness Timing: How many weeks ago (1) Pain level max: 0 Pain level now: 0 - Additonal information Additional information: 63-year-old female with a history of nonischemic dilated cardiomyopathy. She has had a 15 to 20 pound weight gain over the past few weeks. She is on 80 of torsemide and is still gaining weight difficulty breathing. She spoke with her doctor, cardiology Dr. Valiente who recommends being admitted for diuresis. No fevers. No cough. 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, 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 Cardiovascular: Pacemaker - Present Medications Home Medications: Ambulatory Orders Medication Instructions Recorded Confirmed Fluticasone [Flonase] 1 spray HAROLDO BID 01/24/16 05/01/19 QUEtiapine [SEROquel] 25 mg PO QPM 01/24/16 05/01/19 Torsemide 80 mg PO 0800 MDD baseline 40 mg 01/24/16 05/01/19 Methadone 5 mg PO 0800,1700 05/17/17 05/01/19 Rivaroxaban [Xarelto] 15 mg PO 1700 05/17/17 05/01/19 Calcium Carbonate/Vitamin D3 2 tab PO DAILY MDD 6 05/19/17 05/01/19 [Calcium 600-Vit D3 400 Tablet] Carboxymethylcellulose Sodium 1 drops EACHEYE TID PRN 05/19/17 05/01/19 [Refresh Tears] Cyclosporine [Restasis] 1 drops EACHEYE BID 05/19/17 05/01/19 Hydrocortisone [Cortef] 10 mg PO QDBREAKFAST 05/19/17 05/01/19 Multivitamin [Multiple Vitamins] 1 tab PO DAILY 05/19/17 05/01/19 Ondansetron Odt [Zofran Odt] 4 mg PO Q8HR PRN 05/19/17 05/01/19 Polyethylene Glycol 3350 [Miralax] 17 gm PO BID 05/19/17 05/01/19 Salmeterol Xinafoate [Serevent 1 puffs INH BID 05/19/17 05/01/19 Diskus] hydrOXYzine pamoate [Hydroxyzine 25 mg PO TID PRN 05/19/17 05/01/19 Pamoate] raNITIdine [Zantac] 150 mg PO BID 08/16/17 05/01/19 Hydrocortisone [Cortef] 5 mg PO QDDINNER 12/11/17 05/01/19 Nitroglycerin [Nitrostat] 0.4 mg SL Q5MIN PRN 03/12/18 05/01/19 Sennosides [Chocolated Laxative] 15 - 30 mg PO DAILY PRN 08/21/18 05/01/19 Albuterol Sulfate [Proair Hfa 2 puffs INH Q4H PRN 03/13/19 05/01/19 Inhaler] Metoprolol Succinate [Toprol Xl] 100 mg PO DAILY 03/13/19 05/01/19 Gabapentin 100 mg PO .1 AM 2 PM 03/14/19 05/01/19 Hydrocodone/Acetaminophen 1 - 2 tab PO Q4HR PRN MDD 8 03/14/19 05/01/19 [Hydrocodone-Acetamin 5-325 mg] Docusate Sodium 250Mg Capsule 250 - 500 mg PO DAILY #90 capsule 03/18/19 05/01/19 [Colace 250Mg Capsule] Levothyroxine [Synthroid] 100 mcg PO QDAC #30 tablet 03/18/19 05/01/19 Saccharomyces Boulardii [Florastor] 250 mg PO BID #60 capsule 03/18/19 05/01/19 Escitalopram [Lexapro] 10 mg PO DAILY 03/20/19 05/01/19 Potassium Chloride [K-Dur] 20 meq PO DAILY 03/20/19 05/01/19 hydrALAZINE [Apresoline] 25 mg PO TID 03/20/19 05/01/19 - Allergies Allergies/Adverse Reactions: Allergies Allergy/AdvReac Type Severity Reaction Status Date / Time Beef Containing Products Allergy Nausea Verified 03/12/19 18:25 cefpodoxime proxetil * Allergy Unknown Verified 03/12/19 14:54 [From Vantin] [place] And Derivatives Allergy Unknown Verified 03/12/19 18:25 clindamycin Allergy Unknown Verified 03/12/19 14:54 codeine Allergy Unknown Verified 03/12/19 14:54 erythromycin base Allergy Unknown Verified 03/12/19 14:54 [Erythromycin Base] mushroom Allergy Unknown Verified 03/12/19 18:25 onion Allergy Unknown Verified 03/12/19 18:25 rofecoxib [From Vioxx] Allergy Unknown Verified 03/12/19 14:54 sumatriptan [From Imitrex] Allergy Unknown Verified 03/12/19 14:54 tomato Allergy Unknown Verified 03/12/19 18:25 levofloxacin [From Levaquin] AdvReac Severe PSYCHOSIS Verified 03/14/19 17:05 metolazone AdvReac Severe Stomach Verified 03/16/19 09:39 Cramps morphine AdvReac Unknown Verified 03/12/19 14:54 pepper (genus Capsicum) AdvReac Anaphylaxis Verified 03/12/19 18:25 - Social History Does the pt smoke?: No Smoking Status: Never smoker Does the pt drink ETOH?: No Does the pt have substance abuse?: No - Immunizations Immunizations are current?: Yes - POLST Patient has POLST: No PD ED PE NORMAL - Vitals Vital signs reviewed: Yes - General General: Alert and oriented X 3, No acute distress - HEENT HEENT: Moist mucous membranes, Pharynx benign - Neck Neck: Supple, no meningeal sign - Cardiac Cardiac: RRR - Respiratory Respiratory: No respiratory distress, Other (Diminished breath sounds bilaterally) - Abdomen Abdomen: Soft, Non tender, Non distended - Derm Derm: Warm and dry - Extremities Extremities: Other (2+ pitting edema) - Neuro Neuro: Alert and oriented X 3 - Psych Psych: Normal mood, Normal affect Results - Vitals Vitals: Vital Signs - 24 hr 05/05/19 15:34 Temperature 36.7 C Heart Rate 79 Respiratory 24 Rate Blood Pressure 126/89 H O2 Saturation 94 Oxygen O2 Source 4 L NC - Labs Labs: Laboratory Tests 05/05/19 05/05/19 05/05/19 16:27 16:27 16:27 WBC 9.5 RBC 3.56 L Hgb 9.6 L Hct 31.2 L MCV 87.6 MCH 27.0 MCHC 30.8 L RDW 15.7 H Plt Count 212 MPV 8.9 Neut # (Auto) 7.0 H Lymph # (Auto) 1.4 L [place] # (Auto) 0.6 Eos # (Auto) 0.3 Baso # (Auto) 0.1 Absolute Nucleated RBC 0.00 Nucleated RBC % 0.0 Sodium 140 Potassium 3.8 Chloride 98 L Carbon Dioxide 29 Anion Gap 13.0 BUN 30 H Creatinine 1.8 H Estimated GFR (MDRD) 29 L Glucose 106 H Calcium 8.3 L Total Bilirubin 0.6 AST 47 H ALT 50 Alkaline Phosphatase 114 Troponin I < 0.04 B-Natriuretic Peptide Total Protein 6.5 L Albumin 3.8 Globulin 2.7 Albumin/Globulin Ratio 1.4 Lipase 41 05/05/19 16:27 WBC RBC Hgb Hct MCV MCH MCHC RDW Plt Count MPV Neut # (Auto) Lymph # (Auto) [place] # (Auto) Eos # (Auto) Baso # (Auto) Absolute Nucleated RBC Nucleated RBC % Sodium Potassium Chloride Carbon Dioxide Anion Gap BUN Creatinine Estimated GFR (MDRD) Glucose Calcium Total Bilirubin AST ALT Alkaline Phosphatase Troponin I B-Natriuretic Peptide 2567 H Total Protein Albumin Globulin Albumin/Globulin Ratio Lipase - Rads (name of study) cxr Radiology: Prelim report reviewed, EMP read contemporaneously, See rad report (Congestive failure. ) PD MEDICAL DECISION MAKING - ED course Complexity details: reviewed old records, reviewed results, re-evaluated patient, considered differential, d/w patient, d/w family, d/w franchise consultant ED course: 63-year-old female, DNR and comfort care. She is discussing hospice. She has a nonischemic dilated cardiomyopathy. Appears to have fluid overload again. Will admit for diuresis. Discussed the case with Dr. Castillo, hospitalist who accepts. This document was made in part using voice recognition software. While efforts are made to proofread this document, sound alike and grammatical errors may occur. Departure - Departure Disposition: 67 [facility] DC/Xfer Clinical Impression: Elevated brain natriuretic peptide (BNP) level CHF exacerbation Qualifiers: Heart failure type: unspecified Qualified Code(s): I50.9 - Heart failure, unspecified Dyspnea Qualifiers: Dyspnea type: unspecified Qualified Code(s): R06.00 - Dyspnea, unspecified Condition: Stable Discharge Date/Time: 05/05/19 17:33
[2019-05-05 16:32] LABS: BASOPHILS # (AUTO) 0.1 10^3/uL (0.0-0.1); BASOPHILS % (AUTO) 0.7 %; EOSINOPHILS # (AUTO) 0.3 10^3/uL (0.0-0.7); EOSINOPHILS % (AUTO) 3.2 %; HGB - HEMOGLOBIN 9.6 g/dL (12.0-16.0); LYMPHOCYTES # (AUTO) 1.4 10^3/uL (1.5-3.5); LYMPHOCYTES % (AUTO) 15.2 %; MEAN CORPUSCULAR HGB CONC 30.8 g/dL (32.0-36.0); MEAN CORPUSCULAR VOLUME 87.6 fL (81.0-99.0); MEAN PLATELET VOLUME 8.9 fL (7.9-10.8); MONOCYTES # (AUTO) 0.6 10^3/uL (0.0-1.0); MONOCYTES % (AUTO) 6.2 %; NEUTROPHILS % (AUTO) 74.3 %; PLT - PLATELET COUNT 212 10^3/uL (130-450); RED BLOOD COUNT 3.56 10^6/uL (4.20-5.40); RED CELL DISTRIBUTION WIDTH 15.7 % (12.0-15.0); WHITE BLOOD COUNT 9.5 x10^3/uL (4.8-10.8)
[2019-05-05 16:46] LABS: ALBUMIN 3.8 g/dL (3.2-5.5); ALBUMIN/GLOBULIN RATIO 1.4 (1.0-2.2); BILIRUBIN,TOTAL 0.6 mg/dL (0.2-1.0); CALCIUM 8.3 mg/dL (8.5-10.3); CREATININE 1.8 mg/dL (0.4-1.0); TOTAL PROTEIN 6.5 g/dL (6.7-8.2)
[2019-05-05 17:10] LABS: BILIRUBIN,URINE NEGATIVE (NEGATIVE); GLUCOSE, URINE (UA) NEGATIVE (NEGATIVE); KETONES,URINE (UA) NEGATIVE (NEGATIVE); LEUKOCYTE ESTERASE, URINE NEGATIVE (NEGATIVE); NITRITE,URINE NEGATIVE (NEGATIVE); OCCULT BLOOD,URINE NEGATIVE (NEGATIVE); PH,URINE 5.5 PH (5.0-7.5); PROTEIN,URINE NEGATIVE (NEGATIVE); UROBILINOGEN,URINE 0.2 (NORMAL) E.U./dL (NORMAL)
[2019-05-05 17:16] LABS: CLARITY,URINE CLEAR (CLEAR)
[2019-05-05] MEDS ORDERED: ACETAMINOPHEN 325 MG TABLET PO PRN (17:47)
--- NOTE | 2019-05-05 19:06 | XRAY Report ---
Reason: Chest Pain Procedure Date: 05/05/2019 Accession Number: [id number] / [id number] Procedure: XR - Chest 1 View X-Ray CPT Code: 96812 FULL RESULT: EXAM: CHEST RADIOGRAPHY EXAM DATE: 05/05/2019 05:53 PM. CLINICAL HISTORY: Chest Pain. COMPARISON: CHEST 1 VIEW 03/12/2019 4:28 PM. TECHNIQUE: 1 view. FINDINGS: Lungs/Pleura: Mild diffuse hazy prominence of lung markings. No consolidation, left effusion, or pneumothorax. Tiny right effusion. Mediastinum: Mild cardiomegaly, probably unchanged. Diffuse vascular fullness. Other: Permanent pacemaker on the left with intact lead. IMPRESSION: Congestive failure. RADIA
[2019-05-05] MEDS: BUMETANIDE 1 MG/4 ML VIAL IVP SCH (20:02)
[2019-05-05] MEDS ORDERED: HYDROCORTISONE 10 MG TABLET PO SCH (21:00)
[2019-05-05] MEDS ORDERED: QUEtiapine 25 MG TABLET PO SCH (21:00)
[2019-05-05] MEDS ORDERED: ONDANSETRON ODT 4 MG TABLET TL PRN (21:13)
[2019-05-05] MEDS ORDERED: hydrOXYzine PAMOATE 25 MG CAPSULE PO PRN (21:15)
[2019-05-05] MEDS: METHADONE 5 MG TABLET PO SCH (22:59)
[2019-05-05] MEDS: FAMOTIDINE 20 MG TABLET PO SCH (22:59)
[2019-05-05] MEDS: RIVAROXABAN 15 MG TABLET PO SCH (23:00)
[2019-05-05] MEDS: HYDROcod/ACETAM 5/325 MG TABLET PO PRN (23:00)
[2019-05-06] MEDS: SODIUM CHLORIDE FLUSH 0.9% 10 ML SYRINGE IVP SCH ×3 (00:37→16:53)
[2019-05-06] MEDS: BUMETANIDE 1 MG/4 ML VIAL IVP SCH ×3 (02:03→16:53)
[2019-05-06] MEDS: SODIUM CHLORIDE FLUSH 0.9% 10 ML SYRINGE IVP PRN ×2 (02:04→09:10)
--- NOTE | 2019-05-06 02:49 | HISTORY & PHYSICAL EXAMINATION ---
Chief Complaint - Chief Complaint Chief Complaint: increasing dyspnea, weight gain and lower extremity edema History of Present Illness - Admitted From Admitted From:: [facility] ED - History Obtained From Records Reviewed: yes History obtained from: patient - History of Present Illness HPI Comment/Other: Patient seen on 05/05/19 at 2100pm Patient is a 63 y/o female who presented to the ED with complain of increasing oxygen demand, weight gain, lower extremity swelling and weeping. She is having difficulty sleeping as a result of her symptoms. She has increased her nasal canula oxygen from 2.5 L to 4 liters. Lately she gets winded just ambulating a few feet. She also complains of chest pressure/ ache but no radiation. She reports lower abdominal pain and a feeling of being bloated. She has been experiencing cramps in her ankles. In the ED she was found to have a BNP of 2500 and a CXR done indicated heart failure. Here last echo done 2 months ago showed an EF of 35%. 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 Cardiovascular: reports: Pacemaker - Family & Social History Family History: Mother: Alzheimer's Disease, Father: CAD (Had a CABG and pacemaker in his 90's) Living arrangement: At home Living Situation: With family Social History Notes: She denies alcohol, tobacco or illicit drug use - POLST Patient has POLST: No POLST Status: Full Code Meds/Allgy - Home Medications Home Medications: Ambulatory Orders Medication Instructions Recorded Confirmed Fluticasone [Flonase] 1 spray HAROLDO BID 01/24/16 05/01/19 QUEtiapine [SEROquel] 25 mg PO QPM 01/24/16 05/01/19 Torsemide 80 mg PO 0800 MDD baseline 40 mg 01/24/16 05/01/19 Methadone 5 mg PO 0800,1700 05/17/17 05/01/19 Rivaroxaban [Xarelto] 15 mg PO 1700 05/17/17 05/01/19 Calcium Carbonate/Vitamin D3 2 tab PO DAILY MDD 6 05/19/17 05/01/19 [Calcium 600-Vit D3 400 Tablet] Carboxymethylcellulose Sodium 1 drops EACHEYE TID PRN 05/19/17 05/01/19 [Refresh Tears] Cyclosporine [Restasis] 1 drops EACHEYE BID 05/19/17 05/01/19 Hydrocortisone [Cortef] 10 mg PO QDBREAKFAST 05/19/17 05/01/19 Multivitamin [Multiple Vitamins] 1 tab PO DAILY 05/19/17 05/01/19 Ondansetron Odt [Zofran Odt] 4 mg PO Q8HR PRN 05/19/17 05/01/19 Polyethylene Glycol 3350 [Miralax] 17 gm PO BID 05/19/17 05/01/19 Salmeterol Xinafoate [Serevent 1 puffs INH BID 05/19/17 05/01/19 Diskus] hydrOXYzine pamoate [Hydroxyzine 25 mg PO TID PRN 05/19/17 05/01/19 Pamoate] raNITIdine [Zantac] 150 mg PO BID 08/16/17 05/01/19 Hydrocortisone [Cortef] 5 mg PO QDDINNER 12/11/17 05/01/19 Nitroglycerin [Nitrostat] 0.4 mg SL Q5MIN PRN 03/12/18 05/01/19 Sennosides [Chocolated Laxative] 15 - 30 mg PO DAILY PRN 08/21/18 05/01/19 Albuterol Sulfate [Proair Hfa 2 puffs INH Q4H PRN 03/13/19 05/01/19 Inhaler] Metoprolol Succinate [Toprol Xl] 100 mg PO DAILY 03/13/19 05/01/19 Gabapentin 100 mg PO .1 AM 2 PM 03/14/19 05/01/19 Hydrocodone/Acetaminophen 1 - 2 tab PO Q4HR PRN MDD 8 03/14/19 05/01/19 [Hydrocodone-Acetamin 5-325 mg] Docusate Sodium 250Mg Capsule 250 - 500 mg PO DAILY #90 capsule 03/18/1905/01 [Colace 250Mg Capsule] Levothyroxine [Synthroid] 100 mcg PO QDAC #30 tablet 03/18/19 05/01/19 Saccharomyces Boulardii [Florastor] 250 mg PO BID #60 capsule 03/18/19 05/01/19 Escitalopram [Lexapro] 10 mg PO DAILY 03/20/19 05/01/19 Potassium Chloride [K-Dur] 20 meq PO DAILY 03/20/19 05/01/19 hydrALAZINE [Apresoline] 25 mg PO TID 03/20/19 05/01/19 - Allergies Allergies/Adverse Reactions: Allergies Allergy/AdvReac Type Severity Reaction Status Date / Time Beef Containing Products Allergy Nausea Verified 03/12/19 18:25 cefpodoxime proxetil * Allergy Unknown Verified 03/12/19 14:54 [From Vantin] [place] And Derivatives Allergy Unknown Verified 03/12/19 18:25 clindamycin Allergy Unknown Verified 03/12/19 14:54 codeine Allergy Unknown Verified 03/12/19 14:54 erythromycin base Allergy Unknown Verified 03/12/19 14:54 [Erythromycin Base] mushroom Allergy Unknown Verified 03/12/19 18:25 onion Allergy Unknown Verified 03/12/19 18:25 rofecoxib [From Vioxx] Allergy Unknown Verified 03/12/19 14:54 sumatriptan [From Imitrex] Allergy Unknown Verified 03/12/19 14:54 tomato Allergy Unknown Verified 03/12/19 18:25 levofloxacin [From Levaquin] AdvReac Severe PSYCHOSIS Verified 03/14/19 17:05 metolazone AdvReac Severe Stomach Verified 03/16/19 09:39 Cramps morphine AdvReac Unknown Verified 03/12/19 14:54 pepper (genus Capsicum) AdvReac Anaphylaxis Verified 03/12/19 18:25 Review of Systems - Constitutional Constitutional: reports: Fatigue, Weakness, Diaphoresis, Weight gain - Eyes Eyes: denies: Blurred vision, Vision loss, Dipolpia - Ears, Nose & Throat Ears, Nose & Throat: denies: Vertigo - Cardiovascular Cariovascular: reports: Chest pain, Edema, Exertional dyspnea - Respiratory Respiratory: reports: Cough, SOB with exertion. denies: Sputum production, Wheezing - Gastrointestinal Gastrointestinal: reports: Abdominal pain, Abdominal distention. denies: Diarrhea, Nausea, Vomiting - Genitourinary Genitourinary: denies: Dysuria, Frequency, Urgency, Hematuria - Musculoskeletal Musculoskeletal: denies: Muscle aches, Stiffness, Joint pain - Integumentary Integumentary: reports: Pruritis - Neurological Neurological: reports: General weakness. denies: Focal weakness, Headache, Numbness - Psychiatric Psychiatric: denies: Depression, Anxiety - Endocrine Endocrine: reports: Polyuria. denies: Polydypsia, Polyphagia - Hematologic/Lymphatic Hematologic/Lymphatic: denies: Anemia, Bruising Prior Level of Functionality: She is independent of activities of daily living Exam - Vital Signs Vital Signs: Vital Signs x48h Temp Pulse Resp BP Pulse Ox 05/06/19 00:34 36.5 C 86 16 137/83 H 99 05/05/19 21:34 36.4 C L 64 14 142/80 H 100 - Physical Exam General Appearance: positive: Alert, Moderate distress Eyes Bilateral: positive: Normal inspection, PERRL, EOMI ENT: positive: ENT inspection nml, No signs of dehydration Neck: positive: Nml inspection, No JVD, Trachea midline Respiratory: positive: Rales, Rhonchi. negative: Wheezes Cardiovascular: positive: Regular rate & rhythm, No murmur Abdomen: positive: Non-tender, Nml bowel sounds, No distention Back: positive: Nml inspection Skin: positive: Skin rash (lower extremities) Extremities: positive: Pedal edema (3+) Neurologic/Psychiatric: positive: Oriented x3, CN's nml (2-12) Conclusion/Plan - Problem List (1) CHF exacerbation Conclusion/Plan: On bumex 2mg IV qid Dialy weights. Strict I/O Sodium and fluid restrict On metoprolol [id number] daily Will consider repeating 2d echo in the am Qualifiers: Heart failure type: unspecified Qualified Code(s): I50.9 - Heart failure, unspecified (2) Chronic a-fib Conclusion/Plan: On xarelto and metoprolol XR (3) Hypertension Conclusion/Plan: On hydralazine and metoprolol (4) Hypothyroidism Conclusion/Plan: On synthroid (5) Fibromyalgia Conclusion/Plan: On methadone, norco and gabapentin (6) Adrenal insufficiency Conclusion/Plan: On hydrocortisone daily (7) Asthma Conclusion/Plan: No in exacerbation Will order duoneb prn when needed - Lab Results Fish Bones: 05/05/19 16:27 05/05/19 16:27 Core Measures - Anticipated LOS I expect patient to be DC'd or transferred within 96 hours.: Yes - DVT/VTE - Prophylaxis VTE/DVT Device ordered at admit?: Yes
[2019-05-06] MEDS: HYDROcod/ACETAM 5/325 MG TABLET PO PRN ×4 (03:12→20:59)
[2019-05-06 07:25] LABS: BASOPHILS # (AUTO) 0.1 10^3/uL (0.0-0.1); BASOPHILS % (AUTO) 0.7 %; EOSINOPHILS # (AUTO) 0.3 10^3/uL (0.0-0.7); EOSINOPHILS % (AUTO) 2.8 %; HGB - HEMOGLOBIN 9.5 g/dL (12.0-16.0); LYMPHOCYTES # (AUTO) 1.9 10^3/uL (1.5-3.5); LYMPHOCYTES % (AUTO) 20.8 %; MEAN CORPUSCULAR HEMOGLOBIN 26.7 pg (27.0-31.0); MEAN CORPUSCULAR HGB CONC 30.6 g/dL (32.0-36.0); MEAN CORPUSCULAR VOLUME 87.1 fL (81.0-99.0); MEAN PLATELET VOLUME 8.7 fL (7.9-10.8); MONOCYTES # (AUTO) 0.5 10^3/uL (0.0-1.0); MONOCYTES % (AUTO) 5.6 %; NEUTROPHILS # (AUTO) 6.3 10^3/uL (1.5-6.6); NEUTROPHILS % (AUTO) 69.8 %; PLT - PLATELET COUNT 218 10^3/uL (130-450); RED BLOOD COUNT 3.56 10^6/uL (4.20-5.40); RED CELL DISTRIBUTION WIDTH 15.6 % (12.0-15.0)
[2019-05-06 07:34] LABS: CALCIUM 8.3 mg/dL (8.5-10.3); CREATININE 1.8 mg/dL (0.4-1.0)
[2019-05-06] MEDS ORDERED: BUMETANIDE 1 MG/4 ML VIAL IVP SCH (08:00)
[2019-05-06] MEDS ORDERED: POTASSIUM CHLORIDE 20 MEQ TABLET PO ONE (08:25)
[2019-05-06] MEDS: FAMOTIDINE 20 MG TABLET PO SCH ×2 (09:09→20:59)
[2019-05-06] MEDS: METHADONE 5 MG TABLET PO SCH ×2 (09:10→16:52)
[2019-05-06] MEDS: POLYETHYLENE GLYCOL 3350 17 GM PACKET PO SCH (09:10)
[2019-05-06] MEDS ORDERED: hydrOXYzine PAMOATE 25 MG CAPSULE PO PRN (12:36)
[2019-05-06] MEDS ORDERED: CARBOXYMETHYLCELLULOSE OPHTH DROPS EACHEYE PRN (12:36)
[2019-05-06] MEDS ORDERED: HYDROcod/ACET 5/325 Prepack 4 PO PRN (12:36)
[2019-05-06] MEDS ORDERED: SALMETEROL XINAFOATE INH SCH (12:45)
--- NOTE | 2019-05-06 13:17 | PROVIDER PROGRESS NOTE ---
Assessment/Plan - Problem List (1) Acute on chronic systolic ACC/AHA stage C congestive heart failure Assessment/Plan: Most likely etiology is dietary indiscretion, since in the past she has admitted to drinking more than 4 quarts of liquid per day because of "thirst". Continue with plan for IV diuresis, follow I's and O's and daily weights. The weight has not decreased yet. Will add a fluid restriction to her diet. Continue with her beta-marimar for CHF management. She cannot be on an PHYLLIS inhibitor, Arber Spironolactone because of stage IV CKD. Continue with Hydralazine. Will add Nitrates on a schedule. She could be put on the schedule of intermittent Metolazone, once or twice a week, for more complete diuresis. She is a candidate for outpatient CHF teaching to better adhere to a diet and understand her condition more thoroughly. She appears to be a candidate for upgrade of her pacemaker to a biventricular defibrillator since she has a prolonged QRS by virtue of being mostly v. paced. (2) Chest pain with normal coronary angiography Assessment/Plan: By virtue that chest pain with normal coronary arteries has been documented, she has either coronary vasospasm or coronary hypoperfusion causing angina. The hypoperfusion could be related to her episodes of V. tach, leading to under perfusion of her coronaries. Also, the V. tach and chest pain have been correlated. Therefore the V. tach could be suppressed with Amiodarone. She could have coronary vasospasm which then leads to V. tach. Since the angina responnds to sl NTG, it could be suppressed with a long-acting nitrate. We will add Amiodarone. We will add Imdur. Decrease her B-marimar and Hydralazine if needed in order to start these 2 medications and not cause hypotension. (3) V-tach Assessment/Plan: Today VTach was associated with hypokalemia. Continue to replace potassium, carefully watching for hyperkalemia in a patient with stage IV CKD. Monitor magnesium daily, especially during aggressive diuresis. Will start oral Amiodarone for V. tach suppression. She appears to be a candidate for upgrade of her pacemaker to a biventricular defibrillator, as well. This requires an EP consult, that she has not had yet apparently. (4) Anemia Assessment/Plan: This is very likely to be anemia of chronic kidney disease. We will check B12, folate, iron panel and replace if needed (5) Fatigue Assessment/Plan: There is a description of prolonged fatigue after an episode of chest pain, angina and a "graying out episode". Will check for orthostatic hypotension. This might be treated with compression stockings and Midodrin. She may be a candidate for update of her pacemaker to a biventricular defibrillator (see above). Other etiologies that are undoubtedly adding to the problem of fatigue are her hypothyroidism, her fibromyalgia and her adrenal insufficiency (requires daily hydrocortisone and may need stress doses dueing infections, etc) (6) CKD (chronic kidney disease) stage 4, GFR 15-29 ml/min Assessment/Plan: She has 1 kidney, is status post nephrectomy for remote renal cancer. She has been seen by nephrology, there may be a future need for hemodialysis. She is not a transplant candidate. She will need higher doses of loop diuretics because of her CKD. I suspect she will also need metolazone, possibly intermittently Will monitor BMP daily as we are adjusting her cardiac meds and diuretics. (7) History of CVA with residual deficit Assessment/Plan: She has mild left-sided weakness, pain also occurs on this side (8) Hypokalemia Assessment/Plan: Replace. Monitor BMP closely in a patient with CKD (9) Fibromyalgia Assessment/Plan: Continue with her home pain medications (10) Hypothyroidism Assessment/Plan: Continue with her thyroid replacement (11) Adrenal insufficiency Assessment/Plan: Continue with her Cortef dose (12) Urinary retention with incomplete bladder emptying Assessment/Plan: This is worsened when she has abdominal bloating from fluid retention. (13) Pacemaker Assessment/Plan: Normal function on telemetry. (14) Paroxysmal A-fib Assessment/Plan: She is on Xarelto which will be continued. - Current Meds Current Meds: Current Medications Generic Name Dose Route Start Last Admin Trade Name Freq PRN Reason Stop Dose Admin Hydrocodone Bitart/Acetaminophen 1 tab 05/05/19 21:16 05/06/19 09:09 [place] 5/325 PO 1 tab Q4HR PRN Administration PAIN Bumetanide 2 mg 05/06/19 09:00 05/06/19 09:09 Bumex Inj IVP 2 mg Q8H RAÚL Administration Famotidine 20 mg 05/05/19 21:00 05/06/19 09:09 Pepcid PO 20 mg BID RAÚL Administration Polyethylene Glycol 17 gm 05/06/19 09:00 05/06/19 09:10 Miralax PO 17 gm DAILY RAÚL Administration Rivaroxaban 15 mg 05/05/19 17:00 05/05/19 23:00 Xarelto PO 15 mg 1700 RAÚL Administration Sodium Chloride 10 ml 05/05/19 17:47 05/06/19 09:10 Normal Saline Flush 0.9% IVP 10 ml PRN PRN Administration NEEDED PER PROVIDER ORDERS Sodium Chloride 10 ml 05/06/19 01:00 05/06/19 09:10 Normal Saline Flush 0.9% IVP 10 ml 0100,0900,1700 RAÚL Administration - Lab Result Fish Bone Diagrams: 05/06/19 07:18 05/06/19 07:18 - Additional Planning My Orders: My Active Orders 05/05/19 17:47 Fluid Restriction [RC] ONCE Telemetry- [RC] Q4HR Acetaminophen [Tylenol] 650 mg PO Q4HR PRN Sodium Chloride Flush 0.9% [Normal Saline Flush 0.9%] 10 ml IVP PRN PRN Temazepam [Restoril] 15 mg PO QPM PRN 05/05/19 17:48 Activity Orders [RC] Q2HR IO [RC] IOSHIFT Initiate Bowel Care Protocol [RC] .protocol Initiate Line Care Protocol [RC] QSHIFT Initiate Personal Care Protoco [RC] .protocol Oxygen Therapy [RC] Routine Vital Signs [RC] 0800,1600,0000 Code Status [OTHERS] Routine Condition of Patient [OTHERS] Routine DVT Prophylaxis [OTHERS] Routine 05/05/19 17:49 Daily Weight [RC] 0600 IV Insert [RC] .ONCE 05/05/19 21:00 Famotidine [Pepcid] 20 mg PO BID 05/06/19 01:00 Sodium Chloride Flush 0.9% [Normal Saline Flush 0.9%] 10 ml IVP 0100,0900,1700 05/06/19 06:58 Echo Transthoracic Complete [ECHO] Routine 05/06/19 08:24 Miscellaenous Nursing Order [RC] QSHIFT 05/06/19 09:00 Bumetanide Inj [Bumex Inj] 2 mg IVP Q8H Polyethylene Glycol 3350 [Miralax] 17 gm PO DAILY 05/06/19 12:36 Albuterol Sulfate [Proair Hfa Inhaler] 2 puffs INH Q4H PRN Carboxymethylcellulose Sodium [Refresh Tears] 1 drops EACHEYE TID PRN hydrOXYzine PAMOATE [Vistaril] 25 mg PO TID PRN 05/06/19 12:38 Gabapentin [Neurontin] 100 mg PO QDBREAKFAST 05/06/19 12:45 Metoprolol Succinate [Toprol Xl] 100 mg PO DAILY Multivitamin [Multiple Vitamins] 1 tab PO DAILY Patient Own Med [Patient Own Medication] 1 each EACHEYE BID Salmeterol Xinafoate [Serevent Diskus] 1 puffs INH BID 05/06/19 13:00 Fluticasone [Flonase] 2 sprays HAROLDO BID 05/06/19 13:11 Miscellaenous Nursing Order [RC] PRN 05/06/19 14:00 hydrALAZINE [Apresoline] 25 mg PO TID 05/06/19 17:00 Hydrocortisone [Cortef] 5 mg PO QDDINNER Methadone 5 mg PO 0800,1700 05/06/19 21:00 QUEtiapine [SEROquel] 25 mg PO QPM 05/06/19 Breakfast DIET [Cardiac Diet] [DIET] 05/07/19 05:00 MAGNESIUM [CHEM] DAILYLAB 05/07/19 07:00 Levothyroxine [Synthroid] 100 mcg PO QDAC 05/07/19 08:00 Hydrocortisone [Cortef] 10 mg PO QDBREAKFAST 05/07/19 09:00 Calcium Carbonate/Vitamin D3 [Calcium 600-Vit D3 400 Tablet] 2 tab PO DAILY Escitalopram [Lexapro] 10 mg PO DAILY Potassium Chloride [K-Dur] 20 meq PO DAILY 05/08/19 05:00 MAGNESIUM [CHEM] DAILYLAB Objective Vital Signs: Vital Signs - 24 hr 05/05/19 05/05/19 05/05/19 15:34 17:06 17:14 Temperature 36.7 C 36.4 C L Heart Rate 79 87 Heart Rate [ 78 Brachial] Respiratory 24 19 13 Rate Blood Pressure 126/89 H 139/90 H Blood Pressure 127/82 H [Right Brachial artery] O2 Saturation 94 97 99 05/05/19 05/06/19 05/06/19 21:34 00:34 04:05 Temperature 36.4 C L 36.5 C 36.6 C Heart Rate Heart Rate [ 64 86 81 Brachial] Respiratory 14 16 16 Rate Blood Pressure Blood Pressure 142/80 H 137/83 H 137/95 H [Right Brachial artery] O2 Saturation 100 99 99 05/06/19 07:25 Temperature 36.5 C Heart Rate Heart Rate [ 89 Brachial] Respiratory 14 Rate Blood Pressure Blood Pressure 130/79 [Right Brachial artery] O2 Saturation 97 Oxygen O2 Source Nasal cannula I&O (Last 24 Hrs): Intake and Output Totals x24h 05/04/19 05/05/19 05/06/19 23:59 23:59 23:59 Intake Total 630 480 Output Total 1500 1725 Balance -870 -1245 General: Alert, Oriented x3 HEENT: Mucous membr. moist/pink, Other (On O2 per n.c.) Neck: Supple Neuro: Non Focal Cardiovascular: Regular rate Respiratory: No respiratory distress Abdomen: Soft, Other (Distended) Extremities: Other (2+ edeema, not taught, dark pink, not red or warm, not oozing) - Results Results: Laboratory Results WBC 9.0 x10^3/uL (4.8-10.8) 05/06/19 07:18 RBC 3.56 10^6/uL (4.20-5.40) L 05/06/19 07:18 Hgb 9.5 g/dL (12.0-16.0) L 05/06/19 07:18 Hct 31.0 % (37.0-47.0) L 05/06/19 07:18 MCV 87.1 fL (81.0-99.0) 05/06/19 07:18 MCH 26.7 pg (27.0-31.0) L 05/06/19 07:18 MCHC 30.6 g/dL (32.0-36.0) L 05/06/19 07:18 RDW 15.6 % (12.0-15.0) H 05/06/19 07:18 Plt Count 218 10^3/uL (130-450) 05/06/19 07:18 MPV 8.7 fL (7.9-10.8) 05/06/19 07:18 Neut # (Auto) 6.3 10^3/uL (1.5-6.6) 05/06/19 07:18 Lymph # (Auto) 1.9 10^3/uL (1.5-3.5) 05/06/19 07:18 Stokes # (Auto) 0.5 10^3/uL (0.0-1.0) 05/06/19 07:18 Eos # (Auto) 0.3 10^3/uL (0.0-0.7) 05/06/19 07:18 Baso # (Auto) 0.1 10^3/uL (0.0-0.1) 05/06/19 07:18 Absolute Nucleated RBC 0.00 x10^3/uL 05/06/19 07:18 Nucleated RBC % 0.0 /100WBC 05/06/19 07:18 Sodium 143 mmol/L (135-145) 05/06/19 07:18 Potassium 2.9 mmol/L (3.5-5.0) L 05/06/19 07:18 Chloride 97 mmol/L (101-111) L 05/06/19 07:18 Carbon Dioxide 31 mmol/L (21-32) 05/06/19 07:18 Anion Gap 15.0 (6-13) H 05/06/19 07:18 BUN 27 mg/dL (6-20) H 05/06/19 07:18 Creatinine 1.8 mg/dL (0.4-1.0) H 05/06/19 07:18 Estimated GFR (MDRD) 29 (>89) L 05/06/19 07:18 Glucose 95 mg/dL (70-100) 05/06/19 07:18 Calcium 8.3 mg/dL (8.5-10.3) L 05/06/19 07:18 Magnesium 2.5 mg/dL (1.7-2.8) 05/06/19 07:18 Total Bilirubin 0.6 mg/dL (0.2-1.0) 05/05/19 16:27 AST 47 IU/L (10-42) H 05/05/19 16:27 ALT 50 IU/L (10-60) 05/05/19 16:27 Alkaline Phosphatase 114 IU/L (42-121) 05/05/19 16:27 Troponin I < 0.04 ng/mL (<0.49) 05/06/19 02:10 B-Natriuretic Peptide 2567 pg/mL (5-100) H 05/05/19 16:27 Total Protein 6.5 g/dL (6.7-8.2) L 05/05/19 16:27 Albumin 3.8 g/dL (3.2-5.5) 05/05/19 16:27 Globulin 2.7 g/dL (2.1-4.2) 05/05/19 16:27 Albumin/Globulin Ratio 1.4 (1.0-2.2) 05/05/19 16:27 Lipase 41 U/L (22-51) 05/05/19 16:27 Urine Color YELLOW 05/05/19 17:05 Urine Clarity CLEAR (CLEAR) 05/05/19 17:05 Urine pH 5.5 PH (5.0-7.5) 05/05/19 17:05 Ur Specific Reynolds <=1.005 (1.002-1.030) 05/05/19 17:05 Urine Protein NEGATIVE mg/dL (NEGATIVE) 05/05/19 17:05 Urine Glucose (UA) NEGATIVE mg/dL (NEGATIVE) 05/05/19 17:05 Urine Ketones NEGATIVE mg/dL (NEGATIVE) 05/05/19 17:05 Urine Occult Blood NEGATIVE (NEGATIVE) 05/05/19 17:05 Urine Nitrite NEGATIVE (NEGATIVE) 05/05/19 17:05 Urine Bilirubin NEGATIVE (NEGATIVE) 05/05/19 17:05 Urine Urobilinogen 0.2 (NORMAL) E.U./dL (NORMAL) 05/05/19 17:05 Ur Leukocyte Esterase NEGATIVE (NEGATIVE) 05/05/19 17:05 Ur Microscopic Review NOT INDICATED 05/05/19 17:05 Urine Culture Comments NOT INDICATED 05/05/19 17:05 Nasal Screen MRSA (PCR) NEGATIVE (NEGATIVE) 05/05/19 21:18
[2019-05-06] MEDS: hydrALAZINE 25 MG TABLET PO SCH ×2 (13:39→20:59)
[2019-05-06] MEDS: METOPROLOL SUCCINATE 50 MG TABLET PO SCH (13:39)
[2019-05-06] MEDS: FLUTICASONE NASAL SPRAY NAS SCH ×2 (13:39→21:00)
[2019-05-06] MEDS: MULTIVITAMIN TABLET PO SCH (13:39)
[2019-05-06] MEDS: GABAPENTIN 100 MG CAPSULE PO SCH ×2 (13:39→21:49)
[2019-05-06] MEDS: CYCLOSPORINE EACHEYE SCH ×2 (13:42→21:00)
[2019-05-06] MEDS ORDERED: FORMOTEROL FUMARATE NEB 20 MCG/2 ML INH SCH (14:47)
[2019-05-06] MEDS: RIVAROXABAN 15 MG TABLET PO SCH (16:52)
[2019-05-06] MEDS: HYDROCORTISONE 10 MG TABLET PO SCH (16:52)
[2019-05-06] MEDS ORDERED: BUDESONIDE 0.5 MG/2 ML NEB INH SCH (19:00)
[2019-05-06] MEDS: ALBUTEROL NEB 2.5 MG/3 ML INH PRN (20:16)
[2019-05-06] MEDS: FORMOTEROL FUMARATE NEB 20 MCG/2 ML INH SCH (20:17)
[2019-05-06] MEDS: QUEtiapine 25 MG TABLET PO SCH (20:59)
[2019-05-06] MEDS ORDERED: AMIODARONE 200 MG TABLET PO SCH (21:00)
[2019-05-07] MEDS: HYDROcod/ACETAM 5/325 MG TABLET PO PRN ×4 (01:00→21:06)
[2019-05-07] MEDS: BUMETANIDE 1 MG/4 ML VIAL IVP SCH ×3 (01:01→17:14)
[2019-05-07] MEDS: SODIUM CHLORIDE FLUSH 0.9% 10 ML SYRINGE IVP SCH ×3 (01:01→17:07)
[2019-05-07] MEDS ORDERED: HYDROmorphone 2 MG/ML VIAL IVP STA (01:25)
[2019-05-07] MEDS: SODIUM CHLORIDE FLUSH 0.9% 10 ML SYRINGE IVP PRN ×3 (01:35→10:26)
[2019-05-07] MEDS ORDERED: HYDROmorphone 2 MG/ML VIAL ONE (01:40)
[2019-05-07] MEDS ORDERED: NITROGLYCERIN SL 0.4 MG TABLET SL STA (03:23)
[2019-05-07] MEDS ORDERED: NITROGLYCERIN SL 0.4 MG TABLET SL ONE (03:31)
[2019-05-07 03:34] LABS: BASOPHILS # (AUTO) 0.1 10^3/uL (0.0-0.1); BASOPHILS % (AUTO) 0.8 %; EOSINOPHILS # (AUTO) 0.3 10^3/uL (0.0-0.7); EOSINOPHILS % (AUTO) 3.8 %; HGB - HEMOGLOBIN 9.9 g/dL (12.0-16.0); LYMPHOCYTES # (AUTO) 2.1 10^3/uL (1.5-3.5); LYMPHOCYTES % (AUTO) 28.1 %; MEAN CORPUSCULAR HEMOGLOBIN 26.8 pg (27.0-31.0); MEAN CORPUSCULAR HGB CONC 30.7 g/dL (32.0-36.0); MEAN CORPUSCULAR VOLUME 87.3 fL (81.0-99.0); MEAN PLATELET VOLUME 8.7 fL (7.9-10.8); MONOCYTES # (AUTO) 0.5 10^3/uL (0.0-1.0); MONOCYTES % (AUTO) 6.4 %; NEUTROPHILS # (AUTO) 4.6 10^3/uL (1.5-6.6); NEUTROPHILS % (AUTO) 60.5 %; PLT - PLATELET COUNT 217 10^3/uL (130-450); RED CELL DISTRIBUTION WIDTH 15.3 % (12.0-15.0); WHITE BLOOD COUNT 7.5 x10^3/uL (4.8-10.8)
[2019-05-07 03:44] LABS: CALCIUM 8.4 mg/dL (8.5-10.3); CREATININE 2.2 mg/dL (0.4-1.0); MAGNESIUM 2.2 mg/dL (1.7-2.8)
--- NOTE | 2019-05-07 04:26 | PROVIDER PROGRESS NOTE ---
Storeroom Keeper Note - Storeroom Keeper Note Storeroom Keeper Note: Was called to see patient because her telemetry had been reading Vtach for 8mins and counting. The patient was sound asleep at the time. When she a woken, She was responding appropriately and got up to urinate. She consistently complains of chest pain when asked. However it is usually something she has to think about and feel for for a few minutes. 4 successive EKG's were done which read WPW, Complete Heart Block, Acute [place] and sinus tachycardia. I consult the composite layup worker (Dr Freire) pole frame construction worker for Dr Serrano's group and sent over the EKGs for review. He reviewed it and said it was non-sustained VTach. He said the patient will need to see EP upon discharged He advised discontinuing the amiodarone and using more beta block. Lab work done included Trop, Mg, Phos, BMP. Trop was negative, Potassium was 3.1. It will be replaced.
[2019-05-07] MEDS: POTASSIUM CHLOR 10 MEQ/100 ML 10 MEQ/100 ML BAG IV SCH ×4 (04:44→08:30)
[2019-05-07] MEDS: LEVOTHYROXINE 100 MCG TABLET PO SCH (06:22)
[2019-05-07] MEDS: hydrALAZINE 25 MG TABLET PO SCH ×3 (06:22→21:16)
[2019-05-07] MEDS: ALBUTEROL NEB 2.5 MG/3 ML INH PRN ×2 (07:14→17:53)
[2019-05-07] MEDS: FORMOTEROL FUMARATE NEB 20 MCG/2 ML INH SCH ×2 (07:15→17:53)
[2019-05-07] MEDS: METHADONE 5 MG TABLET PO SCH ×2 (07:37→17:07)
[2019-05-07] MEDS: ISOSORBIDE MONONITRATE ER 30 MG TABLET PO SCH (07:37)
[2019-05-07] MEDS: GABAPENTIN 100 MG CAPSULE PO SCH ×2 (07:38→21:05)
[2019-05-07] MEDS: HYDROCORTISONE 10 MG TABLET PO SCH ×2 (07:38→17:06)
[2019-05-07] MEDS: CYCLOSPORINE EACHEYE SCH ×2 (10:24→21:10)
[2019-05-07] MEDS: POTASSIUM CHLORIDE 20 MEQ TABLET PO SCH (10:24)
[2019-05-07] MEDS: METOPROLOL SUCCINATE 50 MG TABLET PO SCH (10:25)
[2019-05-07] MEDS: CHOLECALCIFEROL 400 UNIT TABLET PO SCH (10:25)
[2019-05-07] MEDS: ESCITALOPRAM 10 MG TABLET PO SCH (10:25)
[2019-05-07] MEDS: FLUTICASONE NASAL SPRAY NAS SCH ×2 (10:25→21:09)
[2019-05-07] MEDS: CALCIUM CARB (OYSTER SHELL) 500 MG TABLET PO SCH (10:25)
[2019-05-07] MEDS: FAMOTIDINE 20 MG TABLET PO SCH ×2 (10:25→21:06)
[2019-05-07] MEDS: POLYETHYLENE GLYCOL 3350 17 GM PACKET PO SCH (10:26)
[2019-05-07] MEDS: MULTIVITAMIN TABLET PO SCH (10:26)
[2019-05-07] MEDS ORDERED: AMIODARONE 150 MG/100 ML 100 ML IV ONE (11:15)
[2019-05-07] MEDS ORDERED: AMIODARONE 360 MG/200 ML 200 ML IV ONE (11:25)
[2019-05-07] MEDS ORDERED: POTASSIUM CHLORIDE 20 MEQ/15 ML UDC PO SCH (14:35)
--- NOTE | 2019-05-07 16:49 | PROVIDER PROGRESS NOTE ---
Assessment/Plan - Problem List (1) Acute on chronic systolic ACC/AHA stage C congestive heart failure Assessment/Plan: Most likely etiology is dietary indiscretion, since in the past she has admitted to drinking more than 4 quarts of liquid per day because of "thirst". Continue with plan for IV diuresis and po fluid restriction, follow I's and O's and daily weights. The weight has decreased . Continue with her beta-marimar for CHF management. She cannot be on an PHYLLIS inhibitor, ARB or Spironolactone because of stage IV CKD. Continue with Hydralazine and Nitrates on a schedule. She could be put on the schedule of intermittent Metolazone, once or twice a week, for more complete diuresis. A stricter home fluid restriction and Metalazone was discussed with her and the at bedside, today. She is a candidate for outpatient CHF teaching to better adhere to a diet and understand her condition more thoroughly. She is a candidate upgrade of her pacemaker to a biventricular defibrillator since she has a prolonged QRS by virtue of being mostly v. paced. This was discussed with them both today, she and the are interested. (2) Chest pain with normal coronary angiography Assessment/Plan: By virtue that chest pain with normal coronary arteries has been documented, she has either coronary vasospasm or coronary hypoperfusion causing angina. The hypoperfusion could be related to her episodes of V. tach, leading to under perfusion of her coronaries. Also, the V. tach and chest pain have been correlated. Therefore the V. tach could be suppressed with Amiodarone. She got her first dose of po Amio last night. She could have coronary vasospasm which then leads to V. tach. Since the angina responds to sl NTG, it could be suppressed with a long-acting nitrate. Imdur was started. Decrease her B-marimar and Hydralazine if needed in order to start these 2 medications and not cause hypotension. (3) V-tach Assessment/Plan: Overnight the patient had many more episodes and longer runs of monomorphic V. t ach. Today VTach was again associated with hypokalemia. Continue to replace potassium, carefully watching for hyperkalemia in a patient with stage IV CKD. Monitor magnesium daily, especially during aggressive diuresis. We will transfer the patient to the ICU, start IV Amiodarone. She appears to be a candidate for upgrade of her pacemaker to a biventricular defibrillator, as well. This requires an EP consult. I will reach out to her cardiology group's [facility] to discuss her case, she may need to be transferred to [facility] during this hospitalization (4) Anemia Assessment/Plan: Will check B12 folate and iron panel and replace if low. The daily hemoglobin may appear to rise as she is hemoconcentrating with diuresis. (5) Fatigue Assessment/Plan: There is a description of prolonged fatigue after each episode of chest pain treated with NTG then "graying out". This sounds very much like the fatigue of orthostatic hypotension which could happen after nitro dosing or with V. tach causing a drop in BP. Will check for orthostatic hypotension after she is out of the ICU. This might be treated with compression stockings and Midodrin. She may be a candidate for update of her pacemaker to a biventricular defibrillator (see above). Other etiologies that are undoubtedly adding to the problem of fatigue are her hypokalemia, hypothyroidism, her fibromyalgia and her adrenal insufficiency (she needs to start stress doses during infections, etc) (6) CKD (chronic kidney disease) stage 4, GFR 15-29 ml/min Assessment/Plan: She has 1 kidney, is status post nephrectomy for remote renal cancer. She has been seen by nephrology, there may be a future need for hemodialysis. She is not a transplant candidate. This was discussed today with the patient and while he was here peer She will need higher doses of loop diuretics because of her CKD. I suspect she will also need metolazone, possibly intermittently after DCh. Will monitor BMP daily as we are adjusting her cardiac meds and diuretics. (7) History of CVA with residual deficit Assessment/Plan: Patient gets left arm and body pain (side affecrted by [facility]) when she gets her left chest and jaw pain. This may be some type of trigger mechanism with her an michael. The CVA was apparently associated with A. fib and therefore she is on daily Xarelto which we are continuing here (8) Hypokalemia Assessment/Plan: Replace K. She will now be on an ICU electrolyte protocol. Monitor BMP daily or twice a day (9) Fibromyalgia Assessment/Plan: Continue with her prehospitalization pain medication (10) Hypothyroidism Assessment/Plan: Continue with her prehospitalization thyroid medication (11) Adrenal insufficiency Assessment/Plan: Continue with her cortisone replacement (12) Pacemaker Assessment/Plan: Pacemaker appears to be functioning normally in a VVI, demand mode. (13) Paroxysmal A-fib Assessment/Plan: She has been in sinus rhythm on telemetry. Continue with her prehospital anticoagulant dosing - Current Meds Current Meds: Current Medications Generic Name Dose Route Start Last Admin Trade Name Freq PRN Reason Stop Dose Admin Hydrocodone Bitart/Acetaminophen 1 tab 05/05/19 21:16 05/07/19 15:56 [place] 5/325 PO 1 tab Q4HR PRN Administration PAIN Albuterol 2.5 mg 05/06/19 13:13 05/07/19 07:14 INH 2.5 mg RTQ4H PRN Administration Wheezing Bumetanide 2 mg 05/06/19 09:00 05/07/19 10:25 Bumex Inj IVP 2 mg Q8H RAÚL Administration Calcium Carbonate/Glycine 1,000 mg 05/07/19 09:00 05/07/19 10:25 Oysco-500 PO 1,000 mg DAILY RAÚL Administration Cholecalciferol 800 unit 05/07/19 09:00 05/07/19 10:25 Vitamin D3 PO 800 unit DAILY RAÚL Administration Escitalopram Oxalate 10 mg 05/07/19 09:00 05/07/19 10:25 Lexapro PO 10 mg DAILY RAÚL Administration Famotidine 20 mg 05/05/19 21:00 05/07/19 10:25 Pepcid PO 20 mg BID RAÚL Administration Fluticasone Propionate 2 sprays 05/06/19 13:00 05/07/19 10:25 Flonase HAROLDO 2 spr BID RAÚL Administration Formoterol Fumarate 20 mcg 05/06/19 19:00 05/07/19 07:15 Perforomist INH 20 mcg RTBID RAÚL Administration Gabapentin 100 mg 05/06/19 12:38 05/07/19 07:38 Neurontin PO 100 mg QDBREAKFAST RAÚL Administration Gabapentin 200 mg 05/06/19 21:23 05/06/19 21:49 Neurontin PO 200 mg QPM RAÚL Administration Hydralazine HCl 25 mg 05/06/19 14:00 05/07/19 13:29 Apresoline PO 25 mg TID RAÚL Administration Hydrocortisone 10 mg 05/07/19 08:00 05/07/19 07:38 Cortef PO 10 mg QDBREAKFAST RAÚL Administration Hydrocortisone 5 mg 05/06/19 17:00 05/06/19 16:52 Cortef PO 5 mg QDDINNER RAÚL Administration Amiodarone HCl/Dextrose 200 mls @ 33.333 mls/hr 05/07/19 11:25 05/07/19 15:00 Nexterone 360 Mg/200 Ml IV 05/07/19 17:24 33.33 mls/hr ONCE ONE Infusion Isosorbide Mononitrate 30 mg 05/07/19 08:00 05/07/19 07:37 Imdur PO 30 mg 0800 RAÚL Administration Levothyroxine Sodium 100 mcg 05/07/19 07:00 05/07/19 06:22 Synthroid PO 100 mcg QDAC RAÚL Administration Methadone HCl 5 mg 05/06/19 17:00 05/07/19 07:37 PO 5 mg 0800,1700 RAÚL Administration Metoprolol Succinate 100 mg 05/06/19 12:45 05/07/19 10:25 Toprol Xl PO 100 mg DAILY RAÚL Administration Multivitamins 1 tab 05/06/19 12:45 05/07/19 10:26 Theragran PO 1 tab DAILY RAÚL Administration Cyclosporine [ 1 each 05/06/19 12:45 05/07/19 10:24 Restasis] 1 Drops EACHEYE 1 each BID RAÚL Administration Polyethylene Glycol 17 gm 05/06/19 09:00 05/07/19 10:26 Miralax PO 17 gm DAILY RAÚL Administration Potassium Chloride 20 meq 05/07/19 08:00 05/07/19 10:24 K-Dur PO 20 meq DAILYWM RAÚL Administration Quetiapine Fumarate 25 mg 05/06/19 21:00 05/06/19 20:59 Seroquel PO 25 mg QPM RAÚL Administration Rivaroxaban 15 mg 05/05/19 17:00 05/06/19 16:52 Xarelto PO 15 mg 1700 RAÚL Administration Sodium Chloride 10 ml 05/05/19 17:47 05/07/19 10:26 Normal Saline Flush 0.9% IVP 10 ml PRN PRN Administration NEEDED PER PROVIDER ORDERS Sodium Chloride 10 ml 05/06/19 01:00 05/07/19 10:26 Normal Saline Flush 0.9% IVP 10 ml 0100,0900,1700 RAÚL Administration - Lab Result Fish Bone Diagrams: 05/07/19 03:30 05/07/19 13:06 - Additional Planning My Orders: My Active Orders 05/06/19 17:00 Hydrocortisone [Cortef] 5 mg PO QDDINNER Methadone 5 mg PO 0800,1700 05/06/19 19:00 Formoterol Fumarate [Perforomist] 20 mcg INH RTBID 05/06/19 21:00 QUEtiapine [SEROquel] 25 mg PO QPM 05/07/19 07:00 Levothyroxine [Synthroid] 100 mcg PO QDAC 05/07/19 08:00 Hydrocortisone [Cortef] 10 mg PO QDBREAKFAST Isosorbide Mononitrate ER [Imdur] 30 mg PO 0800 Potassium Chloride [K-Dur] 20 meq PO DAILYWM 05/07/19 09:00 Calcium Carb (Oyster Shell) [Oysco-500] 1,000 mg PO DAILY Cholecalciferol [Vitamin D3] 800 unit PO DAILY Escitalopram [Lexapro] 10 mg PO DAILY 05/07/19 11:07 Nitroglycerin [Nitrostat] 0.4 mg SL Q5MIN PRN 05/07/19 11:25 Amiodarone 360 mg/200 ml [Nexterone 360 mg/200 ml] 200 ml IV ONCE 05/07/19 14:30 Electrolyte [Initiate ICU Electrolyte Prot.] [RC] QSHIFT 05/07/19 17:25 Amiodarone 360 mg/200 ml [Nexterone 360 mg/200 ml] 200 ml IV 0.5 mg/min 05/08/19 05:00 MAGNESIUM [CHEM] DAILYLAB Subjective - Subjective Patient Reports: Fatigue Objective Vital Signs: Vital Signs - 24 hr 05/06/19 05/07/19 05/07/19 20:19 00:00 01:25 Temperature 36.6 C Heart Rate 89 Heart Rate [ 82 80 Brachial] Respiratory 20 20 Rate Blood Pressure Blood Pressure 134/84 H 132/84 H [Right Brachial artery] O2 Saturation 99 05/07/19 05/07/19 05/07/19 02:47 03:17 03:25 Temperature Heart Rate 108 H Heart Rate [ 106 H 107 H Brachial] Respiratory Rate Blood Pressure 147/93 H Blood Pressure 141/86 H 147/93 H [Right Brachial artery] O2 Saturation 99 05/07/19 05/07/19 05/07/19 03:30 03:44 04:33 Temperature Heart Rate Heart Rate [ 108 H 105 H 108 H Brachial] Respiratory 20 Rate Blood Pressure Blood Pressure 140/92 H 126/84 H 109/75 [Right Brachial artery] O2 Saturation 97 96 97 05/07/19 05/07/19 05/07/19 05:10 06:21 07:18 Temperature Heart Rate 100 Heart Rate [ 107 H 105 H Brachial] Respiratory 18 Rate Blood Pressure Blood Pressure 121/82 H 132/87 H [Right Brachial artery] O2 Saturation 05/07/19 05/07/19 05/07/19 07:30 10:21 11:30 Temperature 36.4 C L Heart Rate Heart Rate [ 103 H 70 85 Brachial] Respiratory 18 18 14 Rate Blood Pressure Blood Pressure 129/78 125/77 131/78 H [Right Brachial artery] O2 Saturation 97 99 97 05/07/19 05/07/19 05/07/19 12:00 13:00 14:00 Temperature Heart Rate Heart Rate [ 66 73 72 Brachial] Respiratory 16 18 12 Rate Blood Pressure Blood Pressure 131/74 H 122/74 116/71 [Right Brachial artery] O2 Saturation 96 96 95 05/07/19 15:00 Temperature 36.4 C L Heart Rate Heart Rate [ 75 Brachial] Respiratory 12 Rate Blood Pressure Blood Pressure 123/82 H [Right Brachial artery] O2 Saturation 97 Oxygen O2 Source with humidity I&O (Last 24 Hrs): Intake and Output Totals x24h 05/05/19 05/06/19 05/07/19 23:59 23:59 23:59 Intake Total 630 1380 1098.882 Output Total 1500 2925 1550 Balance -870 -1545 -451.118 General: No acute distress, Other (Appears fatigued) HEENT: Atraumatic, Mucous membr. moist/pink Neck: Supple, No JVD Neuro: Non Focal Cardiovascular: Regular rate, No murmurs Respiratory: No respiratory distress, Breath sounds nml Abdomen: Soft, Other (Mildly distended) Extremities: Other (1-2+ edema) - Results Results: Laboratory Results WBC 7.5 x10^3/uL (4.8-10.8) 05/07/19 03:30 RBC 3.70 10^6/uL (4.20-5.40) L 05/07/19 03:30 Hgb 9.9 g/dL (12.0-16.0) L 05/07/19 03:30 Hct 32.3 % (37.0-47.0) L 05/07/19 03:30 MCV 87.3 fL (81.0-99.0) 05/07/19 03:30 MCH 26.8 pg (27.0-31.0) L 05/07/19 03:30 MCHC 30.7 g/dL (32.0-36.0) L 05/07/19 03:30 RDW 15.3 % (12.0-15.0) H 05/07/19 03:30 Plt Count 217 10^3/uL (130-450) 05/07/19 03:30 MPV 8.7 fL (7.9-10.8) 05/07/19 03:30 Neut # (Auto) 4.6 10^3/uL (1.5-6.6) 05/07/19 03:30 Lymph # (Auto) 2.1 10^3/uL (1.5-3.5) 05/07/19 03:30 [place] # (Auto) 0.5 10^3/uL (0.0-1.0) 05/07/19 03:30 Eos # (Auto) 0.3 10^3/uL (0.0-0.7) 05/07/19 03:30 Baso # (Auto) 0.1 10^3/uL (0.0-0.1) 05/07/19 03:30 Absolute Nucleated RBC 0.00 x10^3/uL 05/07/19 03:30 Nucleated RBC % 0.0 /100WBC 05/07/19 03:30 Sodium 143 mmol/L (135-145) 05/07/19 03:30 Potassium 3.2 mmol/L (3.5-5.0) L 05/07/19 13:06 Chloride 90 mmol/L (101-111) L 05/07/19 03:30 Carbon Dioxide 36 mmol/L (21-32) H 05/07/19 03:30 Anion Gap 17.0 (6-13) H 05/07/19 03:30 BUN 33 mg/dL (6-20) H 05/07/19 03:30 Creatinine 2.2 mg/dL (0.4-1.0) H 05/07/19 03:30 Estimated GFR (MDRD) 23 (>89) L 05/07/19 03:30 Glucose 97 mg/dL (70-100) 05/07/19 03:30 Calcium 8.4 mg/dL (8.5-10.3) L 05/07/19 03:30 Phosphorus 5.6 mg/dL (2.5-4.6) H 05/07/19 03:30 Magnesium 2.2 mg/dL (1.7-2.8) 05/07/19 03:30 Total Bilirubin 0.6 mg/dL (0.2-1.0) 05/05/19 16:27 AST 47 IU/L (10-42) H 05/05/19 16:27 ALT 50 IU/L (10-60) 05/05/19 16:27 Alkaline Phosphatase 114 IU/L (42-121) 05/05/19 16:27 Troponin I < 0.04 ng/mL (<0.49) 05/07/19 03:30 B-Natriuretic Peptide 2567 pg/mL (5-100) H 05/05/19 16:27 Total Protein 6.5 g/dL (6.7-8.2) L 05/05/19 16:27 Albumin 3.8 g/dL (3.2-5.5) 05/05/19 16:27 Globulin 2.7 g/dL (2.1-4.2) 05/05/19 16:27 Albumin/Globulin Ratio 1.4 (1.0-2.2) 05/05/19 16:27 Lipase 41 U/L (22-51) 05/05/19 16:27 Urine Color YELLOW 05/05/19 17:05 Urine Clarity CLEAR (CLEAR) 05/05/19 17:05 Urine pH 5.5 PH (5.0-7.5) 05/05/19 17:05 Ur Specific [place] <=1.005 (1.002-1.030) 05/05/19 17:05 Urine Protein NEGATIVE mg/dL (NEGATIVE) 05/05/19 17:05 Urine Glucose (UA) NEGATIVE mg/dL (NEGATIVE) 05/05/19 17:05 Urine Ketones NEGATIVE mg/dL (NEGATIVE) 05/05/19 17:05 Urine Occult Blood NEGATIVE (NEGATIVE) 05/05/19 17:05 Urine Nitrite NEGATIVE (NEGATIVE) 05/05/19 17:05 Urine Bilirubin NEGATIVE (NEGATIVE) 05/05/19 17:05 Urine Urobilinogen 0.2 (NORMAL) E.U./dL (NORMAL) 05/05/19 17:05 Ur Leukocyte Esterase NEGATIVE (NEGATIVE) 05/05/19 17:05 Ur Microscopic Review NOT INDICATED 05/05/19 17:05 Urine Culture Comments NOT INDICATED 05/05/19 17:05 Nasal Screen MRSA (PCR) NEGATIVE (NEGATIVE) 05/05/19 21:18
[2019-05-07] MEDS: RIVAROXABAN 15 MG TABLET PO SCH (17:07)
[2019-05-07] MEDS: AMIODARONE 360 MG/200 ML 200 ML IV SCH (17:20)
[2019-05-07] MEDS ORDERED: GABAPENTIN 100 MG CAPSULE PO SCH (21:00)
[2019-05-07] MEDS: TEMAZEPAM 15 MG CAPSULE PO PRN (21:06)
[2019-05-07] MEDS: QUEtiapine 25 MG TABLET PO SCH (21:06)
[2019-05-08] MEDS: SODIUM CHLORIDE FLUSH 0.9% 10 ML SYRINGE IVP SCH ×4 (01:05→17:33)
[2019-05-08] MEDS: BUMETANIDE 1 MG/4 ML VIAL IVP SCH ×3 (01:05→16:21)
[2019-05-08] MEDS: SODIUM CHLORIDE FLUSH 0.9% 10 ML SYRINGE IVP PRN ×2 (01:06→09:11)
[2019-05-08] MEDS: HYDROcod/ACETAM 5/325 MG TABLET PO PRN ×5 (02:46→21:17)
[2019-05-08 04:58] LABS: BASOPHILS # (AUTO) 0.1 10^3/uL (0.0-0.1); BASOPHILS % (AUTO) 0.6 %; EOSINOPHILS # (AUTO) 0.3 10^3/uL (0.0-0.7); EOSINOPHILS % (AUTO) 4.2 %; HGB - HEMOGLOBIN 9.4 g/dL (12.0-16.0); LYMPHOCYTES % (AUTO) 25.5 %; MEAN CORPUSCULAR HEMOGLOBIN 25.8 pg (27.0-31.0); MEAN CORPUSCULAR HGB CONC 29.5 g/dL (32.0-36.0); MEAN CORPUSCULAR VOLUME 87.6 fL (81.0-99.0); MEAN PLATELET VOLUME 9.1 fL (7.9-10.8); MONOCYTES # (AUTO) 0.5 10^3/uL (0.0-1.0); NEUTROPHILS % (AUTO) 63.4 %; PLT - PLATELET COUNT 225 10^3/uL (130-450); RED BLOOD COUNT 3.64 10^6/uL (4.20-5.40); RED CELL DISTRIBUTION WIDTH 15.6 % (12.0-15.0); WHITE BLOOD COUNT 7.8 x10^3/uL (4.8-10.8)
[2019-05-08] MEDS: AMIODARONE 360 MG/200 ML 200 ML IV SCH (05:08)
[2019-05-08 05:10] LABS: CALCIUM 8.1 mg/dL (8.5-10.3); CREATININE 2.1 mg/dL (0.4-1.0); MAGNESIUM 2.2 mg/dL (1.7-2.8)
[2019-05-08] MEDS: hydrALAZINE 25 MG TABLET PO SCH ×3 (06:33→21:17)
[2019-05-08] MEDS: LEVOTHYROXINE 100 MCG TABLET PO SCH (06:33)
[2019-05-08] MEDS ORDERED: POTASSIUM CHLORIDE 20 MEQ TABLET PO ONE (08:00)
[2019-05-08] MEDS: HYDROCORTISONE 10 MG TABLET PO SCH ×2 (08:39→17:27)
[2019-05-08] MEDS: GABAPENTIN 100 MG CAPSULE PO SCH ×2 (08:39→21:16)
[2019-05-08] MEDS: POTASSIUM CHLORIDE 20 MEQ TABLET PO SCH ×3 (08:41→17:24)
[2019-05-08] MEDS: ESCITALOPRAM 10 MG TABLET PO SCH (08:41)
[2019-05-08] MEDS: METOPROLOL SUCCINATE 50 MG TABLET PO SCH (08:41)
[2019-05-08] MEDS: METHADONE 5 MG TABLET PO SCH ×2 (08:42→17:27)
[2019-05-08] MEDS: MULTIVITAMIN TABLET PO SCH (08:43)
[2019-05-08] MEDS: CHOLECALCIFEROL 400 UNIT TABLET PO SCH (08:43)
[2019-05-08] MEDS: FAMOTIDINE 20 MG TABLET PO SCH ×2 (08:43→21:16)
[2019-05-08] MEDS: CALCIUM CARB (OYSTER SHELL) 500 MG TABLET PO SCH (08:43)
[2019-05-08] MEDS: ISOSORBIDE MONONITRATE ER 30 MG TABLET PO SCH ×2 (08:43→17:32)
[2019-05-08] MEDS: POLYETHYLENE GLYCOL 3350 17 GM PACKET PO SCH (08:44)
[2019-05-08] MEDS: CYCLOSPORINE EACHEYE SCH (08:59)
[2019-05-08] MEDS: FLUTICASONE NASAL SPRAY NAS SCH (08:59)
[2019-05-08] MEDS: FORMOTEROL FUMARATE NEB 20 MCG/2 ML INH SCH (10:15)
[2019-05-08] MEDS: NITROGLYCERIN SL 0.4 MG TABLET SL PRN ×2 (10:26→10:35)
[2019-05-08 11:06] LABS: % IRON SATURATION 5 % (20-50); IRON 19 ug/dL (28-170); TOTAL IRON BINDING CAPACITY 413 ug/dL (250-450); TRANSFERRIN 295 mg/dL (192-382)
[2019-05-08] MEDS ORDERED: POTASSIUM CHLORIDE 20 MEQ TABLET PO SCH (12:00)
[2019-05-08] MEDS ORDERED: AMIODARONE 150 MG/100 ML 100 ML IV ONE (14:07)
--- NOTE | 2019-05-08 15:38 | PROVIDER PROGRESS NOTE ---
Assessment/Plan - Problem List (1) V-tach Assessment/Plan: Patient was moved to the ICU yesterday for IV Amiodarone drip. The Amio bolus and 6-hour infusion rate suppressed her V. tach well. This morning at the lower 18-hour infusion rate, her V. tach is breaking through. She is symptomatic with these runs of V. tach, witnessed by the nurse, she experiences lightheadedness. There is been no chest pain with these episodes of V. tach, since the Imdur was started. I plan to give an additional loading dose, continue the stage 3 Amio IV rate till it ends tonight. Amiodarone p.o. will start after that. I have reached out to the EP doctor of her [employer], he is not available, and vacation for 3 more days. I then reached out to her Drilling Superintendent, Dr. Valiente this morning, he has not called me back yet. There will be eventually need for upgrade of her pacemaker to a biventricular ICD. If she continues to have symptomatic V. tach, the plan will be transfer from here to a higher level of care. If the V. tach is suppressed with Amiodarone IV then p.o., she could be discharged and have an EVERARDO follow-up with Cardiology/EP. (2) Acute on chronic systolic ACC/AHA stage C congestive heart failure Assessment/Plan: Most likely etiology is dietary indiscretion, since in the past she has admitted to drinking more than 4 quarts of liquid per day because of "thirst". Continue with plan for IV diuresis and po fluid restriction, follow I's and O's and daily weights. The weight monitoring is not accurate (is bouncing around), but she is (-) 1-2L fluid daily. Since she is noticing that her "veins are collapsing during blood draws", I will decrease from every 8 our IV diuresis to every 12 hours Continue with her beta-marimar for CHF management. That she will be on amiodarone, beta-marimar dose may possibly need to decrease slightly. She cannot be on an PHYLLIS inhibitor, ARB or Spironolactone because of stage IV CKD. Continue with Hydralazine and the new long-acting Nitrate started this admission. She could be put on the schedule of intermittent Metolazone, once or twice a week, for more complete diuresis. A stricter home fluid restriction and weekly Metalazone was suggested and was discussed with her and the at bedside, several days ago. She is a candidate for outpatient CHF teaching to better adhere to a diet and understand her condition more thoroughly. She is a candidate upgrade of her pacemaker to a biventricular defibrillator since she has a prolonged QRS by virtue of being mostly v. paced. This was discussed with them both, she and the are interested. (3) Chest pain with normal coronary angiography Assessment/Plan: By virtue that chest pain with normal coronary arteries has been documented, she has either coronary vasospasm or coronary hypoperfusion causing angina. The hypoperfusion could be related to her episodes of V. tach, leading to under perfusion of her coronaries. Also, the V. tach and chest pain have been correlated. Therefore the V. tach is being treated to suppress, using Amiodarone. She could have coronary vasospasm which then leads to V. tach. Since the angina responds to sl NTG, it could be suppressed with a long-acting nitrate. Imdur was started. (4) Anemia Qualifiers: Anemia type: iron deficiency Assessment/Plan: Her B12 and folate stores are adequate, iron stores are low. We will order iron replacement daily. We will order guaiac of stools, especially since she is on Xarelto (5) Fatigue Assessment/Plan: Multifactorial: from dyspnea, weight gain, anemia, hypothyroidism, fibromyalgia, and hypothyroidism. All the above are being treated addressed and treated. (6) CKD (chronic kidney disease) stage 4, GFR 15-29 ml/min Assessment/Plan: Despite aggressive diuresis, the creatinine has improved. This is consistent with a cardiorenal syndrome. Improvement of forward cardiac output, and decrease of preload improves renal function. (7) History of CVA with residual deficit Assessment/Plan: Patient occasionally has weakness on her left side and the pain of her angina also it can spread down to her left leg. There have been no further complaints of angina since she is in the ICU on new nitrates and with better suppression of V. tach (8) Hypokalemia Assessment/Plan: Replace K. Follow K daily or twice a day (9) Fibromyalgia Assessment/Plan: Continue with her prehospital pain and muscle medications (10) Hypothyroidism Assessment/Plan: Continue with her prehospital thyroid replacement therapy (11) Adrenal insufficiency Assessment/Plan: Continue with her cortisone dose. (12) Pacemaker Assessment/Plan: Normally functioning on demand VVI pacemaker seen on telemetry (13) Paroxysmal A-fib Assessment/Plan: She has been in normal sinus rhythm throughout this admission. She is on Xarelto for anticoagulation for stroke prophylaxis - Current Meds Current Meds: Current Medications Generic Name Dose Route Start Last Admin Trade Name Freq PRN Reason Stop Dose Admin Hydrocodone Bitart/Acetaminophen 1 tab 05/05/19 21:16 05/08/19 14:37 North 5/325 PO 1 tab Q4HR PRN Administration PAIN Albuterol 2.5 mg 05/06/19 13:13 05/07/19 17:53 INH 2.5 mg RTQ4H PRN Administration Wheezing Calcium Carbonate/Glycine 1,000 mg 05/07/19 09:00 05/08/19 08:43 Oysco-500 PO 1,000 mg DAILY RAÚL Administration Cholecalciferol 800 unit 05/07/19 09:00 05/08/19 08:43 Vitamin D3 PO 800 unit DAILY RAÚL Administration Escitalopram Oxalate 10 mg 05/07/19 09:00 05/08/19 08:41 Lexapro PO 10 mg DAILY RAÚL Administration Famotidine 20 mg 05/05/19 21:00 05/08/19 08:43 Pepcid PO 20 mg BID RAÚL Administration Fluticasone Propionate 2 sprays 05/06/19 13:00 05/08/19 08:59 Flonase HAROLDO 2 spr BID RAÚL Administration Gabapentin 100 mg 05/06/19 12:38 05/08/19 08:39 Neurontin PO 100 mg QDBREAKFAST RAÚL Administration Gabapentin 200 mg 05/06/19 21:23 05/07/19 21:05 Neurontin PO 200 mg QPM RAÚL Administration Hydralazine HCl 25 mg 05/06/19 14:00 05/08/19 14:44 Apresoline PO 25 mg TID RAÚL Administration Hydrocortisone 10 mg 05/07/19 08:00 05/08/19 08:39 Cortef PO 10 mg QDBREAKFAST RAÚL Administration Hydrocortisone 5 mg 05/06/19 17:00 05/07/19 17:06 Cortef PO 5 mg QDDINNER RAÚL Administration Hydroxyzine Pamoate 25 mg 05/06/19 12:36 05/08/19 08:50 Vistaril PO 25 mg TID PRN Administration ITCHING Amiodarone HCl/Dextrose 200 mls @ 16.667 mls/hr 05/07/19 17:25 05/08/19 06:00 Nexterone 360 Mg/200 Ml IV 0.5 mg/min .Q12H RAÚL 16.667 mls/hr Infusion 0.5 MG/MIN Levothyroxine Sodium 100 mcg 05/07/19 07:00 05/08/19 06:33 Synthroid PO 100 mcg QDAC RAÚL Administration Methadone HCl 5 mg 05/06/19 17:00 05/08/19 08:42 PO 5 mg 0800,1700 RAÚL Administration Metoprolol Succinate 100 mg 05/06/19 12:45 05/08/19 08:41 Toprol Xl PO 100 mg DAILY RAÚL Administration Multivitamins 1 tab 05/06/19 12:45 05/08/19 08:43 Theragran PO 1 tab DAILY RAÚL Administration Nitroglycerin 0.4 mg 05/07/19 11:07 05/08/19 10:35 Nitrostat SL 0.4 mg Q5MIN PRN Administration chest pain Cyclosporine [ 1 each 05/06/19 12:45 05/08/19 08:59 Restasis] 1 Drops EACHEYE 1 each BID RAÚL Administration Polyethylene Glycol 17 gm 05/06/19 09:00 05/08/19 08:44 Miralax PO 17 gm DAILY RAÚL Administration Potassium Chloride 20 meq 05/08/19 10:00 05/08/19 10:00 K-Dur PO 20 meq BIDWM RAÚL Administration Quetiapine Fumarate 25 mg 05/06/19 21:00 05/07/19 21:06 Seroquel PO 25 mg QPM RAÚL Administration Rivaroxaban 15 mg 05/05/19 17:00 05/07/19 17:07 Xarelto PO 15 mg 1700 RAÚL Administration Sodium Chloride 10 ml 05/05/19 17:47 05/08/19 09:11 Normal Saline Flush 0.9% IVP 10 ml PRN PRN Administration NEEDED PER PROVIDER ORDERS Sodium Chloride 10 ml 05/06/19 01:00 05/08/19 13:02 Normal Saline Flush 0.9% IVP Not Given 0100,0900,1700 RAÚL Temazepam 15 mg 05/05/19 17:47 05/07/19 21:06 Restoril PO 15 mg QPM PRN Administration Insomnia - Lab Result Fish Bone Diagrams: 05/08/19 04:25 05/08/19 14:04 - Additional Planning My Orders: My Active Orders 05/07/19 17:25 Amiodarone 360 mg/200 ml [Nexterone 360 mg/200 ml] 200 ml IV 0.5 mg/min 05/08/19 10:00 Potassium Chloride [K-Dur] 20 meq PO BIDWM 05/08/19 15:00 Bumetanide Inj [Bumex Inj] 2 mg IVP 0800,1500 05/08/19 17:00 Isosorbide Mononitrate ER [Imdur] 30 mg PO BIDWM 05/09/19 08:00 Ferrous Gluconate [Fergon] 324 mg PO DAILYWM Subjective - Subjective Patient Reports: Feeling Better, Resting Comfortably, Other (Less fatigue. Veins are "collapsing now with blood draws".) Objective Vital Signs: Vital Signs - 24 hr 05/07/19 05/07/19 05/07/19 16:00 17:00 18:00 Temperature Heart Rate Heart Rate [ 68 67 69 Brachial] Respiratory 22 14 10 L Rate Blood Pressure Blood Pressure 121/70 133/75 H [Right Brachial artery] O2 Saturation 95 96 96 05/07/19 05/07/19 05/07/19 19:00 20:00 21:16 Temperature 36.6 C Heart Rate Heart Rate [ 69 71 71 Brachial] Respiratory 14 13 12 Rate Blood Pressure Blood Pressure 127/79 125/89 H 127/85 H [Right Brachial artery] O2 Saturation 96 96 05/07/19 05/07/19 05/08/19 22:00 23:00 00:00 Temperature Heart Rate Heart Rate [ 68 65 64 Brachial] Respiratory 12 10 L 11 L Rate Blood Pressure Blood Pressure 106/65 121/64 122/65 [Right Brachial artery] O2 Saturation 98 99 97 05/08/19 05/08/19 05/08/19 01:00 02:00 03:00 Temperature Heart Rate Heart Rate [ 67 66 69 Brachial] Respiratory 10 L 10 L 13 Rate Blood Pressure Blood Pressure 123/74 134/84 H 129/89 H [Right Brachial artery] O2 Saturation 99 100 100 05/08/19 05/08/19 05/08/19 04:00 05:00 06:00 Temperature 36.8 C Heart Rate Heart Rate [ 65 65 76 Brachial] Respiratory 17 13 12 Rate Blood Pressure Blood Pressure 128/81 H 116/68 129/86 H [Right Brachial artery] O2 Saturation 100 100 97 05/08/19 05/08/19 05/08/19 08:00 09:00 10:00 Temperature 36.2 C L Heart Rate Heart Rate [ 68 79 90 Brachial] Respiratory 16 15 17 Rate Blood Pressure Blood Pressure 120/79 116/78 [Right Brachial artery] O2 Saturation 98 97 98 05/08/19 05/08/19 05/08/19 10:07 10:26 10:35 Temperature Heart Rate 91 88 74 Heart Rate [ Brachial] Respiratory 13 Rate Blood Pressure 116/78 120/74 Blood Pressure [Right Brachial artery] O2 Saturation 05/08/19 05/08/19 05/08/19 11:00 12:00 13:00 Temperature 36.4 C L Heart Rate Heart Rate [ 75 74 66 Brachial] Respiratory 14 20 10 L Rate Blood Pressure Blood Pressure 113/76 118/71 120/84 H [Right Brachial artery] O2 Saturation 98 96 05/08/19 05/08/19 14:43 15:00 Temperature Heart Rate Heart Rate [ 71 66 Brachial] Respiratory 20 Rate Blood Pressure Blood Pressure 117/76 120/78 [Right Brachial artery] O2 Saturation 98 Oxygen O2 Source Nasal cannula I&O (Last 24 Hrs): Intake and Output Totals x24h 05/06/19 05/07/19 05/08/19 23:59 23:59 23:59 Intake Total 1380 3276.024 7798.669 Output Total 2925 2100 1600 Balance -1545 -695.554 -533.331 General: Alert, Oriented x3 HEENT: Mucous membr. moist/pink Neck: Supple, No JVD Neuro: Non Focal Cardiovascular: Regular rate Respiratory: No respiratory distress Abdomen: Soft Extremities: Other (1+ edema, dark pink lower 1/3) - Results Results: Laboratory Results WBC 7.8 x10^3/uL (4.8-10.8) 05/08/19 04:25 RBC 3.64 10^6/uL (4.20-5.40) L 05/08/19 04:25 Hgb 9.4 g/dL (12.0-16.0) L 05/08/19 04:25 Hct 31.9 % (37.0-47.0) L 05/08/19 04:25 MCV 87.6 fL (81.0-99.0) 05/08/19 04:25 MCH 25.8 pg (27.0-31.0) L 05/08/19 04:25 MCHC 29.5 g/dL (32.0-36.0) L 05/08/19 04:25 RDW 15.6 % (12.0-15.0) H 05/08/19 04:25 Plt Count 225 10^3/uL (130-450) 05/08/19 04:25 MPV 9.1 fL (7.9-10.8) 05/08/19 04:25 Neut # (Auto) 5.0 10^3/uL (1.5-6.6) 05/08/19 04:25 Lymph # (Auto) 2.0 10^3/uL (1.5-3.5) 05/08/19 04:25 Cavalier # (Auto) 0.5 10^3/uL (0.0-1.0) 05/08/19 04:25 Eos # (Auto) 0.3 10^3/uL (0.0-0.7) 05/08/19 04:25 Baso # (Auto) 0.1 10^3/uL (0.0-0.1) 05/08/19 04:25 Absolute Nucleated RBC 0.00 x10^3/uL 05/08/19 04:25 Nucleated RBC % 0.0 /100WBC 05/08/19 04:25 Sodium 143 mmol/L (135-145) 05/08/19 04:25 Potassium 3.9 mmol/L (3.5-5.0) 05/08/19 14:04 Chloride 91 mmol/L (101-111) L 05/08/19 04:25 Carbon Dioxide 37 mmol/L (21-32) H 05/08/19 04:25 Anion Gap 15.0 (6-13) H 05/08/19 04:25 BUN 31 mg/dL (6-20) H 05/08/19 04:25 Creatinine 2.1 mg/dL (0.4-1.0) H 05/08/19 04:25 Estimated GFR (MDRD) 24 (>89) L 05/08/19 04:25 Glucose 106 mg/dL (70-100) H 05/08/19 04:25 Calcium 8.1 mg/dL (8.5-10.3) L 05/08/19 04:25 Phosphorus 5.6 mg/dL (2.5-4.6) H 05/07/19 03:30 Magnesium 2.2 mg/dL (1.7-2.8) 05/08/19 04:25 Iron 19 ug/dL (28-170) L 05/08/19 09:31 TIBC 413 ug/dL (250-450) 05/08/19 09:31 % Saturation 5 % (20-50) L 05/08/19 09:31 Transferrin 295 mg/dL (192-382) 05/08/19 09:31 Total Bilirubin 0.6 mg/dL (0.2-1.0) 05/05/19 16:27 AST 47 IU/L (10-42) H 05/05/19 16:27 ALT 50 IU/L (10-60) 05/05/19 16:27 Alkaline Phosphatase 114 IU/L (42-121) 05/05/19 16:27 Troponin I < 0.04 ng/mL (<0.49) 05/07/19 03:30 B-Natriuretic Peptide 2567 pg/mL (5-100) H 05/05/19 16:27 Total Protein 6.5 g/dL (6.7-8.2) L 05/05/19 16:27 Albumin 3.8 g/dL (3.2-5.5) 05/05/19 16:27 Globulin 2.7 g/dL (2.1-4.2) 05/05/19 16:27 Albumin/Globulin Ratio 1.4 (1.0-2.2) 05/05/19 16:27 Lipase 41 U/L (22-51) 05/05/19 16:27 Vitamin B12 1111 pg/mL (180-914) H 05/08/19 09:31 Folate 44.00 ng/mL (5.90 - >24.8) 05/08/19 09:31 Urine Color YELLOW 05/05/19 17:05 Urine Clarity CLEAR (CLEAR) 05/05/19 17:05 Urine pH 5.5 PH (5.0-7.5) 05/05/19 17:05 Ur Specific [place] <=1.005 (1.002-1.030) 05/05/19 17:05 Urine Protein NEGATIVE mg/dL (NEGATIVE) 05/05/19 17:05 Urine Glucose (UA) NEGATIVE mg/dL (NEGATIVE) 05/05/19 17:05 Urine Ketones NEGATIVE mg/dL (NEGATIVE) 05/05/19 17:05 Urine Occult Blood NEGATIVE (NEGATIVE) 05/05/19 17:05 Urine Nitrite NEGATIVE (NEGATIVE) 05/05/19 17:05 Urine Bilirubin NEGATIVE (NEGATIVE) 05/05/19 17:05 Urine Urobilinogen 0.2 (NORMAL) E.U./dL (NORMAL) 05/05/19 17:05 Ur Leukocyte Esterase NEGATIVE (NEGATIVE) 05/05/19 17:05 Ur Microscopic Review NOT INDICATED 05/05/19 17:05 Urine Culture Comments NOT INDICATED 05/05/19 17:05 Nasal Screen MRSA (PCR) NEGATIVE (NEGATIVE) 05/05/19 21:18
[2019-05-08] MEDS: RIVAROXABAN 15 MG TABLET PO SCH (17:40)
[2019-05-08] MEDS: QUEtiapine 25 MG TABLET PO SCH (21:16)
[2019-05-08] MEDS: TEMAZEPAM 15 MG CAPSULE PO PRN (21:17)
[2019-05-08] MEDS: SENNA 8.6 MG TABLET PO SCH (21:19)
[2019-05-08] MEDS: DOCUSATE SODIUM 250 MG CAPSULE PO SCH (21:19)
[2019-05-08] MEDS ORDERED: AMIODARONE 200 MG TABLET PO ONE (22:00)
[2019-05-09] MEDS: FLUTICASONE NASAL SPRAY NAS SCH ×3 (00:36→20:51)
[2019-05-09] MEDS: CYCLOSPORINE EACHEYE SCH ×3 (00:36→20:51)
[2019-05-09] MEDS: HYDROcod/ACETAM 5/325 MG TABLET PO PRN ×5 (04:40→20:53)
[2019-05-09] MEDS: SODIUM CHLORIDE FLUSH 0.9% 10 ML SYRINGE IVP SCH ×4 (04:45→20:55)
[2019-05-09 05:09] LABS: BASOPHILS # (AUTO) 0.1 10^3/uL (0.0-0.1); BASOPHILS % (AUTO) 0.7 %; EOSINOPHILS # (AUTO) 0.3 10^3/uL (0.0-0.7); EOSINOPHILS % (AUTO) 4.2 %; HGB - HEMOGLOBIN 9.3 g/dL (12.0-16.0); LYMPHOCYTES # (AUTO) 2.1 10^3/uL (1.5-3.5); LYMPHOCYTES % (AUTO) 27.3 %; MEAN CORPUSCULAR HEMOGLOBIN 26.3 pg (27.0-31.0); MEAN CORPUSCULAR HGB CONC 29.8 g/dL (32.0-36.0); MEAN CORPUSCULAR VOLUME 88.4 fL (81.0-99.0); MEAN PLATELET VOLUME 9.2 fL (7.9-10.8); MONOCYTES # (AUTO) 0.6 10^3/uL (0.0-1.0); MONOCYTES % (AUTO) 7.6 %; NEUTROPHILS # (AUTO) 4.6 10^3/uL (1.5-6.6); NEUTROPHILS % (AUTO) 60.1 %; PLT - PLATELET COUNT 227 10^3/uL (130-450); RED BLOOD COUNT 3.53 10^6/uL (4.20-5.40); RED CELL DISTRIBUTION WIDTH 15.5 % (12.0-15.0); WHITE BLOOD COUNT 7.6 x10^3/uL (4.8-10.8)
[2019-05-09 05:15] LABS: CALCIUM 8.4 mg/dL (8.5-10.3); CREATININE 2.1 mg/dL (0.4-1.0)
[2019-05-09] MEDS: LEVOTHYROXINE 100 MCG TABLET PO SCH (06:25)
[2019-05-09] MEDS: hydrALAZINE 25 MG TABLET PO SCH ×3 (06:25→20:53)
[2019-05-09] MEDS: CALCIUM CARBONATE CHEW 500 MG TABLET PO SCH ×3 (07:59→20:52)
[2019-05-09] MEDS: POTASSIUM CHLORIDE 20 MEQ TABLET PO SCH ×2 (08:00→16:54)
[2019-05-09] MEDS: GABAPENTIN 100 MG CAPSULE PO SCH ×2 (08:02→20:52)
[2019-05-09] MEDS: HYDROCORTISONE 10 MG TABLET PO SCH ×2 (08:04→16:53)
[2019-05-09] MEDS: AMIODARONE 200 MG TABLET PO SCH ×2 (08:04→20:52)
[2019-05-09] MEDS: METOPROLOL SUCCINATE 50 MG TABLET PO SCH (08:05)
[2019-05-09] MEDS: ESCITALOPRAM 10 MG TABLET PO SCH (08:05)
[2019-05-09] MEDS: ISOSORBIDE MONONITRATE ER 30 MG TABLET PO SCH ×2 (08:06→16:55)
[2019-05-09] MEDS: CHOLECALCIFEROL 400 UNIT TABLET PO SCH (08:06)
[2019-05-09] MEDS: METHADONE 5 MG TABLET PO SCH ×2 (08:07→16:54)
[2019-05-09] MEDS: FAMOTIDINE 20 MG TABLET PO SCH ×2 (08:09→20:55)
[2019-05-09] MEDS: CALCIUM CARB (OYSTER SHELL) 500 MG TABLET PO SCH (08:09)
[2019-05-09] MEDS: DOCUSATE SODIUM 250 MG CAPSULE PO SCH (08:09)
[2019-05-09] MEDS: FERROUS GLUCONATE 324 MG TABLET PO SCH (08:10)
[2019-05-09] MEDS: MULTIVITAMIN TABLET PO SCH (08:10)
[2019-05-09] MEDS: POLYETHYLENE GLYCOL 3350 17 GM PACKET PO SCH (08:13)
[2019-05-09] MEDS: BUMETANIDE 1 MG/4 ML VIAL IVP SCH ×2 (08:46→15:20)
[2019-05-09] MEDS: SENNA 8.6 MG TABLET PO SCH (08:47)
[2019-05-09] MEDS ORDERED: POTASSIUM CHLORIDE 20 MEQ TABLET PO SCH (13:00)
--- NOTE | 2019-05-09 13:15 | PROVIDER PROGRESS NOTE ---
Assessment/Plan - Problem List (1) V-tach Assessment/Plan: The patient received the three-step Amiodarone IV loading over the past 2 days. Now she is on an oral loading dose of Amiodarone 400 mg p.o. twice daily for approximately 2 more days. She will then be on Amiodarone 200 mg daily. All of these dose changes were already pre-prescribed. I tried having her transferred for inpatient management of the V. tach, to the Cardiac Service Desk Analyst (Dr Oliver) at her [facility]'s (Dr Valiente) group, but the Service Desk Analyst was not available till Saturday 05/12 (he was off for the 4 day long weekend due to May). She can be transferred out of the ICU in the next 12 to 24 hours (presumptive orders for this were written). If she continues to have stable rhythms with the above management, then she can be discharged in several days on oral Amio, with the plan for outpatient management of her V. tach, by referring her EVERARDO to an Service Desk Analyst for possible EP study and likely upgrade of her pacemaker to a defibrillator (with biventricular pacing as well). (2) Acute on chronic systolic ACC/AHA stage C congestive heart failure Assessment/Plan: Most likely etiology is dietary indiscretion, since in the past she has admitted to drinking more than 4 quarts of liquid per day because of "thirst". Continue with plan for diuresis and po fluid restriction, follow I's and O's and daily weights. The weight monitoring is not accurate (is bouncing around), but she is at (-) 4L fluid balance as of today. Today, will decrease the iv diuretic and transition to bid Bumex, then at [facility] resume once a day Bumax. Continue with her beta-marimar for CHF management. Since she will be on Amiodarone, her Metoprolol Succ dose may possibly need to decrease slightly. She cannot be on an PHYLLIS inhibitor, ARB or Spironolactone because of stage IV CKD. Continue with Hydralazine and the new long-acting Nitrate started this admission. I will decrease the Hydralazine from 25 mg tid to 10 mg tid, in order to use the new Imdur and Amuio. I will also start intermittent Metolazone, once or twice a week, for more complete diuresis. A stricter home fluid restriction and occasional Metolazone was already discussed with her and the at bedside, several days ago. He manages all her meds. She is a candidate for outpatient CHF teaching to better adhere to a diet and understand her condition more thoroughly. A new referral for Cardiac Wellness/CHF classes was already ordered into [facility], to go to the [facility] here. She is a candidate for upgrade of her pacemaker to a biventricular defibrillator (since she has the prolonged QRS by virtue of being mostly v. paced). This was discussed with them both, she and the are interested. (3) Chest pain with normal coronary angiography Assessment/Plan: By virtue that chest pain with normal coronary arteries has been documented, she has either coronary vasospasm causing angina or coronary hypoperfusion causing angina. V. Tach could be leading to under perfusion of her coronaries. And, the V. tach and chest pain have been correlated as an outpatient. Therefore the V. tach is being treated to suppress it, using Amiodarone. Alternatively, she could have coronary vasospasm which then causes V. tach. Since the angina responds to sl NTG, it could be suppressed with a long-acting nitrate. Imdur was started this admission and should be continued at [facility]. (4) Anemia Qualifiers: Anemia type: iron deficiency Assessment/Plan: Iron supplementation was started. B12 and Folate levels are adequate. Guaiac of her stool is still pending. She is on Xarelto (for parox Afib that led to a stroke), so GI blood loss could be occurring. (5) CKD (chronic kidney disease) stage 4, GFR 15-29 ml/min Assessment/Plan: She appears to have the typical cardio-renal syndrome: Improving her congestion has improved her creatinine. She has only one kidney from a remote nephrectomy, for renal cell carcinoma, and her baseline creatinine was already 1.7-2.0 Follow creatinine, potassium daily while she is here (6) Fatigue Assessment/Plan: Multifactorial: from dyspnea, weight gain, anemia, hypothyroidism, fibromyalgia, and hypothyroidism. All the above are being treated addressed and treated. (7) History of CVA with residual deficit Assessment/Plan: Patient gets left-sided arm and leg pain on the side of her stroke, which occurs when she gets angina. (8) Hypokalemia Assessment/Plan: Despite having CKD, she is hypokalemic and was on daily Potassium at home. Careful potassium replacement is being done while here. She was on potassium daily at home prehospitalization and may need a slightly higher dose since she would go home on new metolazone plus Bumex at discharge (9) Fibromyalgia Assessment/Plan: She is on her chronic pain medications while here, her symptoms appear to be well controlled (10) Hypothyroidism Assessment/Plan: She is on her home thyroid replacement doses while here (11) Adrenal insufficiency Assessment/Plan: She is on her home adrenal corticosteroid replacement doses while here (12) Pacemaker Assessment/Plan: She has a normally functioning VVI (single lead) pacemaker, as seen on telemetry and CXR. The minimal rate setting appears to be at 65 bpm. (13) Paroxysmal A-fib Assessment/Plan: She is on anticoagulation for stroke prophylaxis. There is a history of A. fib causing her past stroke. She has been in normal sinus rhythm during this entire hospital stay - Current Meds Current Meds: Current Medications Generic Name Dose Route Start Last Admin Trade Name Freq PRN Reason Stop Dose Admin Hydrocodone Bitart/Acetaminophen 1 tab 05/05/19 21:16 05/09/19 13:08 [place] 5/325 PO 1 tab Q4HR PRN Administration PAIN Albuterol 2.5 mg 05/06/19 13:13 05/07/19 17:53 INH 2.5 mg RTQ4H PRN Administration Wheezing Amiodarone HCl 400 mg 05/09/19 09:00 05/09/19 08:04 Pacerone PO 05/11/19 23:00 400 mg BID RAÚL Administration Bumetanide 2 mg 05/08/19 15:00 05/09/19 08:46 Bumex Inj IVP 05/09/19 23:00 2 mg 0800,1500 RAÚL Administration Calcium Carbonate/Glycine 1,000 mg 05/07/19 09:00 05/09/19 08:09 Oysco-500 PO 1,000 mg DAILY RAÚL Administration Calcium Carbonate/Glycine 500 mg 05/09/19 08:00 05/09/19 07:59 Tums PO 500 mg TID RAÚL Administration Cholecalciferol 800 unit 05/07/19 09:00 05/09/19 08:06 Vitamin D3 PO 800 unit DAILY RAÚL Administration Docusate Sodium 250 - 500 mg 05/08/19 18:06 05/09/19 08:09 Colace 250mg Capsule PO 250 mg DAILY RAÚL Administration Escitalopram Oxalate 10 mg 05/07/19 09:00 05/09/19 08:05 Lexapro PO 10 mg DAILY RAÚL Administration Famotidine 20 mg 05/05/19 21:00 05/09/19 08:09 Pepcid PO 20 mg BID RAÚL Administration Ferrous Gluconate 324 mg 05/09/19 08:00 05/09/19 08:10 Fergon PO 324 mg DAILYWM RAÚL Administration Fluticasone Propionate 2 sprays 05/06/19 13:00 05/09/19 09:14 Flonase HAROLDO 1 spr BID RAÚL Administration Gabapentin 100 mg 05/06/19 12:38 05/09/19 08:02 Neurontin PO 100 mg QDBREAKFAST RAÚL Administration Gabapentin 200 mg 05/06/19 21:23 05/08/19 21:16 Neurontin PO 200 mg QPM RAÚL Administration Hydrocortisone 10 mg 05/07/19 08:00 05/09/19 08:04 Cortef PO 10 mg QDBREAKFAST RAÚL Administration Hydrocortisone 5 mg 05/06/19 17:00 05/08/19 17:27 Cortef PO 5 mg QDDINNER RAÚL Administration Hydroxyzine Pamoate 25 mg 05/06/19 12:36 05/08/19 08:50 Vistaril PO 25 mg TID PRN Administration ITCHING Isosorbide Mononitrate 30 mg 05/08/19 17:00 05/09/19 08:06 Imdur PO 30 mg BIDWM RAÚL Administration Levothyroxine Sodium 100 mcg 05/07/19 07:00 05/09/19 06:25 Synthroid PO 100 mcg QDAC RAÚL Administration Methadone HCl 5 mg 05/06/19 17:00 05/09/19 08:07 PO 5 mg 0800,1700 RAÚL Administration Metoprolol Succinate 100 mg 05/06/19 12:45 05/09/19 08:05 Toprol Xl PO 100 mg DAILY RAÚL Administration Multivitamins 1 tab 05/06/19 12:45 05/09/19 08:10 Theragran PO 1 tab DAILY RAÚL Administration Nitroglycerin 0.4 mg 05/07/19 11:07 05/08/19 10:35 Nitrostat SL 0.4 mg Q5MIN PRN Administration chest pain Cyclosporine [ 1 each 05/06/19 12:45 05/09/19 09:14 Restasis] 1 Drops EACHEYE 1 each BID RAÚL Administration Polyethylene Glycol 17 gm 05/06/19 09:00 05/09/19 08:13 Miralax PO 17 gm DAILY RAÚL Administration Potassium Chloride 20 meq 05/08/19 10:00 05/09/19 08:00 K-Dur PO 20 meq BIDWM RAÚL Administration Quetiapine Fumarate 25 mg 05/06/19 21:00 05/08/19 21:16 Seroquel PO 25 mg QPM RAÚL Administration Rivaroxaban 15 mg 05/05/19 17:00 05/08/19 17:40 Xarelto PO 15 mg 1700 RAÚL Administration Senna 8.6 - 17.2 mg 05/08/19 18:06 05/09/19 08:47 Senokot PO 8.6 mg DAILY RAÚL Administration Sodium Chloride 10 ml 05/05/19 17:47 05/08/19 09:11 Normal Saline Flush 0.9% IVP 10 ml PRN PRN Administration NEEDED PER PROVIDER ORDERS Sodium Chloride 10 ml 05/06/19 01:00 05/09/19 08:48 Normal Saline Flush 0.9% IVP 10 ml 0100,0900,1700 RAÚL Administration Temazepam 15 mg 05/05/19 17:47 05/08/19 21:17 Restoril PO 15 mg QPM PRN Administration Insomnia - Lab Result Fish Bone Diagrams: 05/09/19 04:25 05/09/19 04:25 - Additional Planning My Orders: My Active Orders 05/08/19 15:00 Bumetanide Inj [Bumex Inj] 2 mg IVP 0800,1500 05/08/19 17:00 Isosorbide Mononitrate ER [Imdur] 30 mg PO BIDWM 05/08/19 18:06 Docusate Sodium 250Mg Capsule [Colace 250Mg Capsule] 250 - 500 mg PO DAILY Senna [Senokot] 8.6 - 17.2 mg PO DAILY 05/09/19 08:00 Ferrous Gluconate [Fergon] 324 mg PO DAILYWM 05/09/19 09:00 Amiodarone [Pacerone] 400 mg PO BID 05/09/19 13:00 Potassium Chloride [K-Dur] 20 meq PO ONCE ONE 05/09/19 14:00 hydrALAZINE [Apresoline] 10 mg PO TID 05/10/19 08:00 Bumetanide [Bumex] 2 mg PO 0800 Bumetanide [Bumex] 2 mg PO BIDDIURETIC metOLazone [Zaroxolyn] 2.5 mg PO SUMO 05/12/19 09:00 Amiodarone [Pacerone] 200 mg PO DAILY Subjective - Subjective Patient Reports: Feeling Better, Resting Comfortably Objective Vital Signs: Vital Signs - 24 hr 05/08/19 05/08/19 05/08/19 14:43 15:00 16:00 Temperature 36.6 C Heart Rate Heart Rate [ 71 66 74 Brachial] Respiratory 20 21 Rate Blood Pressure 117/76 120/78 121/79 [Right Brachial artery] O2 Saturation 98 99 05/08/19 05/08/19 05/08/19 17:00 18:00 19:00 Temperature Heart Rate Heart Rate [ 75 67 69 Brachial] Respiratory 14 18 Rate Blood Pressure 122/76 131/83 H 117/82 H [Right Brachial artery] O2 Saturation 99 98 05/08/19 05/08/19 05/08/19 20:00 21:00 21:40 Temperature 36.6 C Heart Rate 69 Heart Rate [ 88 70 Brachial] Respiratory 12 16 12 Rate Blood Pressure 117/78 88/68 L [Right Brachial artery] O2 Saturation 97 05/08/19 05/09/19 05/09/19 23:00 00:00 01:00 Temperature Heart Rate Heart Rate [ 69 65 63 Brachial] Respiratory 9 L 10 L 13 Rate Blood Pressure 94/65 101/69 118/77 [Right Brachial artery] O2 Saturation 99 95 97 05/09/19 05/09/19 05/09/19 02:00 03:00 04:00 Temperature Heart Rate Heart Rate [ 64 71 69 Brachial] Respiratory 8 L 10 L 8 L Rate Blood Pressure 104/71 109/74 117/73 [Right Brachial artery] O2 Saturation 66 L 96 05/09/19 05/09/19 05/09/19 05:00 06:00 07:00 Temperature 36.8 C Heart Rate Heart Rate [ 66 78 66 Brachial] Respiratory 7 L 8 L 20 Rate Blood Pressure 128/86 H 118/80 115/81 H [Right Brachial artery] O2 Saturation 96 98 05/09/19 05/09/19 05/09/19 08:00 09:00 10:00 Temperature 97.8 C H Heart Rate Heart Rate [ 74 70 76 Brachial] Respiratory 21 13 13 Rate Blood Pressure 108/77 125/73 118/73 [Right Brachial artery] O2 Saturation 98 100 98 05/09/19 05/09/19 05/09/19 11:00 12:00 13:00 Temperature Heart Rate Heart Rate [ 82 65 72 Brachial] Respiratory 19 13 10 L Rate Blood Pressure 117/83 H 116/77 106/78 [Right Brachial artery] O2 Saturation 96 96 96 Oxygen O2 Source with humidity I&O (Last 24 Hrs): Intake and Output Totals x24h 05/07/19 05/08/19 05/09/19 23:59 23:59 23:59 Intake Total 1126.526 1650.224 630 Output Total 2100 2900 350 Balance -695.554 -557.776 280 General: Alert, Oriented x3 HEENT: Mucous membr. moist/pink Neck: Supple, No JVD Neuro: Non Focal Cardiovascular: Regular rate Respiratory: No respiratory distress Abdomen: Soft Extremities: Other (Trace prebial edema) - Results Results: Laboratory Results WBC 7.6 x10^3/uL (4.8-10.8) 05/09/19 04:25 RBC 3.53 10^6/uL (4.20-5.40) L 05/09/19 04:25 Hgb 9.3 g/dL (12.0-16.0) L 05/09/19 04:25 Hct 31.2 % (37.0-47.0) L 05/09/19 04:25 MCV 88.4 fL (81.0-99.0) 05/09/19 04:25 MCH 26.3 pg (27.0-31.0) L 05/09/19 04:25 MCHC 29.8 g/dL (32.0-36.0) L 05/09/19 04:25 RDW 15.5 % (12.0-15.0) H 05/09/19 04:25 Plt Count 227 10^3/uL (130-450) 05/09/19 04:25 MPV 9.2 fL (7.9-10.8) 05/09/19 04:25 Neut # (Auto) 4.6 10^3/uL (1.5-6.6) 05/09/19 04:25 Lymph # (Auto) 2.1 10^3/uL (1.5-3.5) 05/09/19 04:25 [place] # (Auto) 0.6 10^3/uL (0.0-1.0) 05/09/19 04:25 Eos # (Auto) 0.3 10^3/uL (0.0-0.7) 05/09/19 04:25 Baso # (Auto) 0.1 10^3/uL (0.0-0.1) 05/09/19 04:25 Absolute Nucleated RBC 0.00 x10^3/uL 05/09/19 04:25 Nucleated RBC % 0.0 /100WBC 05/09/19 04:25 Sodium 143 mmol/L (135-145) 05/09/19 04:25 Potassium 3.4 mmol/L (3.5-5.0) L 05/09/19 04:25 Chloride 92 mmol/L (101-111) L 05/09/19 04:25 Carbon Dioxide 36 mmol/L (21-32) H 05/09/19 04:25 Anion Gap 15.0 (6-13) H 05/09/19 04:25 BUN 32 mg/dL (6-20) H 05/09/19 04:25 Creatinine 2.1 mg/dL (0.4-1.0) H 05/09/19 04:25 Estimated GFR (MDRD) 24 (>89) L 05/09/19 04:25 Glucose 102 mg/dL (70-100) H 05/09/19 04:25 Calcium 8.4 mg/dL (8.5-10.3) L 05/09/19 04:25 Phosphorus 5.6 mg/dL (2.5-4.6) H 05/07/19 03:30 Magnesium 2.2 mg/dL (1.7-2.8) 05/08/19 04:25 Iron 19 ug/dL (28-170) L 05/08/19 09:31 TIBC 413 ug/dL (250-450) 05/08/19 09:31 % Saturation 5 % (20-50) L 05/08/19 09:31 Transferrin 295 mg/dL (192-382) 05/08/19 09:31 Total Bilirubin 0.6 mg/dL (0.2-1.0) 05/05/19 16:27 AST 47 IU/L (10-42) H 05/05/19 16:27 ALT 50 IU/L (10-60) 05/05/19 16:27 Alkaline Phosphatase 114 IU/L (42-121) 05/05/19 16:27 Troponin I < 0.04 ng/mL (<0.49) 05/07/19 03:30 B-Natriuretic Peptide 2567 pg/mL (5-100) H 05/05/19 16:27 Total Protein 6.5 g/dL (6.7-8.2) L 05/05/19 16:27 Albumin 3.8 g/dL (3.2-5.5) 05/05/19 16:27 Globulin 2.7 g/dL (2.1-4.2) 05/05/19 16:27 Albumin/Globulin Ratio 1.4 (1.0-2.2) 05/05/19 16:27 Lipase 41 U/L (22-51) 05/05/19 16:27 Vitamin B12 1111 pg/mL (180-914) H 05/08/19 09:31 Folate 44.00 ng/mL (5.90 - >24.8) 05/08/19 09:31 Urine Color YELLOW 05/05/19 17:05 Urine Clarity CLEAR (CLEAR) 05/05/19 17:05 Urine pH 5.5 PH (5.0-7.5) 05/05/19 17:05 Ur Specific [place] <=1.005 (1.002-1.030) 05/05/19 17:05 Urine Protein NEGATIVE mg/dL (NEGATIVE) 05/05/19 17:05 Urine Glucose (UA) NEGATIVE mg/dL (NEGATIVE) 05/05/19 17:05 Urine Ketones NEGATIVE mg/dL (NEGATIVE) 05/05/19 17:05 Urine Occult Blood NEGATIVE (NEGATIVE) 05/05/19 17:05 Urine Nitrite NEGATIVE (NEGATIVE) 05/05/19 17:05 Urine Bilirubin NEGATIVE (NEGATIVE) 05/05/19 17:05 Urine Urobilinogen 0.2 (NORMAL) E.U./dL (NORMAL) 05/05/19 17:05 Ur Leukocyte Esterase NEGATIVE (NEGATIVE) 05/05/19 17:05 Ur Microscopic Review NOT INDICATED 05/05/19 17:05 Urine Culture Comments NOT INDICATED 05/05/19 17:05 Nasal Screen MRSA (PCR) NEGATIVE (NEGATIVE) 05/05/19 21:18
[2019-05-09] MEDS: RIVAROXABAN 15 MG TABLET PO SCH (16:55)
[2019-05-09] MEDS: QUEtiapine 25 MG TABLET PO SCH (20:53)
[2019-05-09] MEDS: TEMAZEPAM 15 MG CAPSULE PO PRN (20:54)
[2019-05-10] MEDS: HYDROcod/ACETAM 5/325 MG TABLET PO PRN ×4 (04:40→17:31)
[2019-05-10 04:53] LABS: BASOPHILS # (AUTO) 0.1 10^3/uL (0.0-0.1); BASOPHILS % (AUTO) 0.8 %; EOSINOPHILS # (AUTO) 0.3 10^3/uL (0.0-0.7); EOSINOPHILS % (AUTO) 3.8 %; HGB - HEMOGLOBIN 9.3 g/dL (12.0-16.0); LYMPHOCYTES # (AUTO) 2.3 10^3/uL (1.5-3.5); LYMPHOCYTES % (AUTO) 31.6 %; MEAN CORPUSCULAR HEMOGLOBIN 26.2 pg (27.0-31.0); MEAN CORPUSCULAR HGB CONC 29.4 g/dL (32.0-36.0); MONOCYTES # (AUTO) 0.5 10^3/uL (0.0-1.0); MONOCYTES % (AUTO) 7.4 %; NEUTROPHILS # (AUTO) 4.1 10^3/uL (1.5-6.6); NEUTROPHILS % (AUTO) 56.1 %; PLT - PLATELET COUNT 214 10^3/uL (130-450); RED BLOOD COUNT 3.55 10^6/uL (4.20-5.40); WHITE BLOOD COUNT 7.3 x10^3/uL (4.8-10.8)
[2019-05-10 05:10] LABS: ALBUMIN 3.5 g/dL (3.2-5.5); ALBUMIN/GLOBULIN RATIO 1.3 (1.0-2.2); BILIRUBIN,TOTAL 0.4 mg/dL (0.2-1.0); CALCIUM 8.8 mg/dL (8.5-10.3); TOTAL PROTEIN 6.3 g/dL (6.7-8.2)
[2019-05-10] MEDS: hydrALAZINE 25 MG TABLET PO SCH ×3 (06:42→21:37)
[2019-05-10] MEDS: LEVOTHYROXINE 100 MCG TABLET PO SCH (06:42)
[2019-05-10] MEDS: CALCIUM CARBONATE CHEW 500 MG TABLET PO SCH ×3 (06:43→21:30)
[2019-05-10] MEDS: BUMETANIDE 1 MG TABLET PO SCH ×3 (08:06→13:44)
[2019-05-10] MEDS: GABAPENTIN 100 MG CAPSULE PO SCH ×2 (08:06→21:29)
[2019-05-10] MEDS: FERROUS GLUCONATE 324 MG TABLET PO SCH (08:06)
[2019-05-10] MEDS: METHADONE 5 MG TABLET PO SCH ×2 (08:07→17:10)
[2019-05-10] MEDS: ISOSORBIDE MONONITRATE ER 30 MG TABLET PO SCH ×2 (08:07→17:10)
[2019-05-10] MEDS: HYDROCORTISONE 10 MG TABLET PO SCH ×2 (08:07→17:09)
[2019-05-10] MEDS: AMIODARONE 200 MG TABLET PO SCH ×2 (08:08→21:25)
[2019-05-10] MEDS: POTASSIUM CHLORIDE 20 MEQ TABLET PO SCH ×2 (08:08→17:10)
[2019-05-10] MEDS: metOLazone 2.5 MG TABLET PO SCH (08:08)
[2019-05-10] MEDS: CHOLECALCIFEROL 400 UNIT TABLET PO SCH (08:09)
[2019-05-10] MEDS: DOCUSATE SODIUM 250 MG CAPSULE PO SCH (08:09)
[2019-05-10] MEDS: CALCIUM CARB (OYSTER SHELL) 500 MG TABLET PO SCH (08:09)
[2019-05-10] MEDS: SENNA 8.6 MG TABLET PO SCH (08:10)
[2019-05-10] MEDS: ESCITALOPRAM 10 MG TABLET PO SCH (08:10)
[2019-05-10] MEDS: METOPROLOL SUCCINATE 50 MG TABLET PO SCH (08:10)
[2019-05-10] MEDS: POLYETHYLENE GLYCOL 3350 17 GM PACKET PO SCH (08:10)
[2019-05-10] MEDS: FAMOTIDINE 20 MG TABLET PO SCH ×2 (08:10→21:29)
[2019-05-10] MEDS: MULTIVITAMIN TABLET PO SCH (08:10)
[2019-05-10] MEDS: FLUTICASONE NASAL SPRAY NAS SCH ×2 (09:36→21:29)
[2019-05-10] MEDS: CYCLOSPORINE EACHEYE SCH ×2 (09:38→21:29)
[2019-05-10] MEDS: SODIUM CHLORIDE FLUSH 0.9% 10 ML SYRINGE IVP SCH ×3 (09:43→23:47)
[2019-05-10] MEDS ORDERED: LEVOTHYROXINE 25 MCG TABLET PO SCH (11:00)
--- NOTE | 2019-05-10 11:47 | PROVIDER PROGRESS NOTE ---
Subjective - Prog Note Date Prog Note Date: 05/10/19 Prog Note Time: 11:40 - Subjective Pt reports feeling: Improved Subjective: Angie has no complaints and states that she slept well. She denies increased shortness of breath or a new cough. She does not think that her is skipping her home Synthroid dose, when told of her worsening TSH level. She denies chest pain, nausea, vomiting, diarrhea, a new rash, new dizziness or bleeding. She does admit to bilateral low abdominal pain that bothers her more when she has not moved her bowels for several days. She believes that her constipation has not influenced her bladder function. Her plans to visit around 2PM, and she will ask for me to clarify the Synthroid dosing. Current Medications - Current Medications Current Medications: Active Medications: Acetaminophen (Tylenol) 650 mg PO Q4HR PRN Hydrocodone Bitart/Acetaminophen ([place] 5/325) 1 tab PO Q4HR PRN Albuterol 2.5 mg INH RTQ4H PRN Amiodarone HCl (Pacerone) 400 mg PO BID RAÚL Amiodarone HCl (Pacerone) 200 mg PO DAILY RAÚL Bumetanide (Bumex) 2 mg PO BIDDIURETIC RAÚL Bumetanide (Bumex) 2 mg PO 0800 RAÚL Calcium Carbonate/Glycine ([place]-500) 1,000 mg PO DAILY RAÚL Calcium Carbonate/Glycine (Tums) 500 mg PO TID RAÚL Carboxymethylcellulose (Refresh 1% Ophth Drops) 1 drops EACHEYE TID PRN Cholecalciferol (Vitamin D3) 800 unit PO DAILY RAÚL Docusate Sodium (Colace 250mg Capsule) 250 - 500 mg PO DAILY RAÚL Escitalopram Oxalate (Lexapro) 10 mg PO DAILY RAÚL Famotidine (Pepcid) 20 mg PO BID RAÚL Ferrous Gluconate (Fergon) 324 mg PO DAILYWM RAÚL Fluticasone Propionate (Flonase) 2 sprays HAROLDO BID RAÚL Gabapentin (Neurontin) 100 mg PO QDBREAKFAST RAÚL Gabapentin (Neurontin) 200 mg PO QPM RAÚL Hydralazine HCl (Apresoline) 10 mg PO TID RAÚL Hydrocortisone (Cortef) 10 mg PO QDBREAKFAST RAÚL Hydrocortisone (Cortef) 5 mg PO QDDINNER RAÚL Hydroxyzine Pamoate (Vistaril) 25 mg PO TID PRN Isosorbide Mononitrate (Imdur) 30 mg PO BIDWM [facility] Lactulose (Enulose) 10 gm PO DAILY RAÚL Levothyroxine Sodium (Synthroid) 25 mcg PO ONCE RAÚL Levothyroxine Sodium (Synthroid) 125 mcg PO QDAC RAÚL Methadone HCl () 5 mg PO 0800,1700 [facility] Metolazone (Zaroxolyn) 2.5 mg PO SUMO [facility] Metoprolol Succinate (Toprol Xl) 100 mg PO DAILY [facility] Multivitamins (Theragran) 1 tab PO DAILY [facility] Nitroglycerin (Nitrostat) 0.4 mg SL Q5MIN PRN Ondansetron HCl (Zofran Odt) 4 mg TL Q6HR PRN Cyclosporine [ (Restasis] 1 Drops) 1 each EACHEYE BID RAÚL Polyethylene Glycol (Miralax) 17 gm PO DAILY [facility] Potassium Chloride (K-Dur) 20 meq PO BIDWM [facility] Quetiapine Fumarate (Seroquel) 25 mg PO QPM RAÚL Rivaroxaban (Xarelto) 15 mg PO 1700 [facility] Senna (Senokot) 8.6 - 17.2 mg PO DAILY [facility] Temazepam (Restoril) 15 mg PO QPM PRN HOME meds: Fluticasone [Flonase] 2 spray HAROLDO BID 01/24/16 QUEtiapine [SEROquel] 25 mg PO QPM 01/24/16 Torsemide 40 mg PO 0800 MDD baseline 40 mg 01/24/16 Methadone 5 mg PO 0800,1700 05/17/17 Rivaroxaban [Xarelto] 15 mg PO 1700 05/17/17 Calcium Carbonate/Vitamin D3 [Calcium 600-Vit D3 400 Tablet] 2 tab PO DAILY MDD 6 05/19/17 Carboxymethylcellulose Sodium [Refresh Tears] 1 drops EACHEYE TID PRN 05/19/17 Cyclosporine [Restasis] 1 drops EACHEYE BID 05/19/17 Hydrocortisone [Cortef] 10 mg PO QDBREAKFAST 05/19/17 Multivitamin [Multiple Vitamins] 1 tab PO DAILY 05/19/17 Ondansetron Odt [Zofran Odt] 4 mg PO Q8HR PRN 05/19/17 Polyethylene Glycol 3350 [Miralax] 17 gm PO DAILY 05/19/17 Salmeterol Xinafoate [Serevent Diskus] 1 puffs INH BID 05/19/17 hydrOXYzine pamoate [Hydroxyzine Pamoate] 25 mg PO TID PRN 05/19/17 raNITIdine [Zantac] 150 mg PO BID 08/16/17 Hydrocortisone [Cortef] 5 mg PO QDDINNER 12/11/17 Nitroglycerin [Nitrostat] 0.4 mg SL Q5MIN PRN 03/12/18 Sennosides [Chocolated Laxative] 15 - 30 mg PO DAILY PRN 08/21/18 Albuterol Sulfate [Proair Hfa Inhaler] 2 puffs INH Q4H PRN 03/13/19 Metoprolol Succinate [Toprol Xl] 100 mg PO DAILY 03/13/19 Gabapentin 100 mg PO QDBREAKFAST 03/14/19 Hydrocodone/Acetaminophen [Hydrocodone-Acetamin 5-325 mg] 1.5 tab PO TID PRN MDD 8 03/14/19 Escitalopram [Lexapro] 10 mg PO DAILY 03/20/19 Potassium Chloride [K-Dur] 20 meq PO DAILY 03/20/19 hydrALAZINE [Apresoline] 25 mg PO TID 03/20/19 Objective - Vital Signs/Intake & Output Reviewed Vital Signs: Yes Vital Signs: Vital Signs x48h Pulse Resp BP Pulse Ox 05/10/19 06:00 75 16 128/83 H 96 Intake & Output: Intake & Output 05/07/19 05/08/19 05/09/19 05/10/19 23:59 23:59 23:59 23:59 Intake Total 1533.203 6694.224 1070 250 Output Total 2100 2900 1500 1250 Balance -695.554 -557.776 -430 -1000 - Objective General Appearance: positive: No acute distress, Alert, Lethargic Eyes Bilateral: positive: PERRL ENT: positive: Pharynx nml, No signs of dehydration Neck: positive: Thyroid nml, No JVD, Trachea midline Respiratory: positive: Chest non-tender, Other (diminished, bilaterally) Cardiovascular: positive: No gallop, Irregularly irregular, Systolic murmur, Decreased pulse(s) Peripheral Pulses: 1+ Radial (R), 1+ Radial (L) Abdomen: positive: Tenderness, Hepatomegaly, Abnml bowel sounds, Other (rounded, obese, soft) Back: positive: Nml inspection Skin: positive: No rash, Warm, Dry, Pallor Extremities: positive: Non-tender, Pedal edema, Joint swelling, Other (chronic BLE edema- dependent) Neurologic/Psychiatric: positive: Oriented x3, CN's nml (2-12), Motor nml, Sensory loss, Depressed mood/affect, Other (baseline short term memory loss) Reflexes: Bicep (R): 3+, Bicep (L): 3+ - Lab Results Fish Bones: 05/10/19 04:25 05/10/19 04:25 Other Labs: Lab Results x24hrs 05/10/19 05/10/19 05/10/19 Range/Units 05:00 05:00 04:25 WBC (4.8-10.8) x10^3/uL RBC (4.20-5.40) 10^6/uL Hgb (12.0-16.0) g/dL Hct (37.0-47.0) % MCV (81.0-99.0) fL MCH (27.0-31.0) pg MCHC (32.0-36.0) g/dL RDW (12.0-15.0) % Plt Count (130-450) 10^3/uL MPV (7.9-10.8) fL Neut # (Auto) (1.5-6.6) 10^3/uL Lymph # (Auto) (1.5-3.5) 10^3/uL [place] # (Auto) (0.0-1.0) 10^3/uL Eos # (Auto) (0.0-0.7) 10^3/uL Baso # (Auto) (0.0-0.1) 10^3/uL Absolute Nucleated RBC x10^3/uL Nucleated RBC % /100WBC Sodium (135-145) mmol/L Potassium (3.5-5.0) mmol/L Chloride (101-111) mmol/L Carbon Dioxide (21-32) mmol/L Anion Gap (6-13) BUN (6-20) mg/dL Creatinine (0.4-1.0) mg/dL Estimated GFR (MDRD) (>89) Glucose (70-100) mg/dL Calcium (8.5-10.3) mg/dL Total Bilirubin (0.2-1.0) mg/dL AST (10-42) IU/L ALT (10-60) IU/L Alkaline Phosphatase (42-121) IU/L B-Natriuretic Peptide (5-100) pg/mL Total Protein (6.7-8.2) g/dL Albumin (3.2-5.5) g/dL Globulin (2.1-4.2) g/dL Albumin/Globulin Ratio (1.0-2.2) TSH 28.04 H (0.34-5.60) uIU/mL Free T4 0.77 (0.58-1.64) ng/dL Free T3 pg/mL 2.40 L (2.5-3.9) pg/mL 05/10/19 05/10/19 05/10/19 Range/Units 04:25 04:25 04:25 WBC 7.3 (4.8-10.8) x10^3/uL RBC 3.55 L (4.20-5.40) 10^6/uL Hgb 9.3 L (12.0-16.0) g/dL Hct 31.6 L (37.0-47.0) % MCV 89.0 (81.0-99.0) fL MCH 26.2 L (27.0-31.0) pg MCHC 29.4 L (32.0-36.0) g/dL RDW 15.0 (12.0-15.0) % Plt Count 214 (130-450) 10^3/uL MPV 9.0 (7.9-10.8) fL Neut # (Auto) 4.1 (1.5-6.6) 10^3/uL Lymph # (Auto) 2.3 (1.5-3.5) 10^3/uL [place] # (Auto) 0.5 (0.0-1.0) 10^3/uL Eos # (Auto) 0.3 (0.0-0.7) 10^3/uL Baso # (Auto) 0.1 (0.0-0.1) 10^3/uL Absolute Nucleated RBC 0.00 x10^3/uL Nucleated RBC % 0.0 /100WBC Sodium 143 (135-145) mmol/L Potassium 3.5 (3.5-5.0) mmol/L Chloride 91 L (101-111) mmol/L Carbon Dioxide 39 H* (21-32) mmol/L Anion Gap 13.0 (6-13) BUN 33 H (6-20) mg/dL Creatinine 2.0 H (0.4-1.0) mg/dL Estimated GFR (MDRD) 25 L (>89) Glucose 91 (70-100) mg/dL Calcium 8.8 (8.5-10.3) mg/dL Total Bilirubin 0.4 (0.2-1.0) mg/dL AST 22 (10-42) IU/L ALT 30 (10-60) IU/L Alkaline Phosphatase 105 (42-121) IU/L B-Natriuretic Peptide 941 H (5-100) pg/mL Total Protein 6.3 L (6.7-8.2) g/dL Albumin 3.5 (3.2-5.5) g/dL Globulin 2.8 (2.1-4.2) g/dL Albumin/Globulin Ratio 1.3 (1.0-2.2) TSH (0.34-5.60) uIU/mL Free T4 (0.58-1.64) ng/dL Free T3 pg/mL (2.5-3.9) pg/mL ABX Reporting Has patient been on IV antibiotics over the past 48 hours?: No Assessment/Plan - Problem List (1) Acute on chronic systolic ACC/AHA stage C congestive heart failure Impression: - Most likely etiology is dietary indiscretion, since in the past she has admitted to drinking more than 4 quarts of liquid per day because of "thirst" - Today, her TSH was noted to be at least double in value of her last admission from 12.62 to 28.04, which may have added to her symptoms, fatigue, lethargy, change in metabolism - The weight monitoring is not accurate (is bouncing around), but she is at (-) 4L fluid balance. Admission weight was 90kg, now up to 93 kg - Now continues on Bumax/metolazone, beta-marimar,Amiodarone - She may require further adjustment to her Metoprolol Succ dose prior to d ischarge - PHYLLIS inhibitor, ARB or Spironolactone is contraindicated due to her known stage IV CKD - Continue with Hydralazine and the new long-acting Nitrate (Imdur), which was started this admission - An occasional Metolazone was already discussed with her and the at bedside, several days ago, as her manages all her meds - She is a candidate for outpatient CHF teaching to better adhere to a diet and understand her condition more thoroughly -A new referral for Cardiac Wellness/CHF classes was already ordered into [facility], to go to the [facility] [address] here after discharge home - She is a candidate for upgrade of her pacemaker to a biventricular defibrillator (since she has the prolonged QRS by virtue of being mostly v. paced). Today, the patient explains that there have been previous attempts to insert a second lead into her heart, but this was not able to be done for unknown reasons- defer to primary cards- Dr. Grubbs Plan: Continue with plan for diuresis and po fluid restriction, follow I's and O's and daily weights (2) Chest pain with normal coronary angiography Impression: - By virtue that chest pain with normal coronary arteries has been documented, she has either coronary vasospasm causing angina or coronary hypoperfusion causing angina - Now status post V. Tach, which could be leading to under perfusion of her coronaries - V. tach and chest pain have been correlated as an outpatient - Continues on Amiodarone and Imdur to prevent further episodes Plan: Continue to give meds, monitor for recurrence, continue on telemetry (3) Anemia Impression: - Continues on Iron supplementation which was started base on iron studies, B12 and Folate levels are adequate - Stool Guaiac is still pending, since she is profoundly constipated - Xarelto has been continued, so worrisome for GI losses Plan: Continue on Xarelto (for parox Afib that led to a stroke), await guiac testing Qualifiers: Anemia type: iron deficiency (4) CKD (chronic kidney disease) stage 4, GFR 15-29 ml/min Impression: - She appears to have the typical cardio-renal syndrome: Improving her congestion has improved her creatinine by using more aggressive diuretic therapy - Patient is status post nephrectomy, (remains with only one kidney) for renal cell carcinoma, and her baseline creatinine was already 1.7-2.0 - Creatinine is 2.0 today, BUN 33 - Good urine output ~1250 mL today charted Plan: Routine labs, adjust meds accordingly (5) Dyspnea Impression: - The patient remained on 3L nasal cannula through the night and on this mornings labs, carbon dioxide was elevated today on labs Plan: Continue to wean oxygen, prevent over oxygen delivery Qualifiers: Dyspnea type: unspecified Qualified Code(s): R06.00 - Dyspnea, unspecified (6) Elevated brain natriuretic peptide (BNP) level Impression: - BNP on admission was greater than 2000, now down to 941 - Falsely elevated possibly due to CKD - Still requires intermittent oxygen supplementation Plan: Continue diuretics, routine labs (7) Hypertension Impression: - Prescribed BB, diuretics and hydralazine at home - B/P 128/83 today Plan: Continue to monitor vital signs, continue BB, hydralazine, and amiodarone Qualifiers: Hypertension type: essential hypertension Qualified Code(s): I10 - Essential (primary) hypertension (8) Paroxysmal A-fib Impression: - Continues on anticoagulation for stroke prophylaxis of daily Xarelto -History of A. fib causing her past stroke - Normal sinus rhythm during this entire hospital stay, but with episodes of V- tach requiring ICU level care Plan: Continue rate control with amiodarone, BB, and Xarelto for anticoagulation (9) V-tach Impression: - The patient received the three-step Amiodarone IV loading over 2 days - Continues on an oral loading dose of Amiodarone 400 mg p.o. twice daily for approximately 1 more day, then Amiodarone 200 mg daily - Attempts were made to transfer for inpatient management of the V. tach, to the Cardiac [facility] (Dr Oliver) at her [facility] (Dr Valiente[facility] group, but the Storage Wharfage Clerk was not available till Saturday 05/12 (he was off for the 4 day long weekend due to May) - She is now med-surg status Plan: Continue oral Amio, with the plan for outpatient management of her V. tach, by referring her [facility] to an [facility] for possible EP study and likely upgrade of her pacemaker to a defibrillator (with biventricular pacing as well) per Dr. Grubbs (10) Constipation Impression: - Last charted BM was 05/05 - Abdominal pain has been more of an issue starting yesterday per patient- bilateral low quadrants - Prior to her last discharge, she became very constipated and was given 2 doses of gastro-grafin with copious results Plan: Continue daily meds, add Lactulose, consider gastro-grafin if no results today Qualifiers: Constipation type: slow transit constipation Qualified Code(s): K59.01 - Slow transit constipation (11) Hypothyroidism Impression: - During her last hospital stay in April, her TSH was elevated at 12.62, now 28.04 - Follow up Free T3, T4, show primary hypothyroid - Home dose increased from 100 mcg to 125 mcg - Will be speaking with who manages home meds to ensure compliance Plan: Continue med, re-check TSH in 4-6 weeks per PCP (12) Pacemaker Impression: - Patient has a normally functioning VVI (single lead) pacemaker, as seen on telemetry and CXR -The minimal rate setting appears to be at 65 bpm Plan: Continue to treat CHF exacerbation, refer to Dr. Grubbs upon discharge for a possible change out to include ICD device since she has had V-tach
[2019-05-10] MEDS: LACTULOSE 10 GM /15 ML UDC PO SCH (12:23)
[2019-05-10] MEDS ORDERED: LORazepam 0.5 MG TABLET PO PRN (15:53)
[2019-05-10] MEDS: RIVAROXABAN 15 MG TABLET PO SCH (17:10)
[2019-05-10] MEDS: QUEtiapine 25 MG TABLET PO SCH (21:30)
[2019-05-11] MEDS: CALCIUM CARBONATE CHEW 500 MG TABLET PO SCH ×3 (06:19→21:23)
[2019-05-11] MEDS: LEVOTHYROXINE 100 MCG TABLET PO SCH (06:20)
[2019-05-11] MEDS: hydrALAZINE 25 MG TABLET PO SCH ×3 (06:23→21:23)
[2019-05-11] MEDS: metOLazone 2.5 MG TABLET PO SCH (08:29)
[2019-05-11] MEDS: FERROUS GLUCONATE 324 MG TABLET PO SCH (08:29)
[2019-05-11] MEDS: METHADONE 5 MG TABLET PO SCH ×2 (08:29→17:21)
[2019-05-11] MEDS: ESCITALOPRAM 10 MG TABLET PO SCH (08:29)
[2019-05-11] MEDS: AMIODARONE 200 MG TABLET PO SCH ×2 (08:29→20:53)
[2019-05-11] MEDS: GABAPENTIN 100 MG CAPSULE PO SCH ×2 (08:29→20:53)
[2019-05-11] MEDS: HYDROCORTISONE 10 MG TABLET PO SCH ×2 (08:29→17:22)
[2019-05-11] MEDS: BUMETANIDE 1 MG TABLET PO SCH (08:29)
[2019-05-11] MEDS: POTASSIUM CHLORIDE 20 MEQ TABLET PO SCH ×2 (08:30→17:21)
[2019-05-11] MEDS: MULTIVITAMIN TABLET PO SCH (08:30)
[2019-05-11] MEDS: FAMOTIDINE 20 MG TABLET PO SCH ×2 (08:30→20:53)
[2019-05-11] MEDS: METOPROLOL SUCCINATE 50 MG TABLET PO SCH (08:30)
[2019-05-11] MEDS ORDERED: DIATR MEGLU/DIATRIZOATE SODIUM 120 ML BOTTLE PO ONE (08:31)
[2019-05-11] MEDS: POLYETHYLENE GLYCOL 3350 17 GM PACKET PO SCH (08:41)
[2019-05-11] MEDS: LACTULOSE 10 GM /15 ML UDC PO SCH (08:42)
[2019-05-11] MEDS: ISOSORBIDE MONONITRATE ER 30 MG TABLET PO SCH ×2 (08:42→17:21)
[2019-05-11] MEDS: CALCIUM CARB (OYSTER SHELL) 500 MG TABLET PO SCH (08:42)
[2019-05-11] MEDS: SENNA 8.6 MG TABLET PO SCH (08:43)
[2019-05-11] MEDS: DOCUSATE SODIUM 250 MG CAPSULE PO SCH (08:44)
[2019-05-11] MEDS: CHOLECALCIFEROL 400 UNIT TABLET PO SCH (08:57)
[2019-05-11] MEDS: CYCLOSPORINE EACHEYE SCH ×2 (09:00→20:54)
[2019-05-11] MEDS: FLUTICASONE NASAL SPRAY NAS SCH ×2 (09:00→20:53)
[2019-05-11] MEDS: SODIUM CHLORIDE FLUSH 0.9% 10 ML SYRINGE IVP SCH ×2 (09:02→17:23)
[2019-05-11 09:28] LABS: BASOPHILS # (AUTO) 0.1 10^3/uL (0.0-0.1); BASOPHILS % (AUTO) 0.7 %; EOSINOPHILS # (AUTO) 0.3 10^3/uL (0.0-0.7); EOSINOPHILS % (AUTO) 3.5 %; HGB - HEMOGLOBIN 10.1 g/dL (12.0-16.0); LYMPHOCYTES # (AUTO) 2.4 10^3/uL (1.5-3.5); LYMPHOCYTES % (AUTO) 30.8 %; MEAN CORPUSCULAR HEMOGLOBIN 26.4 pg (27.0-31.0); MEAN CORPUSCULAR HGB CONC 30.1 g/dL (32.0-36.0); MEAN CORPUSCULAR VOLUME 87.7 fL (81.0-99.0); MONOCYTES # (AUTO) 0.5 10^3/uL (0.0-1.0); MONOCYTES % (AUTO) 6.4 %; NEUTROPHILS # (AUTO) 4.5 10^3/uL (1.5-6.6); NEUTROPHILS % (AUTO) 58.3 %; PLT - PLATELET COUNT 224 10^3/uL (130-450); RED BLOOD COUNT 3.82 10^6/uL (4.20-5.40); RED CELL DISTRIBUTION WIDTH 14.7 % (12.0-15.0); WHITE BLOOD COUNT 7.7 x10^3/uL (4.8-10.8)
[2019-05-11 09:36] LABS: ALBUMIN 3.8 g/dL (3.2-5.5); ALBUMIN/GLOBULIN RATIO 1.3 (1.0-2.2); BILIRUBIN,TOTAL 0.5 mg/dL (0.2-1.0); CALCIUM 9.3 mg/dL (8.5-10.3); CREATININE 2.1 mg/dL (0.4-1.0); MAGNESIUM 2.3 mg/dL (1.7-2.8); TOTAL PROTEIN 6.8 g/dL (6.7-8.2)
[2019-05-11] MEDS ORDERED: POTASSIUM CHLORIDE 20 MEQ TABLET PO ONE ×2 (10:19→20:03)
[2019-05-11] MEDS: ALBUTEROL NEB 2.5 MG/3 ML INH PRN (10:30)
[2019-05-11] MEDS: HYDROcod/ACETAM 5/325 MG TABLET PO PRN ×2 (12:10→19:56)
--- NOTE | 2019-05-11 13:44 | PROVIDER PROGRESS NOTE ---
Subjective - Prog Note Date Prog Note Date: 05/11/19 Prog Note Time: 13:42 - Subjective Pt reports feeling: Improved Subjective: Spoke with Dr. Grubbs while in the patient's room, who recommends home with rate control meds as there are no beds at [facility] today, and EP provider does not start until June 04, 2019. The patient's was also present for this update. No recorded V-tach for several days, no further chest pain, doing well on rate control meds. Plan to stay one more night to monitor electrolytes, telemetry, and ensure a proper bowel movement. She denies nausea, vomiting, a new rash, syncope, confusion or insomnia. She admits to times of dizziness, constipation, and feels as if she needs her oxygen- which I encouraged her to not use it as much based on labs. Current Medications - Current Medications Current Medications: Active Medications: Acetaminophen (Tylenol) 650 mg PO Q4HR PRN Hydrocodone Bitart/Acetaminophen ([place] 5/325) 1 tab PO Q4HR PRN Albuterol 2.5 mg INH RTQ4H PRN Amiodarone HCl (Pacerone) 200 mg PO DAILY RAÚL Bumetanide (Bumex) 2 mg PO 0800 RAÚL Calcium Carbonate/Glycine (Oysco-500) 1,000 mg PO DAILY RAÚL Calcium Carbonate/Glycine (Tums) 500 mg PO TID RAÚL Carboxymethylcellulose (Refresh 1% Ophth Drops) 1 drops EACHEYE TID PRN Cholecalciferol (Vitamin D3) 800 unit PO DAILY RAÚL Docusate Sodium (Colace 250mg Capsule) 250 - 500 mg PO DAILY RAÚL Escitalopram Oxalate (Lexapro) 10 mg PO DAILY RAÚL Famotidine (Pepcid) 20 mg PO BID RAÚL Ferrous Gluconate (Fergon) 324 mg PO DAILYWM RAÚL Fluticasone Propionate (Flonase) 2 sprays HAROLDO BID RAÚL Gabapentin (Neurontin) 100 mg PO QDBREAKFAST RAÚL Gabapentin (Neurontin) 200 mg PO QPM RAÚL Hydralazine HCl (Apresoline) 10 mg PO TID RAÚL Hydrocortisone (Cortef) 10 mg PO QDBREAKFAST RAÚL Hydrocortisone (Cortef) 5 mg PO QDDINNER RAÚL Hydroxyzine Pamoate (Vistaril) 25 mg PO TID PRN Isosorbide Mononitrate (Imdur) 30 mg PO BIDWM [facility] Lactulose (Enulose) 10 gm PO DAILY [facility] Levothyroxine Sodium (Synthroid) 125 mcg PO QDAC RAÚL Lorazepam (Ativan) 0.5 mg PO Q6H PRN Methadone HCl 5 mg PO 0800,1700 [facility] Metolazone (Zaroxolyn) 2.5 mg PO SUMO [facility] Metoprolol Succinate (Toprol Xl) 100 mg PO DAILY [facility] Multivitamins (Theragran) 1 tab PO DAILY [facility] Nitroglycerin (Nitrostat) 0.4 mg SL Q5MIN PRN Ondansetron HCl (Zofran Odt) 4 mg TL Q6HR PRN Cyclosporine [ (Restasis] 1 Drops) 1 each EACHEYE BID [facility] Polyethylene Glycol (Miralax) 17 gm PO DAILY [facility] Potassium Chloride (K-Dur) 20 meq PO BIDWM [facility] Quetiapine Fumarate (Seroquel) 25 mg PO QPM RAÚL Rivaroxaban (Xarelto) 15 mg PO 1700 [facility] Senna (Senokot) 8.6 - 17.2 mg PO DAILY [facility] Temazepam (Restoril) 15 mg PO QPM PRN HOME meds: Fluticasone [Flonase] 2 spray HAROLDO BID 01/24/16 QUEtiapine [SEROquel] 25 mg PO QPM 01/24/16 Torsemide 40 mg PO 0800 MDD baseline 40 mg 01/24/16 Methadone 5 mg PO 0800,1700 05/17/17 Rivaroxaban [Xarelto] 15 mg PO 1700 05/17/17 Calcium Carbonate/Vitamin D3 [Calcium 600-Vit D3 400 Tablet] 2 tab PO DAILY MDD 6 05/19/17 Carboxymethylcellulose Sodium [Refresh Tears] 1 drops EACHEYE TID PRN 05/19/17 Cyclosporine [Restasis] 1 drops EACHEYE BID 05/19/17 Hydrocortisone [Cortef] 10 mg PO QDBREAKFAST 05/19/17 Multivitamin [Multiple Vitamins] 1 tab PO DAILY 05/19/17 Ondansetron Odt [Zofran Odt] 4 mg PO Q8HR PRN 05/19/17 Polyethylene Glycol 3350 [Miralax] 17 gm PO DAILY 05/19/17 Salmeterol Xinafoate [Serevent Diskus] 1 puffs INH BID 05/19/17 hydrOXYzine pamoate [Hydroxyzine Pamoate] 25 mg PO TID PRN 05/19/17 raNITIdine [Zantac] 150 mg PO BID 08/16/17 Hydrocortisone [Cortef] 5 mg PO QDDINNER 12/11/17 Nitroglycerin [Nitrostat] 0.4 mg SL Q5MIN PRN 03/12/18 Sennosides [Chocolated Laxative] 15 - 30 mg PO DAILY PRN 08/21/18 Albuterol Sulfate [Proair Hfa Inhaler] 2 puffs INH Q4H PRN 03/13/19 Metoprolol Succinate [Toprol Xl] 100 mg PO DAILY 03/13/19 Gabapentin 100 mg PO QDBREAKFAST 03/14/19 Hydrocodone/Acetaminophen [Hydrocodone-Acetamin 5-325 mg] 1.5 tab PO TID PRN MDD 8 03/14/19 Escitalopram [Lexapro] 10 mg PO DAILY 03/20/19 Potassium Chloride [K-Dur] 20 meq PO DAILY 03/20/19 hydrALAZINE [Apresoline] 25 mg PO TID 03/20/19 Objective - Vital Signs/Intake & Output Reviewed Vital Signs: Yes Vital Signs: Vital Signs x48h Temp Pulse Pulse Resp BP Pulse Ox 05/11/19 10:30 76 12 05/11/19 10:26 67 15 134/73 H 99 05/11/19 08:45 36.3 C L 70 15 126/64 96 05/11/19 06:10 36.5 C 92 16 124/88 H 96 Intake & Output: Intake & Output 05/08/19 05/09/19 05/10/19 05/11/19 23:59 23:59 23:59 23:59 Intake Total 2342.224 1070 1185 240 Output Total 2900 1500 1999 Balance -557.776 -430 -815 240 - Objective General Appearance: positive: Alert, Mild distress, Lethargic Eyes Bilateral: positive: No lid inflammation ENT: positive: Pharynx nml, No signs of dehydration Neck: positive: No JVD, Trachea midline Respiratory: positive: Chest non-tender, No respiratory distress, Other (diminished, bilaterally) Cardiovascular: positive: Regular rate & rhythm, No gallop, Systolic murmur, Decreased pulse(s) Peripheral Pulses: 1+ Radial (R), 1+ Radial (L) Abdomen: positive: Tenderness, Guarding, Hepatomegaly, Abnml bowel sounds, Other (bilateral low abdominal discomfort) Back: positive: Nml inspection Skin: positive: Color nml, No rash, Warm, Dry Extremities: positive: Non-tender, Pedal edema, Joint swelling, Other (chronic BLE edema) Neurologic/Psychiatric: positive: Oriented x3, CN's nml (2-12), Motor nml, Sensation nml, Weakness, Depressed mood/affect, Other (tremors, new in the past few days) Reflexes: Bicep (R): 2+, Bicep (L): 2+ - Lab Results Fish Bones: 05/11/19 09:17 05/11/19 09:17 Other Labs: Lab Results x24hrs 05/11/19 05/11/19 Range/Units 09:17 09:17 WBC 7.7 (4.8-10.8) x10^3/uL RBC 3.82 L (4.20-5.40) 10^6/uL Hgb 10.1 L (12.0-16.0) g/dL Hct 33.5 L (37.0-47.0) % MCV 87.7 (81.0-99.0) fL MCH 26.4 L (27.0-31.0) pg MCHC 30.1 L (32.0-36.0) g/dL RDW 14.7 (12.0-15.0) % Plt Count 224 (130-450) 10^3/uL MPV 9.0 (7.9-10.8) fL Neut # (Auto) 4.5 (1.5-6.6) 10^3/uL Lymph # (Auto) 2.4 (1.5-3.5) 10^3/uL [place] # (Auto) 0.5 (0.0-1.0) 10^3/uL Eos # (Auto) 0.3 (0.0-0.7) 10^3/uL Baso # (Auto) 0.1 (0.0-0.1) 10^3/uL Absolute Nucleated RBC 0.00 x10^3/uL Nucleated RBC % 0.0 /100WBC Sodium 140 (135-145) mmol/L Potassium 3.1 L (3.5-5.0) mmol/L Chloride 86 L (101-111) mmol/L Carbon Dioxide 38 H (21-32) mmol/L Anion Gap 16.0 H (6-13) BUN 34 H (6-20) mg/dL Creatinine 2.1 H (0.4-1.0) mg/dL Estimated GFR (MDRD) 24 L (>89) Glucose 160 H (70-100) mg/dL Calcium 9.3 (8.5-10.3) mg/dL Magnesium 2.3 (1.7-2.8) mg/dL Total Bilirubin 0.5 (0.2-1.0) mg/dL AST 27 (10-42) IU/L ALT 29 (10-60) IU/L Alkaline Phosphatase 110 (42-121) IU/L Total Protein 6.8 (6.7-8.2) g/dL Albumin 3.8 (3.2-5.5) g/dL Globulin 3.0 (2.1-4.2) g/dL Albumin/Globulin Ratio 1.3 (1.0-2.2) ABX Reporting Has patient been on IV antibiotics over the past 48 hours?: No Assessment/Plan - Problem List (1) Acute on chronic systolic ACC/AHA stage C congestive heart failure Impression: - Most likely etiology is dietary indiscretion, since in the past she has admitted to drinking more than 4 quarts of liquid per day because of "thirst" - TSH was noted to be at least double in value of her last admission from 12.62 to 28.04, which may have added to her symptoms, fatigue, lethargy, change in metabolism - The weight monitoring is not accurate (is bouncing around), but she is at (-) 4L fluid balance. Admission weight was 90kg, now up to 92 kg - Now continues on Bumax/metolazone, beta-marimar,Amiodarone - She may require further adjustment to her Metoprolol Succ dose prior to disc harge - PHYLLIS inhibitor, ARB or Spironolactone is contraindicated due to her known stage IV CKD - Continue with Hydralazine and the new long-acting Nitrate (Imdur), which was started this admission - An occasional Metolazone was already discussed with her and the at bedside, several days ago, as her manages all her meds - She is a candidate for outpatient CHF teaching to better adhere to a diet and understand her condition more thoroughly -A new referral for Cardiac Wellness/CHF classes was already ordered into [facility], to go to the [facility] here after discharge home - She is a candidate for upgrade of her pacemaker to a biventricular defibrillator (since she has the prolonged QRS by virtue of being mostly v. paced) - The patient explains that there have been previous attempts to insert a second lead into her heart, but this was not able to be done for unknown reasons- defer to primary cards- Dr. Grubbs - Appointment with EP, Dr. Benito on June 12, 2019 to undergo an evaluation for an ICD/pacer upgrade Plan: Continue with plan for diuresis and po fluid restriction, follow I's and O's and daily weights (2) Hypokalemia Impression: - Continued low K+, no emesis no BMs, suspect due to fluid loss from diuretics - Getting a total of 60 Meq of potassium today, will recheck BMP ~ 1900 today Plan: Continue replacement, await new labs (3) Chest pain with normal coronary angiography Impression: - By virtue that chest pain with normal coronary arteries has been documented, she has either coronary vasospasm causing angina or coronary hypoperfusion causing angina - Now status post V. Tach, which could be leading to under perfusion of her coronaries - V. tach and chest pain have been correlated as an outpatient - Continues on Amiodarone and Imdur to prevent further episodes - NO chest pain on exam - Anticipate discharge in the AM Plan: Continue to give meds, monitor for recurrence, continue on telemetry (4) Anemia Impression: - Continues on Iron supplementation which was started base on iron studies, B12 and Folate levels are adequate - Stool Guaiac is still pending, since she is profoundly constipated - Xarelto has been continued, so worrisome for GI losses Plan: Continue on Xarelto (for parox Afib that led to a stroke), await guiac testing Qualifiers: Anemia type: iron deficiency (5) CKD (chronic kidney disease) stage 4, GFR 15-29 ml/min Impression: - She appears to have the typical cardio-renal syndrome: Improving her congestion has improved her creatinine by using more aggressive diuretic therapy - Patient is status post nephrectomy, (remains with only one kidney) for renal cell carcinoma, and her baseline creatinine was already 1.7-2.0 - Creatinine is 2.1 today, BUN 34 - ON exam she appears euvolemic, NO JVDs, her usual amount of edema, increased abdominal girth as usual - Scattered crackles to low based, ordered Incentive Spirometer - No Urine out put charted overnight and this morning, so I placed a new hat to measure urine and reminded patient - Weight 92 kg, down from yesterday, but unreliable - No stool since 05/05, also a contributing factor to her weight - Continues on Metolazone, Bumex, and lots of K+ supplement Plan: Routine labs, adjust meds accordingly (6) Dyspnea Impression: - The patient remains on 2-3L nasal cannula through the night and on morning labs, carbon dioxide continues to be up Plan: Continue to wean oxygen, prevent over oxygen delivery Qualifiers: Dyspnea type: unspecified Qualified Code(s): R06.00 - Dyspnea, unspecified (7) Elevated brain natriuretic peptide (BNP) level Impression: - BNP on admission was greater than 2000, now down to 941 - Falsely elevated possibly due to CKD - Still requires intermittent oxygen supplementation Plan: Continue diuretics, routine labs (8) Hypertension Impression: - Prescribed BB, diuretics and hydralazine at home - B/P 126/64 today Plan: Continue to monitor vital signs, continue BB, Imdur, hydralazine, and amiodarone Qualifiers: Hypertension type: essential hypertension Qualified Code(s): I10 - Essential (primary) hypertension (9) Paroxysmal A-fib Impression: - Continues on anticoagulation for stroke prophylaxis of daily Xarelto -History of A. fib causing her past stroke - Normal sinus rhythm during this entire hospital stay, but with episodes of V- tach requiring ICU level care Plan: Continue rate control with amiodarone, BB, and Xarelto for anticoagulation (10) V-tach Impression: - The patient received the three-step Amiodarone IV loading over 2 days, then a loading dose of Amiodarone 400 mg PO twice daily, and on 05/12 will be transitioned to Amiodarone 200 mg daily - Attempts were made to transfer for inpatient management of the V. tach, to the Cardiac Log Sorter (Dr Oliver) at her [employer] (Dr Valiente) group, but the Log Sorter was not available till Saturday 05/12 (he was off for the 4 day long weekend due to May) - She is now med-surg status - Outpatient management of her V. tach, by referring her Dr. Benito, EP at [facility] on 06/12/2019 which was set up by Dr. Grubbs - Dr. Grubbs has no telemetry beds at [facility] today, so suggests discharge home verses reaching out to [facility] if the patient requests this - NO recorded V tach since ~05/07/2019, no further chest pain - Still has tremors, which are not seizure like. May be from diuretics, electrolyte imbalance Plan: Anticipate discharge in the AM, monitor on telemetry to ensure no further episodes of V tach, check labs in the AM (11) Constipation Impression: - Last charted BM was 05/05 - Abdominal pain has been more of an issue starting yesterday per patient- bilateral low quadrants - Prior to her last discharge, she became very constipated and was given 2 doses of gastro-grafin with copious results - Gastro-grafin x1 today Plan: Continue daily meds, monitor for results Qualifiers: Constipation type: slow transit constipation Qualified Code(s): K59.01 - Slow transit constipation (12) Hypothyroidism Impression: - During her last hospital stay in April, her TSH was elevated at 12.62, now 28.04 - Follow up Free T3, T4, show primary hypothyroid - Home dose increased from 100 mcg to 125 mcg - who manages home meds, states that he has done the same routine for several years and she has been taking her thyroid pill daily Plan: Continue med, re-check TSH in 4-6 weeks per PCP (13) Pacemaker Impression: - Patient has a normally functioning VVI (single lead) pacemaker, as seen on telemetry and CXR -The minimal rate setting appears to be at 65 bpm - New EP appointment is set up for 06/12/2019 with Rei Carlson EP to evaluate for a possible ICD given her V tach on this hospitalization Plan: Continue to treat CHF exacerbation, monitor on telemetry
[2019-05-11] MEDS: RIVAROXABAN 15 MG TABLET PO SCH (17:22)
[2019-05-11] MEDS: SODIUM CHLORIDE FLUSH 0.9% 10 ML SYRINGE IVP PRN ×2 (17:23→21:01)
[2019-05-11 19:43] LABS: CREATININE 2.3 mg/dL (0.4-1.0)
[2019-05-11] MEDS ORDERED: NS W/20 MEQ KCL 1,000 ML IV SCH (20:17)
[2019-05-11] MEDS: QUEtiapine 25 MG TABLET PO SCH (20:54)
[2019-05-12] MEDS: SODIUM CHLORIDE FLUSH 0.9% 10 ML SYRINGE IVP SCH ×2 (00:02→08:21)
[2019-05-12] MEDS: HYDROcod/ACETAM 5/325 MG TABLET PO PRN (00:26)
[2019-05-12] MEDS: TEMAZEPAM 15 MG CAPSULE PO PRN (00:26)
[2019-05-12 04:57] LABS: CALCIUM 8.9 mg/dL (8.5-10.3); CREATININE 2.2 mg/dL (0.4-1.0)
[2019-05-12] MEDS: hydrALAZINE 25 MG TABLET PO SCH (06:50)
[2019-05-12] MEDS: LEVOTHYROXINE 100 MCG TABLET PO SCH (06:51)
[2019-05-12] MEDS: CALCIUM CARBONATE CHEW 500 MG TABLET PO SCH (06:51)
[2019-05-12] MEDS ORDERED: POTASSIUM CHLORIDE 20 MEQ TABLET PO SCH (08:00)
[2019-05-12] MEDS: LACTULOSE 10 GM /15 ML UDC PO SCH (08:18)
[2019-05-12] MEDS: ESCITALOPRAM 10 MG TABLET PO SCH (08:19)
[2019-05-12] MEDS: CHOLECALCIFEROL 400 UNIT TABLET PO SCH (08:19)
[2019-05-12] MEDS: METOPROLOL SUCCINATE 50 MG TABLET PO SCH (08:19)
[2019-05-12] MEDS: ISOSORBIDE MONONITRATE ER 30 MG TABLET PO SCH (08:19)
[2019-05-12] MEDS: POLYETHYLENE GLYCOL 3350 17 GM PACKET PO SCH (08:19)
[2019-05-12] MEDS: SENNA 8.6 MG TABLET PO SCH (08:19)
[2019-05-12] MEDS: DOCUSATE SODIUM 250 MG CAPSULE PO SCH (08:20)
[2019-05-12] MEDS: METHADONE 5 MG TABLET PO SCH (08:20)
[2019-05-12] MEDS: FAMOTIDINE 20 MG TABLET PO SCH (08:20)
[2019-05-12] MEDS: MULTIVITAMIN TABLET PO SCH (08:20)
[2019-05-12] MEDS: HYDROCORTISONE 10 MG TABLET PO SCH (08:20)
[2019-05-12] MEDS: FERROUS GLUCONATE 324 MG TABLET PO SCH (08:20)
[2019-05-12] MEDS: CALCIUM CARB (OYSTER SHELL) 500 MG TABLET PO SCH (08:20)
[2019-05-12] MEDS: GABAPENTIN 100 MG CAPSULE PO SCH (08:21)
[2019-05-12] MEDS: CYCLOSPORINE EACHEYE SCH (08:21)
[2019-05-12] MEDS: FLUTICASONE NASAL SPRAY NAS SCH (08:22)
[2019-05-12] MEDS ORDERED: POTASSIUM CHLORIDE 20 MEQ TABLET PO ONE (08:25)
[2019-05-12] MEDS ORDERED: AMIODARONE 200 MG TABLET PO SCH (09:00)
[2019-05-12] MEDS ORDERED: TORSEMIDE 20 MG TABLET PO SCH (09:00)
--- NOTE | 2019-05-12 09:16 | Discharge Plan ---
Discharge Plan Problem Reviewed?: Yes Disposition: Home, Self Care Condition: Good Prescriptions: Amiodarone [Pacerone] 200 mg PO DAILY #30 tablet Bumetanide [Bumex] 1 mg PO DAILY #30 tablet Isosorbide Mononitrate ER [Imdur] 30 mg PO BIDWM #60 tablet Lactulose [Constulose] 10 gm PO DAILY #30 solution Levothyroxine [Synthroid] 125 mcg PO QDAC #30 tablet Potassium Chloride [K-Dur] 30 meq PO BIDWM #90 tablet Temazepam [Restoril] 15 mg PO QPM PRN #30 capsule PRN Reason: Insomnia Diet: Cardiac Activity Restrictions: Activity as Tolerated Shower Restrictions: No Health Concerns: V tach (fast heart rate) Constipation Heart failure EP study Plan of Treatment: Continue rate control at home with Amiodarone Take Imdur for chest pain, scheduled twice daily Take a little extra potassium Get blood rechecked by or Saturday Care Goals: Prevent hospital stays Maintain fluid and electrolyte balance Continue to see Lizabeth Cook Assessment: You were admitted with chest pain and found to be in V tach. You were put on an Amiodarone drip that was transitioned to a pill form. You have not had V tach for several days since staring this medication. For your chest pain, Dr. Fernandez put you on a medication called Imdur to be taken twice daily. I spoke with Dr. Grubbs about what next steps to take. He has already made an appointment with EP, Dr. Benito on June 12, 2019 to undergo an evaluation for an ICD/pacer upgrade. They will get back to you on the time of this appointment. No Smoking: If you smoke, Please STOP! Call for help. Follow-up with: Harjit Barraza MD [Primary Care Provider] -
--- NOTE | 2019-05-12 09:40 | DISCHARGE SUMMARY ---
Discharge Summary Admit Date: 05/06/19 Discharge Date: 05/12/19 Discharging Provider: HEATHER Goins Primary Care Provider: Lizabeth oCok Code Status: Attempt Resuscitation Condition at Discharge: Good Discharge Disposition: 01 Home, Self Care - DIAGNOSES Admission Diagnoses: CHF exacerbation Chronic a-fib Hypertension Hypothyroidism Fibromyalgia Adrenal insufficiency Asthma Discharge Diagnoses with Status of Each Condition: Acute on chronic systolic ACC/AHA stage C congestive heart failure- chronic, stable Chest pain with normal coronary angiography- resolved, continue on Imdur Iron deficiency anemia- Chronic, stable CKD (chronic kidney disease) stage 4, GFR 15-29 ml/min- Chronic, stable Dyspnea- resolved Elevated brain natriuretic peptide (BNP) level- improved Hypertension- chronic, stable Paroxysmal A-fib- Started on Amiodarone, continues on BB, stable [id number] Constipation- Resolved Hypothyroidism- chronic, stable, increased Synthroid based on elevated TSH Pacemaker- chronic Hypokalemia- improved, increased home dose of K+ Fibromyalgia- chronic, stable History of CVA- no issues, stable Adrenal insufficiency- chronic, stable Insomnia- Patient requested Temazepam to be continued at home - HPI History of Present Illness: HPI per Dr. Martinez: Patient seen on 05/05/19 at 2100pm Patient is a 63 y/o female who presented to the ED with complain of increasing oxygen demand, weight gain, lower extremity swelling and weeping. She is having difficulty sleeping as a result of her symptoms. She has increased her nasal canula oxygen from 2.5 L to 4 liters. Lately she gets winded just ambulating a few feet. She also complains of chest pressure/ ache but no radiation. She reports lower abdominal pain and a feeling of being bloated. She has been experiencing cramps in her ankles. In the ED she was found to have a BNP of 2500 and a CXR done indicated heart fa ilure. Here last echo done 2 months ago showed an EF of 35%. As a result of her symptoms, she is being admitted for further management - HOSPITAL COURSE Hospital Course: Acute on chronic systolic ACC/AHA stage C congestive heart failure- Most likely etiology is dietary indiscretion, since in the past she has admitted to drinking more than 4 quarts of liquid per day because of "thirst" - TSH was noted to be at least double in value of her last admission from 12.62 to 28.04, which may have added to her symptoms, fatigue, lethargy, change in m etabolism - The weight monitoring has not been accurate (is bouncing around), but she is at (-) 4L fluid balance. Admission weight was 90kg, now up to 92 kg - Now continues on Bumax/metolazone, beta-marimar,Amiodarone - She may require further adjustment to her Metoprolol Succ dose prior to discharge - PHYLLIS inhibitor, ARB or Spironolactone is contraindicated due to her known stage IV CKD - Continue with Hydralazine and the new long-acting Nitrate (Imdur), which was started this admission - An occasional Metolazone was already discussed with her and the at bedside, several days ago, as her manages all her meds - She is a candidate for outpatient CHF teaching to better adhere to a diet and understand her condition more thoroughly -A new referral for Cardiac Wellness/CHF classes was already ordered into [facility], to go to the [facility] here after discharge home - She is a candidate for upgrade of her pacemaker to a biventricular defibrillator (since she has the prolonged QRS by virtue of being mostly v. paced) - The patient explains that there have been previous attempts to insert a second lead into her heart, but this was not able to be done for unknown reasons- defer to primary cards- Dr. Grubbs - Appointment with EP, Dr. Benito on June 12, 2019 to undergo an evaluation for an ICD/pacer upgrade - Patient was told to resume diuretic (Bumex) on 05/14 at home prior to discharge Hypokalemia- Continued low K+, no emesis no BMs, suspect due to fluid loss from diuretics - Changed home potassium dose from 40 to 60 meq daily Chest pain with normal coronary angiography- By virtue that chest pain with normal coronary arteries has been documented, she has either coronary vasospasm causing angina or coronary hypoperfusion causing angina - Now status post V. Tach, which could be leading to under perfusion of her coronaries - V. tach and chest pain have been correlated as an outpatient - Continues on Amiodarone and Imdur to prevent further episodes - NO chest pain on exam, this is considered resolved upon discharge Anemia- Continues on Iron supplementation which was started base on iron studies, B12 and Folate levels are adequate - Stool Guaiac was not obtained, since she has been profoundly constipated - Xarelto has been continued, so worrisome for GI losses - Patient was continued on Xarelto (for parox Afib that led to a stroke) and her anemia is likely due to dilution effects CKD (chronic kidney disease) stage 4, GFR 15-29 ml/min- She appears to have the typical cardio-renal syndrome: Improving her congestion has improved her creatinine by using more aggressive diuretic therapy - Patient is status post nephrectomy, (remains with only one kidney) for renal cell carcinoma, and her baseline creatinine was already 1.7-2.0 - Creatinine is 2.1 today, BUN 34 - ON exam she appears euvolemic, NO JVDs, her usual amount of edema, increased abdominal girth as usual - Scattered crackles to low based, ordered Incentive Spirometer - No Urine out put charted overnight and this morning, so I placed a new hat to measure urine and reminded patient - Weight 92 kg, down from yesterday, but unreliable - No stool since 05/05, also a contributing factor to her weight - Continues on Metolazone, Bumex, and lots of K+ supplement Dyspnea- The patient remains on 2-3L nasal cannula through the night and on morning labs, carbon dioxide continues to be up Elevated brain natriuretic peptide (BNP) level- BNP on admission was greater than 2000, now down to 941 - Falsely elevated possibly due to CKD - Still requires intermittent oxygen supplementation Hypertension- Prescribed BB, Imdur, diuretics and hydralazine at home Paroxysmal A-fib- Continues on anticoagulation for stroke prophylaxis of daily Xarelto -History of A. fib causing her past stroke - Normal sinus rhythm during this entire hospital stay, but with episodes of V- tach requiring ICU level care V-tach- The patient received the three-step Amiodarone IV loading over 2 days, then a loading dose of Amiodarone 400 mg PO twice daily, and on 05/12 will be transitioned to Amiodarone 200 mg daily - Attempts were made to transfer for inpatient management of the V. tach, to the Cardiac Coremaker Helper (Dr Oliver) at her [facility] (Dr Valiente) group, but the Coremaker Helper was not available till Saturday 05/12 (he was off for the 4 day long weekend due to May) - She is now med-surg status - Outpatient management of her V. tach, by referring her Dr. Benito, EP at [facility] on 06/12/2019 which was set up by Dr. Grubbs - Dr. Grubbs has no telemetry beds at [facility] today, so suggests discharge home verses reaching out to [facility] if the patient requests this - NO recorded V tach since ~05/07/2019, no further chest pain - Still has tremors, which are not seizure like. May be from diuretics, electrolyte imbalance Constipation- Last charted BM was 05/05, now resolved - Abdominal pain has been more of an issue starting yesterday per patient- bilateral low quadrants - Prior to her last discharge, she became very constipated and was given 2 doses of gastro-grafin with copious results - Gastro-grafin x1 Hypothyroidism- During her last hospital stay in April, her TSH was elevated at 12.62, now 28.04 - Follow up Free T3, T4, show primary hypothyroid - Home dose increased from 100 mcg to 125 mcg - who manages home meds, states that he has done the same routine for several years and she has been taking her thyroid pill daily Plan: Continue med, re-check TSH in 4-6 weeks per PCP Pacemaker- Patient has a normally functioning VVI (single lead) pacemaker, as seen on telemetry and CXR -The minimal rate setting appears to be at 65 bpm - New EP appointment is set up for 06/12/[address] Benito, [facility] to evaluate for a possible ICD given her V tach on this hospitalization Disposition: The patient was medically stable and transported home with her via private car. - ALLERGIES Allergies/Adverse Reactions: Allergies Allergy/AdvReac Type Severity Reaction Status Date / Time Beef Containing Products Allergy Nausea Verified 03/12/19 18:25 cefpodoxime proxetil * Allergy Unknown Verified 03/12/19 14:54 [From Vantin] Worden And Derivatives Allergy Unknown Verified 03/12/19 18:25 clindamycin Allergy Unknown Verified 03/12/19 14:54 codeine Allergy Unknown Verified 03/12/19 14:54 erythromycin base Allergy Unknown Verified 03/12/19 14:54 [Erythromycin Base] mushroom Allergy Unknown Verified 03/12/19 18:25 onion Allergy Unknown Verified 03/12/19 18:25 rofecoxib [From Vioxx] Allergy Unknown Verified 03/12/19 14:54 sumatriptan [From Imitrex] Allergy Unknown Verified 03/12/19 14:54 tomato Allergy Unknown Verified 03/12/19 18:25 levofloxacin [From Levaquin] AdvReac Severe PSYCHOSIS Verified 03/14/19 17:05 metolazone AdvReac Severe Stomach Verified 03/16/19 09:39 Cramps morphine AdvReac Unknown Verified 03/12/19 14:54 pepper (genus Capsicum) AdvReac Anaphylaxis Verified 03/12/19 18:25 - MEDICATIONS Home Medications: Ambulatory Orders Medication Instructions Recorded Confirmed Fluticasone [Flonase] 2 spray HAROLDO BID 01/24/16 05/06/19 QUEtiapine [SEROquel] 25 mg PO QPM 01/24/16 05/06/19 Methadone 5 mg PO 0800,1700 05/17/17 05/06/19 Rivaroxaban [Xarelto] 15 mg PO 1700 05/17/17 05/06/19 Calcium Carbonate/Vitamin D3 2 tab PO DAILY MDD 6 05/19/17 05/06/19 [Calcium 600-Vit D3 400 Tablet] Carboxymethylcellulose Sodium 1 drops EACHEYE TID PRN 05/19/17 05/06/19 [Refresh Tears] Cyclosporine [Restasis] 1 drops EACHEYE BID 05/19/17 05/06/19 Hydrocortisone [Cortef] 10 mg PO QDBREAKFAST 05/19/17 05/06/19 Multivitamin [Multiple Vitamins] 1 tab PO DAILY 05/19/17 05/06/19 Ondansetron Odt [Zofran Odt] 4 mg PO Q8HR PRN 05/19/17 05/06/19 Polyethylene Glycol 3350 [Miralax] 17 gm PO DAILY 05/19/17 05/06/19 Salmeterol Xinafoate [Serevent 1 puffs INH BID 05/19/17 05/06/19 Diskus] hydrOXYzine pamoate [Hydroxyzine 25 mg PO TID PRN 05/19/17 05/06/19 Pamoate] raNITIdine [Zantac] 150 mg PO BID 08/16/17 05/06/19 Hydrocortisone [Cortef] 5 mg PO QDDINNER 12/11/17 05/06/19 Nitroglycerin [Nitrostat] 0.4 mg SL Q5MIN PRN 03/12/18 05/06/19 Sennosides [Chocolated Laxative] 15 - 30 mg PO DAILY PRN 08/21/18 05/06/19 Albuterol Sulfate [Proair Hfa 2 puffs INH Q4H PRN 03/13/19 05/06/19 Inhaler] Metoprolol Succinate [Toprol Xl] 100 mg PO DAILY 03/13/19 05/06/19 Gabapentin 100 mg PO QDBREAKFAST 03/14/19 05/06/19 Hydrocodone/Acetaminophen 1.5 tab PO TID PRN MDD 8 03/14/19 05/06/19 [Hydrocodone-Acetamin 5-325 mg] Docusate Sodium 250Mg Capsule 250 - 500 mg PO DAILY #90 capsule 03/18/19 05/06/19 [Colace 250Mg Capsule] Saccharomyces Boulardii [Florastor] 250 mg PO BID #60 capsule 03/18/19 05/06/19 Escitalopram [Lexapro] 10 mg PO DAILY 03/20/19 05/06/19 hydrALAZINE [Apresoline] 25 mg PO TID 03/20/19 05/06/19 Amiodarone [Pacerone] 200 mg PO DAILY #30 tablet 05/12/19 Bumetanide [Bumex] 1 mg PO DAILY #30 tablet 05/12/19 Ferrous Gluconate [Iron] 240 mg PO DAILY #30 tablet 05/12/19 Isosorbide Mononitrate ER [Imdur] 30 mg PO BIDWM #60 tablet 05/12/19 Lactulose [Constulose] 10 gm PO DAILY #30 solution 05/12/19 Levothyroxine [Synthroid] 125 mcg PO QDAC #30 tablet 05/12/19 Potassium Chloride [K-Dur] 30 meq PO BIDWM #90 tablet 05/12/19 Temazepam [Restoril] 15 mg PO QPM PRN #30 capsule 05/12/19 metOLazone [Metolazone] 2.5 mg PO SUMO 60 Days #30 tablet 05/13/19 - PHYSICAL EXAM AT DISCHARGE General Appearance: positive: No acute distress, Alert Eyes Bilateral: positive: PERRL ENT: positive: Pharynx nml, No signs of dehydration Neck: positive: Thyroid nml, No JVD Respiratory: positive: Chest non-tender, No respiratory distress, Breath sounds nml Cardiovascular: positive: Regular rate & rhythm, No gallop, Systolic murmur, Decreased pulse(s) Peripheral Pulses: positive: 1+ Abdomen: positive: Non-tender, Nml bowel sounds, Other (rounded, obese, soft) Back: positive: Nml inspection Skin: positive: Color nml, No rash, Warm, Dry Extremities: positive: Non-tender, Pedal edema (chronic, +1-2 pitting, abdominal edema) Neurologic/Psychiatric: positive: Oriented x3, CN's nml (2-12), Motor nml, Sensation nml, Mood/affect nml, Depressed mood/affect (baseline, stable mood) Reflexes: Bicep (R): 3+, Bicep (L): 3+ - LABS Result Diagrams: 05/11/19 09:17 05/12/19 04:30 - DIAGNOSTIC IMAGING Diagnostic Imaging Results: Final report reviewed Diagnostic Imaging Results Comments: EXAM: CHEST RADIOGRAPHY EXAM DATE: 05/05/2019 05:53 PM IMPRESSION: Congestive failure - FOLLOW UP Follow Up: Labs later this week to check electrolytes terrazzo supervisor metolazone at the pharmacy per Dr. Fernandez's suggestion to take this only on Saturday and Saturday. - TIME SPENT Time Spent in Discharge (Minutes): 55
[2019-05-12 11:59] VITALS: BP 122/78
== END 2019-05-12 13:00 | disposition home or self-care (01) | DRG 291 ==
LOC: EDUNIT# → ED 15:25 → MS2 16:38 → ICU 05-07 11:40
PROVIDERS: ADMIT Internal Medicine; ATTEND Nurse Practitioner
DX: I13.0 Hypertensive heart and chronic kidney disease with heart failure and stage 1 through stage 4 chronic kidney disease, or unspecified chronic kidney disease (principal); I50.23 Acute on chronic systolic (congestive) heart failure; N18.4 Chronic kidney disease, stage 4 (severe); E27.40 Unspecified adrenocortical insufficiency; I47.2 Ventricular tachycardia; I69.954 Hemiplegia and hemiparesis following unspecified cerebrovascular disease affecting left non-dominant side; I20.9 Angina pectoris, unspecified; I48.0 Paroxysmal atrial fibrillation; D50.9 Iron deficiency anemia, unspecified; K59.01 Slow transit constipation; R25.1 Tremor, unspecified; E87.6 Hypokalemia; T50.2X5A Adverse effect of carbonic-anhydrase inhibitors, benzothiadiazides and other diuretics, initial encounter; R41.3 Other amnesia; E03.9 Hypothyroidism, unspecified; G89.29 Other chronic pain; M79.7 Fibromyalgia; J45.909 Unspecified asthma, uncomplicated; G47.00 Insomnia, unspecified; Z66 Do not resuscitate; Z95.0 Presence of cardiac pacemaker; Z79.899 Other long term (current) drug therapy; Z79.01 Long term (current) use of anticoagulants; Z90.5 Acquired absence of kidney; Z85.528 Personal history of other malignant neoplasm of kidney; Z79.891 Long term (current) use of opiate analgesic; Z79.51 Long term (current) use of inhaled steroids
CPT/HCPCS: 36415; 71045; 80048; 80053; 81003; 82607; 82746; 83540; 83690; 83735; 83880; 84100; 84132; 84439; 84443; 84466; 84481; 84484; 85025; 87640; 93005; 93306; 94640; 99284; A9270; J0282; J1170; Q9963; 81001; 82272; 87086

== ENCOUNTER 2019-05-15 13:15 | Outpatient (CLI) | payer BC ==
--- NOTE | 2019-05-15 16:05 | CONSULTATION NOTE ---
Palliative Care Follow Up - Referral Referring Provider: Dr. Harjit Barraza Time of Visit: 1:15-2:00 Referral setting: Home Referral Reason: Acute on Chronic Heart Failure/CKD Stage IV/Chronic Pain - Information Sources Records reviewed: Previous records reviewed History/Review of Systems obtained from: Patient, Family ( Jorge at visit) Exam limitations: No limitations - History of Present Illness Update Brief HPI Update: This is a complicated not 63-year-old woman who most recently was hospitalized 05/06 to for acute on chronic systolic heart failure. She presented with increasing shortness of breath, weight gain, progressive fatigue, and overall distress. She was restarted on her baseline meds as well as in addition added Bumex and amiodarone, and Imdur. She has had no diuretics up to 05/14 per direction from discharge, so has had some regain of weight, her most prominent fluid retention symptom is actually in her abdomen, with bloating, tightness, and feeling "congested". She her bowels are moving a small amount every day, does not feel is related to her ongoing chronic constipation. She has had some urinary retention, but has not needed to be cathed. What is most prominent is her ongoing decline in her functional status. She is only able to ambulate a few steps, this is both related to dyspnea and general weakness. Current plans are for her to follow-up with Dr. Benito, [facility] on 06/12. I did speak with Dr. Valiente yesterday in the context of long-term goals and interventions. He does not feel he has much more to offer her, is aware she is been with new medication adjustments. He reports she is not a candidate for an AICD, and unclear if she is going to be a candidate for EP intervention, but do feel like it is always important to follow further options. His concern of course is her CKD stage IV, up to this point in time Airam is been fairly ashwin r she would not accept dialysis, though he does feel that might help with her fluid balance issues. His recommendation is actually a referral down to the [facility], congestive heart failure clinic given the complexity of her care. This was reviewed with the patient, she does perceive herself as wanting to continue to pursue quality of life interventions, but does not want to " in the hospital", and would like to try and keep her care closer to home. At this point her goal will be to follow-up with Dr. Valiente and keep her appointment on . She will discuss this further with her cardiology team. Home health to resume services tomorrow, will have them draw some labs. Has been available for beginning of visit, reports he understands medication changes, will have home health review medication list. He is giving her Bumex daily and her new amiodarone as well as the new Imdur. Patient continues with severe fatigue, she has not needed the nitro, she is still sleeping for long periods of time. She does perceive her functional status is continued to decline. Her dyspnea remains problematic, and asked with any exertion becomes fairly uncomfortable, but improved from hospitalization. She has not needed any nitros, so has not had any further chest pain or spells. She continues with lower extremity itching, rash, but no signs or symptoms of cellulitis today. 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 She has had an exacerbation of this with the increased fluid load. She continues on her methadone baseline 5 mg twice daily and hydrocodone 1-2 tabs 3 times a day with adequate control. She reports her constipation is being currently managed, she is having a small bowel movement daily but continues to feel quite bloated, early satiety, and no appetite. Patient also has multiple underlying autoimmune disorders adrenal insufficiency, hypothyroidism with recent titration of her meds, fibromyalgia, interstitial cystitis, asthma, migraines, and irritable bowel syndrome. Social History - Living Situation Living arrangement: At home Living Situation: With spouse/s.o. Support System: Patient lives at home with her spouse, she is supported by her daughter and [id number]. Jorge does have to work full-time though, and this is created some challenges when she is there by herself. We will continue to have the support of the home health care team, this would include bathing services. Medications/Allergies - Medications Home Medications: Ambulatory Orders Medication Instructions Recorded Confirmed Fluticasone [Flonase] 2 spray HAROLDO BID 01/24/16 05/16/19 QUEtiapine [SEROquel] 25 mg PO QPM 01/24/16 05/16/19 Methadone 5 mg PO 0800,1700 05/17/17 05/16/19 Rivaroxaban [Xarelto] 15 mg PO 1700 05/17/17 05/16/19 Calcium Carbonate/Vitamin D3 2 tab PO DAILY MDD 6 05/19/17 05/16/19 [Calcium 600-Vit D3 400 Tablet] Carboxymethylcellulose Sodium 1 drops EACHEYE TID PRN 05/19/17 05/16/19 [Refresh Tears] Cyclosporine [Restasis] 1 drops EACHEYE BID 05/19/17 05/16/19 Hydrocortisone [Cortef] 10 mg PO QDBREAKFAST 05/19/17 05/16/19 Multivitamin [Multiple Vitamins] 1 tab PO DAILY 05/19/17 05/16/19 Ondansetron Odt [Zofran Odt] 4 mg PO Q8HR PRN 05/19/17 05/16/19 Polyethylene Glycol 3350 [Miralax] 17 gm PO BID 05/19/17 05/16/19 Salmeterol Xinafoate [Serevent 1 puffs INH BID 05/19/17 05/16/19 Diskus] hydrOXYzine pamoate [Hydroxyzine 25 mg PO TID PRN 05/19/17 05/16/19 Pamoate] raNITIdine [Zantac] 150 mg PO BID 08/16/17 05/16/19 Hydrocortisone [Cortef] 5 mg PO QDDINNER 12/11/17 05/16/19 Nitroglycerin [Nitrostat] 0.4 mg SL Q5MIN PRN 03/12/18 05/16/19 Sennosides [Chocolated Laxative] 15 - 30 mg PO DAILY PRN 08/21/18 05/16/19 Albuterol Sulfate [Proair Hfa 2 puffs INH Q4H PRN 03/13/19 05/16/19 Inhaler] Metoprolol Succinate [Toprol Xl] 100 mg PO DAILY 03/13/19 05/16/19 Gabapentin 100 mg PO QDBREAKFAST 03/14/19 05/16/19 Hydrocodone/Acetaminophen 1 - 2 tab PO QID PRN MDD 8 03/14/19 05/16/19 [Hydrocodone-Acetamin 5-325 mg] Docusate Sodium 250Mg Capsule 250 - 500 mg PO DAILY #90 capsule 03/18/19 05/16/19 [Colace 250Mg Capsule] Saccharomyces Boulardii [Florastor] 250 mg PO BID #60 capsule 03/18/19 05/16/19 Escitalopram [Lexapro] 10 mg PO DAILY 03/20/19 05/16/19 hydrALAZINE [Apresoline] 25 mg PO TID 03/20/19 05/16/19 Amiodarone [Pacerone] 200 mg PO DAILY #30 tablet 05/12/19 05/16/19 Bumetanide [Bumex] 1 mg PO DAILY #30 tablet 05/12/19 05/16/19 Ferrous Gluconate [Iron] 240 mg PO DAILY #30 tablet 05/12/19 05/16/19 Isosorbide Mononitrate ER [Imdur] 30 mg PO BIDWM #60 tablet 05/12/19 05/16/19 Lactulose [Constulose] 10 gm PO DAILY #30 solution 05/12/19 05/16/19 Levothyroxine [Synthroid] 125 mcg PO QDAC #30 tablet 05/12/19 05/16/19 Potassium Chloride [K-Dur] 30 meq PO BIDWM #90 tablet 05/12/19 05/16/19 Temazepam [Restoril] 15 mg PO QPM PRN #30 capsule 05/12/19 05/16/19 metOLazone [Metolazone] 2.5 mg PO SUMO 60 Days #30 tablet 05/13/19 05/16/19 - Allergies Allergies/Adverse Reactions: Allergies Allergy/AdvReac Type Severity Reaction Status Date / Time Beef Containing Products Allergy Nausea Verified 03/12/19 18:25 cefpodoxime proxetil * Allergy Unknown Verified 03/12/19 14:54 [From Vantin] [place] And Derivatives Allergy Unknown Verified 03/12/19 18:25 clindamycin Allergy Unknown Verified 03/12/19 14:54 codeine Allergy Unknown Verified 03/12/19 14:54 erythromycin base Allergy Unknown Verified 03/12/19 14:54 [Erythromycin Base] mushroom Allergy Unknown Verified 03/12/19 18:25 onion Allergy Unknown Verified 03/12/19 18:25 rofecoxib [From Vioxx] Allergy Unknown Verified 03/12/19 14:54 sumatriptan [From Imitrex] Allergy Unknown Verified 03/12/19 14:54 tomato Allergy Unknown Verified 03/12/19 18:25 levofloxacin [From Levaquin] AdvReac Severe PSYCHOSIS Verified 03/14/19 17:05 metolazone AdvReac Severe Stomach Verified 03/16/19 09:39 Cramps morphine AdvReac Unknown Verified 03/12/19 14:54 pepper (genus Capsicum) AdvReac Anaphylaxis Verified 03/12/19 18:25 Review of Systems - Constitutional Constitutional: reports: Fatigue, Weight gain (207). denies: Fever, Chills - Eyes Eyes: reports: Vision loss, Corrective lenses - Ears, Nose & Throat Ears, Nose & Throat: reports: Nasal congestion - Cardiovascular Cardiovascular: reports: Irregular heart rate, Edema, Lightheadedness, Exertional dyspnea, Decr. exercise tolerance. denies: Chest pain (has not needed nitro since discharge) - Respiratory Respiratory: reports: SOB at rest, SOB with exertion. denies: Wheezing - Gastrointestinal Gastrointestinal: reports: Abdominal pain, Abdominal distention, Constipation (going small amounts daily), Nausea, Bloating, Poor appetite, Early satiety - Genitourinary Genitourinary: reports: Other (retentive symptoms fluctuating) - Musculoskeletal Musculoskeletal: reports: Muscle aches, Stiffness, Limited range of motion, Muscle weakness, Assistive devices (uses walker and cane) - Integumentary Integumentary: reports: Rash, Pruritis, Lesions, Dryness - Neurological Neurological: reports: General weakness, Dizziness, Abnormal gait - Psychiatric Psychiatric: reports: Depression, Anxiety - Endocrine Endocrine: reports: Hypothyroidism - Hematologic/Lymphatic Hematologic/Lymphatic: reports: Anemia, Recurrent infections (UTIs) - All Other Systems All Other Systems: reports: Reviewed and negative Physical Exam - Vital Signs Temperature: 96.7 C Pulse Rate: 72 Respiratory Rate: 20 O2 Saturation: 97 (on 2 liters) Blood Pressure: 128/72 - Physical Exam General Appearance: positive: Alert, Mild distress, Anxious Eyes Bilateral: positive: Normal inspection ENT: positive: No signs of dehydration Neck: positive: No JVD, Trachea midline Cardiovascular: positive: Irregularly irregular Respiratory: positive: Diminished in bases, Other (dyspnea with any exertion). negative: Wheezes, Rales, Rhonchi Abdomen: positive: Nml bowel sounds, Distended Skin: positive: Pallor, Dryness, Pruritis, Rash Extremities: positive: Pedal edema Neurologic/Psychiatric: positive: Oriented x3, Weakness, Depressed mood/affect Palliative Care - POLST Patient has POLST: Yes POLST Status: DNR, Selective Treatment (Completed at todays visit) Pain: Pain worsening, Location (see HPI) Tiredness/Fatigue: Severe (7-10) Drowsiness/Sedation: Moderate (4-6) Nausea: Mild (1-3) Depression: Moderate (4-6) Anxiety: Moderate (4-6) Dyspnea: Severe (7-10) Anorexia: Moderate (4-6) Sleep: Variable sleep pattern Constipation: Yes, Opoid induced, Intermittent constipation Feelings of wellbeing/Perceived Quality of Life: Fair, Worsening Performance Status: Patient is continued with functional decline, she is able to ambulate short distances but has severe fatigue and dyspnea. She has been encouraged to sleep in her hospital bed, to assist with transfers, she is mostly sleeping in a recliner. She does need assistance with bathing, she needs more assistance with meal prep. I would put her at a PPS of 50% - Palliative Care Discussion: Given patient's most recent interaction with the healthcare system, and needing to call EMS. We revisited the POLST, given Jorge's concern in particular regarding needing to administer CPR unnecessarily. Discussion included goals of care, patient would continue at this point to be rehospitalized, her goal is to focus on quality of life, she is attempting to keep her care closer to home to decrease the stress and concern for her family. She would continue to accept treatment for reversible conditions, she is very clear though when her time comes she does not want to in the hospital. It is important for her to focus on quality of life, spending time with her family, her dogs are of great importance to her. She at this point, would not want to commit herself to a lifelong process of dialysis, but might be willing to entertain short-term if it would improve her quality of life or prolong her life without prolonging her suffering. If she were to have an acute stroke, be bedbound, her more dependent this would not be defined as quality of life for her and would like to be "let go I am. In context of conversation regarding the POLST, she of course is at high risk for ongoing cardiac events, but if she were to be without pulse and not breathing, she would not want CPR initiated, she would not want to be dependent or intubated, she would weigh benefits and burdens of other interventions as they arise. She does not want to traumatize her , and have CPR done she does understand that trauma particularly in the community and with the paramedics. A POLST was done with DNA R/DNI and selective treatments only. She at this point would accept antibiotics, and tube feedings depending on the situation but not to prolong life or suffering. Results - Lab Results Lab results reviewed: Yes Lab and Imaging Results: Patient continues with worsening concerning kidney function, 05/12 her creatinine was 2.2; GFR 23 though this is been somewhat consistent over the last few weeks, it has not been better than 35. Potassium remains compromised, she is taking potassium supplement her last potassium was 3.3. Impression and Recommendations - Palliative Care Impression: This is a 63-year-old complex woman with underlying comorbidities, frequent hospitalizations and continued escalating care needs. She presents with recent hospitalization for acute on chronic heart failure, continues with fragile status, abdominal distention, and high symptom burden. Palliative care continue provide support regarding pain and symptom management, coordination of care, and assistance with home management. Recommendations/Counseling Done: 1. Acute on chronic exacerbation of CHF. Patient on new diuretic Bumex, will continue to follow response. Just reinitiated on 05/14 on discharge was told to hold. Patient's weight has crept up to 207, she was weighing in at 212 prior to hospitalization. Patient is staying within her fluid balance, has been has been managing medications. Home health to reinitiate tomorrow, will have draw BMP. Have spoken with Dr. Valiente, counseling provided regarding recommendations for follow-up with [facility] clinic. She will consider, but is not anxious nor wants to move forward at this time. She will further discuss with Dr. Valiente. 2. Constipation. Patient continues with complicated bowel issues, is using an aggressive bowel program with good results. She continues with bloating, most likely due to congestion of her GI tract. She feels currently under control. 3. Urinary retention. Patient does have home health available for intermittent catheterization, patient would not be able to do independently. She feels like she at this point in time is emptying her bladder, though has had a few episodes of concern. 4. CKD stage IV, her GFR continues to be compromised. She will be starting new diuretic, as well as other medications, will continue to monitor. She also has ongoing pruritus and overall fatigue. 5. Chest pain. This is been currently controlled, has not needed any further nitro. Does appear to respond to the Imdur and has not had any acute symptomatic runs of V. tach. She has noticed on her oximeter if you episodes of tachycardia. 6. Acute on chronic pain, this is multifactorial in origin. 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 Will reinitiate PT with massage and stretching. 7. Advanced care planning. Family meeting, patient continues to struggle with the complexity of her care, multiple specialists as well as frequent hospitalizations. Discussion today regarding POLST, was completed with DNA R/selective treatments. Patient's focus is again still on quality of life, would like to continue to pursue interventions also for her quantity of life. She does continue to try to find positive and short-term goals, though is quite discouraged with her ongoing functional decline and severe fatigue Time Spent: 45 minutes was given 50% of this done in counseling regarding review of new medications, symptom burden, family counseling regarding POLST and completed, and anticipatory guidance.
== END 2019-05-15 13:16 | disposition home or self-care (01) ==
LOC: PC 13:15
PROVIDERS: ATTEND Nurse Practitioner Adult Health
DX: Z51.5 Encounter for palliative care (principal); I50.23 Acute on chronic systolic (congestive) heart failure; N18.4 Chronic kidney disease, stage 4 (severe); K59.00 Constipation, unspecified; R33.9 Retention of urine, unspecified; G89.0 Central pain syndrome; G89.4 Chronic pain syndrome; R07.9 Chest pain, unspecified; R53.83 Other fatigue; L29.9 Pruritus, unspecified; R06.02 Shortness of breath; R53.1 Weakness; Z79.899 Other long term (current) drug therapy; Z79.891 Long term (current) use of opiate analgesic; Z88.6 Allergy status to analgesic agent; Z88.1 Allergy status to other antibiotic agents; Z88.8 Allergy status to other drugs, medicaments and biological substances; Z91.018 Allergy to other foods; Z66 Do not resuscitate
CPT/HCPCS: 99349

== ENCOUNTER 2019-05-16 13:16 | Outpatient (CLI) | payer BC ==
[2019-05-16 13:29] LABS: CALCIUM 8.3 mg/dL (8.5-10.3); CREATININE 1.8 mg/dL (0.4-1.0)
== END 2019-05-16 23:59 | disposition home or self-care (01) ==
LOC: LAB.R 13:16
PROVIDERS: ATTEND Internal Medicine Cardiovascular Disease
DX: I50.9 Heart failure, unspecified (principal)
CPT/HCPCS: 80048

== ENCOUNTER 2019-05-26 11:33 | Outpatient (CLI) | payer BC | END 2019-05-26 11:34 | disposition critical access hospital (66) | LOC: EMS 11:33 | PROVIDERS: ATTEND Surgery | DX: R07.9 Chest pain, unspecified (principal); R06.02 Shortness of breath; R10.9 Unspecified abdominal pain; R11.0 Nausea | CPT/HCPCS: A0425; A0427 ==

== ENCOUNTER 2019-05-26 12:00 | Emergency (ER) | payer BC, MEDICARE ==
--- NOTE | 2019-05-26 12:40 | ED Physician Documentation ---
PD HPI DYSPNEA - Stated complaint Stated Complaint: CP/SOA - Chief complaint Chief Complaint: Cardiac - History obtained from History obtained from: Patient - History of Present Illness Timing - onset: Today (63yo woman in palliative care for CHF c/o sudden onset dyspnea and epigastric pain since 1 week ago and sensation of mass pushing up on diaphragm from epigastric area today. Also AZEVEDO. Has H/O CKD, Vtach, CHF. Last echo 05/06/19 EF 30-35% with LVH, RVH, Mod MR, Mild TR. She is fully anticoagulated on Xarelto and has a history of a nephrectomy. The epigastric mass was "mushy" (Her words) until today when it became much more firm.) Review of Systems Ten Systems: 10 systems reviewed and negative Constitutional: reports: Fatigue. denies: Weight Loss Respiratory: reports: Dyspnea. denies: Cough GI: reports: Abdominal Pain. 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: Hysterectomy, Oophrectomy Cardiovascular: Pacemaker - Present Medications Home Medications: Ambulatory Orders Medication Instructions Recorded Confirmed Fluticasone [Flonase] 2 spray HAROLDO BID 01/24/16 05/16/19 QUEtiapine [SEROquel] 25 mg PO QPM 01/24/16 05/16/19 Methadone 5 mg PO 0800,1700 05/17/17 05/16/19 Rivaroxaban [Xarelto] 15 mg PO 1700 05/17/17 05/16/19 Calcium Carbonate/Vitamin D3 2 tab PO DAILY MDD 6 05/19/17 05/16/19 [Calcium 600-Vit D3 400 Tablet] Carboxymethylcellulose Sodium 1 drops EACHEYE TID PRN 05/19/17 05/16/19 [Refresh Tears] Cyclosporine [Restasis] 1 drops EACHEYE BID 05/19/17 05/16/19 Hydrocortisone [Cortef] 10 mg PO QDBREAKFAST 05/19/17 05/16/19 Multivitamin [Multiple Vitamins] 1 tab PO DAILY 05/19/17 05/16/19 Ondansetron Odt [Zofran Odt] 4 mg PO Q8HR PRN 05/19/17 05/16/19 Polyethylene Glycol 3350 [Miralax] 17 gm PO BID 05/19/17 05/16/19 Salmeterol Xinafoate [Serevent 1 puffs INH BID 05/19/17 05/16/19 Diskus] hydrOXYzine pamoate [Hydroxyzine 25 mg PO TID PRN 05/19/17 05/16/19 Pamoate] raNITIdine [Zantac] 150 mg PO BID 08/16/17 05/16/19 Hydrocortisone [Cortef] 5 mg PO QDDINNER 12/11/17 05/16/19 Nitroglycerin [Nitrostat] 0.4 mg SL Q5MIN PRN 03/12/18 05/16/19 Sennosides [Chocolated Laxative] 15 - 30 mg PO DAILY PRN 08/21/18 05/16/19 Albuterol Sulfate [Proair Hfa 2 puffs INH Q4H PRN 03/13/19 05/16/19 Inhaler] Metoprolol Succinate [Toprol Xl] 100 mg PO DAILY 03/13/19 05/16/19 Gabapentin 100 mg PO QDBREAKFAST 03/14/19 05/16/19 Hydrocodone/Acetaminophen 1 - 2 tab PO QID PRN MDD 8 03/14/19 05/16/19 [Hydrocodone-Acetamin 5-325 mg] Docusate Sodium 250Mg Capsule 250 - 500 mg PO DAILY #90 capsule 03/18/19 05/16/19 [Colace 250Mg Capsule] Saccharomyces Boulardii [Florastor] 250 mg PO BID #60 capsule 03/18/19 05/16/19 Escitalopram [Lexapro] 10 mg PO DAILY 03/20/19 05/16/19 hydrALAZINE [Apresoline] 25 mg PO TID 03/20/19 05/16/19 Amiodarone [Pacerone] 200 mg PO DAILY #30 tablet 05/12/19 05/16/19 Bumetanide [Bumex] 1 mg PO DAILY #30 tablet 05/12/19 05/16/19 Ferrous Gluconate [Iron] 240 mg PO DAILY #30 tablet 05/12/19 05/16/19 Isosorbide Mononitrate ER [Imdur] 30 mg PO BIDWM #60 tablet 05/12/19 05/16/19 Lactulose [Constulose] 10 gm PO DAILY #30 solution 05/12/19 05/16/19 Levothyroxine [Synthroid] 125 mcg PO QDAC #30 tablet 05/12/19 05/16/19 Potassium Chloride [K-Dur] 30 meq PO BIDWM #90 tablet 05/12/19 05/16/19 Temazepam [Restoril] 15 mg PO QPM PRN #30 capsule 05/12/19 05/16/19 metOLazone [Metolazone] 2.5 mg PO SUMO 60 Days #30 tablet 05/13/19 05/16/19 - Allergies Allergies/Adverse Reactions: Allergies Allergy/AdvReac Type Severity Reaction Status Date / Time Beef Containing Products Allergy Nausea Verified 03/12/19 18:25 cefpodoxime proxetil * Allergy Unknown Verified 03/12/19 14:54 [From Vantin] [place] And Derivatives Allergy Unknown Verified 03/12/19 18:25 clindamycin Allergy Unknown Verified 03/12/19 14:54 codeine Allergy Unknown Verified 03/12/19 14:54 erythromycin base Allergy Unknown Verified 03/12/19 14:54 [Erythromycin Base] mushroom Allergy Unknown Verified 03/12/19 18:25 onion Allergy Unknown Verified 03/12/19 18:25 rofecoxib [From Vioxx] Allergy Unknown Verified 03/12/19 14:54 sumatriptan [From Imitrex] Allergy Unknown Verified 03/12/19 14:54 tomato Allergy Unknown Verified 03/12/19 18:25 levofloxacin [From Levaquin] AdvReac Severe PSYCHOSIS Verified 03/14/19 17:05 metolazone AdvReac Severe Stomach Verified 03/16/19 09:39 Cramps morphine AdvReac Unknown Verified 03/12/19 14:54 pepper (genus Capsicum) AdvReac Anaphylaxis Verified 03/12/19 18:25 - Social History Does the pt smoke?: No Smoking Status: Never smoker Does the pt drink ETOH?: No Does the pt have substance abuse?: No - Immunizations Immunizations are current?: Yes - POLST Patient has POLST: Yes POLST Status: Full Code PD ED PE NORMAL - Vitals Vital signs reviewed: Yes - General General: Alert and oriented X 3, No acute distress - Neck Neck: Supple, no meningeal sign, No bony TTP - Cardiac Cardiac: RRR, No murmur - Respiratory Respiratory: No respiratory distress, Clear bilaterally - Abdomen Abdomen: Normal bowel sounds, Soft, Other (TTP Mid upper abd. With palpable mass under a laparotomy scar, absent bowel tones.) - Back Back: No CVA TTP, No spinal TTP - Derm Derm: Normal color, Warm and dry - Extremities Extremities: Other (3+ BLE pitting edema) - Neuro Neuro: Alert and oriented X 3, Normal speech - Psych Psych: Normal mood, Normal affect Results - Vitals Vitals: Vital Signs - 24 hr 05/26/19 05/26/19 05/26/19 12:02 13:27 15:14 Temperature 36.5 C Heart Rate 84 88 98 Respiratory 17 11 L Rate Blood Pressure 117/94 H 130/77 121/86 H O2 Saturation 100 99 98 05/26/19 15:32 Temperature Heart Rate 97 Respiratory 14 Rate Blood Pressure 119/82 H O2 Saturation 98 Oxygen O2 Source Nasal cannula - EKG (time done) 1210 Rate: Rate (enter#) (88) Rhythm: Other (Regular wide-complex rhythm with left bundle branch morphology, prob paced, I do not see pacer spikes though) - Labs Labs: Laboratory Tests 05/26/19 05/26/19 05/26/19 13:50 13:50 13:50 WBC 7.5 RBC 3.25 L Hgb 8.6 L Hct 28.4 L MCV 87.4 MCH 26.5 L MCHC 30.3 L RDW 15.6 H Plt Count 240 MPV 9.2 Neut # (Auto) 5.2 Lymph # (Auto) 1.5 Barren # (Auto) 0.6 Eos # (Auto) 0.2 Baso # (Auto) 0.1 Absolute Nucleated RBC 0.03 Nucleated RBC % 0.4 Sodium 138 Potassium 5.0 Chloride 95 L Carbon Dioxide 28 Anion Gap 15.0 H BUN 54 H Creatinine 2.4 H Estimated GFR (MDRD) 20 L Glucose 132 H Calcium 8.2 L Total Bilirubin 0.7 AST 146 H ALT 160 H Alkaline Phosphatase 200 H Troponin I High Sens 10.2 B-Natriuretic Peptide Total Protein 6.2 L Albumin 3.6 Globulin 2.6 Albumin/Globulin Ratio 1.4 Lipase 40 Blood Type Blood Type Recheck Antibody Screen 05/26/19 05/26/19 05/26/19 13:50 13:50 14:30 WBC RBC Hgb Hct MCV MCH MCHC RDW Plt Count MPV Neut # (Auto) Lymph # (Auto) Barren # (Auto) Eos # (Auto) Baso # (Auto) Absolute Nucleated RBC Nucleated RBC % Sodium Potassium Chloride Carbon Dioxide Anion Gap BUN Creatinine Estimated GFR (MDRD) Glucose Calcium Total Bilirubin AST ALT Alkaline Phosphatase Troponin I High Sens B-Natriuretic Peptide 4303 H Total Protein Albumin Globulin Albumin/Globulin Ratio Lipase Blood Type O NEGATIVE Blood Type Recheck O NEGATIVE Antibody Screen NEGATIVE - Rads (name of study) CT A/P Radiology: EMP read contemporaneously (No ventral hernia nor small bowel obstruction, she does have potential cholecystitis based on this study.) RUQ sono Radiology: Discussed with rads, EMP read contemporaneously (thickening GB wall with pericholecystic fluid, no stones. Either acute or acute on chronic cholecystitis. Small R pleural effusion.) PD MEDICAL DECISION MAKING - ED course ED course: 63-year-old woman with chronic CHF, history of V. tach and fully anticoagulated presents with increasing upper abdominal pain and a mass that is palpable, and presentation otherwise suggestive of incarcerated ventral hernia with small bowel obstruction exacerbating her CHF and pulmonary reserve. Prior to arrival she had received morphine and Zofran in route with some improvement but she was still quite nauseous. Of note on my evaluation she had received about 700 mL of saline via her IVs which were unhooked by me during evaluation. Also of note she is scheduled to see an opener verifier packer [employer] early next month for evaluation for pacemaker replacement with a biventricular pacemaker to improve her quality of life. CT imaging demonstrates potential cholecystitis, confirmed on ultrasound. She was administered Unasyn. I spoke with the on-call surgeon here, Dr. Rambo Washburn, given that she is anticoagulated with CHF and acute on chronic renal failure feels that she is probably too ill and complicated to keep it the small critical access hospital and [facility] was called at 3:15 PM for potential transfer. At approximately 4:30 PM the surgeon there called me back and is willing to consult but recommended that the patient go to the hospitalist service given her comorbidities and the transfer center will get me in touch with the hospitalist. Septic by Dr. De La Torre there at 5:19 PM and cobras were completed. She is stable for transport to a higher level of care given the multi specialty needs of her diagnosis and comorbidities. Departure - Departure Disposition: 02 Transfer Acute Care Hosp Clinical Impression: CKD (chronic kidney disease) stage 4, GFR 15-29 ml/min, Acute on chronic systolic ACC/AHA stage C congestive heart failure, Single kidney, History of CVA with residual deficit, Chronic a-fib, Pacemaker, Elevated brain natriuretic peptide (BNP) level, Cholecystitis Anemia Qualifiers: Anemia type: unspecified type Qualified Code(s): D64.9 - Anemia, unspecified Dyspnea Qualifiers: Dyspnea type: unspecified Qualified Code(s): R06.00 - Dyspnea, unspecified Condition: Serious
[2019-05-26] MEDS ORDERED: BUMETANIDE 1 MG/4 ML VIAL IVP STA (12:41)
[2019-05-26] MEDS ORDERED: METOCLOPRAMIDE 10 MG/2 ML VIAL IVP STA (12:42)
--- NOTE | 2019-05-26 13:36 | CT Report ---
Reason: abd pain, suspect incarcerated ventral hernia, ?SB Procedure Date: 05/26/2019 Accession Number: [id number] / [id number] Procedure: CT - Abdomen/Pelvis WO CPT Code: FULL RESULT: EXAM: CT ABDOMEN AND PELVIS (CT KUB) EXAM DATE: 05/26/2019 01:18 PM. CLINICAL HISTORY: Abdominal pain, suspect incarcerated ventral hernia, question SB. COMPARISONS: ABDOMEN/PELVIS W/O 03/13/2019 12:40 PM. TECHNIQUE: Routine axial helical CT imaging was performed through the abdomen and pelvis without IV contrast. Reconstructions: Coronal and sagittal. In accordance with CT protocol optimization, one or more of the following dose reduction techniques were utilized for this exam: automated exposure control, adjustment of mA and/or KV based on patient size, or use of iterative reconstructive technique. FINDINGS: Lung Bases: Small right and minimal left pleural effusion with lung base evaluation degraded by motion, appearance suggestive of pulmonary edema. Partially imaged is cardiomegaly with pacemaker. The patient is status post right nephrectomy, possibly radical nephrectomy with streak artifact precluding evaluation of the region of the expected right adrenal gland. Limited visualization of the pancreas with aforementioned surrounding fat stranding. The noncontrast gallbladder appears abnormal with suspicion of 8 mm wall thickening. There are surrounding inflammatory changes which also affect the hepatic flexure of the colon and the pancreatic and mesenteric root region, overall evaluation is markedly limited by surgical clips in the nephrectomy bed. The noncontrast liver, spleen, left adrenal gland and kidney are unremarkable. There is no bowel obstruction and no ventral hernia. A small amount of indirectly herniating fat is seen in the left inguinal canal. Evaluation for retroperitoneal or intraperitoneal lymphadenopathy is limited by streak artifact in absence of contrast, no aneta adenopathy. No free air. Visualized pelvis demonstrates no aneta mass, prominent lymph nodes, for example image 108 series 3 left internal iliac node, less than 1 cm in short axis. No ventral hernia. IMPRESSION: No ventral hernia, no bowel obstruction. Limited examination by absence of intravenous or oral contrast. Abnormal appearance of the gallbladder with fat stranding in the region of the hepatic flexure, gallbladder fossa and pancreatic head as well as mesenteric root, question cholecystitis. Pancreatitis is also not excluded. RADIA
[2019-05-26] MEDS ORDERED: PROMETHAZINE INJ 6.25 MG in SODIUM CHLORIDE 0.9% 50 ML IV STA (13:46)
[2019-05-26] MEDS ORDERED: MORPHINE 2 MG/ML CARPUJECT IVP STA (13:46)
[2019-05-26 13:57] LABS: BASOPHILS # (AUTO) 0.1 10^3/uL (0.0-0.1); BASOPHILS % (AUTO) 0.8 %; EOSINOPHILS # (AUTO) 0.2 10^3/uL (0.0-0.7); HGB - HEMOGLOBIN 8.6 g/dL (12.0-16.0); LYMPHOCYTES # (AUTO) 1.5 10^3/uL (1.5-3.5); LYMPHOCYTES % (AUTO) 19.9 %; MEAN CORPUSCULAR HEMOGLOBIN 26.5 pg (27.0-31.0); MEAN CORPUSCULAR HGB CONC 30.3 g/dL (32.0-36.0); MEAN CORPUSCULAR VOLUME 87.4 fL (81.0-99.0); MEAN PLATELET VOLUME 9.2 fL (7.9-10.8); MONOCYTES # (AUTO) 0.6 10^3/uL (0.0-1.0); MONOCYTES % (AUTO) 8.2 %; NEUTROPHILS # (AUTO) 5.2 10^3/uL (1.5-6.6); NEUTROPHILS % (AUTO) 68.7 %; PLT - PLATELET COUNT 240 10^3/uL (130-450); RED BLOOD COUNT 3.25 10^6/uL (4.20-5.40); RED CELL DISTRIBUTION WIDTH 15.6 % (12.0-15.0); WHITE BLOOD COUNT 7.5 x10^3/uL (4.8-10.8)
[2019-05-26 14:22] LABS: ALBUMIN 3.6 g/dL (3.2-5.5); ALBUMIN/GLOBULIN RATIO 1.4 (1.0-2.2); BILIRUBIN,TOTAL 0.7 mg/dL (0.2-1.0); CALCIUM 8.2 mg/dL (8.5-10.3); CREATININE 2.4 mg/dL (0.4-1.0); TOTAL PROTEIN 6.2 g/dL (6.7-8.2)
[2019-05-26] MEDS ORDERED: fentaNYL 100 MCG/2 ML VIAL IVP STA (15:10)
[2019-05-26] MEDS ORDERED: AMPICILLIN/SULBACTAM 3 GM in SODIUM CHLORIDE 0.9% MINIBAG 100 ML IV STA (15:10)
--- NOTE | 2019-05-26 15:34 | Ultrasound Report ---
Reason: epigastric pain, poss cholecystitis on CT Procedure Date: 05/26/2019 Accession Number: [id number] / [id number] Procedure: US - Abdomen Limited CPT Code: FULL RESULT: EXAM: ABDOMEN ULTRASOUND LIMITED, RUQ EXAM DATE: 05/26/2019 03:04 PM. CLINICAL HISTORY: Epigastric pain, poss cholecystitis on CT. COMPARISON: ABDOMEN/PELVIS W/O 05/26/2019 1:14 PM. TECHNIQUE: Real-time scanning was performed with static images obtained. FINDINGS: Liver: Normal in size and echotexture. 18.8 cm. Main portal vein flow: Hepatopetal. Gallbladder: Diffuse circumferential thickening of gallbladder wall, measuring up to 11.1 mm. There is small volume pericholecystic fluid. (Sonographic Cifuentes's sign negative, patient on pain meds). No discontinuity of gallbladder wall. . Biliary System: CBD measures 5.5 mm. No intrahepatic or extrahepatic ductal dilatation. Other: A small clear right pleural effusion noted. IMPRESSION: Diffuse thickening of gallbladder wall with pericholecystic fluid. Findings favor acute inflammatory process of gallbladder (acute cholecystitis, acute on chronic cholecystitis). No sonographic signs of necrosis or emphysematous cholecystitis. A small clear right pleural effusion. RADIA The call report notification system was initiated by Dr. Arti Hook at 03:32 PM on 05/26/2019. ADDENDUM: 05/26/19 15:45 The above call report findings were discussed with Delroy Luna by Dr. Arti Hook at 03:45 PM on 05/26/2019.
[2019-05-26 18:10] VITALS: BP 142/86
== END 2019-05-26 18:40 | disposition short-term general hospital (02) ==
LOC: EDUNIT# → ED 12:00
DX: I13.0 Hypertensive heart and chronic kidney disease with heart failure and stage 1 through stage 4 chronic kidney disease, or unspecified chronic kidney disease (principal); I50.23 Acute on chronic systolic (congestive) heart failure; N18.4 Chronic kidney disease, stage 4 (severe); I48.2 Chronic atrial fibrillation; K81.9 Cholecystitis, unspecified; D64.9 Anemia, unspecified; R79.89 Other specified abnormal findings of blood chemistry; I69.30 Unspecified sequelae of cerebral infarction; Z90.5 Acquired absence of kidney; Z79.01 Long term (current) use of anticoagulants; Z95.0 Presence of cardiac pacemaker
CPT/HCPCS: 36415; 74176; 76705; 80053; 83690; 83880; 85025; 86850; 86900; 86901; 93005; 96365; 96367; 96375; 99285; J2765; J7040; 84484

== ENCOUNTER 2019-05-26 18:26 | Outpatient (CLI) | payer BC | END 2019-05-26 18:27 | disposition short-term general hospital (02) | LOC: EMS 18:26 | PROVIDERS: ATTEND Surgery | DX: R10.11 Right upper quadrant pain (principal) | CPT/HCPCS: A0425; A0426 ==

== ENCOUNTER 2019-06-18 13:16 | Outpatient (CLI) | payer BC, MEDICARE ==
[2019-06-18 14:21] LABS: BASOPHILS % (AUTO) 0.5 %; EOSINOPHILS # (AUTO) 0.2 10^3/uL (0.0-0.7); EOSINOPHILS % (AUTO) 1.8 %; HGB - HEMOGLOBIN 10.1 g/dL (12.0-16.0); LYMPHOCYTES # (AUTO) 1.6 10^3/uL (1.5-3.5); LYMPHOCYTES % (AUTO) 19.9 %; MEAN CORPUSCULAR HGB CONC 29.7 g/dL (32.0-36.0); MEAN CORPUSCULAR VOLUME 94.2 fL (81.0-99.0); MEAN PLATELET VOLUME 9.9 fL (7.9-10.8); MONOCYTES # (AUTO) 0.7 10^3/uL (0.0-1.0); MONOCYTES % (AUTO) 8.1 %; NEUTROPHILS # (AUTO) 5.7 10^3/uL (1.5-6.6); NEUTROPHILS % (AUTO) 69.2 %; PLT - PLATELET COUNT 197 10^3/uL (130-450); RED BLOOD COUNT 3.61 10^6/uL (4.20-5.40); RED CELL DISTRIBUTION WIDTH 20.9 % (12.0-15.0); WHITE BLOOD COUNT 8.3 x10^3/uL (4.8-10.8)
[2019-06-18 14:28] LABS: ALBUMIN 3.8 g/dL (3.2-5.5); ALBUMIN/GLOBULIN RATIO 1.4 (1.0-2.2); BILIRUBIN,TOTAL 0.6 mg/dL (0.2-1.0); CALCIUM 8.6 mg/dL (8.5-10.3); TOTAL PROTEIN 6.6 g/dL (6.7-8.2)
[2019-06-18 15:53] LABS: PLATELET ESTIMATE, MANUAL NORMAL (130-450,000) (NORMAL); PLATELET MORPHOLOGY NORMAL APPEARANCE (NORMAL)
== END 2019-06-18 13:17 | disposition home or self-care (01) ==
LOC: LAB.R 13:16
PROVIDERS: ATTEND Nurse Practitioner Adult Health
DX: Z79.899 Other long term (current) drug therapy (principal)
CPT/HCPCS: 80053; 85025

== ENCOUNTER 2019-06-23 09:00 | Outpatient (CLI) | payer BC ==
[2019-06-23 17:49] LABS: BILIRUBIN,URINE NEGATIVE (NEGATIVE); CLARITY,URINE HAZY (CLEAR); GLUCOSE, URINE (UA) NEGATIVE (NEGATIVE); KETONES,URINE (UA) NEGATIVE (NEGATIVE); LEUKOCYTE ESTERASE, URINE LARGE (NEGATIVE); NITRITE,URINE NEGATIVE (NEGATIVE); OCCULT BLOOD,URINE TRACE-INTA (NEGATIVE); PH,URINE 6.5 PH (5.0-7.5); PROTEIN,URINE NEGATIVE (NEGATIVE); UROBILINOGEN,URINE 0.2 (NORMAL) E.U./dL (NORMAL)
[2019-06-23 17:57] LABS: BACTERIA,URINE Many /HPF (None Seen); SQUAMOUS EPITHELIAL CELL,UR NONE SEEN (<= Few); WBC CLUMPS,URINE PRESENT
== END 2019-06-23 23:59 | disposition home or self-care (01) ==
LOC: LAB.S 09:00
PROVIDERS: ATTEND Nurse Practitioner Adult Health
DX: R30.0 Dysuria (principal)
CPT/HCPCS: 81001; 81003; 87077; 87086; 87181

== ENCOUNTER 2019-07-02 08:00 | Outpatient (CLI) | payer BC ==
[2019-07-02 15:27] LABS: HGB - HEMOGLOBIN 11.1 g/dL (12.0-16.0); MEAN CORPUSCULAR HEMOGLOBIN 27.6 pg (27.0-31.0); MEAN CORPUSCULAR HGB CONC 29.3 g/dL (32.0-36.0); MEAN CORPUSCULAR VOLUME 94.3 fL (81.0-99.0); MEAN PLATELET VOLUME 9.9 fL (7.9-10.8); RED BLOOD COUNT 4.02 10^6/uL (4.20-5.40); WHITE BLOOD COUNT 7.2 x10^3/uL (4.8-10.8)
[2019-07-02 15:35] LABS: ALBUMIN 4.2 g/dL (3.2-5.5); ALBUMIN/GLOBULIN RATIO 1.6 (1.0-2.2); BILIRUBIN,TOTAL 0.2 mg/dL (0.2-1.0); CREATININE 2.4 mg/dL (0.4-1.0); TOTAL PROTEIN 6.9 g/dL (6.7-8.2)
== END 2019-07-02 23:59 | disposition home or self-care (01) ==
LOC: LAB.R 08:00
PROVIDERS: ATTEND Internal Medicine Cardiovascular Disease
DX: I47.2 Ventricular tachycardia (principal); I50.22 Chronic systolic (congestive) heart failure; I48.91 Unspecified atrial fibrillation
CPT/HCPCS: 80053; 83880; 85027

== ENCOUNTER 2019-07-13 15:30 | Outpatient (CLI) | payer BC ==
--- NOTE | 2019-07-13 20:42 | CONSULTATION NOTE ---
Palliative Care Follow Up - Referral Referring Provider: Dr. Harjit Barraza Time of Visit: 1236-1417 Referral setting: Home Referral Reason: Acute on Chronic Heart Failure/Central Pain Syndrome/Goals of Care - Information Sources Records reviewed: Previous records reviewed History/Review of Systems obtained from: Patient, Family ( Pete at visit) Exam limitations: No limitations - History of Present Illness Update Brief HPI Update: This is a 63-year-old woman who has advanced heart failure, who is followed by palliative care for coordination of care and quality of life issues. She was most recently hospitalized at [facility] 05/26/2019 to 06/13/2019. She has had multiple admits for acute on chronic heart failure exacerbations over this last year, has had increasing weight gain, shortness of breath, dyspnea, and severe fatigue. She has had significant ventricular tachycardia, and with her most r ecent hospitalization received an ablation and an ICD/PIV pacer on 06/01. She continues to struggle with acute on chronic CKD 3, she has only one kidney status post resection for renal care carcinoma, and has been supported by nephrology. She is continued to struggle with increasing weight over the last couple weeks, with increased challenge of her torsemide from 40 to 60 mg, she did have worsening renal function. She has had fairly significant functional decline, this is impacted by her breathlessness, fatigue, and is currently sleeping quite a bit. She does have difficulty tolerating medication changes, particularly aggressive diuresis. She has been counseled over the weekend to access emergency room assistance for IV diuresis, but has chosen not to. Patient is quite fatigued by her multiple hospitalizations, she feels exhausted with her interactions with the medical system, and often has long weights and multiple complaints. She is much more comfortable at home, she has her service dog, and her family are quite devoted and take good care of her. She presents today with significant fatigue, shortness of breath, her weight is hovering about 212. She is tends to talk about the need hospitalization around 2 15-2 16, she does have lower extremity edema that is evident up to mid thigh, she has enlarged abdominal edema, suspect poor drug absorption, she does not have crackles, but is easily breathless and is oxygen dependent at this point in time. She does get feelings where she reports waves coming up into her throat and unable to breathe, and gets quite anxious with this. 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 She has hyperalgesia and allodynia of her left side, she is a history of migraines with recent increase of her gabapentin to 300 mg total and 24 hours, but has remained fairly stable on her methadone 5 mg twice daily, with PRN Alta up to 4 times a day. There is concern with mild clonus, the patient feels her pain which is multifactorial including fibromyalgia, interstitial cystitis, IBS, and her central pain syndrome do not lend herself to titration down. She is willing to decrease her gabapentin though. Family meeting tonight with patient, and myself. Discussed at length patient's ongoing deteriorating status, particularly over the last 2 months. She is struggling with whether or not to proceed to dialysis, as she has an understanding that that is where she is headed. The thought of going through the steps to start dialysis is overwhelming, but counterbalance with also facing her impending decline and . She does perceive herself is seriously ill, at high risk for an event at any time, and has been willing to take the risk despite encouragement to go into emergency services. She does not present with significant depression, though does have high anxiety, and continues to struggle daily with her declining quality of life. Patient's past medical history is quite complex and does not include a series of autoimmune diseases including irritable bowel syndrome interstitial cystitis, fibromyalgia, migraines, adrenal insufficiency, hypothyroidism, history of renal cell carcinoma, thyroid surgery, and status post kidney removal. Social History - Living Situation Living arrangement: At home Living Situation: With spouse/s.o. Support System: Her spouse who is a share, continues to work full-time, though has had to take significant amount of times off to provide support given her fluctuating health status. Her daughter and her live on the property, and provide support when he is working. We have discussed in the past of getting [facility] to be able to contact if she needs help, as she is often having "spells" though these have decreased with the new pacemaker, but she is at high risk for falls and further events. Medications/Allergies - Medications Home Medications: Ambulatory Orders Medication Instructions Recorded Confirmed Fluticasone [Flonase] 2 spray HAROLDO BID 01/24/16 07/14/19 QUEtiapine [SEROquel] 25 mg PO QPM 01/24/16 07/14/19 Methadone 5 mg PO 0800,1700 05/17/17 07/14/19 Rivaroxaban [Xarelto] 15 mg PO 1700 05/17/17 07/14/19 Calcium Carbonate/Vitamin D3 2 tab PO DAILY MDD 6 05/19/17 07/14/19 [Calcium 600-Vit D3 400 Tablet] Carboxymethylcellulose Sodium 1 drops EACHEYE TID PRN 05/19/17 07/14/19 [Refresh Tears] Cyclosporine [Restasis] 1 drops EACHEYE BID 05/19/17 07/14/19 Hydrocortisone [Cortef] 10 mg PO QDBREAKFAST 05/19/17 07/14/19 Multivitamin [Multiple Vitamins] 1 tab PO DAILY 05/19/17 07/14/19 Ondansetron Odt [Zofran Odt] 4 mg PO Q8HR PRN 05/19/17 07/14/19 Polyethylene Glycol 3350 [Miralax] 17 gm PO BID 05/19/17 07/14/19 Salmeterol Xinafoate [Serevent 1 puffs INH BID 05/19/17 07/14/19 Diskus] hydrOXYzine pamoate [Hydroxyzine 25 mg PO TID PRN 05/19/17 07/14/19 Pamoate] raNITIdine [Zantac] 150 mg PO BID 08/16/17 07/14/19 Hydrocortisone [Cortef] 5 mg PO QDDINNER 12/11/17 07/14/19 Nitroglycerin [Nitrostat] 0.4 mg SL Q5MIN PRN 03/12/18 07/14/19 Sennosides [Chocolated Laxative] 15 - 30 mg PO DAILY PRN 08/21/18 07/14/19 Albuterol Sulfate [Proair Hfa 2 puffs INH Q4H PRN 03/13/19 07/14/19 Inhaler] Metoprolol Succinate [Toprol Xl] 100 mg PO DAILY 03/13/19 07/14/19 Gabapentin 100 mg PO BID 03/14/19 07/14/19 Hydrocodone/Acetaminophen 1 - 2 tab PO QID PRN MDD 8 03/14/19 07/14/19 [Hydrocodone-Acetamin 5-325 mg] Docusate Sodium 250Mg Capsule 250 - 500 mg PO DAILY #90 capsule 03/18/19 07/14/19 [Colace 250Mg Capsule] Saccharomyces Boulardii [Florastor] 250 mg PO BID #60 capsule 03/18/19 07/14/19 Escitalopram [Lexapro] 10 mg PO DAILY 03/20/19 07/14/19 hydrALAZINE [Apresoline] 50 mg PO TID 03/20/19 07/14/19 Ferrous Gluconate [Iron] 240 mg PO DAILY #30 tablet 05/12/19 07/14/19 Levothyroxine [Synthroid] 125 mcg PO QDAC #30 tablet 05/12/19 07/14/19 Isosorbide Mononitrate ER [Imdur] 20 mg PO DAILY 07/14/19 07/14/19 Spironolactone 50 mg PO DAILY 07/14/19 07/14/19 Torsemide 40 mg PO DAILY MDD 100 mg x 2 days 07/14/19 07/14/1907/14 - Allergies Allergies/Adverse Reactions: Allergies Allergy/AdvReac Type Severity Reaction Status Date / Time Beef Containing Products Allergy Nausea Verified 03/12/19 18:25 cefpodoxime proxetil * Allergy Unknown Verified 03/12/19 14:54 [From Vantin] [place] And Derivatives Allergy Unknown Verified 03/12/19 18:25 clindamycin Allergy Unknown Verified 03/12/19 14:54 codeine Allergy Unknown Verified 03/12/19 14:54 erythromycin base Allergy Unknown Verified 03/12/19 14:54 [Erythromycin Base] mushroom Allergy Unknown Verified 03/12/19 18:25 onion Allergy Unknown Verified 03/12/19 18:25 rofecoxib [From Vioxx] Allergy Unknown Verified 03/12/19 14:54 sumatriptan [From Imitrex] Allergy Unknown Verified 03/12/19 14:54 tomato Allergy Unknown Verified 03/12/19 18:25 levofloxacin [From Levaquin] AdvReac Severe PSYCHOSIS Verified 03/14/19 17:05 metolazone AdvReac Severe Stomach Verified 03/16/19 09:39 Cramps morphine AdvReac Unknown Verified 03/12/19 14:54 pepper (genus Capsicum) AdvReac Anaphylaxis Verified 03/12/19 18:25 Review of Systems - Constitutional Constitutional: reports: Fatigue (worsening), Poor appetite, Weight gain (212.3) . denies: Fever, Chills - Eyes Eyes: reports: Vision loss - Ears, Nose & Throat Ears, Nose & Throat: reports: Nasal congestion, Dry mouth - Cardiovascular Cardiovascular: reports: Chest pain (one episode of nitro-took more for breathlessness "tight chest" eventually let up), Edema, Exertional dyspnea, Decr. exercise tolerance, Orthopnea - Respiratory Respiratory: reports: Wheezing (intermittent), SOB at rest, SOB with exertion - Gastrointestinal Gastrointestinal: reports: Abdominal pain, Abdominal distention, Constipation, Nausea, Bloating, Poor appetite, Early satiety - Genitourinary Genitourinary: reports: Frequency, Other (recently treated for UTI) - Musculoskeletal Musculoskeletal: reports: Muscle pain, Back pain, Muscle aches, Stiffness, Limited range of motion, Muscle weakness, Joint pain, Assistive devices (uses cane in home; wheelchair in community for appointments; walker for short distances outside) - Integumentary Integumentary: reports: Rash, Pruritis, Lesions, Dryness, Other (new lesion on left ear) - Neurological Neurological: reports: General weakness, Headache (migraines), Dizziness, Numbness, Memory problems, Abnormal gait, Other (tremors) - Psychiatric Psychiatric: reports: Depression, Anxiety - Endocrine Endocrine: reports: Hypothyroidism - Hematologic/Lymphatic Hematologic/Lymphatic: reports: Anemia, Recurrent infections (UTIs) Physical Exam - Vital Signs Temperature: 96.7 C Pulse Rate: 66 Respiratory Rate: 18 O2 Saturation: 98 (on 2.5 liters) Blood Pressure: 152/72 - Physical Exam General Appearance: positive: Moderate distress, Lethargic Eyes Bilateral: positive: Normal inspection Neck: positive: Trachea midline Cardiovascular: positive: Regular rate & rhythm Respiratory: positive: Diminished in bases. negative: No respiratory distress (patient with dyspnea with any activity), Wheezes, Rales, Rhonchi Abdomen: positive: Soft, Nml bowel sounds, Tenderness, Distended, Obese Skin: positive: Pallor, Dryness, Pruritis, Rash, Other (o.5 cm lesion on top of left ear; appears squamuos in nature) Extremities: positive: Pedal edema (up to midthigh; sacral edema), Other (patient with difficulty walking; gait shuffled) Neurologic/Psychiatric: positive: Oriented x3, Weakness, Sensory loss, Depressed mood/affect, Flat affect, Other (tremors UE right greater than left) Palliative Care - POLST Patient has POLST: Yes POLST Status: DNR, Selective Treatment Pain: Pain unchanged, Location (left side of body; see HPI) Tiredness/Fatigue: Severe (7-10) Drowsiness/Sedation: Severe (7-10) (sleeping alot the last few days) Nausea: Mild (1-3) Depression: Moderate (4-6) Anxiety: Moderate (4-6) Dyspnea: Severe (7-10) Anorexia: Moderate (4-6) Sleep: Sleeps well Constipation: Yes, Opoid induced, Intermittent constipation (has been going) Feelings of wellbeing/Perceived Quality of Life: Poor, Acceptable (patient still enjoys spending time with family and her animals), Worsening Performance Status: Patient has experienced decline in functional status, she is dependent for bathing, home health aide is providing assistance. She has been resting over the weekend, this has helped some with her energy and decreased breathlessness. She is continued to lose her ability to do household tasks, and spending most of her time in the recliner. I would put her at a PPS of 50% - Palliative Care Discussion: Long extensive conversation regarding patient's current condition and goals of care. She is very resistant to returning back to the hospital, she does feel like "she is getting closer", she is quite guilty about feeling being a burden on her family. She remains somewhat ambivalent regarding dialysis, not wanting to make the commitment particularly regarding the lifestyle, but also aware of that this would mean most likely short life expectancy. She is appropriately worried about complications given her autoimmune diseases, high risk for in fection, and multiple complications in the past. Her goal would be if she were to have a crisis and approaching end of life, she would hope to be able to transition home to be with her family and animals. She reports she does not want to in the hospital. We discussed what information is needed for her to better plan for future, she would like to explore dialysis and risks and benefits moving forward, she has not given her multiple hospitalizations had much time to follow-up with nephrology. We also discussed the AICD, and if were at end of life would need to have it turned off, she does have a magnet in the home as well. She does not feel like she is ready for hospice, though if she were to choose to not further pursue any treatment for her heart failure, she would most likely meet criteria given her multiple hospitalizations functional decline, and decreasing ejection fraction on 06/05 was 26%. At this point in time she would accept hospitalization, we did discuss though the threshold for going in, and that if she is choosing not to go and despite medical advice, she is taking a risk for an end-of-life event and she and her do recognize this. She very much does not want to go to [facility], as this is difficult for her family, we did discuss with her current pacer and ventricular arrhythmias under control, she could certainly start at [facility] for diuresis and support, but they would need to transfer her if she were needing to further consider dialysis. There were no conclusions made, but did agree to follow-up with Dr. Valiente regarding input. Results - Lab Results Lab results reviewed: Yes Lab and Imaging Results: After discussion with Dr. Valiente will order labs with RN tomorrow for baseline. Impression and Recommendations - Palliative Care Impression: This is a 63-year-old woman with severe acute on chronic heart failure, presenting an exacerbation currently. She does have poor kidney function, functional status is continued to decline, symptom burden is fairly high. Patient continues to struggle with her goals of care, quality of life issues, and ongoing social support. Palliative care providing support for pain and symptom management, coordination of care, and anticipatory guidance. Recommendations/Counseling Done: 1. Acute on chronic heart failure. Follow-up with Dr. Valiente regarding recommendations regarding diuresis. His recommendation was to attempt to challenge her with diuretics, recommending torsemide 100 mg 2 days, or whenever patient is willing to accept, she is currently on a baseline of 40 mg. Did recommend baseline labs, will go ahead and obtain those tomorrow with home health RN. She may also split those days, but overall recommendation is if continues to gain weight for IV diuresis. This was communicated to her after received phone call from Dr. Valiente. 2. Dyspnea. Patient continued to pace her self, did send order off to [facility] for hydration/troublemaker per her request, she is having trouble with dryness and irritation, as well as hypoallergenic/soft cannulas. 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 We did discuss at least decreasing the gabapentin from 300, back down to 100 mg twice daily. Patient does not feel like she can titrate her pain meds down further given her level of discomfort and distress. Has decreased her Alta some, down to 2 to 3 tablets a day. 4. Fatigue. This is multifactorial in origin, recommended discontinuing temazepam at night, as well as gabapentin. Would also recommend decreasing Seroquel, but will wait she just wants to make a few changes at a time. She is pacing herself, she is getting physical therapy support from home health, as well as attributed to her underlying disease process and kidney failure. 5. Depression. Patient continues with ongoing losses, decreased functional status, and increased dependence and feeling like a burden on her family. She is getting support from the medical palliative care social psychologist, as well as does feel quite supported by the home health care team and palliative care. 6. Advanced care planning. Recommended she follow through on her appointment with nephrology, continue the conversation with Dr. Valiente is well. Dr. Valiente expressed patient had already undergone severe and serious surgery with her pacer, his perception is dialysis surgeries would be less. But patient would be needing to make a commitment for that ongoing lifestyle. Patient does have POLST in place with [facility]. She does feel quite vulnerable, and aware of the seriousness of her illness, continues to weigh benefits and burdens of treatment decisions as they arise. 7. Left ear lesion. Patient already has a referral to [facility] with dermatology previously given her lower extremity rash and lesions. 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 Time Spent: 5 minutes with greater than 50% of this done in counseling regarding goals of care, advanced care planning, review of symptom management and social support. Coordination of care with Dr. Valiente, with agreement he will continue conversation regarding input for this complex patient.
== END 2019-07-13 15:31 | disposition home or self-care (01) ==
LOC: PC 15:30
PROVIDERS: ATTEND Nurse Practitioner Adult Health
DX: Z51.5 Encounter for palliative care (principal); I50.43 Acute on chronic combined systolic (congestive) and diastolic (congestive) heart failure; N18.3 Chronic kidney disease, stage 3 (moderate); R06.00 Dyspnea, unspecified; G25.3 Myoclonus; R53.83 Other fatigue; F32.9 Major depressive disorder, single episode, unspecified; L98.9 Disorder of the skin and subcutaneous tissue, unspecified; G89.29 Other chronic pain; F41.9 Anxiety disorder, unspecified; N30.10 Interstitial cystitis (chronic) without hematuria; E27.1 Primary adrenocortical insufficiency; I48.91 Unspecified atrial fibrillation; R26.9 Unspecified abnormalities of gait and mobility; E03.9 Hypothyroidism, unspecified; H54.7 Unspecified visual loss; Z66 Do not resuscitate; Z79.01 Long term (current) use of anticoagulants; Z79.51 Long term (current) use of inhaled steroids; Z79.891 Long term (current) use of opiate analgesic; Z95.810 Presence of automatic (implantable) cardiac defibrillator
CPT/HCPCS: 99350

== ENCOUNTER 2019-07-14 08:00 | Outpatient (CLI) | payer BC ==
[2019-07-14 16:57] LABS: ALBUMIN 4.5 g/dL (3.2-5.5); ALBUMIN/GLOBULIN RATIO 1.5 (1.0-2.2); BILIRUBIN,TOTAL 0.4 mg/dL (0.2-1.0); CALCIUM 8.7 mg/dL (8.5-10.3); CREATININE 2.1 mg/dL (0.4-1.0); TOTAL PROTEIN 7.5 g/dL (6.7-8.2)
== END 2019-07-14 23:59 | disposition home or self-care (01) ==
LOC: LAB.R 08:00
PROVIDERS: ATTEND Nurse Practitioner Adult Health
DX: Z79.899 Other long term (current) drug therapy (principal)
CPT/HCPCS: 80053

== ENCOUNTER 2019-07-24 12:27 | Outpatient (CLI) | payer BC, MEDICARE | END 2019-07-24 12:28 | disposition critical access hospital (66) | LOC: EMS 12:27 | PROVIDERS: ATTEND Surgery | DX: R06.02 Shortness of breath (principal); R60.0 Localized edema; R07.9 Chest pain, unspecified | CPT/HCPCS: A0425; A0427 ==

== ENCOUNTER 2019-07-24 12:57 | Inpatient (IN) | payer BC, MEDICARE ==
[2019-07-24 13:36] LABS: BILIRUBIN,URINE NEGATIVE (NEGATIVE); GLUCOSE, URINE (UA) NEGATIVE (NEGATIVE); KETONES,URINE (UA) NEGATIVE (NEGATIVE); LEUKOCYTE ESTERASE, URINE SMALL (NEGATIVE); NITRITE,URINE NEGATIVE (NEGATIVE); OCCULT BLOOD,URINE NEGATIVE (NEGATIVE); PROTEIN,URINE NEGATIVE (NEGATIVE); UROBILINOGEN,URINE 0.2 (NORMAL) E.U./dL (NORMAL)
[2019-07-24 13:38] LABS: CLARITY,URINE HAZY (CLEAR)
[2019-07-24 13:41] LABS: BACTERIA,URINE Moderate /HPF (None Seen); RBC,URINE 0-5 /HPF (0-5); SQUAMOUS EPITHELIAL CELL,UR NONE SEEN (<= Few); WBC CLUMPS,URINE PRESENT
[2019-07-24] MEDS ORDERED: FUROSEMIDE 40 MG/4 ML VIAL IVP STA (13:45)
[2019-07-24 13:50] LABS: BASOPHILS % (AUTO) 0.6 %; EOSINOPHILS # (AUTO) 0.2 10^3/uL (0.0-0.7); HGB - HEMOGLOBIN 11.3 g/dL (12.0-16.0); LYMPHOCYTES # (AUTO) 1.5 10^3/uL (1.5-3.5); LYMPHOCYTES % (AUTO) 21.8 %; MEAN CORPUSCULAR HEMOGLOBIN 28.8 pg (27.0-31.0); MEAN CORPUSCULAR HGB CONC 30.5 g/dL (32.0-36.0); MEAN CORPUSCULAR VOLUME 94.4 fL (81.0-99.0); MEAN PLATELET VOLUME 9.3 fL (7.9-10.8); MONOCYTES # (AUTO) 0.6 10^3/uL (0.0-1.0); MONOCYTES % (AUTO) 8.3 %; NEUTROPHILS # (AUTO) 4.4 10^3/uL (1.5-6.6); PLT - PLATELET COUNT 163 10^3/uL (130-450); RED BLOOD COUNT 3.92 10^6/uL (4.20-5.40); RED CELL DISTRIBUTION WIDTH 18.4 % (12.0-15.0); WHITE BLOOD COUNT 6.6 x10^3/uL (4.8-10.8)
--- NOTE | 2019-07-24 13:55 | ED Physician Documentation ---
PD HPI CHEST PAIN - Stated complaint Stated Complaint: CONGESTION/ FLUID RETENTION - Chief complaint Chief Complaint: Cardiac - History obtained from History obtained from: Patient - History of Present Illness Timing - onset: Other (63-year-old woman with history of congestive heart failure and palliative care for same. Recently had her pacemaker upgraded to a biventricular pacemaker. Despite taking now 80 mg of torsemide a day and 50 mg of Aldactone a day has developed anasarca and shortness of breath. Her weight has been followed by the palliative care nurse, she is supposed to be under 200 pounds for her dry weight but there was a trigger weight of 215 pounds that was met today for inpatient diuresis per their plan. She denies any chest pain.) Review of Systems Ten Systems: 10 systems reviewed and negative Constitutional: reports: Fatigue. denies: Fever, Chills Cardiac: reports: Pedal edema. denies: Chest pain / pressure, Palpitations Respiratory: reports: Dyspnea. 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 Cardiovascular: Pacemaker - Present Medications Home Medications: Ambulatory Orders Medication Instructions Recorded Confirmed Fluticasone [Flonase] 2 spray HAROLDO BID 01/24/16 07/24/19 QUEtiapine [SEROquel] 25 mg PO QPM 01/24/16 07/24/19 Methadone 5 mg PO 0800,1700 05/17/17 07/24/19 Rivaroxaban [Xarelto] 15 mg PO 1700 05/17/17 07/24/19 Calcium Carbonate/Vitamin D3 2 tab PO DAILY MDD 6 05/19/17 07/24/19 [Calcium 600-Vit D3 400 Tablet] Carboxymethylcellulose Sodium 1 drops EACHEYE TID PRN 05/19/17 07/24/19 [Refresh Tears] Cyclosporine [Restasis] 1 drops EACHEYE BID 05/19/17 07/24/19 Hydrocortisone [Cortef] 10 mg PO QDBREAKFAST 05/19/17 07/24/19 Multivitamin [Multiple Vitamins] 1 tab PO DAILY 05/19/17 07/24/19 Ondansetron Odt [Zofran Odt] 4 mg PO Q8HR PRN 05/19/17 07/24/19 Polyethylene Glycol 3350 [Miralax] 17 gm PO BID 05/19/17 07/24/19 Salmeterol Xinafoate [Serevent 1 puffs INH BID 05/19/17 07/24/19 Diskus] hydrOXYzine pamoate [Hydroxyzine 25 mg PO TID PRN 05/19/17 07/24/19 Pamoate] raNITIdine [Zantac] 150 mg PO BID 08/16/17 07/24/19 Hydrocortisone [Cortef] 5 mg PO QDDINNER 12/11/17 07/24/19 Nitroglycerin [Nitrostat] 0.4 mg SL Q5MIN PRN 03/12/18 07/24/19 Sennosides [Chocolated Laxative] 15 - 30 mg PO DAILY PRN 08/21/18 07/14/19 Albuterol Sulfate [Proair Hfa 2 puffs INH Q4H PRN 03/13/19 07/24/19 Inhaler] Metoprolol Succinate [Toprol Xl] 100 mg PO DAILY 03/13/19 07/24/19 Gabapentin 100 mg PO BID 03/14/19 07/24/19 Hydrocodone/Acetaminophen 1 - 2 tab PO QID PRN MDD 8 03/14/19 07/24/19 [Hydrocodone-Acetamin 5-325 mg] Docusate Sodium 250Mg Capsule 250 - 500 mg PO DAILY #90 capsule 03/18/19 07/24/19 [Colace 250Mg Capsule] Saccharomyces Boulardii [Florastor] 250 mg PO BID #60 capsule 03/18/19 07/24/19 Escitalopram [Lexapro] 10 mg PO DAILY 03/20/19 07/24/19 hydrALAZINE [Apresoline] 50 mg PO TID 03/20/19 07/24/19 Ferrous Gluconate [Iron] 240 mg PO DAILY #30 tablet 05/12/19 07/24/19 Levothyroxine [Synthroid] 125 mcg PO QDAC #30 tablet 05/12/19 07/24/19 Isosorbide Mononitrate ER [Imdur] 20 mg PO DAILY 07/14/19 07/24/19 Spironolactone 50 mg PO DAILY 07/14/19 07/24/19 Torsemide 40 mg PO DAILY MDD 100 mg x 2 days 07/14/19 07/24/1907/14 - Allergies Allergies/Adverse Reactions: Allergies Allergy/AdvReac Type Severity Reaction Status Date / Time Beef Containing Products Allergy Nausea Verified 07/24/19 13:46 cefpodoxime proxetil * Allergy Unknown Verified 07/24/19 13:46 [From Vantin] [place] And Derivatives Allergy Unknown Verified 07/24/19 13:46 clindamycin Allergy Unknown Verified 07/24/19 13:46 codeine Allergy Unknown Verified 07/24/19 13:46 erythromycin base Allergy Unknown Verified 07/24/19 13:46 [Erythromycin Base] mushroom Allergy Unknown Verified 07/24/19 13:46 onion Allergy Unknown Verified 07/24/19 13:46 rofecoxib [From Vioxx] Allergy Unknown Verified 07/24/19 13:46 sumatriptan [From Imitrex] Allergy Unknown Verified 07/24/19 13:46 tomato Allergy Unknown Verified 07/24/19 13:46 levofloxacin [From Levaquin] AdvReac Severe PSYCHOSIS Verified 07/24/19 13:46 metolazone AdvReac Severe Stomach Verified 07/24/19 13:46 Cramps morphine AdvReac Unknown Verified 07/24/19 13:46 pepper (genus Capsicum) AdvReac Anaphylaxis Verified 07/24/19 13:46 - Social History Does the pt smoke?: No Smoking Status: Never smoker Does the pt drink ETOH?: No Does the pt have substance abuse?: No - Family History Family history: reports: Non contributory - Immunizations Immunizations are current?: Yes - POLST Patient has POLST: Yes POLST Status: Full Code PD ED PE NORMAL - Vitals Vital signs reviewed: Yes - General General: Alert and oriented X 3, No acute distress - Cardiac Cardiac: RRR, No murmur - Respiratory Respiratory: Other (Rales two thirds of the way up the lungs) - Abdomen Abdomen: Non tender, Other (Mildly distended, not tight though) - Extremities Extremities: Other (4+ pitting pedal edema with ELIAS hose on, symmetric) - Neuro Neuro: Alert and oriented X 3, Normal speech Results - Vitals Vitals: Vital Signs - 24 hr 07/24/19 07/24/19 07/24/19 12:58 13:36 13:51 Temperature 36.4 C L Heart Rate 65 65 65 Respiratory 18 16 26 H Rate Blood Pressure 143/74 H 143/74 H O2 Saturation 96 96 99 07/24/19 07/24/19 07/24/19 14:00 14:24 15:25 Temperature Heart Rate 65 65 65 Respiratory 17 18 18 Rate Blood Pressure 140/77 H 148/86 H 149/84 H O2 Saturation 97 93 95 Oxygen O2 Source Nasal cannula - EKG (time done) 1313 Rate: Rate (enter#) (65) Rhythm: Paced (v paced) Computer interpretation: Agree with computer - Labs Labs: Laboratory Tests 07/24/19 07/24/19 07/24/19 13:25 13:45 13:45 WBC 6.6 RBC 3.92 L Hgb 11.3 L Hct 37.0 MCV 94.4 MCH 28.8 MCHC 30.5 L RDW 18.4 H Plt Count 163 MPV 9.3 Neut # (Auto) 4.4 Lymph # (Auto) 1.5 [place] # (Auto) 0.6 Eos # (Auto) 0.2 Baso # (Auto) 0.0 Absolute Nucleated RBC 0.00 Nucleated RBC % 0.0 PT 13.6 H INR 1.2 Sodium Potassium Chloride Carbon Dioxide Anion Gap BUN Creatinine Estimated GFR (MDRD) Glucose Calcium Phosphorus Magnesium Total Bilirubin AST ALT Alkaline Phosphatase Troponin I High Sens B-Natriuretic Peptide Total Protein Albumin Globulin Albumin/Globulin Ratio Lipase Urine Color YELLOW Urine Clarity HAZY Urine pH 6.0 Ur Specific [place] <=1.005 Urine Protein NEGATIVE Urine Glucose (UA) NEGATIVE Urine Ketones NEGATIVE Urine Occult Blood NEGATIVE Urine Nitrite NEGATIVE Urine Bilirubin NEGATIVE Urine Urobilinogen 0.2 (NORMAL) Ur Leukocyte Esterase SMALL H Urine RBC 0-5 Urine WBC 11-25 H Urine WBC Clumps PRESENT Ur Squamous Epith Cells NONE SEEN Urine Bacteria Moderate H Ur Microscopic Review INDICATED Urine Culture Comments INDICATED 07/24/19 07/24/19 07/24/19 13:45 13:45 13:45 WBC RBC Hgb Hct MCV MCH MCHC RDW Plt Count MPV Neut # (Auto) Lymph # (Auto) [place] # (Auto) Eos # (Auto) Baso # (Auto) Absolute Nucleated RBC Nucleated RBC % PT INR Sodium 141 Potassium 4.6 Chloride 95 L Carbon Dioxide 35 H Anion Gap 11.0 BUN 45 H Creatinine 2.3 H Estimated GFR (MDRD) 21 L Glucose 109 H Calcium 8.2 L Phosphorus 5.2 H Magnesium 2.8 Total Bilirubin 0.5 AST 19 ALT 17 Alkaline Phosphatase 112 Troponin I High Sens 7.2 B-Natriuretic Peptide 998 H Total Protein 7.0 Albumin 4.2 Globulin 2.8 Albumin/Globulin Ratio 1.5 Lipase 46 Urine Color Urine Clarity Urine pH Ur Specific [place] Urine Protein Urine Glucose (UA) Urine Ketones Urine Occult Blood Urine Nitrite Urine Bilirubin Urine Urobilinogen Ur Leukocyte Esterase Urine RBC Urine WBC Urine WBC Clumps Ur Squamous Epith Cells Urine Bacteria Ur Microscopic Review Urine Culture Comments PD MEDICAL DECISION MAKING - ED course ED course: 63-year-old woman in palliative care for end-stage CHF presents with worsening anasarca despite very high doses of diuretics at home. She was administered 120 mg of Lasix IV here with decent urine output. Also found to have a UTI treated with oral Cipro. Spoke with the hospitalist for admission at 3:01 PM. Departure - Departure Disposition: 66 [facility] DC/Xfer Clinical Impression: CKD (chronic kidney disease) stage 4, GFR 15-29 ml/min, CHF exacerbation, Anasarca Condition: Serious Discharge Date/Time: 07/24/19 16:30
[2019-07-24 13:56] LABS: INR 1.2 (0.8-1.2); PT - PROTHROMBIN TIME 13.6 secs (9.9-12.6)
[2019-07-24 14:05] LABS: ALBUMIN 4.2 g/dL (3.2-5.5); ALBUMIN/GLOBULIN RATIO 1.5 (1.0-2.2); BILIRUBIN,TOTAL 0.5 mg/dL (0.2-1.0); CALCIUM 8.2 mg/dL (8.5-10.3); CREATININE 2.3 mg/dL (0.4-1.0); MAGNESIUM 2.8 mg/dL (1.7-2.8); PHOSPHORUS 5.2 mg/dL (2.5-4.6)
[2019-07-24] MEDS ORDERED: CIPROFLOXACIN 250 MG TABLET PO STA (14:58)
--- NOTE | 2019-07-24 15:01 | XRAY Report ---
Reason: chf Procedure Date: 07/24/2019 Accession Number: [id number] / [id number] Procedure: XR - Chest 1 View X-Ray CPT Code: 72075 FULL RESULT: EXAM:CHEST RADIOGRAPHY EXAM DATE: 07/24/2019 02:38 PM. CLINICAL HISTORY: Chf. COMPARISON: CHEST 1 VIEW 05/05/2019 5:39 PM. TECHNIQUE: 1 view. FINDINGS: Lungs/Pleura: Mild pulmonary edema. No focal opacities evident. No pleural effusion. No pneumothorax. Mediastinum: Dual-lead ICD device projected over left chest wall with moderate stable cardiomegaly. Other: None. IMPRESSION: Moderate stable cardiomegaly with mild pulmonary edema. RADIA
[2019-07-24] MEDS ORDERED: ACETAMINOPHEN 325 MG TABLET PO PRN (15:27)
[2019-07-24] MEDS ORDERED: hydrOXYzine PAMOATE 25 MG CAPSULE PO PRN (15:32)
[2019-07-24] MEDS ORDERED: NITROGLYCERIN SL 0.4 MG TABLET SL PRN (15:32)
[2019-07-24] MEDS ORDERED: CARBOXYMETHYLCELLULOSE OPHTH DROPS EACHEYE PRN (15:32)
--- NOTE | 2019-07-24 15:49 | HISTORY & PHYSICAL EXAMINATION ---
Chief Complaint - Chief Complaint Chief Complaint: CONGESTION, FLUID RETENTION History of Present Illness - History of Present Illness HPI Comment/Other: Ms. 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 Pt report although her senior trainer increased her torsemide to 80 mg daily but her weight increased 15 pounds recently. She felt congestion, fluid retention, fatigue, shortness of breath. She was most recently hospitalized at [facility] from 05/26/2019 to 06/13/2019. She has had significant hx of ventricular tachycardia, and with her most recent hospitalization received an ablation and an ICD/PIV pacer on 05/22. She continues to struggle with acute on chronic CKD 4, she has been followuped by architect in training. she denies chest pain, fever, chill, headache, vision change, abdominal pain, nausea, vomiting, diarrhea. Today her BNP is 998, creatinine is 2.3. UA analysis indicates UTI. In ER pt is afebrile, HR is 65, BP is 143/74, RR is 16, 96% sats on 4 liter of O2. pt was admitted for above medical problem. 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 she is living [place] with her and two children Social History Notes: She denies alcohol, tobacco or illicit drug use - POLST Patient has POLST: Yes POLST Status: DNR Meds/Allgy - Home Medications Home Medications: Ambulatory Orders Medication Instructions Recorded Confirmed Fluticasone [Flonase] 2 spray HAROLDO BID 01/24/16 07/24/19 QUEtiapine [SEROquel] 25 mg PO QPM 01/24/16 07/24/19 Methadone 5 mg PO 0800,1700 05/17/17 07/24/19 Rivaroxaban [Xarelto] 15 mg PO 1700 05/17/17 07/24/19 Calcium Carbonate/Vitamin D3 2 tab PO DAILY MDD 6 05/19/17 07/24/19 [Calcium 600-Vit D3 400 Tablet] Carboxymethylcellulose Sodium 1 drops EACHEYE TID PRN 05/19/17 07/24/19 [Refresh Tears] Cyclosporine [Restasis] 1 drops EACHEYE BID 05/19/17 07/24/19 Hydrocortisone [Cortef] 10 mg PO QDBREAKFAST 05/19/17 07/24/19 Multivitamin [Multiple Vitamins] 1 tab PO DAILY 05/19/17 07/24/19 Ondansetron Odt [Zofran Odt] 4 mg PO Q8HR PRN 05/19/17 07/24/19 Polyethylene Glycol 3350 [Miralax] 17 gm PO BID 05/19/17 07/24/19 Salmeterol Xinafoate [Serevent 1 puffs INH BID 05/19/17 07/24/19 Diskus] hydrOXYzine pamoate [Hydroxyzine 25 mg PO TID PRN 05/19/17 07/24/19 Pamoate] raNITIdine [Zantac] 150 mg PO BID 08/16/17 07/24/19 Hydrocortisone [Cortef] 5 mg PO QDDINNER 12/11/17 07/24/19 Nitroglycerin [Nitrostat] 0.4 mg SL Q5MIN PRN 03/12/18 07/24/19 Sennosides [Chocolated Laxative] 15 - 30 mg PO DAILY PRN 08/21/18 07/14/19 Albuterol Sulfate [Proair Hfa 2 puffs INH Q4H PRN 03/13/19 07/24/19 Inhaler] Metoprolol Succinate [Toprol Xl] 100 mg PO DAILY 03/13/19 07/24/19 Gabapentin 100 mg PO BID 03/14/19 07/24/19 Hydrocodone/Acetaminophen 1 - 2 tab PO QID PRN MDD 8 03/14/19 07/24/19 [Hydrocodone-Acetamin 5-325 mg] Docusate Sodium 250Mg Capsule 250 - 500 mg PO DAILY #90 capsule 03/18/19 07/24/19 [Colace 250Mg Capsule] Saccharomyces Boulardii [Florastor] 250 mg PO BID #60 capsule 03/18/19 07/24/19 Escitalopram [Lexapro] 10 mg PO DAILY 03/20/19 07/24/19 hydrALAZINE [Apresoline] 50 mg PO TID 03/20/19 07/24/19 Ferrous Gluconate [Iron] 240 mg PO DAILY #30 tablet 05/12/19 07/24/19 Levothyroxine [Synthroid] 125 mcg PO QDAC #30 tablet 05/12/19 07/24/19 Isosorbide Mononitrate ER [Imdur] 20 mg PO DAILY 07/14/19 07/24/19 Spironolactone 50 mg PO DAILY 07/14/19 07/24/19 Torsemide 40 mg PO DAILY MDD 100 mg x 2 days 07/14/19 07/24/1907/14 - Allergies Allergies/Adverse Reactions: Allergies Allergy/AdvReac Type Severity Reaction Status Date / Time Beef Containing Products Allergy Nausea Verified 07/24/19 13:46 cefpodoxime proxetil * Allergy Unknown Verified 07/24/19 13:46 [From Vantin] [place] And Derivatives Allergy Unknown Verified 07/24/19 13:46 clindamycin Allergy Unknown Verified 07/24/19 13:46 codeine Allergy Unknown Verified 07/24/19 13:46 erythromycin base Allergy Unknown Verified 07/24/19 13:46 [Erythromycin Base] mushroom Allergy Unknown Verified 07/24/19 13:46 onion Allergy Unknown Verified 07/24/19 13:46 rofecoxib [From Vioxx] Allergy Unknown Verified 07/24/19 13:46 sumatriptan [From Imitrex] Allergy Unknown Verified 07/24/19 13:46 tomato Allergy Unknown Verified 07/24/19 13:46 levofloxacin [From Levaquin] AdvReac Severe PSYCHOSIS Verified 07/24/19 13:46 metolazone AdvReac Severe Stomach Verified 07/24/19 13:46 Cramps morphine AdvReac Unknown Verified 07/24/19 13:46 pepper (genus Capsicum) AdvReac Anaphylaxis Verified 07/24/19 13:46 Review of Systems - Constitutional Constitutional: reports: Fatigue, Weight gain. denies: Fever, Chills, Malaise, Weakness, Poor appetite, Diaphoresis, Night sweats, Weight loss - Eyes Eyes: denies: Pain, Irritation, Amaurosis, Blurred vision, Spots in vision, Field loss, Vision loss, Dipolpia - Ears, Nose & Throat Ears, Nose & Throat: denies: Ear pain, Hearing loss, Hearing aids, Tinnitus, Vertigo, Nasal pain, Nasal discharge, Nosebleeds, Nasal obstruction, Nasal congestion, Postnasal drainage, Dentures, Sore throat, Hoarseness, Mouth l esions, Bleeding gums - Cardiovascular Cariovascular: reports: Exertional dyspnea. denies: Irregular heart rate, Palpitations, Chest pain, Edema, Lightheadedness, Syncope, Decr. exercise tolerance - Respiratory Respiratory: reports: Orthopnea, SOB with exertion. denies: Cough, Sputum production, Wheezing, Snoring, Hemoptysis, SOB at rest, Apnea, Stridor - Gastrointestinal Gastrointestinal: denies: Abdominal pain, Abdominal distention, Constipation, Diarrhea, Change in bowel habits, Rectal bleeding, Black stools, Bloody stools, Nausea, Vomiting, Bile emesis - Genitourinary Genitourinary: denies: Dysuria, Frequency, Urgency, Hematuria, Incontinence, Flank pain, Nocturia, Urethral discharge - Musculoskeletal Musculoskeletal: denies: Muscle pain, Back pain, Muscle aches, Stiffness, Limited range of motion, Muscle weakness, Gout, Joint pain - Integumentary Integumentary: denies: Rash, Pruritis, Lesions, Dryness, Lumps, Acne, Pigment changes, Nail changes - Neurological Neurological: denies: General weakness, Focal weakness, Headache, Dizziness, Numbness, Memory problems, Pre-existing deficit, Abnormal gait, Seizures, Incoordination, Slurred speech - Psychiatric Psychiatric: denies: Depression, Anxiety, Suicidal, Delusions, Hallucinations, Homicidal - Endocrine Endocrine: denies: Polyuria, Polydypsia, Polyphagia, Intolerance to cold - Hematologic/Lymphatic Hematologic/Lymphatic: denies: Anemia, Bruising, Petechiae, Blood clots, Lymphadenopathy, Bleeding tendencies Exam - Vital Signs Reviewed Vital Signs: Yes Vital Signs: Vital Signs x48h Temp Pulse Resp BP Pulse Ox 07/24/19 15:25 65 18 149/84 H 95 07/24/19 14:24 65 18 148/86 H 93 07/24/19 14:00 65 17 140/77 H 97 07/24/19 13:51 65 26 H 143/74 H 99 07/24/19 13:36 65 16 143/74 H 96 07/24/19 12:58 36.4 C L 65 18 96 - Physical Exam General Appearance: positive: No acute distress, Alert. negative: Lethargic Eyes Bilateral: positive: Normal inspection, PERRL, No lid inflammation, Conjunctivae nml ENT: positive: ENT inspection nml, Pharynx nml, No signs of dehydration. n egative: Purulent nasal drainage, Pharyngeal erythema, Oral lesions Neck: positive: Nml inspection, Thyroid nml, No JVD, Trachea midline. negative: Thyromegaly, Lymphadenopathy (R), Lymphadenopathy (L), Stiff neck, Swelling/bruising, Tracheal deviation Respiratory: positive: Chest non-tender, No respiratory distress, Breath sounds nml. negative: Wheezes, Rales, Rhonchi Cardiovascular: positive: Regular rate & rhythm, No murmur, No gallop. negative: Irregularly irregular, Extrasystoles, Tachycardia, Bradycardia, JVD p resent, Systolic murmur, Diastolic murmur Peripheral Pulses: positive: 2+ Abdomen: positive: Non-tender, No organomegaly, Nml bowel sounds. negative: Tenderness, Guarding, Rebound Back: positive: Nml inspection. negative: CVA tenderness (R), CVA tenderness (L) Skin: positive: Color nml, No rash, Warm, Dry. negative: Cyanosis, Diaphoresis, Pallor Extremities: positive: Non-tender, Nml appearance. negative: Calf tenderness, Joint swelling, Viviana's sign/cords Neurologic/Psychiatric: positive: Oriented x3, Sensation nml, Mood/affect nml. negative: Weakness, Sensory loss, Facial droop, Slurred/abnml speech, Depressed mood/affect Sepsis Event Note (H) - Evaluation Current Stage of Sepsis: Ruled out Conclusion/Plan - Problem List (1) CHF exacerbation Conclusion/Plan: multiple admission for CHF exacerbation. pt has hx of systolic heart failure with recent ECHO shown EF 30-35% in 05/22 in our hospital. pt failed out-pt 80mg torsemide and continue increase weight, and SOB. pt received an ablation and an ICD/PIV pacer on 05/22. Plan: Bumex IV drip and titration daily weight fluid restriction low sodium diet daily lab monitor tele and vital monitor continue home meds metoprolol, spironolactone, Imdur followup senior trainer as out-pt (2) UTI (urinary tract infection) Conclusion/Plan: pt has hx of UTI, sensitive to almost all antibiotics but pt is allergy to cefpodoxime proxetil. start Cipro followup UA culture (3) CKD (chronic kidney disease) stage 4, GFR 15-29 ml/min Conclusion/Plan: creatinine is 2.3 today, it seems stable. plan: hold nephrotoxic agent lab monitor followup architect in training as out-pt (6) Hx of ventricular tachycardia Conclusion/Plan: pt is stable, no VT and pt denies chest pain. pt has pacemaker/ICD now continue home meds Metoprolol, Imdur tele and vital monitor (7) Pacemaker Conclusion/Plan: pt had pacemaker recently done at [place]. pt has stable pause now. pt denies any local pain or erythema or tenderness at pacemaker site tele and vital monitor (8) History of CVA with residual deficit Conclusion/Plan: pt present mild weakness on her left side. pt has home meds Xarelto for her chronic Afib continue Xarelto nurse support (9) Chronic pain Conclusion/Plan: pt has Methdone in her home meds, reconcile home meds, followup palliative care (10) Depression Conclusion/Plan: pt is stable, continue home meds Lexapro (11) Palliative care status Conclusion/Plan: palliative care followuped pt, we will continue palliative care for pt's multiple medical comorbidity/comortality, and her medical condition decline (12) Do not intubate, cardiopulmonary resuscitation (CPR)-only code status Conclusion/Plan: pt clearly request DNR and DNI - Lab Results Fish Bones: 07/25/19 04:20 07/25/19 04:20 Core Measures - Anticipated LOS I expect patient to be DC'd or transferred within 96 hours.: Yes - DVT/VTE - Prophylaxis VTE/DVT Device ordered at admit?: Yes VTE/DVT Prophylaxis med ordered at admit?: Yes
[2019-07-24] MEDS ORDERED: BUMETANIDE INJ 10 MG in SODIUM CHLORIDE 0.9% 210 ML IV SCH (16:00)
[2019-07-24] MEDS: BUMETANIDE INJ 10 MG in SODIUM CHLORIDE 0.9% 210 ML IV SCH (17:21)
[2019-07-24] MEDS: METHADONE 5 MG TABLET PO SCH (17:40)
[2019-07-24] MEDS: RIVAROXABAN 15 MG TABLET PO SCH (17:40)
[2019-07-24] MEDS: SODIUM CHLORIDE FLUSH 0.9% 10 ML SYRINGE IVP SCH (17:41)
[2019-07-24] MEDS: HYDROcod/ACETAM 5/325 MG TABLET PO PRN (17:45)
[2019-07-24] MEDS: SACCHAROMYCES BOULARDII 250 MG CAPSULE PO SCH (20:02)
[2019-07-24] MEDS: FORMOTEROL FUMARATE NEB 20 MCG/2 ML INH SCH (20:10)
[2019-07-24] MEDS: IPRATROPIUM/ALBUTEROL 3 ML NEB INH PRN (20:10)
[2019-07-24] MEDS: FLUTICASONE NASAL SPRAY NAS SCH (22:00)
[2019-07-24] MEDS: QUEtiapine 25 MG TABLET PO SCH (22:07)
[2019-07-24] MEDS: GABAPENTIN 100 MG CAPSULE PO SCH (22:07)
[2019-07-24] MEDS: hydrALAZINE 25 MG TABLET PO SCH (22:21)
[2019-07-24] MEDS: CYCLOSPORINE EACHEYE SCH (22:30)
[2019-07-25] MEDS: SODIUM CHLORIDE FLUSH 0.9% 10 ML SYRINGE IVP SCH ×3 (01:14→17:02)
[2019-07-25 04:38] LABS: BASOPHILS % (AUTO) 0.6 %; EOSINOPHILS # (AUTO) 0.2 10^3/uL (0.0-0.7); EOSINOPHILS % (AUTO) 3.3 %; HGB - HEMOGLOBIN 12.2 g/dL (12.0-16.0); LYMPHOCYTES % (AUTO) 27.7 %; MEAN CORPUSCULAR HEMOGLOBIN 27.5 pg (27.0-31.0); MEAN CORPUSCULAR HGB CONC 29.6 g/dL (32.0-36.0); MEAN PLATELET VOLUME 9.2 fL (7.9-10.8); MONOCYTES # (AUTO) 0.5 10^3/uL (0.0-1.0); MONOCYTES % (AUTO) 7.2 %; NEUTROPHILS # (AUTO) 4.3 10^3/uL (1.5-6.6); NEUTROPHILS % (AUTO) 60.8 %; PLT - PLATELET COUNT 175 10^3/uL (130-450); RED BLOOD COUNT 4.43 10^6/uL (4.20-5.40); RED CELL DISTRIBUTION WIDTH 18.1 % (12.0-15.0); WHITE BLOOD COUNT 7.1 x10^3/uL (4.8-10.8)
[2019-07-25 04:49] LABS: CALCIUM 8.2 mg/dL (8.5-10.3); CREATININE 2.3 mg/dL (0.4-1.0)
[2019-07-25] MEDS: HYDROcod/ACETAM 5/325 MG TABLET PO PRN ×4 (04:51→18:55)
[2019-07-25] MEDS: hydrALAZINE 25 MG TABLET PO SCH ×3 (06:50→21:42)
[2019-07-25] MEDS: PANTOPRAZOLE 40 MG TABLET PO SCH (06:55)
[2019-07-25] MEDS: LEVOTHYROXINE 125 MCG TABLET PO SCH (06:55)
[2019-07-25] MEDS: FORMOTEROL FUMARATE NEB 20 MCG/2 ML INH SCH ×2 (07:17→19:23)
[2019-07-25] MEDS: IPRATROPIUM/ALBUTEROL 3 ML NEB INH PRN (07:17)
[2019-07-25] MEDS: POLYETHYLENE GLYCOL 3350 17 GM PACKET PO SCH (08:30)
[2019-07-25] MEDS: SACCHAROMYCES BOULARDII 250 MG CAPSULE PO SCH ×2 (08:39→20:52)
[2019-07-25] MEDS: ISOSORBIDE MONONITRATE 10 MG TABLET PO SCH (08:39)
[2019-07-25] MEDS: SPIRONOLACTONE 25 MG TABLET PO SCH (08:40)
[2019-07-25] MEDS: GABAPENTIN 100 MG CAPSULE PO SCH ×2 (08:40→20:52)
[2019-07-25] MEDS: METOPROLOL SUCCINATE 50 MG TABLET PO SCH (08:40)
[2019-07-25] MEDS: ESCITALOPRAM 10 MG TABLET PO SCH (08:40)
[2019-07-25] MEDS: METHADONE 5 MG TABLET PO SCH ×2 (08:41→17:01)
[2019-07-25] MEDS: FERROUS GLUCONATE 324 MG TABLET PO SCH (08:41)
[2019-07-25] MEDS: FLUTICASONE NASAL SPRAY NAS SCH ×2 (08:44→20:52)
[2019-07-25] MEDS: CYCLOSPORINE EACHEYE SCH ×2 (08:46→20:53)
[2019-07-25] MEDS ORDERED: cefTRIAXone 1 GM VIAL IV SCH (09:00)
[2019-07-25] MEDS: BUMETANIDE INJ 10 MG in SODIUM CHLORIDE 0.9% 210 ML IV SCH (12:53)
--- NOTE | 2019-07-25 13:47 | PROVIDER PROGRESS NOTE ---
Subjective - Prog Note Date Prog Note Date: 07/25/19 - Subjective Pt reports feeling: Improved Subjective: pt feel better for breath. she is comfortable in the bed and is talking with her . pt's weight is unchanged but did not increase. pt report she did urinate a good amount. she denies chest pain, palpitations, fever, chill. Current Medications - Current Medications Current Medications: Active Medications Acetaminophen (Tylenol) 650 mg PO Q4HR PRN PRN Reason: Pain 1 to 4 Hydrocodone Bitart/Acetaminophen (Fillmore 5/325) 1 tab PO Q4HR PRN PRN Reason: PAIN Last Admin: 07/25/19 12:52 Dose: 1 tab Albuterol/Ipratropium (Duoneb) 3 ml INH Q4HR PRN PRN Reason: Wheezing Last Admin: 07/25/19 07:17 Dose: 3 ml Carboxymethylcellulose (Refresh 1% Ophth Drops) 1 drops EACHEYE TID PRN PRN Reason: Dry Eye Escitalopram Oxalate (Lexapro) 10 mg PO DAILY [facility] Last Admin: 07/25/19 08:40 Dose: 10 mg Ferrous Gluconate (Fergon) 324 mg PO DAILY [facility] Last Admin: 07/25/19 08:41 Dose: 324 mg Fluticasone Propionate (Flonase) 1 sprays HAROLDO BID [facility] Last Admin: 07/25/19 08:44 Dose: 1 sprays Formoterol Fumarate (Perforomist) 20 mcg INH RTBID [facility] Last Admin: 07/25/19 07:17 Dose: 20 mcg Gabapentin (Neurontin) 100 mg PO BID [facility] Last Admin: 07/25/19 08:40 Dose: 100 mg Hydralazine HCl (Apresoline) 50 mg PO TID [facility] Last Admin: 07/25/19 06:50 Dose: 50 mg Hydroxyzine Pamoate (Vistaril) 25 mg PO TID PRN PRN Reason: ITCHING Ciprofloxacin (Cipro 200 Mg/100 Ml) 100 mls @ 100 mls/hr IV Q24H [facility] Bumetanide 10 mg/ Sodium (Chloride) 250 mls @ 12.5 mls/hr IV .Q20H [facility]; Protocol Last Admin: 07/25/19 12:53 Dose: 0.5 mg/hr, 12.5 mls/hr Isosorbide Mononitrate (Ismo) 20 mg PO DAILY [facility] Last Admin: 07/25/19 08:39 Dose: 20 mg Levothyroxine Sodium (Synthroid) 125 mcg PO QDAC [facility] Last Admin: 07/25/19 06:55 Dose: 125 mcg Methadone HCl () 5 mg PO 0800,1700 [facility] Last Admin: 07/25/19 08:41 Dose: 5 mg Metoprolol Succinate (Toprol Xl) 100 mg PO DAILY [facility] Last Admin: 07/25/19 08:40 Dose: 100 mg Nitroglycerin (Nitrostat) 0.4 mg SL Q5MIN PRN PRN Reason: chest pain Ondansetron HCl (Zofran Inj) 4 mg IVP Q6HR PRN PRN Reason: Nausea / Vomiting Pantoprazole Sodium (Protonix) 40 mg PO QDAC [facility] Last Admin: 07/25/19 06:55 Dose: 40 mg Patient Own Med ( Cyclosporine [ Restasis] 1 Drops) 1 each EACHEYE BID [facility] Last Admin: 07/25/19 08:46 Dose: 1 each Polyethylene Glycol (Miralax) 17 gm PO DAILY [facility] Last Admin: 07/25/19 08:30 Dose: Not Given Quetiapine Fumarate (Seroquel) 25 mg PO QPM [facility] Last Admin: 07/24/19 22:07 Dose: 25 mg Rivaroxaban (Xarelto) 15 mg PO 1700 [facility] Last Admin: 07/24/19 17:40 Dose: 15 mg Saccharomyces Boulardii (Florastor) 250 mg PO BID [facility] Last Admin: 07/25/19 08:39 Dose: 250 mg Sodium Chloride (Normal Saline Flush 0.9%) 10 ml IVP PRN PRN PRN Reason: NEEDED PER PROVIDER ORDERS Sodium Chloride (Normal Saline Flush 0.9%) 10 ml IVP 0100,0900,1700 [facility] Last Admin: 07/25/19 11:02 Dose: Not Given Spironolactone (Aldactone) 50 mg PO DAILY [facility] Last Admin: 07/25/19 08:40 Dose: 50 mg Fluticasone [Flonase] 2 spray HAROLDO BID 01/24/16 QUEtiapine [SEROquel] 25 mg PO QPM 01/24/16 Methadone 5 mg PO 0800,1700 05/17/17 Rivaroxaban [Xarelto] 15 mg PO 1700 05/17/17 Calcium Carbonate/Vitamin D3 [Calcium 600-Vit D3 400 Tablet] 2 tab PO DAILY MDD 6 05/19/17 Carboxymethylcellulose Sodium [Refresh Tears] 1 drops EACHEYE TID PRN 05/19/17 Cyclosporine [Restasis] 1 drops EACHEYE BID 05/19/17 Hydrocortisone [Cortef] 10 mg PO QDBREAKFAST 05/19/17 Multivitamin [Multiple Vitamins] 1 tab PO DAILY 05/19/17 Ondansetron Odt [Zofran Odt] 4 mg PO Q8HR PRN 05/19/17 Polyethylene Glycol 3350 [Miralax] 17 gm PO BID 05/19/17 Salmeterol Xinafoate [Serevent Diskus] 1 puffs INH BID 05/19/17 hydrOXYzine pamoate [Hydroxyzine Pamoate] 25 mg PO TID PRN 05/19/17 raNITIdine [Zantac] 150 mg PO BID 08/16/17 Hydrocortisone [Cortef] 5 mg PO QDDINNER 12/11/17 Nitroglycerin [Nitrostat] 0.4 mg SL Q5MIN PRN 03/12/18 Sennosides [Chocolated Laxative] 15 - 30 mg PO DAILY PRN 08/21/18 Albuterol Sulfate [Proair Hfa Inhaler] 2 puffs INH Q4H PRN 03/13/19 Metoprolol Succinate [Toprol Xl] 100 mg PO DAILY 03/13/19 Gabapentin 100 mg PO BID 03/14/19 Hydrocodone/Acetaminophen [Hydrocodone-Acetamin 5-325 mg] 1 - 2 tab PO QID PRN MDD 8 03/14/19 Escitalopram [Lexapro] 10 mg PO DAILY 03/20/19 hydrALAZINE [Apresoline] 50 mg PO TID 03/20/19 Isosorbide Mononitrate ER [Imdur] 20 mg PO DAILY 07/14/19 Spironolactone 50 mg PO DAILY 07/14/19 Torsemide 40 mg PO DAILY MDD 100 mg x 2 days 07/1407/14/19 Objective - Vital Signs/Intake & Output Reviewed Vital Signs: Yes Vital Signs: Vital Signs x48h Temp Pulse Resp BP Pulse Ox 07/25/19 07:34 36.2 C L 65 13 139/71 H 98 07/25/19 06:50 36.3 C L 65 13 143/76 H 97 Intake & Output: Intake & Output 07/22/19 07/23/19 07/24/19 07/25/19 23:59 23:59 23:59 23:59 Intake Total 420 628.167 Output Total 3550 1825 Balance -3130 -1196.833 - Objective General Appearance: positive: No acute distress, Alert. negative: Lethargic Eyes Bilateral: positive: Normal inspection, PERRL, No lid inflammation, Conjunctivae nml ENT: positive: ENT inspection nml, Pharynx nml, No signs of dehydration. negative: Purulent nasal drainage, Pharyngeal erythema, Oral lesions Neck: positive: Nml inspection, Thyroid nml, No JVD, Trachea midline. negative: Thyromegaly, Lymphadenopathy (R), Lymphadenopathy (L), Stiff neck, Swelling/bruising, Tracheal deviation Respiratory: positive: Chest non-tender, No respiratory distress. negative: Wheezes, Rales, Rhonchi Cardiovascular: positive: Regular rate & rhythm, No murmur, No gallop. negative: Irregularly irregular, Extrasystoles, Tachycardia, Bradycardia, JVD present, Systolic murmur, Diastolic murmur Peripheral Pulses: 2+ Radial (R), 2+ Radial (L), 2+ Dorsalis pedis (R), 2+ Dorsalis pedis (L) Abdomen: positive: Non-tender, No organomegaly, Nml bowel sounds. negative: Tenderness, Guarding, Rebound Back: positive: Nml inspection. negative: CVA tenderness (R), CVA tenderness (L) Skin: positive: Color nml, No rash, Warm, Dry. negative: Cyanosis, Diaphoresis, Pallor Extremities: positive: Non-tender, Full ROM, Nml appearance. negative: Calf tenderness, Joint swelling, Viviana's sign/cords Neurologic/Psychiatric: positive: Oriented x3, Sensation nml, Mood/affect nml. negative: Weakness, Sensory loss, Facial droop, Slurred/abnml speech, Depressed mood/affect - Lab Results Fish Bones: 07/25/19 04:20 07/25/19 04:20 Other Labs: Lab Results x24hrs 09/21/19 09/21/19 09/21/19 Range/Units 04:20 04:20 04:20 WBC (4.8-10.8) x10^3/uL RBC (4.20-5.40) 10^6/uL Hgb (12.0-16.0) g/dL Hct (37.0-47.0) % MCV (81.0-99.0) fL MCH (27.0-31.0) pg MCHC (32.0-36.0) g/dL RDW (12.0-15.0) % Plt Count (130-450) 10^3/uL MPV (7.9-10.8) fL Neut # (Auto) (1.5-6.6) 10^3/uL Lymph # (Auto) (1.5-3.5) 10^3/uL Payne # (Auto) (0.0-1.0) 10^3/uL Eos # (Auto) (0.0-0.7) 10^3/uL Baso # (Auto) (0.0-0.1) 10^3/uL Absolute Nucleated RBC x10^3/uL Nucleated RBC % /100WBC PT (9.9-12.6) secs INR (0.8-1.2) Sodium 144 (135-145) mmol/L Potassium 4.0 (3.5-5.0) mmol/L Chloride 94 L (101-111) mmol/L Carbon Dioxide 38 H (21-32) mmol/L Anion Gap 12.0 (6-13) BUN 44 H (6-20) mg/dL Creatinine 2.3 H (0.4-1.0) mg/dL Estimated GFR (MDRD) 21 L (>89) Glucose 91 (70-100) mg/dL Calcium 8.2 L (8.5-10.3) mg/dL Phosphorus (2.5-4.6) mg/dL Magnesium (1.7-2.8) mg/dL Total Bilirubin (0.2-1.0) mg/dL AST (10-42) IU/L ALT (10-60) IU/L Alkaline Phosphatase (42-121) IU/L Troponin I High Sens (2.3-14.8) pg/mL B-Natriuretic Peptide 1735 H (5-100) pg/mL Total Protein (6.7-8.2) g/dL Albumin (3.2-5.5) g/dL Globulin (2.1-4.2) g/dL Albumin/Globulin Ratio (1.0-2.2) Lipase (22-51) U/L TSH 8.67 H (0.34-5.60) uIU/mL Nasal Screen MRSA (PCR) (NEGATIVE) 07/25/19 07/24/19 07/24/19 Range/Units 04:20 13:45 13:45 WBC 7.1 (4.8-10.8) x10^3/uL RBC 4.43 (4.20-5.40) 10^6/uL Hgb 12.2 (12.0-16.0) g/dL Hct 41.2 (37.0-47.0) % MCV 93.0 (81.0-99.0) fL MCH 27.5 (27.0-31.0) pg MCHC 29.6 L (32.0-36.0) g/dL RDW 18.1 H (12.0-15.0) % Plt Count 175 (130-450) 10^3/uL MPV 9.2 (7.9-10.8) fL Neut # (Auto) 4.3 (1.5-6.6) 10^3/uL Lymph # (Auto) 2.0 (1.5-3.5) 10^3/uL Payne # (Auto) 0.5 (0.0-1.0) 10^3/uL Eos # (Auto) 0.2 (0.0-0.7) 10^3/uL Baso # (Auto) 0.0 (0.0-0.1) 10^3/uL Absolute Nucleated RBC 0.00 x10^3/uL Nucleated RBC % 0.0 /100WBC PT (9.9-12.6) secs INR (0.8-1.2) Sodium (135-145) mmol/L Potassium (3.5-5.0) mmol/L Chloride (101-111) mmol/L Carbon Dioxide (21-32) mmol/L Anion Gap (6-13) BUN (6-20) mg/dL Creatinine (0.4-1.0) mg/dL Estimated GFR (MDRD) (>89) Glucose (70-100) mg/dL Calcium (8.5-10.3) mg/dL Phosphorus (2.5-4.6) mg/dL Magnesium (1.7-2.8) mg/dL Total Bilirubin (0.2-1.0) mg/dL AST (10-42) IU/L ALT (10-60) IU/L Alkaline Phosphatase (42-121) IU/L Troponin I High Sens 7.2 (2.3-14.8) pg/mL B-Natriuretic Peptide 998 H (5-100) pg/mL Total Protein (6.7-8.2) g/dL Albumin (3.2-5.5) g/dL Globulin (2.1-4.2) g/dL Albumin/Globulin Ratio (1.0-2.2) Lipase (22-51) U/L TSH (0.34-5.60) uIU/mL Nasal Screen MRSA (PCR) (NEGATIVE) 07/24/19 07/24/19 07/24/19 Range/Units 13:45 13:45 13:45 WBC 6.6 (4.8-10.8) x10^3/uL RBC 3.92 L (4.20-5.40) 10^6/uL Hgb 11.3 L (12.0-16.0) g/dL Hct 37.0 (37.0-47.0) % MCV 94.4 (81.0-99.0) fL MCH 28.8 (27.0-31.0) pg MCHC 30.5 L (32.0-36.0) g/dL RDW 18.4 H (12.0-15.0) % Plt Count 163 (130-450) 10^3/uL MPV 9.3 (7.9-10.8) fL Neut # (Auto) 4.4 (1.5-6.6) 10^3/uL Lymph # (Auto) 1.5 (1.5-3.5) 10^3/uL Payne # (Auto) 0.6 (0.0-1.0) 10^3/uL Eos # (Auto) 0.2 (0.0-0.7) 10^3/uL Baso # (Auto) 0.0 (0.0-0.1) 10^3/uL Absolute Nucleated RBC 0.00 x10^3/uL Nucleated RBC % 0.0 /100WBC PT 13.6 H (9.9-12.6) secs INR 1.2 (0.8-1.2) Sodium 141 (135-145) mmol/L Potassium 4.6 (3.5-5.0) mmol/L Chloride 95 L (101-111) mmol/L Carbon Dioxide 35 H (21-32) mmol/L Anion Gap 11.0 (6-13) BUN 45 H (6-20) mg/dL Creatinine 2.3 H (0.4-1.0) mg/dL Estimated GFR (MDRD) 21 L (>89) Glucose 109 H (70-100) mg/dL Calcium 8.2 L (8.5-10.3) mg/dL Phosphorus 5.2 H (2.5-4.6) mg/dL Magnesium 2.8 (1.7-2.8) mg/dL Total Bilirubin 0.5 (0.2-1.0) mg/dL AST 19 (10-42) IU/L ALT 17 (10-60) IU/L Alkaline Phosphatase 112 (42-121) IU/L Troponin I High Sens (2.3-14.8) pg/mL B-Natriuretic Peptide (5-100) pg/mL Total Protein 7.0 (6.7-8.2) g/dL Albumin 4.2 (3.2-5.5) g/dL Globulin 2.8 (2.1-4.2) g/dL Albumin/Globulin Ratio 1.5 (1.0-2.2) Lipase 46 (22-51) U/L TSH (0.34-5.60) uIU/mL Nasal Screen MRSA (PCR) (NEGATIVE) 07/24/19 07/23/19 Range/Units 00:30 18:07 WBC (4.8-10.8) x10^3/uL RBC (4.20-5.40) 10^6/uL Hgb (12.0-16.0) g/dL Hct (37.0-47.0) % MCV (81.0-99.0) fL MCH (27.0-31.0) pg MCHC (32.0-36.0) g/dL RDW (12.0-15.0) % Plt Count (130-450) 10^3/uL MPV (7.9-10.8) fL Neut # (Auto) (1.5-6.6) 10^3/uL Lymph # (Auto) (1.5-3.5) 10^3/uL Payne # (Auto) (0.0-1.0) 10^3/uL Eos # (Auto) (0.0-0.7) 10^3/uL Baso # (Auto) (0.0-0.1) 10^3/uL Absolute Nucleated RBC x10^3/uL Nucleated RBC % /100WBC PT (9.9-12.6) secs INR (0.8-1.2) Sodium (135-145) mmol/L Potassium (3.5-5.0) mmol/L Chloride (101-111) mmol/L Carbon Dioxide (21-32) mmol/L Anion Gap (6-13) BUN (6-20) mg/dL Creatinine (0.4-1.0) mg/dL Estimated GFR (MDRD) (>89) Glucose (70-100) mg/dL Calcium (8.5-10.3) mg/dL Phosphorus (2.5-4.6) mg/dL Magnesium (1.7-2.8) mg/dL Total Bilirubin (0.2-1.0) mg/dL AST (10-42) IU/L ALT (10-60) IU/L Alkaline Phosphatase (42-121) IU/L Troponin I High Sens (2.3-14.8) pg/mL B-Natriuretic Peptide (5-100) pg/mL Total Protein (6.7-8.2) g/dL Albumin (3.2-5.5) g/dL Globulin (2.1-4.2) g/dL Albumin/Globulin Ratio (1.0-2.2) Lipase (22-51) U/L TSH (0.34-5.60) uIU/mL Nasal Screen MRSA (PCR) NEGATIVE NEGATIVE (NEGATIVE) ABX Reporting Has patient been on IV antibiotics over the past 48 hours?: Yes Sepsis Event Note (H) - Evaluation Current Stage of Sepsis: Ruled out Assessment/Plan - Problem List (1) CHF exacerbation Impression: 07/25 clinic pt feel better. pt has 98% sats on 4 liter of O2. but pt's weight did not change yet, and BNP test still increased to 1700 continue Bumex IV daily weight fluid restriction low sodium diet daily lab monitor tele and vital monitor continue home meds metoprolol, spironolactone, Imdur multiple admission for CHF exacerbation. pt has hx of systolic heart failure with recent ECHO shown EF 30-35% in 05/22 in our hospital. pt failed out-pt 80mg torsemide and continue increase weight, and SOB. pt received an ablation and an ICD/PIV pacer on 05/22. Plan: Bumex IV drip and titration daily weight fluid restriction low sodium diet daily lab monitor tele and vital monitor continue home meds metoprolol, spironolactone, Imdur followup solution maker as out-pt (2) UTI (urinary tract infection) Conclusion/Plan: pt has hx of UTI, sensitive to almost all antibiotics but pt is allergy to cefpodoxime proxetil. start Cipro followup UA culture (3) CKD (chronic kidney disease) stage 4, GFR 15-29 ml/min Conclusion/Plan: 07/25 creatinine is still 2.3, stable now. creatinine is 2.3 today, it seems stable. plan: hold nephrotoxic agent lab monitor followup director operations as out-pt (6) Hx of ventricular tachycardia Conclusion/Plan: pt is stable, no VT and pt denies chest pain. pt has pacemaker/ICD now continue home meds Metoprolol, Imdur tele and vital monitor (7) Pacemaker Conclusion/Plan: pt had pacemaker recently done at [place]. pt has stable pause now. pt denies any local pain or erythema or tenderness at pacemaker site tele and vital monitor (8) History of CVA with residual deficit Conclusion/Plan: pt present mild weakness on her left side. pt has home meds Xarelto for her chronic Afib continue Xarelto nurse support (9) Chronic pain Conclusion/Plan: pt has Methdone in her home meds, reconcile home meds, followup palliative care (10) Depression Conclusion/Plan: pt is stable, continue home meds Lexapro (11) Palliative care status Conclusion/Plan: palliative care followuped pt, we will continue palliative care for pt's multiple medical comorbidity/comortality, and her medical condition decline (12) hypothyroidism TSH is slightly elevated, will check Free T4, and followup
[2019-07-25] MEDS ORDERED: CIPROFLOXACIN 200 MG/100 ML 100 ML IV SCH (14:00)
[2019-07-25] MEDS ORDERED: BENZOCAINE/MENTHOL LOZENGE MM PRN (14:26)
[2019-07-25] MEDS: RIVAROXABAN 15 MG TABLET PO SCH (17:01)
[2019-07-25] MEDS: CIPROFLOXACIN 250 MG TABLET PO SCH (20:51)
[2019-07-25] MEDS: QUEtiapine 25 MG TABLET PO SCH (20:52)
[2019-07-26] MEDS: SODIUM CHLORIDE FLUSH 0.9% 10 ML SYRINGE IVP SCH ×3 (01:08→17:26)
[2019-07-26] MEDS: HYDROcod/ACETAM 5/325 MG TABLET PO PRN ×4 (01:08→19:59)
[2019-07-26 05:25] LABS: BASOPHILS % (AUTO) 0.7 %; EOSINOPHILS # (AUTO) 0.2 10^3/uL (0.0-0.7); EOSINOPHILS % (AUTO) 4.2 %; HGB - HEMOGLOBIN 12.2 g/dL (12.0-16.0); LYMPHOCYTES # (AUTO) 1.9 10^3/uL (1.5-3.5); LYMPHOCYTES % (AUTO) 34.8 %; MEAN CORPUSCULAR HGB CONC 29.6 g/dL (32.0-36.0); MEAN CORPUSCULAR VOLUME 94.5 fL (81.0-99.0); MEAN PLATELET VOLUME 9.4 fL (7.9-10.8); MONOCYTES # (AUTO) 0.6 10^3/uL (0.0-1.0); MONOCYTES % (AUTO) 10.5 %; NEUTROPHILS # (AUTO) 2.7 10^3/uL (1.5-6.6); NEUTROPHILS % (AUTO) 49.4 %; PLT - PLATELET COUNT 162 10^3/uL (130-450); RED BLOOD COUNT 4.36 10^6/uL (4.20-5.40); RED CELL DISTRIBUTION WIDTH 17.8 % (12.0-15.0); WHITE BLOOD COUNT 5.5 x10^3/uL (4.8-10.8)
[2019-07-26 05:41] LABS: CALCIUM 7.9 mg/dL (8.5-10.3); CREATININE 2.6 mg/dL (0.4-1.0)
[2019-07-26] MEDS: LEVOTHYROXINE 125 MCG TABLET PO SCH (06:03)
[2019-07-26] MEDS: hydrALAZINE 25 MG TABLET PO SCH ×3 (06:03→21:52)
[2019-07-26] MEDS: PANTOPRAZOLE 40 MG TABLET PO SCH (06:04)
[2019-07-26] MEDS: ONDANSETRON 4 MG/2 ML VIAL IVP PRN (06:34)
[2019-07-26] MEDS: GABAPENTIN 100 MG CAPSULE PO SCH ×2 (08:01→20:39)
[2019-07-26] MEDS: CIPROFLOXACIN 250 MG TABLET PO SCH ×2 (08:01→20:40)
[2019-07-26] MEDS: ISOSORBIDE MONONITRATE 10 MG TABLET PO SCH (08:01)
[2019-07-26] MEDS: METOPROLOL SUCCINATE 50 MG TABLET PO SCH (08:02)
[2019-07-26] MEDS: ESCITALOPRAM 10 MG TABLET PO SCH (08:02)
[2019-07-26] MEDS: SPIRONOLACTONE 25 MG TABLET PO SCH (08:02)
[2019-07-26] MEDS: METHADONE 5 MG TABLET PO SCH ×2 (08:03→17:25)
[2019-07-26] MEDS: SACCHAROMYCES BOULARDII 250 MG CAPSULE PO SCH ×2 (08:03→20:39)
[2019-07-26] MEDS: FERROUS GLUCONATE 324 MG TABLET PO SCH (08:03)
[2019-07-26] MEDS: FLUTICASONE NASAL SPRAY NAS SCH ×2 (08:04→20:04)
[2019-07-26] MEDS: POLYETHYLENE GLYCOL 3350 17 GM PACKET PO SCH (08:04)
[2019-07-26] MEDS: CYCLOSPORINE EACHEYE SCH ×2 (08:07→20:06)
[2019-07-26] MEDS ORDERED: MIN OIL/DIMETHICON/COCONUT OIL 92 GM TUBE TOP PRN (08:36)
[2019-07-26] MEDS: FORMOTEROL FUMARATE NEB 20 MCG/2 ML INH SCH ×2 (09:49→20:40)
[2019-07-26] MEDS: BUMETANIDE INJ 10 MG in SODIUM CHLORIDE 0.9% 210 ML IV SCH ×2 (09:57→13:18)
--- NOTE | 2019-07-26 12:10 | PROVIDER PROGRESS NOTE ---
Subjective - Prog Note Date Prog Note Date: 07/26/19 - Subjective Pt reports feeling: Improved Subjective: pt report she feel better for her breath. pt also report chronic pain, and burning sensation at midsternal. pt denies chest pain, fever, chill, headache. Current Medications - Current Medications Current Medications: Active Medications Acetaminophen (Tylenol) 650 mg PO Q4HR PRN PRN Reason: Pain 1 to 4 Hydrocodone Bitart/Acetaminophen ([place] 5/325) 2 tab PO Q6HR PRN PRN Reason: PAIN Last Admin: 07/26/19 08:03 Dose: 2 tab Albuterol/Ipratropium (Duoneb) 3 ml INH Q4HR PRN PRN Reason: Wheezing Last Admin: 07/25/19 07:17 Dose: 3 ml Calcium Carbonate/Glycine (Tums) 500 mg PO BID [facility] Carboxymethylcellulose (Refresh 1% Ophth Drops) 1 drops EACHEYE TID PRN PRN Reason: Dry Eye Ciprofloxacin (Cipro) 250 mg PO BID [facility] Last Admin: 07/26/19 08:01 Dose: 250 mg Escitalopram Oxalate (Lexapro) 10 mg PO DAILY [facility] Last Admin: 07/26/19 08:02 Dose: 10 mg Ferrous Gluconate (Fergon) 324 mg PO DAILY [facility] Last Admin: 07/26/19 08:03 Dose: 324 mg Fluticasone Propionate (Flonase) 1 sprays HAROLDO BID [facility] Last Admin: 07/26/19 08:04 Dose: 1 sprays Formoterol Fumarate (Perforomist) 20 mcg INH RTBID [facility] Last Admin: 07/26/19 09:49 Dose: 20 mcg Gabapentin (Neurontin) 100 mg PO BID [facility] Last Admin: 07/26/19 08:01 Dose: 100 mg Hydralazine HCl (Apresoline) 50 mg PO TID [facility] Last Admin: 07/26/19 06:03 Dose: 50 mg Hydroxyzine Pamoate (Vistaril) 25 mg PO TID PRN PRN Reason: ITCHING Bumetanide 10 mg/ Sodium (Chloride) 250 mls @ 10 mls/hr IV .Q25H [facility]; Protocol Last Admin: 07/26/19 09:57 Dose: 0.5 mg/hr, 12.5 mls/hr Isosorbide Mononitrate (Ismo) 20 mg PO DAILY [facility] Last Admin: 07/26/19 08:01 Dose: 20 mg Levothyroxine Sodium (Synthroid) 125 mcg PO QDAC [facility] Last Admin: 07/26/19 06:03 Dose: 125 mcg Methadone HCl () 5 mg PO 0800,1700 [facility] Last Admin: 07/26/19 08:03 Dose: 5 mg Metoprolol Succinate (Toprol Xl) 100 mg PO DAILY [facility] Last Admin: 07/26/19 08:02 Dose: 100 mg Mineral Oil (Cavilon) 1 applic TOP PRN PRN PRN Reason: Skin Care Last Admin: 07/26/19 09:54 Dose: 1 applic Nitroglycerin (Nitrostat) 0.4 mg SL Q5MIN PRN PRN Reason: chest pain Ondansetron HCl (Zofran Inj) 4 mg IVP Q6HR PRN PRN Reason: Nausea / Vomiting Last Admin: 07/26/19 06:34 Dose: 4 mg Pantoprazole Sodium (Protonix) 40 mg PO QDAC [facility] Last Admin: 07/26/19 06:04 Dose: 40 mg Patient Own Med ( Cyclosporine [ Restasis] 1 Drops) 1 each EACHEYE BID [facility] Last Admin: 07/26/19 08:07 Dose: 1 each Polyethylene Glycol (Miralax) 17 gm PO DAILY [facility] Last Admin: 07/26/19 08:04 Dose: Not Given Quetiapine Fumarate (Seroquel) 25 mg PO QPM [facility] Last Admin: 07/25/19 20:52 Dose: 25 mg Rivaroxaban (Xarelto) 15 mg PO 1700 [facility] Last Admin: 07/25/19 17:01 Dose: 15 mg Saccharomyces Boulardii (Florastor) 250 mg PO BID [facility] Last Admin: 07/26/19 08:03 Dose: 250 mg Sodium Chloride (Normal Saline Flush 0.9%) 10 ml IVP PRN PRN PRN Reason: NEEDED PER PROVIDER ORDERS Sodium Chloride (Normal Saline Flush 0.9%) 10 ml IVP 0100,0900,1700 [facility] Last Admin: 07/26/19 01:08 Dose: 10 ml Spironolactone (Aldactone) 50 mg PO DAILY [facility] Last Admin: 07/26/19 08:02 Dose: 50 mg Throat Lozenges (Cepacol) 1 lozenge MM Q2HR PRN PRN Reason: Mouth Sore Pain Last Admin: 07/26/19 06:04 Dose: 1 lozenge Fluticasone [Flonase] 2 spray HAROLDO BID 01/24/16 QUEtiapine [SEROquel] 25 mg PO QPM 01/24/16 Methadone 5 mg PO 0800,1700 05/17/17 Rivaroxaban [Xarelto] 15 mg PO 1700 05/17/17 Calcium Carbonate/Vitamin D3 [Calcium 600-Vit D3 400 Tablet] 2 tab PO DAILY MDD 6 05/19/17 Carboxymethylcellulose Sodium [Refresh Tears] 1 drops EACHEYE TID PRN 05/19/17 Cyclosporine [Restasis] 1 drops EACHEYE BID 05/19/17 Hydrocortisone [Cortef] 10 mg PO QDBREAKFAST 05/19/17 Multivitamin [Multiple Vitamins] 1 tab PO DAILY 05/19/17 Ondansetron Odt [Zofran Odt] 4 mg PO Q8HR PRN 05/19/17 Polyethylene Glycol 3350 [Miralax] 17 gm PO BID 05/19/17 Salmeterol Xinafoate [Serevent Diskus] 1 puffs INH BID 05/19/17 hydrOXYzine pamoate [Hydroxyzine Pamoate] 25 mg PO TID PRN 05/19/17 raNITIdine [Zantac] 150 mg PO BID 08/16/17 Hydrocortisone [Cortef] 5 mg PO QDDINNER 12/11/17 Nitroglycerin [Nitrostat] 0.4 mg SL Q5MIN PRN 03/12/18 Sennosides [Chocolated Laxative] 15 - 30 mg PO DAILY PRN 08/21/18 Albuterol Sulfate [Proair Hfa Inhaler] 2 puffs INH Q4H PRN 03/13/19 Metoprolol Succinate [Toprol Xl] 100 mg PO DAILY 03/13/19 Gabapentin 100 mg PO BID 03/14/19 Hydrocodone/Acetaminophen [Hydrocodone-Acetamin 5-325 mg] 1 - 2 tab PO QID PRN MDD 8 03/14/19 Escitalopram [Lexapro] 10 mg PO DAILY 03/20/19 hydrALAZINE [Apresoline] 50 mg PO TID 03/20/19 Isosorbide Mononitrate ER [Imdur] 20 mg PO DAILY 07/14/19 Spironolactone 50 mg PO DAILY 07/14/19 Torsemide 40 mg PO DAILY MDD 100 mg x 2 days 07/1407/14/19 Objective - Vital Signs/Intake & Output Reviewed Vital Signs: Yes Vital Signs: Vital Signs x48h Temp Pulse Pulse Resp BP Pulse Ox 07/26/19 11:42 36.6 C 65 18 128/79 100 07/26/19 10:15 36.5 C 65 18 99 07/26/19 09:49 65 18 07/26/19 07:41 36.5 C 65 18 138/75 H 100 07/26/19 05:00 36.5 C 65 20 151/85 H 100 Intake & Output: Intake & Output 07/23/19 07/24/19 07/25/19 07/26/19 23:59 23:59 23:59 23:59 Intake Total 420 1198.167 670 Output Total 3550 2775 1700 Balance -3130 -1576.833 -1030 - Objective General Appearance: positive: No acute distress, Alert. negative: Lethargic Eyes Bilateral: positive: Normal inspection, PERRL, No lid inflammation, Conjunctivae nml ENT: positive: ENT inspection nml, Pharynx nml, No signs of dehydration. negative: Purulent nasal drainage, Pharyngeal erythema, Oral lesions Neck: positive: Nml inspection, Thyroid nml, No JVD, Trachea midline. negative: Thyromegaly, Lymphadenopathy (R), Lymphadenopathy (L), Stiff neck, Swelling/bruising, Tracheal deviation Respiratory: positive: Chest non-tender, No respiratory distress. negative: Wheezes, Rales, Rhonchi Cardiovascular: positive: Regular rate & rhythm, No murmur, No gallop. negative: Irregularly irregular, Extrasystoles, Tachycardia, Bradycardia, JVD present, Systolic murmur, Diastolic murmur Peripheral Pulses: 2+ Radial (R), 2+ Radial (L), 2+ Dorsalis pedis (R), 2+ Dorsalis pedis (L) Abdomen: positive: Non-tender, No organomegaly, Nml bowel sounds, No distention. negative: Tenderness, Guarding, Rebound Back: positive: Nml inspection. negative: CVA tenderness (R), CVA tenderness (L) Skin: positive: Color nml, No rash, Warm, Dry. negative: Cyanosis, Diaphoresis, Pallor Extremities: positive: Non-tender, Nml appearance. negative: Calf tenderness, Joint swelling, Viviana's sign/cords Neurologic/Psychiatric: positive: Oriented x3, Sensation nml, Mood/affect nml. negative: Weakness, Sensory loss, Facial droop, Slurred/abnml speech, Depressed mood/affect - Lab Results Fish Bones: 07/26/19 05:00 07/26/19 05:00 Other Labs: Lab Results x24hrs 07/26/19 07/26/19 07/26/19 Range/Units 05:00 05:00 05:00 WBC (4.8-10.8) x10^3/uL RBC (4.20-5.40) 10^6/uL Hgb (12.0-16.0) g/dL Hct (37.0-47.0) % MCV (81.0-99.0) fL MCH (27.0-31.0) pg MCHC (32.0-36.0) g/dL RDW (12.0-15.0) % Plt Count (130-450) 10^3/uL MPV (7.9-10.8) fL Neut # (Auto) (1.5-6.6) 10^3/uL Lymph # (Auto) (1.5-3.5) 10^3/uL [place] # (Auto) (0.0-1.0) 10^3/uL Eos # (Auto) (0.0-0.7) 10^3/uL Baso # (Auto) (0.0-0.1) 10^3/uL Absolute Nucleated RBC x10^3/uL Nucleated RBC % /100WBC Sodium (135-145) mmol/L Potassium (3.5-5.0) mmol/L Chloride (101-111) mmol/L Carbon Dioxide (21-32) mmol/L Anion Gap (6-13) BUN (6-20) mg/dL Creatinine (0.4-1.0) mg/dL Estimated GFR (MDRD) (>89) Glucose (70-100) mg/dL Calcium (8.5-10.3) mg/dL Phosphorus 6.1 H (2.5-4.6) mg/dL B-Natriuretic Peptide 821 H (5-100) pg/mL Free T4 1.01 (0.58-1.64) ng/dL 07/26/19 07/26/19 Range/Units 05:00 05:00 WBC 5.5 (4.8-10.8) x10^3/uL RBC 4.36 (4.20-5.40) 10^6/uL Hgb 12.2 (12.0-16.0) g/dL Hct 41.2 (37.0-47.0) % MCV 94.5 (81.0-99.0) fL MCH 28.0 (27.0-31.0) pg MCHC 29.6 L (32.0-36.0) g/dL RDW 17.8 H (12.0-15.0) % Plt Count 162 (130-450) 10^3/uL MPV 9.4 (7.9-10.8) fL Neut # (Auto) 2.7 (1.5-6.6) 10^3/uL Lymph # (Auto) 1.9 (1.5-3.5) 10^3/uL [place] # (Auto) 0.6 (0.0-1.0) 10^3/uL Eos # (Auto) 0.2 (0.0-0.7) 10^3/uL Baso # (Auto) 0.0 (0.0-0.1) 10^3/uL Absolute Nucleated RBC 0.00 x10^3/uL Nucleated RBC % 0.0 /100WBC Sodium 145 (135-145) mmol/L Potassium 4.0 (3.5-5.0) mmol/L Chloride 94 L (101-111) mmol/L Carbon Dioxide 37 H (21-32) mmol/L Anion Gap 14.0 H (6-13) BUN 49 H (6-20) mg/dL Creatinine 2.6 H (0.4-1.0) mg/dL Estimated GFR (MDRD) 19 L (>89) Glucose 121 H (70-100) mg/dL Calcium 7.9 L (8.5-10.3) mg/dL Phosphorus (2.5-4.6) mg/dL B-Natriuretic Peptide (5-100) pg/mL Free T4 (0.58-1.64) ng/dL ABX Reporting Has patient been on IV antibiotics over the past 48 hours?: Yes Sepsis Event Note (H) - Evaluation Current Stage of Sepsis: Ruled out Assessment/Plan - Problem List (1) CHF exacerbation Impression: 07/26 It seems diuretics did work. pt feel breath better. BNP is 821 now from yesterday 1735. but pt's renal function is affected. pt's creatinine is 2.6 tod ay from yesterday 2.3, BUN increased as well. according to update recommendation, slight reduce Bumex dosage from 0.5 mg/h to 0.4 mg/h, and slight reduce fluid restriction from 1800 to 2400 ml daily now. we use new weight board stacker to weight pt's daily weight. Discussed with pt about treatment goal and treatment options for her severe medical conditions. continue: daily weight fluid restriction low sodium diet daily lab monitor tele and vital monitor continue home meds metoprolol, spironolactone, Imdur 07/25 clinic pt feel better. pt has 98% sats on 4 liter of O2. but pt's weight did not change yet, and BNP test still increased to 1700 continue Bumex IV daily weight fluid restriction low sodium diet daily lab monitor tele and vital monitor continue home meds metoprolol, spironolactone, Imdur multiple admission for CHF exacerbation. pt has hx of systolic heart failure with recent ECHO shown EF 30-35% in 05/22 in our hospital. pt failed out-pt 80mg torsemide and continue increase weight, and SOB. pt received an ablation and an ICD/PIV pacer on 05/22. Plan: Bumex IV drip and titration daily weight fluid restriction low sodium diet daily lab monitor tele and vital monitor continue home meds metoprolol, spironolactone, Imdur followup car oiler as out-pt (2) UTI (urinary tract infection) Conclusion/Plan: 07/26 UA culture reveals positive for klebsiella pneumoniae, and sensitive to almost all antibiotics continue treat with cipro pt has hx of UTI, sensitive to almost all antibiotics but pt is allergy to cefpodoxime proxetil. start Cipro followup UA culture (3) CKD (chronic kidney disease) stage 4, GFR 15-29 ml/min Conclusion/Plan: 07/26 creatinine increased to 2.6 and BUN increased to 49 today from 44 on yesterday. it is likely caused by diuretics and fluid removal. slight increase fluid restriction to 2400ml per daily slight decrease Bumex from 0.5mg per hour to 0.4mg per hour. daily lab and vital monitor 07/25 creatinine is still 2.3, stable now. creatinine is 2.3 today, it seems stable. plan: hold nephrotoxic agent lab monitor followup kiln pusher as out-pt (6) Hx of ventricular tachycardia Conclusion/Plan: pt is stable, no VT and pt denies chest pain. pt has pacemaker/ICD now continue home meds Metoprolol, Imdur tele and vital monitor (7) Pacemaker Conclusion/Plan: pt had pacemaker recently done at [facility]. pt has stable pause now. pt denies any local pain or erythema or tenderness at pacemaker site tele and vital monitor (8) History of CVA with residual deficit Conclusion/Plan: pt present mild weakness on her left side. pt has home meds Xarelto for her chronic Afib continue Xarelto nurse support (9) Chronic pain Conclusion/Plan: 07/26 pt consistently asked more pain meds for her. educated and discussed the benefit and risk of opiates continue home methdone and [place] PRN pt has Methdone in her home meds, reconcile home meds, followup palliative care (10) Depression Conclusion/Plan: pt is stable, continue home meds Lexapro (11) Palliative care status Conclusion/Plan: palliative care followuped pt, we will continue palliative care for pt's multiple medical comorbidity/comortality, and her medical condition decline (12) hypothyroidism TSH is slightly elevated, will check Free T4, and followup
[2019-07-26] MEDS: CALCIUM CARBONATE CHEW 500 MG TABLET PO SCH ×2 (13:30→21:52)
[2019-07-26] MEDS: IPRATROPIUM/ALBUTEROL 3 ML NEB INH PRN (16:37)
[2019-07-26] MEDS: RIVAROXABAN 15 MG TABLET PO SCH (17:25)
[2019-07-26] MEDS: QUEtiapine 25 MG TABLET PO SCH (20:39)
[2019-07-27] MEDS: HYDROcod/ACETAM 5/325 MG TABLET PO PRN ×4 (00:14→19:37)
[2019-07-27] MEDS: SODIUM CHLORIDE FLUSH 0.9% 10 ML SYRINGE IVP SCH ×3 (01:44→16:58)
[2019-07-27 05:49] LABS: BASOPHILS # (AUTO) 0.1 10^3/uL (0.0-0.1); BASOPHILS % (AUTO) 0.7 %; EOSINOPHILS # (AUTO) 0.2 10^3/uL (0.0-0.7); EOSINOPHILS % (AUTO) 3.4 %; HGB - HEMOGLOBIN 13.5 g/dL (12.0-16.0); LYMPHOCYTES # (AUTO) 2.2 10^3/uL (1.5-3.5); MEAN CORPUSCULAR HEMOGLOBIN 28.3 pg (27.0-31.0); MEAN CORPUSCULAR HGB CONC 30.5 g/dL (32.0-36.0); MEAN CORPUSCULAR VOLUME 92.7 fL (81.0-99.0); MEAN PLATELET VOLUME 9.4 fL (7.9-10.8); MONOCYTES # (AUTO) 0.7 10^3/uL (0.0-1.0); MONOCYTES % (AUTO) 9.7 %; NEUTROPHILS # (AUTO) 3.5 10^3/uL (1.5-6.6); NEUTROPHILS % (AUTO) 52.9 %; PLT - PLATELET COUNT 181 10^3/uL (130-450); RED BLOOD COUNT 4.77 10^6/uL (4.20-5.40); RED CELL DISTRIBUTION WIDTH 17.6 % (12.0-15.0); WHITE BLOOD COUNT 6.7 x10^3/uL (4.8-10.8)
[2019-07-27 06:03] LABS: CALCIUM 8.7 mg/dL (8.5-10.3); CREATININE 2.9 mg/dL (0.4-1.0); PHOSPHORUS 6.8 mg/dL (2.5-4.6)
[2019-07-27] MEDS: FORMOTEROL FUMARATE NEB 20 MCG/2 ML INH SCH ×2 (06:18→20:03)
[2019-07-27] MEDS: IPRATROPIUM/ALBUTEROL 3 ML NEB INH PRN ×3 (06:18→20:03)
[2019-07-27] MEDS: LEVOTHYROXINE 125 MCG TABLET PO SCH (06:35)
[2019-07-27] MEDS: PANTOPRAZOLE 40 MG TABLET PO SCH (06:35)
[2019-07-27] MEDS: hydrALAZINE 25 MG TABLET PO SCH ×3 (06:40→21:49)
[2019-07-27] MEDS: SPIRONOLACTONE 25 MG TABLET PO SCH (08:01)
[2019-07-27] MEDS: ESCITALOPRAM 10 MG TABLET PO SCH (08:01)
[2019-07-27] MEDS: GABAPENTIN 100 MG CAPSULE PO SCH ×2 (08:02→21:49)
[2019-07-27] MEDS: METHADONE 5 MG TABLET PO SCH ×2 (08:02→16:58)
[2019-07-27] MEDS: SACCHAROMYCES BOULARDII 250 MG CAPSULE PO SCH ×2 (08:02→21:49)
[2019-07-27] MEDS: METOPROLOL SUCCINATE 50 MG TABLET PO SCH (08:02)
[2019-07-27] MEDS: CALCIUM CARBONATE CHEW 500 MG TABLET PO SCH ×2 (08:02→21:50)
[2019-07-27] MEDS: FERROUS GLUCONATE 324 MG TABLET PO SCH (08:02)
[2019-07-27] MEDS: POLYETHYLENE GLYCOL 3350 17 GM PACKET PO SCH (08:03)
[2019-07-27] MEDS: FLUTICASONE NASAL SPRAY NAS SCH ×2 (08:05→21:50)
[2019-07-27] MEDS: CYCLOSPORINE EACHEYE SCH ×2 (08:05→21:56)
[2019-07-27] MEDS: CIPROFLOXACIN 250 MG TABLET PO SCH (09:01)
[2019-07-27] MEDS: ISOSORBIDE MONONITRATE 10 MG TABLET PO SCH (09:01)
--- NOTE | 2019-07-27 11:05 | CONSULTATION NOTE ---
Palliative Care Follow Up - Referral Referring Provider: Catarina ROMERO Time of Visit: 9:50 am; [phone] Referral setting: Hospitalized patient Referral Reason: Advanced CHF/Acute on Chronic Pain/Myoclonus - Information Sources Records reviewed: RN notes reviewed, Previous records reviewed History/Review of Systems obtained from: Patient Exam limitations: No limitations - History of Present Illness Update Brief HPI Update: This is a 63-year-old woman who I am well acquainted with from palliative care over the last few years, she does have advanced heart failure, and is followed for coordination of care and quality of life issues. She was most recently hospitalized for extended period time at [facility] 05/2631/08/2019. She received an ablation and an ICD/PIV pacer on 06/01. Unfortunately she is contin ued to have ongoing issues related to acute on chronic heart failure, and has been accumulating fluids that has not been responding to oral diuretic of her torsemide even though has been doubled. She continues to have worsening renal function, she has had acute on chronic CKD stage IV, she is s/p one kidney for renal cancer and has been weighing decision to consider dialysis as she has pushed against it several times now. Given her worsening kidney status, and her refractory response to oral diuretics, does not appear to be a more urgent decision. She is hoping to avoid transition over to [facility] in any urgent way, and would like a few days at home to wait this out as far as decision-ma boyd with her family. She would also need to weigh in as far as the logistic questions she has, and timing and appropriateness of dialysis at this point with nephrology and cardiology. Dr. Valiente, given our conversation last week, was going to revisit this with her at her appointment scheduled for next week. Patient also presenting with severe twitching and myoclonus, she reports she feels like "she is getting sicker every day". She is experiencing hyper analgesia and allodynia, and finds it is worsening. In response she has doubled her Pelion, suspect this is adding to her metabolites that are adding to his her mild clonus. She reports has not improved her pain management, reviewed with patient to decrease her amount. His concern of course is increased risk of seizures. Patient has a history of interstitial cystitis, urinary retention, and is complaining of increased difficulty urinating particularly over the last 24 hours. Suspect this is related to her increased opioid load, would recommend bladder scan after her next void. Just to rule out getting into any significant problems. Other concern is on her left lower extremity, she does have open areas from her weeping, and a dull pink-red rash/concern for cellulitis. Patient has had recurrent cellulitis in her lower extremities. She remains at high risk for recurrence. Her past medical history is quite complex and does include a series of autoimmune diseases including irritable bowel syndrome, interstitial cystitis, fibromyalgia, migraines, adrenal insufficiency, hypothyroidism, history of renal cell carcinoma, thyroid surgery and status post kidney removal Social History - Living Situation Living arrangement: At home Living Situation: With spouse/s.o. Support System: Patient has had functional decline, has become much more difficult for her to manage at home. But she has been able to independently toilet, and walk short distances. She does spend most the time in a recliner. She does have home health bathing assistance, as well as nursing 2 times a week. Her is her primary caregiver, he is experiencing caregiver fatigue. Her daughter and her both live on the property, been providing support as well. Patient though does present with decreased functional capacity today, exacerbated by her myoclonus, lower extremity weakness, and hyper analgesia. Medications/Allergies - Medications Active Medication List: Active Medications Acetaminophen (Tylenol) 650 mg PO Q4HR PRN PRN Reason: Pain 1 to 4 Hydrocodone Bitart/Acetaminophen (Pelion 5/325) 2 tab PO Q4HR PRN PRN Reason: PAIN Last Admin: 07/27/19 05:29 Dose: 2 tab Albuterol/Ipratropium (Duoneb) 3 ml INH Q4HR PRN PRN Reason: Wheezing Last Admin: 07/27/19 06:18 Dose: 3 ml Calcium Carbonate/Glycine (Tums) 500 mg PO BID [facility] Last Admin: 07/27/19 08:02 Dose: 500 mg Carboxymethylcellulose (Refresh 1% Ophth Drops) 1 drops EACHEYE TID PRN PRN Reason: Dry Eye Ciprofloxacin (Cipro) 250 mg PO BID [facility] Last Admin: 07/27/19 09:01 Dose: 250 mg Escitalopram Oxalate (Lexapro) 10 mg PO DAILY [facility] Last Admin: 07/27/19 08:01 Dose: 10 mg Ferrous Gluconate (Fergon) 324 mg PO DAILY [facility] Last Admin: 07/27/19 08:02 Dose: 324 mg Fluticasone Propionate (Flonase) 1 sprays HAROLDO BID [facility] Last Admin: 07/27/19 08:05 Dose: 1 sprays Formoterol Fumarate (Perforomist) 20 mcg INH RTBID [facility] Last Admin: 07/27/19 06:18 Dose: 20 mcg Gabapentin (Neurontin) 100 mg PO BID [facility] Last Admin: 07/27/19 08:02 Dose: 100 mg Hydralazine HCl (Apresoline) 50 mg PO TID [facility] Last Admin: 07/27/19 06:40 Dose: 50 mg Hydroxyzine Pamoate (Vistaril) 25 mg PO TID PRN PRN Reason: ITCHING Bumetanide 10 mg/ Sodium (Chloride) 250 mls @ 5 mls/hr IV .Q48H [facility]; Protocol Last Admin: 07/26/19 13:18 Dose: Not Given Isosorbide Mononitrate (Ismo) 20 mg PO DAILY [facility] Last Admin: 07/27/19 09:01 Dose: 20 mg Levothyroxine Sodium (Synthroid) 125 mcg PO QDAC [facility] Last Admin: 07/27/19 06:35 Dose: 125 mcg Methadone HCl () 5 mg PO 0800,1700 [facility] Last Admin: 07/27/19 08:02 Dose: 5 mg Metoprolol Succinate (Toprol Xl) 100 mg PO DAILY [facility] Last Admin: 07/27/19 08:02 Dose: 100 mg Mineral Oil (Cavilon) 1 applic TOP PRN PRN PRN Reason: Skin Care Last Admin: 07/26/19 09:54 Dose: 1 applic Nitroglycerin (Nitrostat) 0.4 mg SL Q5MIN PRN PRN Reason: chest pain Ondansetron HCl (Zofran Inj) 4 mg IVP Q6HR PRN PRN Reason: Nausea / Vomiting Last Admin: 07/26/19 06:34 Dose: 4 mg Pantoprazole Sodium (Protonix) 40 mg PO QDAC [facility] Last Admin: 07/27/19 06:35 Dose: 40 mg Patient Own Med ( Cyclosporine [ Restasis] 1 Drops) 1 each EACHEYE BID [facility] Last Admin: 07/27/19 08:05 Dose: 1 each Polyethylene Glycol (Miralax) 17 gm PO DAILY [facility] Last Admin: 07/27/19 08:03 Dose: 17 gm Quetiapine Fumarate (Seroquel) 25 mg PO QPM [facility] Last Admin: 07/26/19 20:39 Dose: 25 mg Rivaroxaban (Xarelto) 15 mg PO 1700 [facility] Last Admin: 07/26/19 17:25 Dose: 15 mg Saccharomyces Boulardii (Florastor) 250 mg PO BID [facility] Last Admin: 07/27/19 08:02 Dose: 250 mg Sodium Chloride (Normal Saline Flush 0.9%) 10 ml IVP PRN PRN PRN Reason: NEEDED PER PROVIDER ORDERS Sodium Chloride (Normal Saline Flush 0.9%) 10 ml IVP 0100,0900,1700 [facility] Last Admin: 07/27/19 08:03 Dose: Not Given Spironolactone (Aldactone) 50 mg PO DAILY [facility] Last Admin: 07/27/19 08:01 Dose: 50 mg Throat Lozenges (Cepacol) 1 lozenge MM Q2HR PRN PRN Reason: Mouth Sore Pain Last Admin: 07/26/19 06:04 Dose: 1 lozenge Fluticasone [Flonase] 2 spray HAROLDO BID 01/24/16 QUEtiapine [SEROquel] 25 mg PO QPM 01/24/16 Methadone 5 mg PO 0800,1700 05/17/17 Rivaroxaban [Xarelto] 15 mg PO 1700 05/17/17 Calcium Carbonate/Vitamin D3 [Calcium 600-Vit D3 400 Tablet] 2 tab PO DAILY [facility] 6 05/19/17 Carboxymethylcellulose Sodium [Refresh Tears] 1 drops EACHEYE TID PRN 05/19/17 Cyclosporine [Restasis] 1 drops EACHEYE BID 05/19/17 Hydrocortisone [Cortef] 10 mg PO QDBREAKFAST 05/19/17 Multivitamin [Multiple Vitamins] 1 tab PO DAILY 05/19/17 Ondansetron Odt [Zofran Odt] 4 mg PO Q8HR PRN 05/19/17 Polyethylene Glycol 3350 [Miralax] 17 gm PO BID 05/19/17 Salmeterol Xinafoate [Serevent Diskus] 1 puffs INH BID 05/19/17 hydrOXYzine pamoate [Hydroxyzine Pamoate] 25 mg PO TID PRN 05/19/17 raNITIdine [Zantac] 150 mg PO BID 08/16/17 Hydrocortisone [Cortef] 5 mg PO QDDINNER 12/11/17 Nitroglycerin [Nitrostat] 0.4 mg SL Q5MIN PRN 03/12/18 Sennosides [Chocolated Laxative] 15 - 30 mg PO DAILY PRN 08/21/18 Albuterol Sulfate [Proair Hfa Inhaler] 2 puffs INH Q4H PRN 03/13/19 Metoprolol Succinate [Toprol Xl] 100 mg PO DAILY 03/13/19 Gabapentin 100 mg PO BID 03/14/19 Hydrocodone/Acetaminophen [Hydrocodone-Acetamin 5-325 mg] 1 - 2 tab PO QID PRN MDD 8 03/14/19 Escitalopram [Lexapro] 10 mg PO DAILY 03/20/19 hydrALAZINE [Apresoline] 50 mg PO TID 03/20/19 Isosorbide Mononitrate ER [Imdur] 20 mg PO DAILY 07/14/19 Spironolactone 50 mg PO DAILY 07/14/19 Torsemide 40 mg PO DAILY [facility] 100 mg x 2 days 07/1407/14/19 - Allergies Allergies/Adverse Reactions: Allergies Allergy/AdvReac Type Severity Reaction Status Date / Time Beef Containing Products Allergy Nausea Verified 07/24/19 13:46 cefpodoxime proxetil * Allergy Unknown Verified 07/24/19 13:46 [From Vantin] [place] And Derivatives Allergy Unknown Verified 07/24/19 13:46 clindamycin Allergy Unknown Verified 07/24/19 13:46 codeine Allergy Unknown Verified 07/24/19 13:46 erythromycin base Allergy Unknown Verified 07/24/19 13:46 [Erythromycin Base] mushroom Allergy Unknown Verified 07/24/19 13:46 onion Allergy Unknown Verified 07/24/19 13:46 rofecoxib [From Vioxx] Allergy Unknown Verified 07/24/19 13:46 sumatriptan [From Imitrex] Allergy Unknown Verified 07/24/19 13:46 tomato Allergy Unknown Verified 07/24/19 13:46 levofloxacin [From Levaquin] AdvReac Severe PSYCHOSIS Verified 07/24/19 13:46 metolazone AdvReac Severe Stomach Verified 07/24/19 13:46 Cramps morphine AdvReac Unknown Verified 07/24/19 13:46 pepper (genus Capsicum) AdvReac Anaphylaxis Verified 07/24/19 13:46 Review of Systems - Constitutional Constitutional: reports: Fatigue, Poor appetite, Weight loss (07/25 patient was 92 kg; 93 kg; Saturday 94.54 kg; this a.m. she was 91.5 kg returning almost to her baseline on arrival.). denies: Fever - Eyes Eyes: reports: Vision loss, Corrective lenses - Ears, Nose & Throat Ears, Nose & Throat: reports: Dry mouth, Other (some difficulty with swallowing) - Cardiovascular Cardiovascular: reports: Chest pain (describes pain across breast tissue and painful and sensitive), Edema, Exertional dyspnea, Decr. exercise tolerance, Orthopnea - Respiratory Respiratory: reports: Orthopnea, SOB at rest, SOB with exertion, Pleuritic pain (c/o pain with deep inspiration) - Gastrointestinal Gastrointestinal: reports: Abdominal distention (lessened), Bloating, Poor appetite, Early satiety. denies: Constipation, Nausea - Genitourinary Genitourinary: reports: Other (retention) - Musculoskeletal Musculoskeletal: reports: Muscle aches, Stiffness, Limited range of motion, Muscle weakness, Assistive devices - Integumentary Integumentary: reports: Pruritis, Dryness, Nail changes, Hair changes - Neurological Neurological: reports: General weakness - Psychiatric Psychiatric: reports: Depression, Anxiety - Endocrine Endocrine: reports: Hypothyroidism - Hematologic/Lymphatic Hematologic/Lymphatic: reports: Recurrent infections (UTIs) - All Other Systems All Other Systems: reports: Reviewed and negative Physical Exam - Vital Signs Vital Signs: Vital Signs x48h Temp Pulse Pulse Resp BP Pulse Ox 07/27/19 07:50 36.3 C L 65 16 135/75 H 97 07/27/19 06:19 65 20 07/27/19 05:00 36.6 C 64 16 137/90 H 93 - Physical Exam General Appearance: positive: Moderate distress, Anxious Eyes Bilateral: positive: Normal inspection Neck: positive: Trachea midline Cardiovascular: positive: Regular rate & rhythm Respiratory: positive: Diminished in bases, Other (difficulty taking deep breath) Abdomen: positive: Nml bowel sounds, Tenderness, Distended, Obese Skin: positive: Pallor, Dryness, Pruritis, Other (LLE with baseline lesions; skin bright red/warm to touch; legs had been weeping; patient with hx of recurrent celluliltis; notified hospitalist) Extremities: positive: Pedal edema (patient reports decreased; 2-3+ up to mid thigh) Neurologic/Psychiatric: positive: Oriented x3, Weakness, Depressed mood/affect Palliative Care - POLST Patient has POLST: Yes POLST Status: DNR, Selective Treatment Pain: Pain worsening, Location (Patient reports pain is all over. 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 She is complaining of mild clonus significantly in her across her chest and her arms lots of cramping and not wanting to be touched. She had increased her Pelion to 2 tabs every 4 hours, has not found that to be much more effective. Her baseline dosing is been methadone 5 mg twice daily with 2-3 Pelion in 24 hours.) Tiredness/Fatigue: Severe (7-10) Drowsiness/Sedation: Moderate (4-6) Nausea: None Depression: Moderate (4-6) Anxiety: Severe (7-10) Dyspnea: Moderate (4-6) (improved) Anorexia: Moderate (4-6) Sleep: Variable sleep pattern Constipation: Yes, Opoid induced, Managed (bowels moved today) Feelings of wellbeing/Perceived Quality of Life: Poor, Worsening Performance Status: Patient needing maximum assist for transfers to the bathroom, reports is quite difficult to even ambulate a few steps. Did discuss patient's quality of life issues as far as threshold, patient has been fiercely independent despite all her issues up to this point. Has needed assistance with bathing, food prep, and medication management. Patient pretty much lives in her recliner [facility]. - Palliative Care Discussion: Patient feeling quite overwhelmed, was told yesterday that most likely she is looking at end-of-life event. Today was told with the weight loss, still remains quite fragile, but improved. Patient herself perceives herself as getting sicker every day, she has been living with uncertainty for the last couple years, and more acutely over the last several months. She feels like she is not ready to , though certainly recognizes its possibility is realistic with her ongoing decline. She does understand she is getting pushed to the point to be need to make a decision, she remains ambivalent regarding dialysis, she definitely does not want to alone or in the hospital. She feels this is somewhat surreal, and is hoping to get home for a few days to have further conversations with her family. She continues to struggle for needing to be in the hospital, she worries about going to [facility] and another prolong hospitalization and well as implications of what may or may not happen. Will need to get more information from nephrology to weigh her final decision, and if appropriate at this juncture. Addendum; spoke with later, he sees her as significantly worsening, and understands her ambivalence. He very much though wants her to be at home for end of life, if that is where she is heading. Understands her reticence for going to [facility], as feels like she may never come home. Answers questions regarding if patient chooses comfort measures only and wants to transition to hospice, what that would look like. Hospice would accept her, if she had made a final decision not for further hospitalization, and her goal was to focus on comfort only. This was staffed with Dr. Booker. 1515 Call from received, reports they had a family meeting with himself, their daughter Jonathan and her , and patient. They have decided as family, they would like her to transition home with hospice. Answered 's questions, agreed would follow-up with patient and confirm plan and expectations. 1615 Patient explained when asked about hospice decision, that in the end it ap peared to be her least bad choice in the context of moving forward with her serious illnesses. She cannot conceive of committing to a life that would include the commitment to dialysis, and feels that the decision would be too much to ask of her family. Her goals are to return and be at home for whatever time she has left, she is most happy at home with her dogs and her family. Does not want to spend her last days in the hospital, nor take the chance she would there. She is appropriately concerned regarding management of her heart failure, she does not want to "suffocate to ". Context of conversations with hospice nurse, of getting a PICC line or midline placed to be able to u se if needed for IV diuresis, would be in the context of keeping her comfortable not to prolong her life. We also discussed the need to deactivate the AICD, she says she was "not looking forward to being shocked". She did understand the necessity of this and counseling provided regarding procedure of deprogramming the AICD component, the pacing component would stay intact. Results - Lab Results Lab results reviewed: Yes Fish Bones: 07/27/19 05:29 07/27/19 05:29 Lab and Imaging Results: Lab Results x24hrs 07/27/19 07/27/19 07/27/19 Range/Units 05:29 05:29 05:29 WBC 6.7 (4.8-10.8) x10^3/uL RBC 4.77 (4.20-5.40) 10^6/uL Hgb 13.5 (12.0-16.0) g/dL Hct 44.2 (37.0-47.0) % MCV 92.7 (81.0-99.0) fL MCH 28.3 (27.0-31.0) pg MCHC 30.5 L (32.0-36.0) g/dL RDW 17.6 H (12.0-15.0) % Plt Count 181 (130-450) 10^3/uL MPV 9.4 (7.9-10.8) fL Neut # (Auto) 3.5 (1.5-6.6) 10^3/uL Lymph # (Auto) 2.2 (1.5-3.5) 10^3/uL [place] # (Auto) 0.7 (0.0-1.0) 10^3/uL Eos # (Auto) 0.2 (0.0-0.7) 10^3/uL Baso # (Auto) 0.1 (0.0-0.1) 10^3/uL Absolute Nucleated RBC 0.00 x10^3/uL Nucleated RBC % 0.0 /100WBC Sodium 144 (135-145) mmol/L Potassium 4.1 (3.5-5.0) mmol/L Chloride 93 L (101-111) mmol/L Carbon Dioxide 38 H (21-32) mmol/L Anion Gap 13.0 (6-13) BUN 57 H (6-20) mg/dL Creatinine 2.9 H (0.4-1.0) mg/dL Estimated GFR (MDRD) 16 L (>89) Glucose 97 (70-100) mg/dL Calcium 8.7 (8.5-10.3) mg/dL Phosphorus 6.8 H (2.5-4.6) mg/dL B-Natriuretic Peptide 907 H (5-100) pg/mL Impression and Recommendations - Palliative Care Impression: This is a complex 63-year-old woman with severe acute on chronic heart failure, with recent exacerbation and now with increasing difficulty related to her kidney function. She continues to struggle with her goals of care, quality of life issues, and now is acutely hospitalized. Palliative care continue provide support for symptom management and anticipatory guidance as well as navigating goals of care Recommendations/Counseling Done: 1. Acute on chronic heart failure. Patient has improved just for symptoms, is currently down several pounds, though not much different from her baseline on arrival at the hospital. She does feel better as far shortness of breath, lower extremity edema, and abdominal bloating. Currently is off all diuretics given her worsening kidney function. 2. CKD stage IV. Patient continues to have cardiorenal syndrome trying to balance her diuresis needs with her heart failure. I did put in call to Dr. Valiente her director prospect, as have had recent conversation visit regarding patient's renal dysfunction. 3. 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 We did decrease her gabapentin at her last visit, she has increased her Pelion secondary to high per analgesia and allodynia, has not helped improve her pain at all, recommended decrease intake of her pain medications is most likely adding to this problem with metabolites of pain medication hydrocodone. Course because concern certainly is seizures. Recommendation to consider increasing methadone slowly if pain remains problematic, can wait until discharge. 4. Lower extremity rash left leg. Patient at high risk for recurrent cellulitis, patient has had weeping, leg is warm to touch. Hospitalist notified for further evaluation and monitoring. 5. Advanced care planning. Patient continues to struggle with her goals of care, she very much does not want to in the hospital or have prolonged hospitalization, and continues to struggle with the concern for dialysis, patient currently with poor kidney function, will need to continue to monitor, may need to make a decision more acutely. Patient also worsening with functional status, recurrent hospitalizations, and concerns for quality of life, does not want to have an end-of-life experience in the hospital, and struggles with whether to transition to comfort care. Today she is expressing would like to get home for a few days, and have conversation with her family, unclear though given the acuteness of her current condition with her needs to weigh benefits and burdens of transitioning to [facility] or not. Plan at this point is for an echo and follow-up on labs, pending possible discharge tomorrow. 1615. Decision has been made to transition to hospice, I have confirmed with the patient and family as well as her . Did discuss though in the context of being able to keep her at home and comfortable, are going to need IV access, requested hospitalist order midline and/or PICC line for home management. Will work with infusion solutions on discharge regarding accessing medications going to need with [facility] sales ordering. Patient will also need her AICD deactivated, will contact to get information, usually director prospect writes order for discontinuation, and awaiting callback from Dr. Valiente. Patient is quite weak, discussed whether he would need to BLS transfer, will await and see how patient is doing tomorrow. Goal at this point in time, is to stabilize patient, get her as comfortable as possible, hoping for discharge tomorrow, have reserved afternoon admission with hospice if possible. Patient does have equipment at home including oxygen, shower bench, hospital bed at this point no other identified needs. Time Spent: 80 minutes with greater than 50% of this done in counseling regarding defining goals of care, working through advanced care planning, coordination of care with hospitalist team and hospice for transitioning home
[2019-07-27] MEDS: cephALEXin 250 MG CAPSULE PO SCH ×2 (12:07→21:49)
[2019-07-27] MEDS: BUMETANIDE INJ 10 MG in SODIUM CHLORIDE 0.9% 210 ML IV SCH (14:06)
--- NOTE | 2019-07-27 15:03 | PROVIDER PROGRESS NOTE ---
Subjective - Prog Note Date Prog Note Date: 07/27/19 - Subjective Pt reports feeling: Improved Subjective: pt report she feel ok. pt's weight is reduced after diuretics. she denies chest pain, fever, chill. Current Medications - Current Medications Current Medications: Active Medications Acetaminophen (Tylenol) 650 mg PO Q4HR PRN PRN Reason: Pain 1 to 4 Hydrocodone Bitart/Acetaminophen ([place] 5/325) 2 tab PO Q4HR PRN PRN Reason: PAIN Last Admin: 07/27/19 12:07 Dose: 2 tab Albuterol/Ipratropium (Duoneb) 3 ml INH Q4HR PRN PRN Reason: Wheezing Last Admin: 07/27/19 14:56 Dose: 3 ml Calcium Carbonate/Glycine (Tums) 500 mg PO BID [facility] Last Admin: 07/27/19 08:02 Dose: 500 mg Carboxymethylcellulose (Refresh 1% Ophth Drops) 1 drops EACHEYE TID PRN PRN Reason: Dry Eye Cephalexin (Keflex) 250 mg PO BID [facility] Last Admin: 07/27/19 12:07 Dose: 250 mg Escitalopram Oxalate (Lexapro) 10 mg PO DAILY [facility] Last Admin: 07/27/19 08:01 Dose: 10 mg Ferrous Gluconate (Fergon) 324 mg PO DAILY [facility] Last Admin: 07/27/19 08:02 Dose: 324 mg Fluticasone Propionate (Flonase) 1 sprays HAROLDO BID [facility] Last Admin: 07/27/19 08:05 Dose: 1 sprays Formoterol Fumarate (Perforomist) 20 mcg INH RTBID [facility] Last Admin: 07/27/19 06:18 Dose: 20 mcg Gabapentin (Neurontin) 100 mg PO BID [facility] Last Admin: 07/27/19 08:02 Dose: 100 mg Hydralazine HCl (Apresoline) 50 mg PO TID [facility] Last Admin: 07/27/19 14:06 Dose: 50 mg Hydroxyzine Pamoate (Vistaril) 25 mg PO TID PRN PRN Reason: ITCHING Bumetanide 10 mg/ Sodium (Chloride) 250 mls @ 5 mls/hr IV .Q48H [facility]; Protocol Last Admin: 07/27/19 14:06 Dose: 0.2 mg/hr, 5 mls/hr Isosorbide Mononitrate (Ismo) 20 mg PO DAILY [facility] Last Admin: 07/27/19 09:01 Dose: 20 mg Levothyroxine Sodium (Synthroid) 125 mcg PO QDAC [facility] Last Admin: 07/27/19 06:35 Dose: 125 mcg Methadone HCl () 5 mg PO 0800,1700 [facility] Last Admin: 07/27/19 08:02 Dose: 5 mg Metoprolol Succinate (Toprol Xl) 100 mg PO DAILY [facility] Last Admin: 07/27/19 08:02 Dose: 100 mg Mineral Oil (Cavilon) 1 applic TOP PRN PRN PRN Reason: Skin Care Last Admin: 07/26/19 09:54 Dose: 1 applic Nitroglycerin (Nitrostat) 0.4 mg SL Q5MIN PRN PRN Reason: chest pain Ondansetron HCl (Zofran Inj) 4 mg IVP Q6HR PRN PRN Reason: Nausea / Vomiting Last Admin: 07/26/19 06:34 Dose: 4 mg Pantoprazole Sodium (Protonix) 40 mg PO QDAC [facility] Last Admin: 07/27/19 06:35 Dose: 40 mg Patient Own Med ( Cyclosporine [ Restasis] 1 Drops) 1 each EACHEYE BID [facility] Last Admin: 07/27/19 08:05 Dose: 1 each Polyethylene Glycol (Miralax) 17 gm PO DAILY [facility] Last Admin: 07/27/19 08:03 Dose: 17 gm Quetiapine Fumarate (Seroquel) 25 mg PO QPM [facility] Last Admin: 07/26/19 20:39 Dose: 25 mg Rivaroxaban (Xarelto) 15 mg PO 1700 [facility] Last Admin: 07/26/19 17:25 Dose: 15 mg Saccharomyces Boulardii (Florastor) 250 mg PO BID [facility] Last Admin: 07/27/19 08:02 Dose: 250 mg Sodium Chloride (Normal Saline Flush 0.9%) 10 ml IVP PRN PRN PRN Reason: NEEDED PER PROVIDER ORDERS Sodium Chloride (Normal Saline Flush 0.9%) 10 ml IVP 0100,0900,1700 [facility] Last Admin: 07/27/19 08:03 Dose: Not Given Spironolactone (Aldactone) 50 mg PO DAILY [facility] Last Admin: 07/27/19 08:01 Dose: 50 mg Throat Lozenges (Cepacol) 1 lozenge MM Q2HR PRN PRN Reason: Mouth Sore Pain Last Admin: 07/26/19 06:04 Dose: 1 lozenge Fluticasone [Flonase] 2 spray HAROLDO BID 01/24/16 QUEtiapine [SEROquel] 25 mg PO QPM 01/24/16 Methadone 5 mg PO 0800,1700 05/17/17 Rivaroxaban [Xarelto] 15 mg PO 1700 05/17/17 Calcium Carbonate/Vitamin D3 [Calcium 600-Vit D3 400 Tablet] 2 tab PO DAILY [facility] 6 05/19/17 Carboxymethylcellulose Sodium [Refresh Tears] 1 drops EACHEYE TID PRN 05/19/17 Cyclosporine [Restasis] 1 drops EACHEYE BID 05/19/17 Hydrocortisone [Cortef] 10 mg PO QDBREAKFAST 05/19/17 Multivitamin [Multiple Vitamins] 1 tab PO DAILY 05/19/17 Ondansetron Odt [Zofran Odt] 4 mg PO Q8HR PRN 05/19/17 Polyethylene Glycol 3350 [Miralax] 17 gm PO BID 05/19/17 Salmeterol Xinafoate [Serevent Diskus] 1 puffs INH BID 05/19/17 hydrOXYzine pamoate [Hydroxyzine Pamoate] 25 mg PO TID PRN 05/19/17 raNITIdine [Zantac] 150 mg PO BID 08/16/17 Hydrocortisone [Cortef] 5 mg PO QDDINNER 12/11/17 Nitroglycerin [Nitrostat] 0.4 mg SL Q5MIN PRN 03/12/18 Sennosides [Chocolated Laxative] 15 - 30 mg PO DAILY PRN 08/21/18 Albuterol Sulfate [Proair Hfa Inhaler] 2 puffs INH Q4H PRN 03/13/19 Metoprolol Succinate [Toprol Xl] 100 mg PO DAILY 03/13/19 Gabapentin 100 mg PO BID 03/14/19 Hydrocodone/Acetaminophen [Hydrocodone-Acetamin 5-325 mg] 1 - 2 tab PO QID PRN MDD 8 03/14/19 Escitalopram [Lexapro] 10 mg PO DAILY 03/20/19 hydrALAZINE [Apresoline] 50 mg PO TID 03/20/19 Isosorbide Mononitrate ER [Imdur] 20 mg PO DAILY 07/14/19 Spironolactone 50 mg PO DAILY 07/14/19 Torsemide 40 mg PO DAILY [facility] 100 mg x 2 days 07/1407/14/19 Objective - Vital Signs/Intake & Output Reviewed Vital Signs: Yes Vital Signs: Vital Signs x48h Temp Pulse Pulse Resp BP Pulse Ox 07/27/19 14:53 86 14 07/27/19 13:00 36.6 C 65 16 133/72 H 100 07/27/19 07:50 36.3 C L 65 16 135/75 H 97 Intake & Output: Intake & Output 07/24/19 07/25/19 07/26/19 07/27/19 23:59 23:59 23:59 23:59 Intake Total 420 4776.411 4809.292 833.808 Output Total 3550 2775 2400 920 Balance -3130 -1576.833 -743.708 -86.192 - Objective General Appearance: positive: No acute distress, Alert. negative: Lethargic Eyes Bilateral: positive: Normal inspection, PERRL, No lid inflammation, Conjunctivae nml ENT: positive: ENT inspection nml, Pharynx nml, No signs of dehydration. negative: Purulent nasal drainage, Pharyngeal erythema, Oral lesions Neck: positive: Nml inspection, Thyroid nml, No JVD, Trachea midline. negative: Thyromegaly, Lymphadenopathy (R), Lymphadenopathy (L), Stiff neck, Swelling/bruising, Tracheal deviation Respiratory: positive: Chest non-tender, No respiratory distress. negative: Wheezes, Rales, Rhonchi Cardiovascular: positive: Regular rate & rhythm, No murmur, No gallop. negative: Irregularly irregular, Extrasystoles, Tachycardia, Bradycardia, JVD present, Systolic murmur, Diastolic murmur Peripheral Pulses: 2+ Radial (R), 2+ Radial (L), 2+ Dorsalis pedis (R), 2+ Dorsalis pedis (L) Abdomen: positive: Non-tender, No organomegaly, Nml bowel sounds, No distention. negative: Tenderness, Guarding, Rebound Back: positive: Nml inspection. negative: CVA tenderness (R), CVA tenderness (L) Skin: positive: Warm, Dry, Skin rash. negative: Cyanosis, Diaphoresis, Pallor Extremities: negative: Calf tenderness, Joint swelling, Viviana's sign/cords Neurologic/Psychiatric: positive: Oriented x3, Mood/affect nml. negative: Weakness, Sensory loss, Facial droop, Slurred/abnml speech, Depressed mood/affect - Lab Results Fish Bones: 07/27/19 05:29 07/27/19 05:29 Other Labs: Lab Results x24hrs 07/27/19 07/27/19 07/27/19 Range/Units 05:29 05:29 05:29 WBC 6.7 (4.8-10.8) x10^3/uL RBC 4.77 (4.20-5.40) 10^6/uL Hgb 13.5 (12.0-16.0) g/dL Hct 44.2 (37.0-47.0) % MCV 92.7 (81.0-99.0) fL MCH 28.3 (27.0-31.0) pg MCHC 30.5 L (32.0-36.0) g/dL RDW 17.6 H (12.0-15.0) % Plt Count 181 (130-450) 10^3/uL MPV 9.4 (7.9-10.8) fL Neut # (Auto) 3.5 (1.5-6.6) 10^3/uL Lymph # (Auto) 2.2 (1.5-3.5) 10^3/uL [place] # (Auto) 0.7 (0.0-1.0) 10^3/uL Eos # (Auto) 0.2 (0.0-0.7) 10^3/uL Baso # (Auto) 0.1 (0.0-0.1) 10^3/uL Absolute Nucleated RBC 0.00 x10^3/uL Nucleated RBC % 0.0 /100WBC Sodium 144 (135-145) mmol/L Potassium 4.1 (3.5-5.0) mmol/L Chloride 93 L (101-111) mmol/L Carbon Dioxide 38 H (21-32) mmol/L Anion Gap 13.0 (6-13) BUN 57 H (6-20) mg/dL Creatinine 2.9 H (0.4-1.0) mg/dL Estimated GFR (MDRD) 16 L (>89) Glucose 97 (70-100) mg/dL Calcium 8.7 (8.5-10.3) mg/dL Phosphorus 6.8 H (2.5-4.6) mg/dL B-Natriuretic Peptide 907 H (5-100) pg/mL ABX Reporting Has patient been on IV antibiotics over the past 48 hours?: Yes Sepsis Event Note (H) - Evaluation Current Stage of Sepsis: Ruled out Assessment/Plan - Problem List (1) CHF exacerbation Impression: 07/27 pt's weight is reduced, BNP is stable. pt's breath is improved. now pt has 100% sats on 2 liter of O2. but pt's creatinine increase from 2.6 to 2.9. reduced diuretics Bumex from 0.4mg/h to 0.2 mg, slight increase fluid restrict to 2600ml continue: daily weight fluid restriction to 2600ml low sodium diet daily lab monitor tele and vital monitor continue home meds metoprolol, spironolactone, Imdur 07/26 It seems diuretics did work. pt feel breath better. BNP is 821 now from yesterday 1735. but pt's renal function is affected. pt's creatinine is 2.6 today from yesterday 2.3, BUN increased as well. according to update recommend ation, slight reduce Bumex dosage from 0.5 mg/h to 0.4 mg/h, and slight reduce fluid restriction from 1800 to 2400 ml daily now. we use new weight accounting policy consultant to weight pt's daily weight. Discussed with pt about treatment goal and treatment options for her severe medical conditions. continue: daily weight fluid restriction low sodium diet daily lab monitor tele and vital monitor continue home meds metoprolol, spironolactone, Imdur 07/25 clinic pt feel better. pt has 98% sats on 4 liter of O2. but pt's weight did not change yet, and BNP test still increased to 1700 continue Bumex IV daily weight fluid restriction low sodium diet daily lab monitor tele and vital monitor continue home meds metoprolol, spironolactone, Imdur multiple admission for CHF exacerbation. pt has hx of systolic heart failure with recent ECHO shown EF 30-35% in 05/22 in our hospital. pt failed out-pt 80mg torsemide and continue increase weight, and SOB. pt received an ablation and an ICD/PIV pacer on 05/22. 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 07/26 UA culture reveals positive for klebsiella pneumoniae, and sensitive to almost all antibiotics continue treat with cipro pt has hx of UTI, sensitive to almost all antibiotics but pt is allergy to cefpodoxime proxetil. start Cipro followup UA culture (3) CKD (chronic kidney disease) stage 4, GFR 15-29 ml/min Conclusion/Plan: 07/27, creatinine increase from 2.6 to 2.9 today reduced diuretics Bumex from 0.4mg/h to 0.2 mg, slight increase fluid restrict to 2600ml 07/26 creatinine increased to 2.6 and BUN increased to 49 today from 44 on yesterday. it is likely caused by diuretics and fluid removal. slight increase fluid restriction to 2400ml per daily slight decrease Bumex from 0.5mg per hour to 0.4mg per hour. daily lab and vital monitor 07/25 creatinine is still 2.3, stable now. creatinine is 2.3 today, it seems stable. 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 pt has pacemaker/ICD now continue home meds Metoprolol, Imdur tele and vital monitor (7) Pacemaker Conclusion/Plan: pt had pacemaker recently done at [facility]. pt has stable pause now. pt denies any local pain or erythema or tenderness at pacemaker site tele and vital monitor (8) History of CVA with residual deficit Conclusion/Plan: pt present mild weakness on her left side. pt has home meds Xarelto for her chronic Afib continue Xarelto nurse support (9) Chronic pain Conclusion/Plan: 07/26 pt consistently asked more pain meds for her. educated and discussed the benefit and risk of opiates continue home methdone and [place] PRN pt has Methdone in her home meds, reconcile home meds, followup palliative care (10) Depression Conclusion/Plan: pt is stable, continue home meds Lexapro (11) Palliative care status Conclusion/Plan: palliative care followuped pt, we will continue palliative care for pt's multiple medical comorbidity/comortality, and her medical condition decline (12) hypothyroidism TSH is slightly elevated, will check Free T4, and followup (13) bilateral chronic venous stasis with cellulitis pt present bilateral chronic lower extremities venous stasis with warm, erythema, concern of cellulitis as well. switch pt's antibiotics from Cipro to Keflex.
[2019-07-27] MEDS: QUEtiapine 25 MG TABLET PO SCH (21:49)
[2019-07-28] MEDS: HYDROcod/ACETAM 5/325 MG TABLET PO PRN ×4 (00:32→21:49)
[2019-07-28] MEDS: SODIUM CHLORIDE FLUSH 0.9% 10 ML SYRINGE IVP SCH ×3 (02:01→17:13)
[2019-07-28] MEDS: A & D OINTMENT 5 GM PACKET TOP PRN ×2 (03:04→13:43)
[2019-07-28 05:49] LABS: BASOPHILS % (AUTO) 0.6 %; EOSINOPHILS # (AUTO) 0.3 10^3/uL (0.0-0.7); EOSINOPHILS % (AUTO) 3.8 %; HGB - HEMOGLOBIN 11.8 g/dL (12.0-16.0); LYMPHOCYTES # (AUTO) 1.9 10^3/uL (1.5-3.5); LYMPHOCYTES % (AUTO) 29.2 %; MEAN CORPUSCULAR HEMOGLOBIN 27.8 pg (27.0-31.0); MEAN CORPUSCULAR HGB CONC 30.1 g/dL (32.0-36.0); MEAN CORPUSCULAR VOLUME 92.5 fL (81.0-99.0); MEAN PLATELET VOLUME 9.3 fL (7.9-10.8); MONOCYTES # (AUTO) 0.7 10^3/uL (0.0-1.0); MONOCYTES % (AUTO) 10.9 %; NEUTROPHILS # (AUTO) 3.6 10^3/uL (1.5-6.6); NEUTROPHILS % (AUTO) 55.3 %; PLT - PLATELET COUNT 155 10^3/uL (130-450); RED BLOOD COUNT 4.24 10^6/uL (4.20-5.40); RED CELL DISTRIBUTION WIDTH 17.3 % (12.0-15.0); WHITE BLOOD COUNT 6.5 x10^3/uL (4.8-10.8)
[2019-07-28 06:04] LABS: CALCIUM 8.2 mg/dL (8.5-10.3); CREATININE 2.9 mg/dL (0.4-1.0); PHOSPHORUS 5.8 mg/dL (2.5-4.6)
[2019-07-28] MEDS: hydrALAZINE 25 MG TABLET PO SCH ×3 (06:28→21:48)
[2019-07-28] MEDS: PANTOPRAZOLE 40 MG TABLET PO SCH (06:28)
[2019-07-28] MEDS: LEVOTHYROXINE 125 MCG TABLET PO SCH (06:28)
[2019-07-28] MEDS: FORMOTEROL FUMARATE NEB 20 MCG/2 ML INH SCH ×2 (07:51→19:32)
[2019-07-28] MEDS: cephALEXin 250 MG CAPSULE PO SCH ×2 (08:36→21:48)
[2019-07-28] MEDS: SPIRONOLACTONE 25 MG TABLET PO SCH (08:36)
[2019-07-28] MEDS: ESCITALOPRAM 10 MG TABLET PO SCH (08:36)
[2019-07-28] MEDS: SACCHAROMYCES BOULARDII 250 MG CAPSULE PO SCH ×2 (08:36→21:48)
[2019-07-28] MEDS: ISOSORBIDE MONONITRATE 10 MG TABLET PO SCH (08:36)
[2019-07-28] MEDS: METHADONE 5 MG TABLET PO SCH ×2 (08:36→17:12)
[2019-07-28] MEDS: GABAPENTIN 100 MG CAPSULE PO SCH ×2 (08:37→21:49)
[2019-07-28] MEDS: CALCIUM CARBONATE CHEW 500 MG TABLET PO SCH ×2 (08:37→21:48)
[2019-07-28] MEDS: FERROUS GLUCONATE 324 MG TABLET PO SCH (08:37)
[2019-07-28] MEDS: METOPROLOL SUCCINATE 50 MG TABLET PO SCH (08:37)
[2019-07-28] MEDS: FLUTICASONE NASAL SPRAY NAS SCH ×2 (08:38→21:46)
[2019-07-28] MEDS: CYCLOSPORINE EACHEYE SCH ×2 (08:38→21:50)
[2019-07-28] MEDS: POLYETHYLENE GLYCOL 3350 17 GM PACKET PO SCH (08:39)
[2019-07-28] MEDS ORDERED: SODIUM CHLORIDE FLUSH 0.9% 10 ML SYRINGE IVP PRN ×2 (09:21)
[2019-07-28] MEDS: IPRATROPIUM/ALBUTEROL 3 ML NEB INH PRN (09:53)
[2019-07-28] MEDS: ONDANSETRON 4 MG/2 ML VIAL IVP PRN ×2 (10:01→20:02)
--- NOTE | 2019-07-28 15:12 | PROVIDER PROGRESS NOTE ---
Subjective - Prog Note Date Prog Note Date: 07/28/19 Prog Note Time: 15:11 - Subjective Pt reports feeling: No change Subjective: Angie complains of ongoing BLE pain, but explains this has improved since yesterday. She denies chest pain, nausea, vomiting, a new rash, a productive cough, or confusion. Current Medications - Current Medications Current Medications: Active Medications: Acetaminophen (Tylenol) 650 mg PO Q4HR PRN Hydrocodone Bitart/Acetaminophen ([place] 5/325) 2 tab PO Q4HR PRN Albuterol/Ipratropium (Duoneb) 3 ml INH Q4HR PRN Calcium Carbonate/Glycine (Tums) 500 mg PO BID [facility] Carboxymethylcellulose (Refresh 1% Ophth Drops) 1 drops EACHEYE TID PRN Cephalexin (Keflex) 250 mg PO BID [facility] Escitalopram Oxalate (Lexapro) 10 mg PO DAILY [facility] Ferrous Gluconate (Fergon) 324 mg PO DAILY [facility] Fluticasone Propionate (Flonase) 1 sprays HAROLDO BID [facility] Formoterol Fumarate (Perforomist) 20 mcg INH RTBID [facility] Gabapentin (Neurontin) 100 mg PO BID [facility] Hydralazine HCl (Apresoline) 50 mg PO TID [facility] Hydroxyzine Pamoate (Vistaril) 25 mg PO TID PRN Isosorbide Mononitrate (Ismo) 20 mg PO DAILY [facility] Levothyroxine Sodium (Synthroid) 125 mcg PO QDAC [facility] Methadone HCl 5 mg PO 0800,1700 [facility] Metoprolol Succinate (Toprol Xl) 100 mg PO DAILY [facility] Mineral Oil (Cavilon) 1 applic TOP PRN PRN Nitroglycerin (Nitrostat) 0.4 mg SL Q5MIN PRN Ondansetron HCl (Zofran Inj) 4 mg IVP Q6HR PRN Pantoprazole Sodium (Protonix) 40 mg PO QDAC [facility] Patient Own Med ( Cyclosporine [ Restasis] 1 Drops) 1 each EACHEYE BID [facility] Polyethylene Glycol (Miralax) 17 gm PO DAILY [facility] Quetiapine Fumarate (Seroquel) 25 mg PO QPM [facility] Saccharomyces Boulardii (Florastor) 250 mg PO BID [facility] Spironolactone (Aldactone) 50 mg PO DAILY [facility] Throat Lozenges (Cepacol) 1 lozenge MM Q2HR PRN Vitamin A/Vitamin D (Vitamin A & D Ointment) 1 applic TOP PRN PRN HOME meds: Fluticasone [Flonase] 2 spray HAROLDO BID 01/24/16 QUEtiapine [SEROquel] 25 mg PO QPM 01/24/16 Methadone 5 mg PO 0800,1700 05/17/17 Rivaroxaban [Xarelto] 15 mg PO 1700 05/17/17 Calcium Carbonate/Vitamin D3 [Calcium 600-Vit D3 400 Tablet] 2 tab PO DAILY [facility] 6 05/19/17 Carboxymethylcellulose Sodium [Refresh Tears] 1 drops EACHEYE TID PRN 05/19/17 Cyclosporine [Restasis] 1 drops EACHEYE BID 05/19/17 Hydrocortisone [Cortef] 10 mg PO QDBREAKFAST 05/19/17 Multivitamin [Multiple Vitamins] 1 tab PO DAILY 05/19/17 Ondansetron Odt [Zofran Odt] 4 mg PO Q8HR PRN 05/19/17 Polyethylene Glycol 3350 [Miralax] 17 gm PO BID 05/19/17 Salmeterol Xinafoate [Serevent Diskus] 1 puffs INH BID 05/19/17 hydrOXYzine pamoate [Hydroxyzine Pamoate] 25 mg PO TID PRN 05/19/17 raNITIdine [Zantac] 150 mg PO BID 08/16/17 Hydrocortisone [Cortef] 5 mg PO QDDINNER 12/11/17 Nitroglycerin [Nitrostat] 0.4 mg SL Q5MIN PRN 03/12/18 Sennosides [Chocolated Laxative] 15 - 30 mg PO DAILY PRN 08/21/18 Albuterol Sulfate [Proair Hfa Inhaler] 2 puffs INH Q4H PRN 03/13/19 Metoprolol Succinate [Toprol Xl] 100 mg PO DAILY 03/13/19 Gabapentin 100 mg PO BID 03/14/19 Hydrocodone/Acetaminophen [Hydrocodone-Acetamin 5-325 mg] 1 - 2 tab PO QID PRN MDD 8 03/14/19 Escitalopram [Lexapro] 10 mg PO DAILY 03/20/19 hydrALAZINE [Apresoline] 50 mg PO TID 03/20/19 Spironolactone 50 mg PO DAILY 07/14/19 Torsemide 40 mg PO DAILY [facility] 100 mg x 2 days 9/10 09/10/19 Isosorbide Mononitrate [Ismo] 20 mg PO TID 07/28/19 Objective - Vital Signs/Intake & Output Reviewed Vital Signs: Yes Vital Signs: Vital Signs x48h Temp Pulse Pulse Resp BP Pulse Ox 07/28/19 13:17 36.5 C 65 16 122/80 100 07/28/19 10:05 63 18 07/28/19 10:00 71 138/74 H 07/28/19 08:18 36.6 C 66 16 134/98 H 100 07/28/19 07:51 64 18 Intake & Output: Intake & Output 07/25/19 07/26/19 07/27/19 07/28/19 23:59 23:59 23:59 23:59 Intake Total 7147.038 3647.292 1073.808 853.6 Output Total 2775 2400 920 200 Balance -1576.833 -743.708 153.808 653.6 - Objective General Appearance: positive: Alert, Moderate distress, Anxious Eyes Bilateral: positive: PERRL Eyes: OU Conjunctivae pale ENT: positive: Pharynx nml, Dry mucous membranes Neck: positive: Thyroid nml, No JVD, Trachea midline Respiratory: positive: Chest non-tender, No respiratory distress, Rhonchi Cardiovascular: positive: Irregularly irregular, Tachycardia, Systolic murmur, Diastolic murmur Peripheral Pulses: 1+ Radial (R), 1+ Radial (L) Abdomen: positive: Hepatomegaly, Abnml bowel sounds, Other (rounded, soft) Back: positive: Nml inspection Skin: positive: No rash, Warm, Dry, Pallor Extremities: positive: Non-tender, Pedal edema (pitting to BLEs, wheeping legs), Joint swelling Neurologic/Psychiatric: positive: Oriented x3, CN's nml (2-12), Motor nml, Weakness, Sensory loss, Depressed mood/affect, Other (tremors) Reflexes: Bicep (R): 2+, Bicep (L): 2+ - Lab Results Fish Bones: 07/29/19 05:05 07/29/19 05:05 Other Labs: Lab Results x24hrs 07/28/19 07/28/19 07/28/19 Range/Units 05:24 05:24 05:24 WBC 6.5 (4.8-10.8) x10^3/uL RBC 4.24 (4.20-5.40) 10^6/uL Hgb 11.8 L (12.0-16.0) g/dL Hct 39.2 (37.0-47.0) % MCV 92.5 (81.0-99.0) fL MCH 27.8 (27.0-31.0) pg MCHC 30.1 L (32.0-36.0) g/dL RDW 17.3 H (12.0-15.0) % Plt Count 155 (130-450) 10^3/uL MPV 9.3 (7.9-10.8) fL Neut # (Auto) 3.6 (1.5-6.6) 10^3/uL Lymph # (Auto) 1.9 (1.5-3.5) 10^3/uL [place] # (Auto) 0.7 (0.0-1.0) 10^3/uL Eos # (Auto) 0.3 (0.0-0.7) 10^3/uL Baso # (Auto) 0.0 (0.0-0.1) 10^3/uL Absolute Nucleated RBC 0.00 x10^3/uL Nucleated RBC % 0.0 /100WBC Sodium 141 (135-145) mmol/L Potassium 3.6 (3.5-5.0) mmol/L Chloride 92 L (101-111) mmol/L Carbon Dioxide 37 H (21-32) mmol/L Anion Gap 12.0 (6-13) BUN 60 H (6-20) mg/dL Creatinine 2.9 H (0.4-1.0) mg/dL Estimated GFR (MDRD) 16 L (>89) Glucose 123 H (70-100) mg/dL Calcium 8.2 L (8.5-10.3) mg/dL Phosphorus 5.8 H (2.5-4.6) mg/dL B-Natriuretic Peptide 645 H (5-100) pg/mL ABX Reporting Has patient been on IV antibiotics over the past 48 hours?: No Assessment/Plan - Problem List (1) Acute on chronic systolic ACC/AHA stage C congestive heart failure Impression: -Weights were going up from 93.5 kg to 94.54 kg, then 91.5 kg since Bumex drip was started -A bumex drip was given from 07/26-07/28, then stopped due to increased tremors -Home medications included; Isosorbide, hydralazine, torsemide, spironolactone, Xarelto, nitroglycerin SL tabs, & metoprolol - PHYLLIS inhibitor, ARB are contraindicated due to her known stage IV CKD -Status post upgrade of her pacemaker to a biventricular defibrillator -BNP was elevated at 1735 on admission, then improved to 645 today - Still has tremors, which are not seizure like. May be from diuretics, electrolyte imbalance Plan: Resume all home meds upon discharge, continue to hold Bumex today Klebsiella UTI -Urine culture results show klebsiella pneumonia as the final result -Agree with Keflex as it a cephalosporin Plan: continue while inpatient, send home with an additional 7 days Anemia -Continues on Iron supplementation which was started base on iron studies, B12 and Folate levels are adequate -H/H have been stable at 11.9/38.2 Plan: Continue to monitor, continue iron supplement CKD (chronic kidney disease) stage 4, GFR 15-29 ml/min - Cardio-renal syndrome: Improving her congestion has improved her creatinine by using more aggressive diuretic therapy - Patient is status post nephrectomy, (remains with only one kidney) for renal cell carcinoma, and her baseline creatinine has been 2.0 - Creatinine is 2.9 today, BUN 57 - Status post bumex drip from 07/26-07/28, now holding diuretics - ON exam she appears hypovolemic, NO JVDs, her usual amount of edema, increased abdominal girth as usual - Scattered crackles to low based, using Incentive Spirometer -Urine out put charted overnight and this morning of 500 mL, so patient and nursing were reminded to measure urine output - Weight 93.5 kg up from previous admission of 92 kg Plan: Continues on Spironolactone, continue I/O, daily weights, routine labs Dyspnea - The patient remains on 3-4 L nasal cannula through the night and on morning l abs, carbon dioxide continues to be up -Has established home oxygen Plan: Continue supplemental oxygen, titrate for comfort Elevated brain natriuretic peptide (BNP) level - BNP on admission was 1735, now down to 645 - Falsely elevated possibly due to CKD - Still requires oxygen supplementation of 3-4L Plan: Stop bumex drip, routine labs Hypertension - Prescribed BB, Imdur, diuretics and hydralazine at home -Blood pressure 124/72, heart rates 64 today Plan: Continue home meds, titrate diuretics based on fluid status Chronic A-fib - Continues on anticoagulation for stroke prophylaxis of daily Xarelto -History of A. fib contributing to her past stroke -Rate controlled today 60-70s - Recent placement of BiV ICD at [facility] in late May 2019 - Paced rhythm on telemetry - Previous episodes of V-tach requiring ICU level care on hospital stays Plan: Continue BB and Xarelto Hypothyroidism - TSH was noted to be still elevated at 8.67, but much improved since her last admission in May 2019 when it was 28.04 -Free T4 was normal at 1.01 Plan: Home dose 125 mcg, continues while here Pacemaker - Patient has had a recent BiV ICD placed at [facility], nearly healed -She has been paced in the 60-70s and remains on BB, Xarelto Plan: Continue telemetry and home meds End of life care -The patient has been follow by Lizabeth Cook, Palliative care for several years, at least since 2014 as per vendome [id number] - Methadone has been used for more adequate pain control of her chronic pain issues which has been orchestrated by Palliative care - The patient and her have decided on Hospice care since she does not like to be brought to the hospital when her breathing becomes difficult - Her heart function has improved, but she continues to have progressive kidney failure - She has not been seen by a exit booth agent, and remains with one kidney Plan: Continue to treat CHF exacerbation and UTI, anticipate home with Hospice on 07/29
--- NOTE | 2019-07-28 19:11 | ANESTHESIA PROCEDURE NOTE ---
Anesth Central Line Template - Central Line Central Line Preparation: Consent Obtained Central line type: Other (4 fr single picc, right basilic niall) Central line catheter tip site resides: Innominate vein Central line aftercare: Secured, Bundle checklist complete, Pt tolerated well, Other (unable to thread into SVC, left in innominate. For IV diuretics only. Trimmed at 40cm, 8cm exposed.)
--- NOTE | 2019-07-28 19:25 | XRAY Report ---
Reason: PICC line placement Procedure Date: 07/28/2019 Accession Number: [id number] / [id number] Procedure: XR - Chest for Line Placement CPT Code: FULL RESULT: EXAM: CHEST RADIOGRAPHY EXAM DATE: 07/28/2019 06:51 PM. CLINICAL HISTORY: PICC placement. COMPARISON: CHEST 1 VIEW 07/24/2019 2:21 PM. TECHNIQUE: 1 view. FINDINGS: Lines/Tubes: Right PICC in superior to the SVC. Stable dual-lead left ICD. Lungs/Pleura: Hypoinflated lungs. No focal opacities evident. No pleural effusion. No pneumothorax. Mediastinum: Large heart. Other: None. IMPRESSION: 1. Right PICC short of the SVC, with no visible pneumothorax. 2. Cardiomegaly without CHF. RADIA
--- NOTE | 2019-07-28 19:26 | XRAY Report ---
Reason: PICC line adjustment, 2nd image Procedure Date: 07/28/2019 Accession Number: [id number] / [id number] Procedure: XR - Chest for Line Placement CPT Code: FULL RESULT: EXAM: CHEST RADIOGRAPHY EXAM DATE: 07/28/2019 06:51 PM. CLINICAL HISTORY: PICC adjustment. 2nd image. COMPARISON: CHEST FOR LINE PLACEMENT 07/28/2019 6:26 PM. TECHNIQUE: 1 view. FINDINGS: Lines/Tubes: No change in tip of right PICC, ending short of the SVC. Lungs/Pleura: Hypoinflated lungs. No focal opacities evident. No pleural effusion. No pneumothorax. Mediastinum: Large heart. Other: Dual lead left ICD is stable. IMPRESSION: Right PICC tip remains short of the SVC. RADIA
--- NOTE | 2019-07-28 19:28 | XRAY Report ---
Reason: PICC line adjustment, final image Procedure Date: 07/28/2019 Accession Number: [id number] / [id number] Procedure: XR - Chest for Line Placement CPT Code: FULL RESULT: EXAM: CHEST RADIOGRAPHY EXAM DATE: 07/28/2019 06:52 PM. CLINICAL HISTORY: PICC line adjustment, final image. COMPARISON: CHEST FOR LINE PLACEMENT 07/28/2019 6:28 PM. TECHNIQUE: 1 view. FINDINGS: Lungs/Pleura: Mild generalized interstitial prominence similar to earlier study or perhaps decreased slightly. No consolidation, effusion, or pneumothorax. Mediastinum: Mild cardiomegaly, unchanged. Upper lobe vessels not clearly distended. Other: Permanent pacemaker on the left with intact leads. Right PICC tip at the level of the axilla. IMPRESSION: Right PICC tip in axilla. RADIA
[2019-07-28] MEDS: SODIUM CHLORIDE FLUSH 0.9% 10 ML SYRINGE IVP PRN (20:02)
[2019-07-28] MEDS: QUEtiapine 25 MG TABLET PO SCH (21:47)
[2019-07-29] MEDS: SODIUM CHLORIDE FLUSH 0.9% 10 ML SYRINGE IVP PRN ×2 (00:14→12:30)
[2019-07-29] MEDS: SODIUM CHLORIDE FLUSH 0.9% 10 ML SYRINGE IVP SCH ×2 (00:14→08:31)
[2019-07-29] MEDS: HYDROcod/ACETAM 5/325 MG TABLET PO PRN ×2 (01:48→12:30)
[2019-07-29 05:30] LABS: BASOPHILS # (AUTO) 0.1 10^3/uL (0.0-0.1); BASOPHILS % (AUTO) 0.9 %; EOSINOPHILS # (AUTO) 0.3 10^3/uL (0.0-0.7); EOSINOPHILS % (AUTO) 4.4 %; HGB - HEMOGLOBIN 11.9 g/dL (12.0-16.0); LYMPHOCYTES # (AUTO) 1.9 10^3/uL (1.5-3.5); LYMPHOCYTES % (AUTO) 32.6 %; MEAN CORPUSCULAR HEMOGLOBIN 28.7 pg (27.0-31.0); MEAN CORPUSCULAR HGB CONC 31.2 g/dL (32.0-36.0); MEAN PLATELET VOLUME 9.4 fL (7.9-10.8); MONOCYTES # (AUTO) 0.5 10^3/uL (0.0-1.0); MONOCYTES % (AUTO) 8.9 %; NEUTROPHILS % (AUTO) 52.9 %; PLT - PLATELET COUNT 157 10^3/uL (130-450); RED BLOOD COUNT 4.15 10^6/uL (4.20-5.40); RED CELL DISTRIBUTION WIDTH 17.1 % (12.0-15.0); WHITE BLOOD COUNT 5.7 x10^3/uL (4.8-10.8)
[2019-07-29 05:43] LABS: CALCIUM 8.7 mg/dL (8.5-10.3); CREATININE 2.7 mg/dL (0.4-1.0); PHOSPHORUS 5.1 mg/dL (2.5-4.6)
[2019-07-29] MEDS: hydrALAZINE 25 MG TABLET PO SCH (06:02)
[2019-07-29] MEDS: LEVOTHYROXINE 125 MCG TABLET PO SCH (06:02)
[2019-07-29] MEDS: PANTOPRAZOLE 40 MG TABLET PO SCH (06:02)
[2019-07-29] MEDS: FORMOTEROL FUMARATE NEB 20 MCG/2 ML INH SCH (07:40)
[2019-07-29] MEDS: METHADONE 5 MG TABLET PO SCH (08:29)
[2019-07-29] MEDS: ESCITALOPRAM 10 MG TABLET PO SCH (08:29)
[2019-07-29] MEDS: cephALEXin 250 MG CAPSULE PO SCH (08:29)
[2019-07-29] MEDS: CALCIUM CARBONATE CHEW 500 MG TABLET PO SCH (08:29)
[2019-07-29] MEDS: FERROUS GLUCONATE 324 MG TABLET PO SCH (08:29)
[2019-07-29] MEDS: GABAPENTIN 100 MG CAPSULE PO SCH (08:30)
[2019-07-29] MEDS: ISOSORBIDE MONONITRATE 10 MG TABLET PO SCH (08:30)
[2019-07-29] MEDS: FLUTICASONE NASAL SPRAY NAS SCH (08:30)
[2019-07-29] MEDS: CYCLOSPORINE EACHEYE SCH (08:31)
[2019-07-29] MEDS: SPIRONOLACTONE 25 MG TABLET PO SCH (08:31)
[2019-07-29] MEDS: SACCHAROMYCES BOULARDII 250 MG CAPSULE PO SCH (08:31)
[2019-07-29] MEDS: POLYETHYLENE GLYCOL 3350 17 GM PACKET PO SCH (08:31)
[2019-07-29] MEDS: METOPROLOL SUCCINATE 50 MG TABLET PO SCH (08:31)
--- NOTE | 2019-07-29 11:03 | DISCHARGE SUMMARY ---
"Discharge Summary Admit Date: 07/24/19 Discharge Date: 07/29/19 Discharging Provider: HEATHER Goins Primary Care Provider: Dr Jhony Ames Code Status: Do Not Attempt Resuscitation Condition at Discharge: Good Discharge Disposition: 01 Home, Self Care - DIAGNOSES Admission Diagnoses: Acute on chronic systolic heart failure UTI (urinary tract infection) CKD (chronic kidney disease) stage 4, GFR 15-29 ml/min Chronic a-fib Hypothyroidism Pacemaker History of stroke Chronic pain Depression Do not intubate, perform CPR, or defibrillate Discharge Diagnoses with Status of Each Condition: Acute on chronic systolic ACC/AHA stage C congestive heart failure- Chronic, PICC line placed to ensure comfort at home using IV lasix if needed UTI due to Klebsiella species- prescription sent to the pharmacy, Keflex to continue for 7 more days at home Anemia- Chronic, continued on iron CKD (chronic kidney disease) stage 4, GFR 15-29 ml/min- chronic, somewhat worsening THU on this admission Dyspnea- home oxygen, PICC line for upcoming home IV diuretics if needed Elevated brain natriuretic peptide (BNP) level- chronically elevated, stable upon discharge Hypertension- chronic, stable Chronic a-fib- chronic, stable Hypothyroidism- chronic, stable Pacemaker- chronic, stable End of life care- Discharge home with Hospice - HPI History of Present Illness: Ms. Calle is a 63-year-old woman with a complicated past medical history of advanced heart failure with nonischemic, dilated cardiomyopathy with EF 35% by recent ECHO, followed by palliative care for coordination of care and quality of life issues, angina, ventricular tachycardia with status post of most recent hospitalization received an ablation and an ICD/PIV pacer, CKD stage 4, status post of right nephorectomy due to right kidney carcinoma, CVA with left sided weakness, hypothyroidism, chronic afib on Xarelto, lower extremities edema, multiple admissions for acute on chronic heart failure exacerbation, frequent UTI, interstitial cystitis, chronic pain, & depression. She presented to the ED with complaints of congestion and fluid retention. She notes that although her prosthetics technician increased her torsemide to 80 mg daily, her weight continued to increase to greater than 15 pounds recently. She feels very congested, fluid retention, fatigue, and more difficulty with breathing, is on home oxygen. She was most recently hospitalized at [facility] from 05/26/2019 to 06/13/2019. She has had significant hx of ventricular tachycardia, and with her most recent hospitalization received an ablation and an ICD/PIV pacer on 05/22. She continues to struggle with acute on chronic CKD 4, she has been followed by nephrology. she denies chest pain, fevers, chills, headache, vision changes, abdominal pain, nausea, vomiting, diarrhea. Today her BNP is 998, creatinine is 2.3. UA analysis indicates UTI. In the ER, the patient is afebrile, HR is 65, BP is 143/74, RR is 16, 96% sats on 4 liter of O2. pt was admitted for above medical problem. - CONSULTS | PROCEDURES Consultations: Hospice - HOSPITAL COURSE Hospital Course: Acute on chronic systolic ACC/AHA stage C CHF -Weights were going up from 93.5 kg to 94.54 kg, then 91.5 kg since Bumex drip was started -A bumex drip was given from 07/26-07/28, then stopped due to increased tremors -Home medications included; Isosorbide, hydralazine, torsemide, spironolactone, Xarelto, nitroglycerin SL tabs, & metoprolol - PHYLLIS inhibitor, ARB are contraindicated due to her known stage IV CKD -Status post upgrade of her pacemaker to a biventricular defibrillator -BNP was elevated at 1735 on admission, then improved to 645 - Still has tremors, which are not seizure like. May be from diuretics, electrolyte imbalance - Bumex IV x1 given today prior to returning home Klebsiella UTI -Urine culture results show klebsiella pneumonia as the final result -Agree with Keflex as it a cephalosporin- sent to pharmacy for 7 more days of treatment Anemia -Continues on Iron supplementation which was started base on iron studies, B12 and Folate levels are adequate -H/H have been stable at 11.9/38.2 CKD (chronic kidney disease) stage 4, GFR 15-29 ml/min - Cardio-renal syndrome: Improving her congestion has improved her creatinine by using more aggressive diuretic therapy - Patient is status post nephrectomy, (remains with only one kidney) for renal cell carcinoma, and her baseline creatinine has been 2.0 - Creatinine is 2.9 today, BUN 57 - Status post bumex drip from 07/26-07/28, now holding diuretics - ON exam she appears hypovolemic, NO JVDs, her usual amount of edema, increased abdominal girth as usual - Scattered crackles to low based, using Incentive Spirometer -Urine out put charted overnight and this morning of 500 mL, so patient and nursing were reminded to measure urine output - Weight 93.5 kg up from previous admission of 92 kg Dyspnea - The patient remains on 3-4 L nasal cannula through the night and on morning labs, carbon dioxide continues to be up -Has established home oxygen Elevated brain natriuretic peptide (BNP) level - BNP on admission was 1735, now down to 645 - Falsely elevated possibly due to CKD - Still requires oxygen supplementation of 3-4L Hypertension - Prescribed BB, Imdur, diuretics and hydralazine at home -Blood pressure 124/72, heart rates 64 today Chronic A-fib - Continues on anticoagulation for stroke prophylaxis of daily Xarelto -History of A. fib contributing to her past stroke -Rate controlled today 60-70s - Recent placement of BiV ICD at [facility] in late May 2019 - Paced rhythm on telemetry - Previous episodes of V-tach requiring ICU level care on hospital stays Hypothyroidism - TSH was noted to be still elevated at 8.67, but much improved since her last admission in May 2019 when it was 28.04 -Free T4 was normal at 1.01 Pacemaker - Patient has had a recent BiV ICD placed at [facility], nearly healed -She has been paced in the 60-70s and remains on BB, Xarelto End of life care -The patient has been follow by Lizabeth Cook, Palliative care for several years, at least since 2015 as per [employer] - Methadone has been used for more adequate pain control of her chronic pain issues which has been orchestrated by Palliative care - The patient and her have decided on Hospice care since she does not like to be brought to the hospital when her breathing becomes difficult - Her heart function has improved, but she continues to have progressive kidney failure - She has not been seen by a project construction manager, and remains with one kidney Disposition: Patient was in stable condition and taken home via private car with her home oxygen. Hospice plans to meet at her home later today. - ALLERGIES Allergies/Adverse Reactions: Allergies Allergy/AdvReac Type Severity Reaction Status Date / Time Beef Containing Products Allergy Nausea Verified 07/24/19 13:46 cefpodoxime proxetil * Allergy Unknown Verified 07/24/19 13:46 [From Vantin] Jessamine And Derivatives Allergy Unknown Verified 07/24/19 13:46 clindamycin Allergy Unknown Verified 07/24/19 13:46 codeine Allergy Unknown Verified 07/24/19 13:46 erythromycin base Allergy Unknown Verified 07/24/19 13:46 [Erythromycin Base] mushroom Allergy Unknown Verified 07/24/19 13:46 onion Allergy Unknown Verified 07/24/19 13:46 rofecoxib [From Vioxx] Allergy Unknown Verified 07/24/19 13:46 sumatriptan [From Imitrex] Allergy Unknown Verified 07/24/19 13:46 tomato Allergy Unknown Verified 07/24/19 13:46 levofloxacin [From Levaquin] AdvReac Severe PSYCHOSIS Verified 07/24/19 13:46 metolazone AdvReac Severe Stomach Verified 07/24/19 13:46 Cramps morphine AdvReac Unknown Verified 07/24/19 13:46 pepper (genus Capsicum) AdvReac Anaphylaxis Verified 07/24/19 13:46 - MEDICATIONS Home Medications: Ambulatory Orders Medication Instructions Recorded Confirmed Fluticasone [Flonase] 2 spray HAROLDO BID 01/24/16 07/24/19 QUEtiapine [SEROquel] 25 mg PO QPM 01/24/16 07/24/19 Methadone 5 mg PO 0800,1700 05/17/17 07/24/19 Rivaroxaban [Xarelto] 15 mg PO 1700 05/17/17 07/24/19 Calcium Carbonate/Vitamin D3 2 tab PO DAILY MDD 6 05/19/17 07/24/19 [Calcium 600-Vit D3 400 Tablet] Carboxymethylcellulose Sodium 1 drops EACHEYE TID PRN 05/19/17 07/24/19 [Refresh Tears] Cyclosporine [Restasis] 1 drops EACHEYE BID 05/19/17 07/24/19 Hydrocortisone [Cortef] 10 mg PO QDBREAKFAST 05/19/17 07/24/19 Multivitamin [Multiple Vitamins] 1 tab PO DAILY 05/19/17 07/24/19 Ondansetron Odt [Zofran Odt] 4 mg PO Q8HR PRN 05/19/17 07/24/19 Polyethylene Glycol 3350 [Miralax] 17 gm PO BID 05/19/17 07/24/19 Salmeterol Xinafoate [Serevent 1 puffs INH BID 05/19/17 07/24/19 Diskus] hydrOXYzine pamoate [Hydroxyzine 25 mg PO TID PRN 05/19/17 07/24/19 Pamoate] raNITIdine [Zantac] 150 mg PO BID 08/16/17 07/24/19 Hydrocortisone [Cortef] 5 mg PO QDDINNER 12/11/17 07/24/19 Nitroglycerin [Nitrostat] 0.4 mg SL Q5MIN PRN 03/12/18 07/24/19 Sennosides [Chocolated Laxative] 15 - 30 mg PO DAILY PRN 08/21/18 07/14/19 Albuterol Sulfate [Proair Hfa 2 puffs INH Q4H PRN 03/13/19 07/24/19 Inhaler] Metoprolol Succinate [Toprol Xl] 100 mg PO DAILY 03/13/19 07/24/19 Gabapentin 100 mg PO BID 03/14/19 07/24/19 Hydrocodone/Acetaminophen 1 - 2 tab PO QID PRN MDD 8 03/14/19 07/24/19 [Hydrocodone-Acetamin 5-325 mg] Docusate Sodium 250Mg Capsule 250 - 500 mg PO DAILY #90 capsule 03/18/19 07/24/19 [Colace 250Mg Capsule] Saccharomyces Boulardii [Florastor] 250 mg PO BID #60 capsule 03/18/19 07/24/19 Escitalopram [Lexapro] 10 mg PO DAILY 03/20/19 07/24/19 hydrALAZINE [Apresoline] 50 mg PO TID 03/20/19 07/24/19 Ferrous Gluconate [Iron] 240 mg PO DAILY #30 tablet 05/12/19 07/24/19 Levothyroxine [Synthroid] 125 mcg PO QDAC #30 tablet 05/12/19 07/24/19 Spironolactone 50 mg PO DAILY 07/14/19 07/24/19 Torsemide 40 mg PO DAILY MDD 100 mg x 2 days 07/14/19 07/24/1907/14 Isosorbide Mononitrate [Ismo] 20 mg PO TID 07/28/19 07/28/19 Cephalexin [Keflex] 250 mg PO BID #14 capsule 07/29/19 - PHYSICAL EXAM AT DISCHARGE General Appearance: positive: Alert, Mild distress, Anxious Eyes Bilateral: positive: PERRL ENT: positive: Pharynx nml, Dry mucous membranes Neck: positive: Thyroid nml, No JVD Respiratory: positive: Chest non-tender, No respiratory distress, Other (diminished with scattered crackles bilaterally) Cardiovascular: positive: Irregularly irregular, Systolic murmur, Diastolic murmur Peripheral Pulses: positive: 1+ Abdomen: positive: Tenderness (mild tenderness to bilateral upper quadrants), Hepatomegaly, Abnml bowel sounds, Other (rounded, soft) Back: positive: Nml inspection Skin: positive: No rash, Warm, Dry, Pallor Extremities: positive: Pedal edema (BLE edema with chronic pitting, non-healing ulcers, wheeping), Joint swelling Neurologic/Psychiatric: positive: Oriented x3, CN's nml (2-12), Motor nml, Weakness, Sensory loss, Slurred/abnml speech (moments of garbled speech), Depressed mood/affect, Other (mild, subtle tremors) Reflexes: Bicep (R): 2+, Bicep (L): 2+ - LABS Result Diagrams: 07/29/19 05:05 07/29/19 05:05 - DIAGNOSTIC IMAGING Diagnostic Imaging Results: Final report reviewed Diagnostic Imaging Results Comments: EXAM:CHEST RADIOGRAPHY 07/24/2019 02:38 PM: IMPRESSION: Moderate stable cardiomegaly with mild pulmonary edema. Echocardiogram preliminary 07/27/2019: Severe LV enlargement, LV systolic function is moderately impaired with an EF of 35-40%, false cordae tendineae in LV, mitral regurg, RVSP at rest is 27 mmHg - SEPSIS Current Stage of Sepsis: Ruled out - FOLLOW UP Follow Up: As per Hospice - TIME SPENT Time Spent in Discharge (Minutes): 60"
[2019-07-29 11:42] VITALS: BP 138/69
[2019-07-29] MEDS ORDERED: BUMETANIDE 1 MG/4 ML VIAL IVP ONE (11:54)
--- NOTE | 2019-07-29 11:57 | Discharge Plan ---
Discharge Plan Problem Reviewed?: Yes Disposition: Home, Self Care Condition: Good Diet: Cardiac Activity Restrictions: Activity as Tolerated Shower Restrictions: No Health Concerns: Diuretics for comfort Care is directed by Dr. Booker, Hospice provider Care Goals: Prevent hospital stays No dialysis Comfort focused cares to ensure staying at home No Smoking: If you smoke, Please STOP! Call for help.
--- NOTE | 2019-07-29 15:56 | ADVANCE CARE PLANNING NOTE ---
Advance Care Planning - Planning Encounter Date: 07/29/19 Time: 09:00 Purpose: Speak about end of life cares, upcoming events and finalize treatment plan. Parties in Attendance: The patient and myself- HEATHER Goins Decisional Capacity of the Patient: The patient is fully decisional and can make her own medical decisions. - Diagnosis for Encounter (1) Acute on chronic systolic ACC/AHA stage C congestive heart failure Summary: -Weights were going up from 93.5 kg to 94.54 kg, then 91.5 kg since Bumex drip was started -A bumex drip was given from 07/26-07/28, then stopped due to increased tremors -Home medications included; Isosorbide, hydralazine, torsemide, spironolactone, Xarelto, nitroglycerin SL tabs, & metoprolol - PHYLLIS inhibitor, ARB are contraindicated due to her known stage IV CKD -Status post upgrade of her pacemaker to a biventricular defibrillator -BNP was elevated at 1735 on admission, then improved to 645 today - Still has tremors, which are not seizure like. May be from diuretics, electrolyte imbalance Plan: Resume all home meds upon discharge, continue to hold Bumex today - Encounter Subjective/Patient's Story: Simón Eldridge states that she just wants to go home and be with her dog and wants to spend no more time in the hospital. She is grateful for Palliative and Hospice care to keep her pain controlled and her mind at ease with staying home and enjoying life in her own ways. She admits to not following up with a kidney specialist, but states that transportation tends to be problematic at times which is the main reason for not following up. She states that the PICC line has been sore since getting it last night, but her BLEs are feeling better. She admits to having her pain mostly controlled and her tremors are nearly subsided. She states that she can feel her swallowing seems more difficult in the past several days. She confirmed that she wishes to remain a DNR and she had a very hard time sleeping last night in anticipation of leaving today to be under the care of Dr. Booker, Hospice provider. Objective/Medical Story: Simón Calle is a 63-year-old woman with a complicated past medical history of advanced heart failure with nonischemic, dilated cardiomyopathy with EF 35% by recent ECHO, followed by palliative care for coordination of care and quality of life issues, angina, ventricular tachycardia with status post of most recent hospitalization received an ablation and an ICD/PIV pacer, CKD stage 4, status post of right nephorectomy due to right kidney carcinoma, CVA with left sided weakness, hypothyroidism, chronic afib on Xarelto, lower extremities edema, multiple admissions for acute on chronic heart failure exacerbation, frequent UTI, interstitial cystitis, chronic pain, & depression. She presented to the ED with complaints of congestion and fluid retention. She notes that although her braille translator increased her torsemide to 80 mg daily, her weight continued to increase to greater than 15 pounds recently. She feels very congested, fluid retention, fatigue, and more difficulty with breathing, is on home oxygen. She was most recently hospitalized at [facility] from 05/26/2019 to 06/13/2019. She has had significant hx of ventricular tachycardia, and with her most recent hospitalization received an ablation and an ICD/PIV pacer on 05/22. She continues to struggle with acute on chronic CKD 4, she has been followed by nephrology. she denies chest pain, fevers, chills, headache, vision changes, abdominal pain, nausea, vomiting, diarrhea. Today her BNP is 998, creatinine is 2.3. UA analysis indicates UTI. In the ER, the patient is afebrile, HR is 65, BP is 143/74, RR is 16, 96% sats on 4 liter of O2. pt was admitted for above medical problem. Today, the patient became tearful when speaking of her end of life plans and more discussion had taken place regarding the things that are most important to her. She has been told of her increased heart function and her worsening kidney function. Goals of Care: Manage pain Keep fluid status managed to promote ease of breathing Prevent bladder infections, continue Keflex at home Hospice care at home Plan: Discharge home today with Hospice Code Status: Do Not Attempt Resuscitation Time spent on advance care plannin
== END 2019-07-29 13:30 | disposition home or self-care (01) | DRG 291 ==
LOC: ED 12:57 → ICU 15:27 → MS2 07-25 07:22 → ICU 07-25 07:39 → MS2 07-25 15:48
PROVIDERS: ADMIT Nurse Practitioner Gerontology; ATTEND Nurse Practitioner
PROC: 05H333Z Insertion of Infusion Device into Right Innominate Vein, Percutaneous Approach (ICD-10-PCS; principal; 2019-07-28)
DX: I13.0 Hypertensive heart and chronic kidney disease with heart failure and stage 1 through stage 4 chronic kidney disease, or unspecified chronic kidney disease (principal); I50.23 Acute on chronic systolic (congestive) heart failure; N18.4 Chronic kidney disease, stage 4 (severe); N17.9 Acute kidney failure, unspecified; I69.354 Hemiplegia and hemiparesis following cerebral infarction affecting left non-dominant side; L97.929 Non-pressure chronic ulcer of unspecified part of left lower leg with unspecified severity; L97.919 Non-pressure chronic ulcer of unspecified part of right lower leg with unspecified severity; B96.1 Klebsiella pneumoniae [K. pneumoniae] as the cause of diseases classified elsewhere; I50.84 End stage heart failure; G25.3 Myoclonus; T50.1X5A Adverse effect of loop [high-ceiling] diuretics, initial encounter; Y92.230 Patient room in hospital as the place of occurrence of the external cause; I48.2 Chronic atrial fibrillation; E03.9 Hypothyroidism, unspecified; G89.0 Central pain syndrome; F32.9 Major depressive disorder, single episode, unspecified; D50.9 Iron deficiency anemia, unspecified; R21 Rash and other nonspecific skin eruption; L53.9 Erythematous condition, unspecified; I87.8 Other specified disorders of veins; I42.0 Dilated cardiomyopathy; I20.9 Angina pectoris, unspecified; N30.10 Interstitial cystitis (chronic) without hematuria; J45.909 Unspecified asthma, uncomplicated; M79.7 Fibromyalgia; Z66 Do not resuscitate; Z51.5 Encounter for palliative care; Z86.79 Personal history of other diseases of the circulatory system; Z95.810 Presence of automatic (implantable) cardiac defibrillator; Z90.5 Acquired absence of kidney; Z85.528 Personal history of other malignant neoplasm of kidney; Z79.01 Long term (current) use of anticoagulants; Z79.899 Other long term (current) drug therapy; Z99.81 Dependence on supplemental oxygen; Z79.891 Long term (current) use of opiate analgesic; Z79.51 Long term (current) use of inhaled steroids; Z88.1 Allergy status to other antibiotic agents; Z87.2 Personal history of diseases of the skin and subcutaneous tissue
CPT/HCPCS: 36415; 51798; 71045; 80048; 80053; 81001; 83690; 83735; 83880; 84100; 84439; 84443; 84484; 85025; 85610; 87077; 87086; 87150; 87181; 87640; 93005; 93306; 94640; 96374; 99233; 99283; 99285; A6250; A9270; C1751; 81003